=== PATIENT | male | born 1970 | race Caucasian/White ===

== ENCOUNTER 2020-01-26 09:31 | Outpatient (REF) | payer MEDICAID, SELFPAY | END 2020-01-26 09:32 | disposition home or self-care (01) | LOC: HO.LAB 09:31 | PROVIDERS: Visit Provider Internal Medicine | DX: Z20.828 Contact with and (suspected) exposure to other viral communicable diseases (principal) | CPT/HCPCS: 87635 ==

== ENCOUNTER → 2020-02-09 15:26 | Outpatient (BNVA) | payer MEDICAID, SELFPAY | PROVIDERS: Visit Provider Physician Assistant | DX: Z01.818 Encounter for other preprocedural examination (principal) | CPT/HCPCS: 99212 ==

== ENCOUNTER 2020-02-15 14:43 | Outpatient (REF) | payer MEDICAID, SELFPAY | END 2020-02-15 14:44 | disposition home or self-care (01) | LOC: HO.LAB 14:43 | PROVIDERS: Visit Provider Internal Medicine | DX: Z20.828 Contact with and (suspected) exposure to other viral communicable diseases (principal) | CPT/HCPCS: 87635 ==

== ENCOUNTER 2020-02-28 17:39 | Outpatient (REF) | payer MEDICAID, SELFPAY | END 2020-02-28 17:40 | disposition home or self-care (01) | LOC: HO.LAB 17:39 | PROVIDERS: Visit Provider Internal Medicine | DX: Z20.828 Contact with and (suspected) exposure to other viral communicable diseases (principal) | CPT/HCPCS: C9803; U0003 ==

== ENCOUNTER 2020-03-09 17:48 | Emergency (ER) | payer MEDICAID, SELFPAY ==
[2020-03-09 18:39] VITALS: BP 136/87; PULSE 106; RESP 20; TEMP 36.1; O2SAT 99; BMI 60.5
--- NOTE | 2020-03-09 19:42 | ED.GENADULT ---
HPI - General Adult General Chief complaint: General Medical Stated complaint: HI BLOOD SUGAR Time Seen by Provider: 03/09/20 19:41 Source: patient Mode of arrival: ambulatory Limitations: no limitations History of Present Illness HPI narrative: This is a 49-year-old male otherwise healthy, no known history of diabetes presented today with few days of polyuria, polydipsia, and blurry vision, his with diabetic checked his blood sugar found it high, in the ED also found his blood sugar is above 400. Patient otherwise has no other symptoms. Related Data Previous Rx's Medication Instructions Recorded miralax See Rx Instructions PO 02/09/20 USEASDIRECTD #238 g bisacodyl 5 mg tablet,delayed 10 mg PO ONCE 1 Days #2 tab 03/03/20 release polyethylene glycol 3350 17 238 g PO .COMPLEX 1 Days #238 g 03/03/20 gram/dose oral powder metformin 500 mg PO BID #60 tab 03/09/20 Allergies Allergy/AdvReac Type Severity Reaction Status Date / Time No Known Allergies Allergy Unverified 01/06/20 16:59 Review of Systems Review of Systems: All other systems are reviewed and are negative Constitutional: Reports as per HPI and Reports no additional constitutional complaints Eyes: Reports as per HPI and Reports no additional eye complaints Reports system reviewed and no additional complaints, except as documented Cardiovascular: Reports as per HPI and Reports no additional cardiovascular complaints Respiratory: Reports as per HPI and Reports no additional respiratory complaints Gastrointestinal: Reports as per HPI and Reports no additional gastrointestinal complaints Genitourinary: Reports no additional female genitourinary complaints Musculoskeletal: Reports no additional musculoskeletal complaints Skin/Breast: Reports system reviewed and no additional complaints, except as docu Psychiatric: Reports no additional psychiatric complaints Endocrine: Reports no additional endocrine complaints Hematologic/Lymphatic: Reports no additional hematologic/lymphatic complaints Allergic/Immunologic: Reports no additional allergic/immunologic complaints Reports system reviewed and no additional complaints, except as documented and Reports Abnormal speech present [facility] Past Medical History Medical History Asthma Family History Family History Father No problems noted. Social History Social History Alcohol intake: current Smoking Status: Former smoker Advance Directives: No Physical Exam Vital Signs: Vital Signs: Last Vital Signs Temp 98.9 F 03/09/20 20:51 Pulse 92 03/09/20 20:51 Resp 16 03/09/20 20:51 BP 141/98 H 03/09/20 20:51 Pulse Ox 100 03/09/20 20:51 Body Mass Index 60.5 Vital signs have been reviewed as normal and appeared to be correct. Blood pressure in the high range. Heart rate in the high range. Respiration rate normal. Temperature normal. Oxygen saturation normal. Appearance: Alert. Oriented X3. No acute distress. Head: Normal external exam. Normocephalic. Atraumatic. No James signs noted. No raccoon eyes noted Eyes: PERRLA. EOMI. Conjunctiva and sclera normal. Eyelids normal. ENT: EAC normal. TM's Normal. Pharynx normal. Uvula midline. Moist mucous membranes. No trismus noted. No drooling noted. No muffled voice noted. Neck: Normal inspection. Neck supple. FROM. No adenopathy. Thyroid Normal. No meningeal signs. No neck mass noted. CVS: Normal heart rate and rhythm. Heart sound normal. No murmurs noted. Pulses normal throughout. Respiratory: No respiratory distress. Painless inspiration. Breath sounds normal. No wheezes/rales/rhonchi noted. Chest nontender. No accessory muscle usage noted or decreased air movement noted. Abdomen: Soft and nontender. Bowel sounds normal in all 4 quadrants. No distention noted. No organomegaly noted. No visible injury noted. Back: No CVA tenderness. Full range of motion noted. Skin: Skin warm and dry. Normal skin color. Normal skin turgor. No rashes/lesions/lacerations noted. Extremities: No lower extremity edema. Extremities exhibit normal range of motion. Extremities nontender. Neuro: Oriented X 3. No motor deficit. No sensory deficit. Reflexes normal. Medical Decision Making MDM Narrative Medical decision making narrative: Assessment and plan. 49-year-old male who is otherwise healthy presented with new onset diabetes symptoms, will discharge the patient on metformin prescription, drink plenty of fluids, follow-up with PCP to continue managing his diabetes. Lab Data Lab results reviewed: Yes I reviewed the patient's lab results. Result diagrams: 03/09/20 21:00 03/09/20 21:00 Labs: Lab Results 03/09/20 03/09/20 03/09/20 Range/Units 21:00 21:00 21:13 WBC 7.4 (4.8-10.8) X10*3/uL RBC 5.16 (4.60-5.80) X10*6/uL Hgb 15.7 (14.0-18.0) g/dl Hct 43.9 (42-52) % MCV 85.1 (80-98) fL MCH 30.4 (27.0-33.0) pg MCHC 35.8 (31.0-36.0) g/dl RDW 12.2 (11.0-16.0) % Plt Count 176 (160-400) X10*3/uL MPV 10.8 (9.4-12.4) fL Immature Gran % (Auto) 0.4 (0.0-0.4) % Neut % (Auto) 69.3 (45-73) % Lymph % (Auto) 21.4 (20-40) % [place] % (Auto) 7.0 (2-11) % Eos % (Auto) 1.8 (0-4) % Baso % (Auto) 0.1 (0-2) % Lymph # (Auto) 1.6 (1.2-4.9) X10*3/uL [place] # (Auto) 0.5 (0.1-1.2) X10*3/uL Eos # (Auto) 0.1 (0.0-0.4) X10*3/uL Baso # (Auto) 0.0 (0.0-0.2) X10*3/uL Abs Immat Gran (auto) 0.03 (0.00-0.03) X10*3/uL Absolute Neuts (auto) 5.1 (2.0-8.3) X10*3/uL Absolute Nucleated RBC 0.000 (0.0-0.012) X10*3/uL Nucleated RBC % (auto) 0.0 (0.0-0.2) /100WBC Sodium 135 (135-145) mmol/L Potassium 4.6 (3.3-5.1) mmol/l Chloride 99 (96-108) mmol/L Carbon Dioxide 26 (22-29) mmol/L Anion Gap 15 (12-20) BUN 12 (9-16) mg/dL Creatinine 1.29 (0.5-1.4) mg/dL Estim Creat Clear Calc 105.2 Estimated GFR 59 Random Glucose 497 H* (60-115) mg/dL Calcium 9.0 (8.4-10.2) mg/dL Total Bilirubin 1.2 H (0.0-1.0) mg/dL Direct Bilirubin 0.3 (0.0-0.5) mg/dL AST 20 (5-37) U/L ALT 43 H (0-40) U/L Alkaline Phosphatase 90 (39-117) U/L Total Protein 7.3 (6.5-8.0) g/dL Albumin 4.8 (3.5-5.0) g/dL Lipase 27 (8-78) U/L Urine Color YELLOW Urine Appearance CLEAR Urine pH 6.5 (5.0-8.0) Ur Specific [place] 1.010 (1.005-1.025) Urine Protein NEG (NEG-TRACE) MG/DL Urine Glucose (UA) >=1000 H (NEG) MG/DL Urine Ketones NEG (NEG) MG/DL Urine Blood NEG (NEG) Urine Nitrite NEG (NEG) Ur Leukocyte Esterase NEG (NEG) Urine RBC 0 (0) /HPF Urine WBC 0 (0-4) /HPF Ur Squamous Epith Cells NONE /LPF Urine Bacteria TRACE /LPF Discharge Plan Discharge Clinical Impression: Diabetes mellitus, new onset Patient Disposition: Home, Self-Care Instructions: Type 2 Diabetes in Adults: New Diagnosis (ED) Prescriptions: New metformin 500 mg tablet 500 mg PO BID Qty: 60 RF: 0 No Action polyethylene glycol 3350 [Miralax] 17 gram/dose powder 238 g PO .COMPLEX 1 Days Qty: 238 RF: 0 bisacodyl [Dulcolax (bisacodyl)] 5 mg tablet,delayed release (DR/EC) 10 mg PO ONCE 1 Days Qty: 2 RF: 0 miralax See Rx Instructions PO USEASDIRECTD Qty: 238 RF: 0 Referrals: Physician,Unknown [Primary Care Provider] - 2 days
[2020-03-09 20:51] VITALS: BP 141/98; PULSE 92; RESP 16; TEMP 37.2; O2SAT 100
[2020-03-09 21:07] LABS: MANUAL DIFF FLAG NO
[2020-03-09 21:08] LABS: Basophils Percent Auto 0.1 % (0-2); Eosinophils Absolute Auto 0.1 X10*3/uL (0.0-0.4); Eosinophils Percent Auto 1.8 % (0-4); Hematocrit 43.9 % (42-52); Hemoglobin 15.7 g/dl (14.0-18.0); Imm Gran Abs Auto 0.03 X10*3/uL (0.00-0.03); Imm Gran Pct Auto 0.4 % (0.0-0.4); Lymphocytes Absolute Auto 1.6 X10*3/uL (1.2-4.9); Lymphocytes Percent Auto 21.4 % (20-40); Mean Corpuscular HGB Conc 35.8 g/dl (31.0-36.0); Mean Corpuscular Hemoglobin 30.4 pg (27.0-33.0); Mean Corpuscular Volume 85.1 fL (80-98); Mean Platelet Volume 10.8 fL (9.4-12.4); Monocytes Absolute Auto 0.5 X10*3/uL (0.1-1.2); Neutrophils Absolute Auto 5.1 X10*3/uL (2.0-8.3); Neutrophils Percent Auto 69.3 % (45-73); Platelet Count 176 X10*3/uL (160-400); Red Blood Count 5.16 X10*6/uL (4.60-5.80); Red Cell Distribution Width 12.2 % (11.0-16.0); White Blood Count 7.4 X10*3/uL (4.8-10.8)
[2020-03-09] MEDS: metFORMIN HCl 1,000 MG TABLET 1000 MG PO (21:08)
[2020-03-09] MEDS: 0.9 % Sodium Chloride 500 ML 1000 ML IV (21:10)
[2020-03-09 21:21] LABS: Glucose Urine UA >=1000 MG/DL (NEG); Leukocyte Esterase Urine NEG (NEG); Nitrite Urine NEG (NEG); PH 6.5 (5.0-8.0); Urine Blood NEG (NEG); Urine Ketones NEG (NEG); Urine Protein NEG (NEG-TRACE)
[2020-03-09 21:22] LABS: Appearance Urine CLEAR; Color Urine YELLOW
[2020-03-09 21:28] LABS: Bacteria Urine TRACE /LPF; RBC Urine 0 /HPF (0); WBC Urine 0 /HPF (0-4)
[2020-03-09 21:43] LABS: Alanine Aminotransferase 43 U/L (0-40); Albumin Level 4.8 g/dL (3.5-5.0); Alkaline Phosphatase 90 U/L (39-117); Anion Gap 15 (12-20); Aspartate Amino Transferase 20 U/L (5-37); Bilirubin Direct 0.3 mg/dL (0.0-0.5); Bilirubin Total 1.2 mg/dL (0.0-1.0); Blood Urea Nitrogen 12 mg/dL (9-16); Carbon Dioxide 26 mmol/L (22-29); Chloride 99 mmol/L (96-108); Creatinine Clr Calc Pharmacy 105.2; Estimated Glomerular Filt Rate 59; Glucose Random 497 mg/dL (60-115); Lipase 27 U/L (8-78); Potassium 4.6 mmol/l (3.3-5.1); Sodium 135 mmol/L (135-145); Total Protein 7.3 g/dL (6.5-8.0)
[2020-03-10 00:14] VITALS: BP 132/89; PULSE 81; RESP 16; TEMP 37.1; O2SAT 100
[2020-03-10 00:54] LABS: Glucose, Whole Blood 283 mg/dL (60-115)
[2020-03-10 02:52] LABS: Estimated Average Glucose 235 mg/dL; Hemoglobin A1c % 9.8 %
[2020-03-10 07:29] LABS: Glucose, Whole Blood 498 mg/dL (60-115)
== END 2020-03-10 00:30 | disposition home or self-care (01) ==
PROVIDERS: Emergency Provider Emergency Medicine
DX: E11.9 Type 2 diabetes mellitus without complications (principal); R35.8 Other polyuria; Z79.899 Other long term (current) drug therapy
CPT/HCPCS: 36415; 80048; 80076; 81001; 82947; 83036; 83690; 85025; 99284

== ENCOUNTER 2020-03-15 09:57 | Outpatient (REF) | payer MEDICAID, SELFPAY | END 2020-03-15 09:58 | disposition home or self-care (01) | LOC: HO.LAB 09:57 | PROVIDERS: Visit Provider Internal Medicine | DX: Z20.828 Contact with and (suspected) exposure to other viral communicable diseases (principal) | CPT/HCPCS: C9803; U0003 ==

== ENCOUNTER 2020-05-25 13:23 | Outpatient (REF) | payer MEDICAID, SELFPAY | END 2020-05-25 13:24 | disposition home or self-care (01) | LOC: HO.LAB 13:23 | PROVIDERS: Visit Provider Internal Medicine | DX: Z20.822 Contact with and (suspected) exposure to COVID-19 (principal) | CPT/HCPCS: 36415; C9803; U0003; U0005 ==

== ENCOUNTER 2020-06-13 10:18 | Outpatient (REF) | payer MEDICAID, SELFPAY | END 2020-06-13 10:19 | disposition home or self-care (01) | LOC: HO.LAB 10:18 | PROVIDERS: PCP Internal Medicine; Visit Provider Internal Medicine | DX: Z20.822 Contact with and (suspected) exposure to COVID-19 (principal) | CPT/HCPCS: 36415; C9803; U0003; U0005 ==

== ENCOUNTER 2020-06-21 18:03 | Emergency (ER) | payer MEDICAID, SELFPAY ==
--- NOTE | ~2020-06-21 | XR_ITS ---
EXAMINATION: XR CHEST CLINICAL INFORMATION: Left-sided chest pain COMPARISON: 04/06/2019 TECHNIQUE: Frontal view of the chest was obtained. FINDINGS: No acute finding. Exams comparable to previous. No obvious failure or infiltrate. There is no effusion. Low lung volumes. XR/XR chest 1V IMPRESSION: No acute process.
[2020-06-21 19:06] VITALS: BP 142/92; PULSE 100; RESP 16; TEMP 37.1; O2SAT 98; BMI 25.8
--- NOTE | 2020-06-21 19:09 | ECG_ITS ---
Test Reason : CHEST PAIN Blood Pressure : / mmHG Vent. Rate : 104 BPM Atrial Rate : 104 BPM P-R Int : 146 ms QRS Dur : 086 ms QT Int : 338 ms P-R-T Axes : 041 030 061 degrees QTc Int : 444 ms Sinus tachycardia Cannot exclude old inferior infarct but could be normal variant Abnormal ECG When compared with ECG of 21-APR-2014 18:53, No significant change was found Referred By: Generic ED Physician Electronically Signed By:YVONNE FAUSTIN
[2020-06-21 19:23] LABS: MANUAL DIFF FLAG NO
[2020-06-21 19:27] LABS: Basophils Percent Auto 0.2 % (0-2); Eosinophils Absolute Auto 0.1 X10*3/uL (0.0-0.4); Eosinophils Percent Auto 1.2 % (0-4); Hemoglobin 16.8 g/dl (14.0-18.0); Imm Gran Abs Auto 0.03 X10*3/uL (0.00-0.03); Imm Gran Pct Auto 0.4 % (0.0-0.4); Lymphocytes Absolute Auto 1.9 X10*3/uL (1.2-4.9); Lymphocytes Percent Auto 22.8 % (20-40); Mean Corpuscular Hemoglobin 30.2 pg (27.0-33.0); Mean Corpuscular Volume 86.2 fL (80-98); Mean Platelet Volume 9.9 fL (9.4-12.4); Monocytes Absolute Auto 0.6 X10*3/uL (0.1-1.2); Monocytes Percent Auto 6.9 % (2-11); Neutrophils Absolute Auto 5.7 X10*3/uL (2.0-8.3); Neutrophils Percent Auto 68.5 % (45-73); Platelet Count 231 X10*3/uL (160-400); Red Blood Count 5.57 X10*6/uL (4.60-5.80); Red Cell Distribution Width 12.3 % (11.0-16.0); White Blood Count 8.3 X10*3/uL (4.8-10.8)
[2020-06-21 19:55] LABS: Anion Gap 14 (12-20); Blood Urea Nitrogen 13 mg/dL (9-16); Calcium 9.8 mg/dL (8.4-10.2); Carbon Dioxide 27 mmol/L (22-29); Chloride 103 mmol/L (96-108); Creatinine Clr Calc Pharmacy 79.1; Estimated Glomerular Filt Rate > 60; Glucose Random 115 mg/dL (60-115); Sodium 140 mmol/L (135-145)
[2020-06-21 19:59] LABS: Troponin-I High Sensitivity < 3.5 ng/L (<3.5-35.0)
[2020-06-21 23:21] VITALS: BP 120/83; PULSE 97; RESP 18; TEMP 36.7; O2SAT 99
--- NOTE | 2020-06-22 00:24 | PC.NURSE ---
field service poultry technician at bedside to obtain Covid swab.
--- NOTE | 2020-06-22 00:31 | PC.NURSE ---
TIME MOTION ANALYST at bedside for primary eval.
[2020-06-22 00:45] LABS: COVID-19 Test Negative (Negative)
[2020-06-22] MEDS: Ibuprofen 600 MG TABLET PO (00:47)
--- NOTE | 2020-06-22 00:48 | PC.NURSE ---
Medicated with Motrin per JUN.
--- NOTE | 2020-06-22 01:23 | ED.CHESTPAIN ---
HPI - Chest Pain General Chief Complaint: Chest Pain Stated Complaint: CHEST PRESSURE Time Seen by Provider: 06/22/20 00:00 Source: patient Mode of arrival: ambulatory Limitations: no limitations History of Present Illness HPI narrative: 49-year-old male with past medical history of asthma and diabetes presents with intermittent left-sided chest pain that woke him up this morning. This chest pain is reproducible, states that he has not any medications to help this pain. Denies fevers, chills, palpitations, shortness of breath, shortness breath on exertion, edema, abdominal pain, abdominal distention, dysuria, hematuria, or any other concerning symptoms. Does not report any traumatic injury, repetitive motions, or sick contacts MD complaint: chest pain Onset (ago): day(s) (1) Timing of current episode: episodic Prior episodes: No Onset: during rest Pain location: left chest Pain radiation: none Severity: moderate Quality: aching and shooting Relieving factors: nothing Exacerbating factors: palpation and movement Treatment prior to arrival: none Risk Factors Coronary artery disease risk factors: none Thoracic aortic dissection risk factors: none Related Data Previous Rx's Medication Instructions Recorded metformin 500 mg PO BID #60 tab 03/09/20 bisacodyl 5 mg tablet,delayed 10 mg PO ONCE 1 Days #2 tab 05/02/20 release polyethylene glycol 3350 17 238 g PO ONCE 1 Days #238 g 05/02/20 gram/dose oral powder ibuprofen 600 mg PO TID PRN #30 tab 06/22/20 Allergies Allergy/AdvReac Type Severity Reaction Status Date / Time No Known Allergies Allergy Unverified 06/21/20 19:12 Review of Systems Review of Systems: Constitutional: No Weight loss, No Fever, No Chills, No Night Sweats, No Fatigue, No Malaise ENT/Mouth: No Hearing loss, No Ear Pain, No Nasal Congestion, No Sinus Pain, No Hoarseness, No sore throat, No Rhinorrhea, No Swallowing Difficulty Eyes: No Eye Pain, No Swelling, No Redness, No Foreign Body, No Discharge, No Vision Changes Cardiovascular: Positive left-sided intermittent sharp Chest Pain, no SOB, no Dyspnea on Exertion, No Orthopnea, No Edema, No Palpitations Respiratory: No Cough, No Sputum, No Wheezing, No Smoke Exposure, No Dyspnea Gastrointestinal: No Nausea, No Vomiting, No Diarrhea, No abdominal Pain, No Hematochezia, No Melena Genitourinary: No irregular bleeding, No Dysuria, No Urinary Frequency, No Hematuria, No Urinary Incontinence, No Urgency, No Flank Pain, No Urinary Flow Changes, No Hesitancy Musculoskeletal: No joint pain, No Myalgias, No Joint Swelling Skin: No Skin Lesions, No rash Neuro: No Weakness, No Numbness, No Paresthesias, No Loss of Consciousness, No Dizziness, No Headache Psych: No Anxiety/Panic, No Depression, No SI/HI/AH/VH Heme/Lymph: No Bruising, No Bleeding,No Lymphadenopathy Endocrine: No Polyuria, No Polydipsia, No Temperature Intolerance Yes all other systems are reviewed and are negative [facility] Past Medical History Attestation statement: The following information was validated with the patient. Source: old records reviewed Medical History (Updated 06/22/20 @ 01:26 by Stephanie Rodriguez NP) Asthma Diabetes mellitus Family History Family History Father No problems noted. Social History Social History Alcohol intake: current Smoking Status: Former smoker Advance Directives: No Advance Directives Information Provided: Yes Physical Exam Vital Signs: Vital Signs: Last Vital Signs Temp 98.1 F 06/21/20 23:21 Pulse 78 06/22/20 01:32 Resp 16 06/22/20 01:32 BP 126/86 06/22/20 01:32 Pulse Ox 97 06/22/20 01:32 Body Mass Index 25.8 Appearance: Alert. Oriented X3. No acute distress. Eyes: Pupils equal, round and reactive to light. EOMI, sclera nonicteric ENT: Pharynx normal. Moist mucous membranes Neck: Normal inspection. Neck supple. CVS: Normal heart rate and rhythm. Pulses normal. Respiratory: No respiratory distress. Lung sounds clear to auscultation all lobes. Chest pain reproducible to palpation to the left side Abdomen: Soft and nontender. Skin: Skin warm and dry. Normal skin color. Normal skin turgor. Extremities: No lower extremity edema. Neuro: No motor deficit. No sensory deficit. Course Course Course Narrative: 49-year-old male with past medical history of diabetes and asthma presents with 1 day of intermittent left-sided reproducible chest pain. Did not take any medications for this pain. Labs are unremarkable, EKG is normal sinus rhythm, troponins are negative. Will order a COVID swab. COVID swab is negative. This is most likely muscular skeletal problems. Chest x-rays negative for acute findings. Plan of care is to discharge home with prescription for Motrin. Patient verbalized understanding of and agrees plan of care. MDM - Chest Pain Differential Diagnosis Differential diagnosis: Likely fracture of rib, pneumothorax, stable angina, atypical chest pain, st elevation myocardial infarction, costochondritis and chest pain Medical Records Data Attestation: I reviewed the patient's medical records. Lab Data Attestation: I reviewed the patient's lab results. Result diagrams: 06/21/20 19:11 06/21/20 19:11 Labs: Lab Results 06/21/20 06/21/20 06/21/20 Range/Units 19:11 19:11 19:11 WBC 8.3 (4.8-10.8) X10*3/uL RBC 5.57 (4.60-5.80) X10*6/uL Hgb 16.8 (14.0-18.0) g/dl Hct 48.0 (42-52) % MCV 86.2 (80-98) fL MCH 30.2 (27.0-33.0) pg MCHC 35.0 (31.0-36.0) g/dl RDW 12.3 (11.0-16.0) % Plt Count 231 D (160-400) X10*3/uL MPV 9.9 (9.4-12.4) fL Immature Gran % (Auto) 0.4 (0.0-0.4) % Neut % (Auto) 68.5 (45-73) % Lymph % (Auto) 22.8 (20-40) % [place] % (Auto) 6.9 (2-11) % Eos % (Auto) 1.2 (0-4) % Baso % (Auto) 0.2 (0-2) % Lymph # (Auto) 1.9 (1.2-4.9) X10*3/uL [place] # (Auto) 0.6 (0.1-1.2) X10*3/uL Eos # (Auto) 0.1 (0.0-0.4) X10*3/uL Baso # (Auto) 0.0 (0.0-0.2) X10*3/uL Abs Immat Gran (auto) 0.03 (0.00-0.03) X10*3/uL Absolute Neuts (auto) 5.7 (2.0-8.3) X10*3/uL Absolute Nucleated RBC 0.000 (0.0-0.012) X10*3/uL Nucleated RBC % (auto) 0.0 (0.0-0.2) /100WBC Hold Blue Top SEE NOTE Sodium 140 (135-145) mmol/L Potassium 4.0 (3.3-5.1) mmol/L Chloride 103 (96-108) mmol/L Carbon Dioxide 27 (22-29) mmol/L Anion Gap 14 (12-20) BUN 13 (9-16) mg/dL Creatinine 1.03 (0.5-1.4) mg/dL Estim Creat Clear Calc 79.1 Estimated GFR > 60 Random Glucose 115 D (60-115) mg/dL Calcium 9.8 D (8.4-10.2) mg/dL Troponin I High Sens (<3.5-35.0) ng/L COVID-19 (DEV) (Negative) COVID-19 Clin Com 06/21/20 06/22/20 Range/Units 19:11 00:25 WBC (4.8-10.8) X10*3/uL RBC (4.60-5.80) X10*6/uL Hgb (14.0-18.0) g/dl Hct (42-52) % MCV (80-98) fL MCH (27.0-33.0) pg MCHC (31.0-36.0) g/dl RDW (11.0-16.0) % Plt Count (160-400) X10*3/uL MPV (9.4-12.4) fL Immature Gran % (Auto) (0.0-0.4) % Neut % (Auto) (45-73) % Lymph % (Auto) (20-40) % [place] % (Auto) (2-11) % Eos % (Auto) (0-4) % Baso % (Auto) (0-2) % Lymph # (Auto) (1.2-4.9) X10*3/uL [place] # (Auto) (0.1-1.2) X10*3/uL Eos # (Auto) (0.0-0.4) X10*3/uL Baso # (Auto) (0.0-0.2) X10*3/uL Abs Immat Gran (auto) (0.00-0.03) X10*3/uL Absolute Neuts (auto) (2.0-8.3) X10*3/uL Absolute Nucleated RBC (0.0-0.012) X10*3/uL Nucleated RBC % (auto) (0.0-0.2) /100WBC Hold Blue Top Sodium (135-145) mmol/L Potassium (3.3-5.1) mmol/L Chloride (96-108) mmol/L Carbon Dioxide (22-29) mmol/L Anion Gap (12-20) BUN (9-16) mg/dL Creatinine (0.5-1.4) mg/dL Estim Creat Clear Calc Estimated GFR Random Glucose (60-115) mg/dL Calcium (8.4-10.2) mg/dL Troponin I High Sens < 3.5 (<3.5-35.0) ng/L COVID-19 (DEV) Negative (Negative) COVID-19 Clin Com See Note Imaging Data Chest x-ray: Attestation: I personally reviewed and interpreted this imaging study as follows: Radiologist's impression: EXAMINATION: XR CHEST CLINICAL INFORMATION: Left-sided chest pain COMPARISON: 04/06/2019 TECHNIQUE: Frontal view of the chest was obtained. FINDINGS: No acute finding. Exams comparable to previous. No obvious failure or infiltrate. There is no effusion. Low lung volumes. XR/XR chest 1V IMPRESSION: No acute process. Scores Heart Score History: -1- moderately suspicious ECG: -0- normal Age: -1- >45 - <65 Risk factory: -1- 1 or 2 risk factors Troponin: -0- < or = normal limit Score: 3 Risk: 1.7% Discharge Plan Discharge Clinical Impression: Atypical chest pain, Costalchondritis Patient Disposition: Home, Self-Care Instructions: Noncardiac Chest Pain (ED) Additional Instructions: Te evaluaron por dolor en el pecho. Tu electrocardiograma es el ritmo sinusal normal, peguero troponina es 0. La prueba de COVID es negativa, la radiograf?a de t?rax es negativa para los hallazgos agudos que requieren chance intervenci?n emergente. [place] podr?a ser chance costocondritis o un dolor esquel?jacklyn muscular. Por favor, fani a Motrin leopoldo se indica. Seguimiento con el m?dico de atenci?n primaria para un mayor seguimiento. Homa por elegir brent departamento de emergencias para peguero evaluaci?n. Por favor, edin un seguimiento con el m?dico de atenci?n primaria seg?n sea necesario. Regrese al servicio de emergencias para cualquier s?ntoma nuevo, preocupante o que empeore. You were evaluated for chest pain. Your EKG is normal sinus rhythm, her troponin is 0. Your COVID test is negative, your chest x-ray is negative for acute findings requiring emergent intervention. This could possibly be a costochondritis or a muscular skeletal pain. Please take Motrin as directed. Follow-up with primary care physician for further follow-up. Thank you for choosing this emergency department for evaluation. Please follow-up with primary care physician as needed. Return to the emergency department for any new, concerning, or worsening symptoms. Prescriptions: New ibuprofen 600 mg tablet 600 mg PO TID PRN (Reason: pain) Qty: 30 RF: 0 No Action polyethylene glycol 3350 [Miralax] 17 gram/dose powder 238 g PO ONCE 1 Days Qty: 238 RF: 0 bisacodyl [Dulcolax (bisacodyl)] 5 mg tablet,delayed release (DR/EC) 10 mg PO ONCE 1 Days Qty: 2 RF: 0 metformin 500 mg tablet 500 mg PO BID Qty: 60 RF: 0 Interventions: ED Discharge Assessment Last Done: 06/22/20 01:39 Discharge Date/Time: 06/22/20 01:41
[2020-06-22 01:32] VITALS: BP 126/86; PULSE 78; RESP 16; O2SAT 97
--- NOTE | 2020-06-22 01:34 | PC.NURSE ---
Pt reports some relief of chest discomfort after Motrin. VSS, awaiting DC paperwork.
== END 2020-06-22 01:41 | disposition home or self-care (01) ==
PROVIDERS: Nurse Practitioner Family; Emergency Provider Emergency Medicine
DX: R07.89 Other chest pain (principal); M94.0 Chondrocostal junction syndrome [Tietze]; Z20.822 Contact with and (suspected) exposure to COVID-19; Z79.899 Other long term (current) drug therapy
CPT/HCPCS: 36415; 71045; 80048; 84484; 85025; 87635; 93005; 99284

== ENCOUNTER 2020-06-28 10:45 | Outpatient (REF) | payer MEDICAID, SELFPAY | END 2020-06-28 10:46 | disposition home or self-care (01) | LOC: HO.LAB 10:45 | PROVIDERS: Visit Provider Internal Medicine | DX: Z20.822 Contact with and (suspected) exposure to COVID-19 (principal) | CPT/HCPCS: 36415; C9803; U0003; U0005 ==

== ENCOUNTER 2020-11-12 18:52 | Emergency (ER) | payer MEDICAID, SELFPAY ==
--- NOTE | ~2020-11-12 | XR_ITS ---
EXAMINATION: XR LUMBOSACRAL SPINE CLINICAL INFORMATION: Lower back pain COMPARISON: 09/21/2018 TECHNIQUE: Three views of the lumbosacral spine. FINDINGS: Some minimal spondylitic changes are present with some endplate osteophytes most marked at the superior endplates of L3 and L4. Disc spaces well preserved. Disc heights are maintained. Some mild arthritic changes are present at the L5-S1 facet joints. Compared to the prior study, there's been no interval change XR/XR lumbar spine 2-3V IMPRESSION: Some minimal spondylitic changes as described above. No acute finding.
[2020-11-12 19:02] VITALS: BP 119/66; PULSE 88; RESP 18; TEMP 36.9; O2SAT 98; BMI 26.6
[2020-11-12 20:56] VITALS: BP 135/86; PULSE 78; RESP 17; TEMP 36.7; O2SAT 100
--- NOTE | 2020-11-12 21:07 | ED.BACK ---
HPI - Back Pain/Injury General Chief Complaint: Back Pain/Injury Stated Complaint: Back pain Source: patient Mode of arrival: ambulatory Limitations: no limitations History of Present Illness HPI Narrative: 49-year-old male with past medical history of asthma presents with lower back pain for 2 days. He does not report any injury, repetitive motion, or trauma. He states to have some sciatica going down bilateral lower extremities, but denies symptoms indicating cauda equina, bowel and bladder incontinence, fevers, chills, chest pain or pressure, palpitations, shortness of breath, abdominal pain, abdominal distention, dysuria, hematuria, nausea, vomiting, diarrhea, constipation, or any other concerning symptoms. MD elicited complaint: back pain Pertinent past history: prior back pain Onset (ago): day(s) (2) Timing: constant Severity: moderate Pain scale (0-10): 5 Similar Symptoms Previously: Yes Quality: aching, tingling and throbbing Location: lumbar spine Radiation: left upper leg and right upper leg Exacerbating factors: movement Relieving factors: none Context: unknown Associated symptoms: difficulty walking Treatments prior to arrival: NSAIDS Work related injury: No Related Data Home Medications Medication Instructions Recorded Confirmed albuterol sulfate 1 vial INHALATION Q4H PRN 06/28/20 06/28/20 albuterol sulfate [ProAir HFA] 2 puff PO Q4H PRN 06/28/20 06/28/20 ascorbic acid (vitamin C) [Vitamin 2 tab PO DAILY 06/28/20 06/28/20 C] fluticasone propionate 2 spray INTRANASAL DAILY 06/28/20 06/28/20 loratadine-pseudoephedrine 1 tab PO BEDTIME 06/28/20 06/28/20 [Allergy Relief D-24hr] Previous Rx's Medication Instructions Recorded metformin 500 mg PO BID #60 tab 03/09/20 bisacodyl 5 mg tablet,delayed 10 mg PO ONCE 1 Days #2 tab 05/02/20 release polyethylene glycol 3350 17 238 g PO ONCE 1 Days #238 g 05/02/20 gram/dose oral powder ibuprofen 600 mg PO TID PRN #30 tab 06/22/20 cyclobenzaprine 10 mg PO TID PRN #20 tab 11/12/20 Allergies Allergy/AdvReac Type Severity Reaction Status Date / Time No Known Allergies Allergy Unverified 09/06/20 15:41 Review of Systems Review of Systems: Constitutional: No Fever, No Chills ENT/Mouth: No Ear Pain, No Hoarseness, No sore throat Eyes: No Eye Pain, No Swelling, No Redness, No Foreign Body Cardiovascular: No Chest Pain, No SOB Respiratory: No Cough, No Dyspnea Gastrointestinal: No Nausea, No Vomiting, No Diarrhea, No abdominal Pain Genitourinary: No Dysuria, No Hematuria Musculoskeletal: positive lower back pain, No Myalgias, No Joint Swelling Skin: No Skin lacerations, No rash Neuro: No Weakness, No Numbness, No Paresthesias, No Loss of Consciousness, No Dizziness, No Headache Psych: No Anxiety/Panic, No Depression Heme/Lymph: no easy bruising, no Lymphadenopathy Endocrine: No Polyuria, No Polydipsia Yes all other systems are reviewed and are negative [facility] Past Medical History Attestation statement: The following information was validated with the patient. Source: old records reviewed Medical History Asthma Diabetes mellitus Family History Family History Father No problems noted. Social History Social History Alcohol intake: current Advance Directives: No Advance Directives Information Provided: Yes Physical Exam Vital Signs: Vital Signs: Last Vital Signs Temp 98.0 F 11/12/20 22:31 Pulse 73 11/12/20 22:31 Resp 16 11/12/20 22:31 BP 123/86 11/12/20 22:31 Pulse Ox 99 11/12/20 22:31 Body Mass Index 26.6 Appearance: Alert. Oriented X3. No acute distress. Eyes: Pupils equal, round and reactive to light. ENT: Pharynx normal. Neck: Normal inspection. Neck supple. No vertebral step-offs or vertebral tenderness. CVS: Normal heart rate and rhythm. Pulses normal. Respiratory: No respiratory distress. Breath sounds normal. Abdomen: Soft and nontender. Skin: Skin warm and dry. Normal skin color. Normal skin turgor. Extremities: No lower extremity edema. Moves all extremities against resistance, get well balanced well coordinated. Brisk capillary refill in equal pedal pulses. Neuro: No motor deficit. No sensory deficit. Cranial nerves 2-12 intact. No focal neural deficits. Course Course Course Narrative: 49-year-old male presents with lower back pain. Has had a history of lower back pain and denies any trauma, repetitive motions, lifting, for indication of cauda equina. Will order x-rays. X-rays indicate degenerative disc disease, will refer to Pain Management, and/or cyclobenzaprine. Patient verbalizes understanding of and agrees to plan of care discharge home. MDM - Back Pain/Injury Differential Diagnosis Differential diagnosis: Likely lumbar radiculopathy, sciatica, strain of lumbar region and discitis Medical Records Attestation: I reviewed the patient's medical records. Imaging Data Lumbar spine x-ray: Attestation: I personally reviewed and interpreted this imaging study as follows: Radiologist's impression: EXAMINATION: XR LUMBOSACRAL SPINE CLINICAL INFORMATION: Lower back pain COMPARISON: 09/21/2018 TECHNIQUE: Three views of the lumbosacral spine. FINDINGS: Some minimal spondylitic changes are present with some endplate osteophytes most marked at the superior endplates of L3 and L4. Disc spaces well preserved. Disc heights are maintained. Some mild arthritic changes are present at the L5-S1 facet joints. Compared to the prior study, there's been no interval change XR/XR lumbar spine 2-3V IMPRESSION: Some minimal spondylitic changes as described above. No acute finding. Discharge Plan Discharge Clinical Impression: Sciatica, Degenerative disc disease Patient Disposition: Home, Self-Care Instructions: Sciatica (ED), Degenerative Disc Disease (ED) Additional Instructions: You were evaluated for lower back pain. X-rays indicate degenerative disc disease. Please follow-up with Dr. Grant for pain management. I prescribed cyclobenzaprine which is a muscle relaxer. Please do not drive or operate machinery while taking this medication. This medication may delay reaction time, increased risk for falls, and cause drowsiness. Thank you for choosing this emergency department for evaluation. Please follow-up with primary care physician as needed. Return to the emergency department for any new, concerning, or worsening symptoms. Prescriptions: New cyclobenzaprine 10 mg tablet 10 mg PO TID PRN (Reason: muscle spasm) Qty: 20 RF: 0 No Action polyethylene glycol 3350 [Miralax] 17 gram/dose powder 238 g PO ONCE 1 Days Qty: 238 RF: 0 bisacodyl [Dulcolax (bisacodyl)] 5 mg tablet,delayed release (DR/EC) 10 mg PO ONCE 1 Days Qty: 2 RF: 0 albuterol sulfate 2.5 mg /3 mL (0.083 %) solution for nebulization 1 vial inhalation Q4H PRN (Reason: Wheezing) RF: 0 loratadine-pseudoephedrine [Allergy Relief D-24hr] 10-240 mg tablet extended release 24 hr 1 tab PO BEDTIME RF: 0 ascorbic acid (vitamin C) [Vitamin C] 500 mg tablet 2 tab PO DAILY RF: 0 albuterol sulfate [ProAir HFA] 90 mcg/actuation HFA aerosol inhaler 2 puff PO Q4H PRN (Reason: Wheezing) RF: 0 fluticasone propionate 50 mcg/actuation spray,suspension 2 spray intranasal DAILY RF: 0 metformin 500 mg tablet 500 mg PO BID Qty: 60 RF: 0 ibuprofen 600 mg tablet 600 mg PO TID PRN (Reason: pain) Qty: 30 RF: 0 Referrals: Dave Grant MD [Physician] - 2 days (Degenerative disc disease) Interventions: ED Discharge Assessment Last Done: 11/12/20 23:02 Discharge Date/Time: 11/12/20 23:04
[2020-11-12] MEDS: Ketorolac Tromethamine 60 MG/2 ML VIAL IM (21:32)
[2020-11-12] MEDS: Lidocaine 4 % Patch ADH..PATCH 2 PATCH TRANSDERMA (21:32)
--- NOTE | 2020-11-12 21:37 | PC.NURSE ---
Pt medicated per JUN. Awaiting XRay.
[2020-11-12 22:31] VITALS: BP 123/86; PULSE 73; RESP 16; TEMP 36.7; O2SAT 99
== END 2020-11-12 23:04 | disposition home or self-care (01) ==
PROVIDERS: Emergency Provider Emergency Medicine; PCP Internal Medicine
DX: M54.42 Lumbago with sciatica, left side (principal); M54.41 Lumbago with sciatica, right side; M51.36 Other intervertebral disc degeneration, lumbar region; E11.9 Type 2 diabetes mellitus without complications
CPT/HCPCS: 72100; 96372; 99284; J1885

== ENCOUNTER 2021-03-13 14:39 | Emergency (ER) | payer MEDICAID, SELFPAY ==
[2021-03-13 16:17] VITALS: BP 139/85; PULSE 85; RESP 18; TEMP 36.8; O2SAT 100; BMI 29.0
--- NOTE | 2021-03-13 16:20 | ED_ITS ---
HPI - Abdominal Pain General Chief Complaint: Abdominal Pain Stated Complaint: abd pain Time Seen by Provider: 03/13/21 16:20 Source: patient Mode of arrival: ambulatory Limitations: no limitations History of Present Illness MD elicited complaint: abdominal pain Pertinent past history: none Onset (ago): day(s) (1) Pain Consistency: constant Location: RLQ Severity: moderate Quality: aching Radiation: none Migration to: no migration Exacerbating factors: movement Relieving factors: nothing Associated symptoms: denies other symptoms Related Data Home Medications Medication Instructions Recorded Confirmed albuterol sulfate 1 vial INHALATION Q4H PRN 06/28/20 06/28/20 albuterol sulfate 90 mcg/actuation 2 puff PO Q4H PRN 06/28/20 06/28/20 aerosol inhaler (ProAir HFA) ascorbic acid (vitamin C) 500 mg 2 tab PO DAILY 06/28/20 06/28/20 tablet (Vitamin C) fluticasone propionate 50 2 spray INTRANASAL DAILY 06/28/20 06/28/20 mcg/actuation nasal spray,suspension loratadine-pseudoephedrine ER 10 1 tab PO BEDTIME 06/28/20 06/28/20 mg-240 mg tablet,extended [id number] (Allergy Relief D-24hr) Previous Rx's Medication Instructions Recorded metformin 500 mg tablet 500 mg PO BID #60 tab 03/09/20 bisacodyl 5 mg tablet,delayed 10 mg PO ONCE 1 Days #2 tab 05/02/20 release (Dulcolax (bisacodyl)) polyethylene glycol 3350 17 238 g PO ONCE 1 Days #238 g 05/02/20 gram/dose oral powder (Miralax) ibuprofen 600 mg tablet 600 mg PO TID PRN #30 tab 06/22/20 cyclobenzaprine 10 mg tablet 10 mg PO TID PRN #20 tab 11/12/20 Allergies Allergy/AdvReac Type Severity Reaction Status Date / Time No Known Allergies Allergy Verified 03/13/21 16:17 Review of Systems Review of Systems Constitutional : No Weight loss, No Fever, No Chills ENT/Mouth : No sore throat, No Rhinorrhea Eyes: No Swelling, No Redness Cardiovascular : No Chest Pain, No SOB, NoEdema Respiratory : No Cough, No Sputum, No Wheezing Gastrointestinal : no Nausea, no Vomiting,no Diarrhea, positive abdominal Pain, No Hematochezia, No Melena Genitourinary : No Dysuria, No Urinary Frequency, No Hematuria, No Urgency Musculoskeletal : No joint pain, No Myalgias, No Joint Swelling Skin : No Skin Lesions, No rash Neuro : No Weakness, No Numbness, No Dizziness, No Headache Psych : No Anxiety/Panic, No Depression Heme/Lymph: No Bruising, No Lymphadenopathy Endocrine : No Polyuria, No Polydipsia All other systems reviewed and are negative. Physical Exam Vital Signs: Vital Signs: Last Vital Signs Temp 98.2 F 03/13/21 16:17 Pulse 85 03/13/21 16:17 Resp 18 03/13/21 16:17 BP 139/85 03/13/21 16:17 Pulse Ox 100 03/13/21 16:17 Body Mass Index 29.0 Appearance: Alert. Oriented X3. No acute distress. Eyes: Pupils equal, round and reactive to light. ENT: Pharynx normal. Neck: Normal inspection. Neck supple. CVS: Normal heart rate and rhythm. Pulses normal. Respiratory: No respiratory distress. Breath sounds normal. Abdomen: Soft and moderate RLQ ttp no rebound Skin: Skin warm and dry. Normal skin color. Normal skin turgor. Extremities: No lower extremity edema. No calf ttp Neuro: Oriented X 3. No motor deficit. No sensory deficit. Course Course Course Narrative: THIS IS A RAPID MEDICAL EXAM DEFERRED ADDITIONAL HPI, ROS, PE TO PRIMARY PROVIDER 50 yo male with DM here with c/o RLQ pain but no associated symptoms no rebound or guarding - at this time labs ordered. When he comes back from waiting room would order CT scan with IV contrast for appendicitis MDM - Abdominal Pain Differential Diagnosis Differential diagnosis: Likely abdominal pain, acute appendicitis, calculus of kidney, constipation and diverticulitis; Unlikely endometriosis Lab Data Result diagrams: 03/13/21 18:53 03/13/21 18:53 Labs: Lab Results 03/13/21 03/13/21 03/13/21 Range/Units 18:52 18:53 18:53 WBC 7.8 (4.8-10.8) X10*3/uL RBC 5.19 (4.60-5.80) X10*6/uL Hgb 15.8 (14.0-18.0) g/dl Hct 44.8 (42.0-52.0) % MCV 86.3 (80.0-98.0) fL MCH 30.4 (27.0-33.0) pg MCHC 35.3 (31.0-36.0) g/dl RDW 12.4 (11.0-16.0) % Plt Count 220 (160-400) X10*3/uL MPV 9.9 (9.4-12.4) fL Immature Gran % (Auto) 0.3 (0.0-0.4) % Neut % (Auto) 67.2 (45-73) % Lymph % (Auto) 24.6 (20-40) % Chaves % (Auto) 6.2 (2-11) % Eos % (Auto) 1.4 (0-4) % Baso % (Auto) 0.3 (0-2) % Lymph # (Auto) 1.9 (1.2-4.9) X10*3/uL Chaves # (Auto) 0.5 (0.1-1.2) X10*3/uL Eos # (Auto) 0.1 (0.0-0.4) X10*3/uL Baso # (Auto) 0.0 (0.0-0.2) X10*3/uL Abs Immat Gran (auto) 0.02 (0.00-0.03) X10*3/uL Absolute Neuts (auto) 5.2 (2.0-8.3) x10*3/uL Absolute Nucleated RBC 0.000 (0.0-0.012) X10*3/uL Nucleated RBC % (auto) 0.0 (0.0-0.2) /100WBC Sodium 142 (135-145) mmol/L Potassium 4.0 (3.3-5.1) mmol/L Chloride 106 (96-108) mmol/L Carbon Dioxide 29 (22-29) mmol/L Anion Gap 11 L (12-20) BUN 7 L (9-16) mg/dL Creatinine 0.90 (0.5-1.4) mg/dL Estim Creat Clear Calc 99.6 Estimated GFR > 60 Random Glucose 109 (60-115) mg/dL Calcium 9.8 (8.4-10.2) mg/dL Magnesium 2.3 (1.6-2.6) mg/dL Total Bilirubin 1.3 H (0.0-1.0) mg/dL Direct Bilirubin 0.4 (0.0-0.5) mg/dL AST 19 (5-37) U/L ALT 26 (0-40) U/L Alkaline Phosphatase 66 D (39-117) U/L Total Protein 7.4 (6.5-8.0) g/dL Albumin 4.8 (3.5-5.0) g/dL Lipase 15 (8-78) U/L Urine Color STRAW Urine Appearance CLEAR Urine pH 7.5 (5.0-8.0) Ur Specific [place] 1.010 (1.005-1.025) Urine Protein NEG (NEG-TRACE) MG/DL Urine Glucose (UA) NEG (NEG) MG/DL Urine Ketones NEG (NEG) MG/DL Urine Blood NEG (NEG) Urine Nitrite NEG (NEG) Ur Leukocyte Esterase NEG (NEG) Discharge Plan Discharge Clinical Impression: Abdominal pain Qualifiers: Abdominal location: right lower quadrant Qualified Code(s): R10.31 - Right lower quadrant pain Prescriptions: No Action polyethylene glycol 3350 [Miralax] 17 gram/dose powder 238 g PO ONCE 1 Days Qty: 238 RF: 0 bisacodyl [Dulcolax (bisacodyl)] 5 mg tablet,delayed release (DR/EC) 10 mg PO ONCE 1 Days Qty: 2 RF: 0 albuterol sulfate 2.5 mg /3 mL (0.083 %) solution for nebulization 1 vial inhalation Q4H PRN (Reason: Wheezing) RF: 0 loratadine-pseudoephedrine [Allergy Relief D-24hr] 10-240 mg tablet extended release 24 hr 1 tab PO BEDTIME RF: 0 ascorbic acid (vitamin C) [Vitamin C] 500 mg tablet 2 tab PO DAILY RF: 0 albuterol sulfate [ProAir HFA] 90 mcg/actuation HFA aerosol inhaler 2 puff PO Q4H PRN (Reason: Wheezing) RF: 0 fluticasone propionate 50 mcg/actuation spray,suspension 2 spray intranasal DAILY RF: 0 metformin 500 mg tablet 500 mg PO BID Qty: 60 RF: 0 ibuprofen 600 mg tablet 600 mg PO TID PRN (Reason: pain) Qty: 30 RF: 0 cyclobenzaprine 10 mg tablet 10 mg PO TID PRN (Reason: muscle spasm) Qty: 20 RF: 0 PMFSH Past Medical History Attestation statement: The following information was validated with the patient. Medical History Asthma Diabetes mellitus Family History Family History Father No problems noted. Social History Social History (Updated 03/13/21 @ 16:22 by Sultana Sun DO) Alcohol intake: current Patient Tobacco Use Status: Current everyday Tobacco user Advance Directives: No Advance Directives Information Provided: Yes
[2021-03-13 18:57] LABS: Basophils Percent Auto 0.3 % (0-2); Eosinophils Absolute Auto 0.1 X10*3/uL (0.0-0.4); Eosinophils Percent Auto 1.4 % (0-4); Hematocrit 44.8 % (42.0-52.0); Hemoglobin 15.8 g/dl (14.0-18.0); Imm Gran Abs Auto 0.02 X10*3/uL (0.00-0.03); Imm Gran Pct Auto 0.3 % (0.0-0.4); Lymphocytes Absolute Auto 1.9 X10*3/uL (1.2-4.9); Lymphocytes Percent Auto 24.6 % (20-40); MANUAL DIFF FLAG NO; Mean Corpuscular HGB Conc 35.3 g/dl (31.0-36.0); Mean Corpuscular Hemoglobin 30.4 pg (27.0-33.0); Mean Corpuscular Volume 86.3 fL (80.0-98.0); Mean Platelet Volume 9.9 fL (9.4-12.4); Monocytes Absolute Auto 0.5 X10*3/uL (0.1-1.2); Monocytes Percent Auto 6.2 % (2-11); Neutrophils Absolute Auto 5.2 x10*3/uL (2.0-8.3); Neutrophils Percent Auto 67.2 % (45-73); Platelet Count 220 X10*3/uL (160-400); Red Blood Count 5.19 X10*6/uL (4.60-5.80); Red Cell Distribution Width 12.4 % (11.0-16.0); White Blood Count 7.8 X10*3/uL (4.8-10.8)
[2021-03-13 18:59] LABS: Appearance Urine CLEAR; Color Urine STRAW; Glucose Urine UA NEG (NEG); Leukocyte Esterase Urine NEG (NEG); Nitrite Urine NEG (NEG); PH 7.5 (5.0-8.0); Urine Blood NEG (NEG); Urine Ketones NEG (NEG); Urine Protein NEG (NEG-TRACE)
[2021-03-13 19:13] LABS: Alanine Aminotransferase 26 U/L (0-40); Albumin Level 4.8 g/dL (3.5-5.0); Alkaline Phosphatase 66 U/L (39-117); Anion Gap 11 (12-20); Aspartate Amino Transferase 19 U/L (5-37); Bilirubin Direct 0.4 mg/dL (0.0-0.5); Bilirubin Total 1.3 mg/dL (0.0-1.0); Blood Urea Nitrogen 7 mg/dL (9-16); Calcium 9.8 mg/dL (8.4-10.2); Carbon Dioxide 29 mmol/L (22-29); Chloride 106 mmol/L (96-108); Creatinine Clr Calc Pharmacy 99.6; Estimated Glomerular Filt Rate > 60; Glucose Random 109 mg/dL (60-115); Lipase 15 U/L (8-78); Magnesium 2.3 mg/dL (1.6-2.6); Sodium 142 mmol/L (135-145); Total Protein 7.4 g/dL (6.5-8.0)
== END 2021-03-13 23:51 | disposition left against medical advice (07) ==
PROVIDERS: Emergency Medicine; Emergency Provider Emergency Medicine; PCP Internal Medicine
DX: R10.31 Right lower quadrant pain (principal); Z79.899 Other long term (current) drug therapy
CPT/HCPCS: 36415; 80048; 80076; 81003; 83690; 83735; 85025; 99282; 99283

== ENCOUNTER 2021-03-14 10:11 | Emergency (ER) | payer MEDICAID, SELFPAY ==
[2021-03-14 10:32] VITALS: BP 149/87; PULSE 99; RESP 18; TEMP 37; O2SAT 99; BMI 25.0
--- NOTE | 2021-03-14 10:49 | ED.ABDPAIN ---
HPI - Abdominal Pain General Chief Complaint: Abdominal Pain Stated Complaint: pelvic pain Time Seen by Provider: 03/14/21 10:29 Source: patient Mode of arrival: ambulatory Limitations: no limitations History of Present Illness HPI narrative: patient was here yesterday for pelvic pain, had blood and urine done but was not seen. Blood and urine from yesterday was normal. Pain worse with lifting MD elicited complaint: abdominal pain Pertinent past history: none Onset (ago): day(s) Pain Consistency: intermittent Location: pelvis (right) Severity: mild Related Data Home Medications Medication Instructions Recorded Confirmed albuterol sulfate 1 vial INHALATION Q4H PRN 06/28/20 06/28/20 albuterol sulfate 90 mcg/actuation 2 puff PO Q4H PRN 06/28/20 06/28/20 aerosol inhaler (ProAir HFA) ascorbic acid (vitamin C) 500 mg 2 tab PO DAILY 06/28/20 06/28/20 tablet (Vitamin C) fluticasone propionate 50 2 spray INTRANASAL DAILY 06/28/20 06/28/20 mcg/actuation nasal spray,suspension loratadine-pseudoephedrine ER 10 1 tab PO BEDTIME 06/28/20 06/28/20 mg-240 mg tablet,extended [id number] (Allergy Relief D-24hr) Previous Rx's Medication Instructions Recorded metformin 500 mg tablet 500 mg PO BID #60 tab 03/09/20 bisacodyl 5 mg tablet,delayed 10 mg PO ONCE 1 Days #2 tab 05/02/20 release (Dulcolax (bisacodyl)) polyethylene glycol 3350 17 238 g PO ONCE 1 Days #238 g 05/02/20 gram/dose oral powder (Miralax) ibuprofen 600 mg tablet 600 mg PO TID PRN #30 tab 06/22/20 cyclobenzaprine 10 mg tablet 10 mg PO TID PRN #20 tab 11/12/20 Allergies Allergy/AdvReac Type Severity Reaction Status Date / Time No Known Allergies Allergy Verified 03/13/21 16:17 Review of Systems Constitutional: Reports no additional constitutional complaints Eyes: Reports no additional eye complaints Denies dizziness Cardiovascular: Reports no additional cardiovascular complaints Respiratory: Reports as per HPI Gastrointestinal: Reports no additional gastrointestinal complaints Musculoskeletal: Reports no additional musculoskeletal complaints Skin/Breast: Denies rash Reports system reviewed and no additional complaints, except as documented, Denies dizziness and Denies Sensory deficit (Neuro) Psychiatric: Denies anxiety Physical Exam Vital Signs: Vital Signs: Last Vital Signs Temp 98.6 F 03/14/21 10:32 Pulse 99 03/14/21 10:32 Resp 18 03/14/21 10:32 BP 149/87 H 03/14/21 10:32 Pulse Ox 99 03/14/21 10:32 Body Mass Index 25.0 Const: General: healthy appearing Nutritional Appearance: average body habitus Orientation/consciousness: oriented to person and patient oriented x3 Limitations: no limitations HENMT: Head: Yes normal to inspection Ears: external ears normal General nose exam: Normal external nose present Mouth: Normal oral and palatal mucosa present and oropharynx normal Throat: Yes posterior oropharynx normal Eyes: General: appearance normal, both eyes and all related structures Neck: Other: supple Neck: Yes normal visual inspection Chest: Chest palpation & inspection: normal inspection of the chest Resp: Auscultation: clear to auscultation bilaterally Cardio: Jugular venous distension: no JVD Rate: regular rate Rhythm: regular rhythm Heart sounds: S1 normal heart sound present and S2 normal heart sound present GI: Other: right inguinal area with slight tenderness and bulging with coughing, no hernia palpated through his testicle Inspection: Yes normal to inspection Auscultation: normal bowel sounds : General: Yes no CVA tenderness Back/Spine/Pelvis: Back: no CVA tenderness Skin: General skin exam: no rashes or lesions noted Neuro: General: oriented to person and patient oriented x3 Cranial nerves: Yes CN's II-XII intact bilaterally Motor exam (neuro): 5/5 motor strength present throughout Sensory Exam: No Sensory deficit (Neuro) Extrem: General: Yes normal to inspection Psych: Appearance: grossly normal Course Reevaluation(s) Reevaluation #1: patient with right inguinal hernia, not incarcerated will refer to Dr. Cordero Time: 11:04 Discharge Plan Discharge Clinical Impression: Inguinal hernia Qualifiers: Obstruction and gangrene presence: without obstruction or gangrene Laterality: unilateral Recurrence: non-recurrent Qualified Code(s): K40.90 - Unilateral inguinal hernia, without obstruction or gangrene, not specified as recurrent Patient Disposition: Home, Self-Care Instructions: Inguinal Hernia (ED) Additional Instructions: may take tylenol or motrin for pain Prescriptions: No Action polyethylene glycol 3350 [Miralax] 17 gram/dose powder 238 g PO ONCE 1 Days Qty: 238 RF: 0 bisacodyl [Dulcolax (bisacodyl)] 5 mg tablet,delayed release (DR/EC) 10 mg PO ONCE 1 Days Qty: 2 RF: 0 albuterol sulfate 2.5 mg /3 mL (0.083 %) solution for nebulization 1 vial inhalation Q4H PRN (Reason: Wheezing) RF: 0 loratadine-pseudoephedrine [Allergy Relief D-24hr] 10-240 mg tablet extended release 24 hr 1 tab PO BEDTIME RF: 0 ascorbic acid (vitamin C) [Vitamin C] 500 mg tablet 2 tab PO DAILY RF: 0 albuterol sulfate [ProAir HFA] 90 mcg/actuation HFA aerosol inhaler 2 puff PO Q4H PRN (Reason: Wheezing) RF: 0 fluticasone propionate 50 mcg/actuation spray,suspension 2 spray intranasal DAILY RF: 0 metformin 500 mg tablet 500 mg PO BID Qty: 60 RF: 0 ibuprofen 600 mg tablet 600 mg PO TID PRN (Reason: pain) Qty: 30 RF: 0 cyclobenzaprine 10 mg tablet 10 mg PO TID PRN (Reason: muscle spasm) Qty: 20 RF: 0 PMFSH Past Medical History Medical History Asthma Diabetes mellitus Family History Family History Father No problems noted. Social History Social History Alcohol intake: current Patient Tobacco Use Status: Current everyday Tobacco user Advance Directives: No
== END 2021-03-14 11:20 | disposition home or self-care (01) ==
PROVIDERS: Emergency Provider Emergency Medicine; PCP Internal Medicine
DX: K40.90 Unilateral inguinal hernia, without obstruction or gangrene, not specified as recurrent (principal); R10.9 Unspecified abdominal pain; Z79.899 Other long term (current) drug therapy
CPT/HCPCS: 99283

== ENCOUNTER → 2021-04-09 14:29 | Outpatient (BNVA) | payer MEDICAID, SELFPAY | PROVIDERS: PCP Internal Medicine; Referring Provider Internal Medicine; Visit Provider Surgery | DX: K40.90 Unilateral inguinal hernia, without obstruction or gangrene, not specified as recurrent (principal) | CPT/HCPCS: 99202 ==

== ENCOUNTER 2021-07-31 06:44 | Day surgery (SDC) | payer MEDICAID, SELFPAY ==
--- NOTE | 2021-06-07 09:50 | HO.ANESPROP2 ---
HPI - Anesthesia Eval Consult details Narrative: 50yo M for Right Hernia Repair Inguinal with Mesh PMFSH Active Problems Active Problems: All Active Problems (Updated 04/09/21 @ 15:21 by Kaveh Cordero MD) Right inguinal hernia (Acute) Encounter for screening colonoscopy (Acute) Asthma (Acute) Past Medical History Medical History (Updated 04/09/21 @ 15:21 by Kaveh Cordero MD) Asthma Diabetes mellitus Right inguinal hernia Family History Family History Father No problems noted. Surgical History Surgical History History of knee surgery History of shoulder surgery Social History Social History Alcohol intake: never Patient Tobacco Use Status: Current everyday Tobacco user Meds Allergies Allergy/AdvReac Type Severity Reaction Status Date / Time No Known Allergies Allergy Verified 04/09/21 14:58 Home Medications Medication Instructions Recorded Confirmed Last Taken Type albuterol sulfate 1 vial INHALATION Q4H PRN 06/28/20 04/09/21 Unknown History albuterol sulfate 90 mcg/actuation 2 puff PO Q4H PRN 06/28/20 04/09/21 Unknown History aerosol inhaler (ProAir HFA) ascorbic acid (vitamin C) 500 mg 2 tab PO DAILY 06/28/20 04/09/21 Unknown History tablet (Vitamin C) fluticasone propionate 50 2 spray INTRANASAL DAILY 06/28/20 04/09/21 Unknown History mcg/actuation nasal spray,suspension loratadine-pseudoephedrine ER 10 1 tab PO BEDTIME 06/28/20 04/09/21 Unknown History mg-240 mg tablet,extended [id number] (Allergy Relief D-24hr) Exam Exam Date and Time: June 07, 2021 0950 Pertinent Lab Results Pertinent Lab Results: Laboratory Tests 03/13/21 03/13/21 18:53 18:53 WBC 7.8 Hgb 15.8 Hct 44.8 Plt Count 220 Sodium 142 Potassium 4.0 Chloride 106 Carbon Dioxide 29 BUN 7 L Creatinine 0.90 Narrative Narrative: EKG 06/2020 Vent. Rate : 104 BPM ? ? Atrial Rate : 104 BPM ?? P-R Int : 146 ms? QRS Dur : 086 ms ? ? QT Int : 338 ms ? ? ? P-R-T Axes : 041 030 061 degrees ?? QTc Int : 444 ms ? Sinus tachycardia Cannot exclude old inferior infarct but could be normal variant Abnormal ECG When compared with ECG of 21-APR-2014 18:53, No significant change was found Assessment and Plan Assessment Anesthesia Assessment: Chart Reviewed
[2021-07-25 10:01] VITALS: BMI 30.1
--- NOTE | 2021-07-30 08:54 | HO.ANESPROP2 ---
Documented by User: Kiki Goodrich NP 07/30/21 08:56 HPI - Anesthesia Eval Consult details Narrative: 50yo M for Right Hernia Repair Inguinal with Mesh PMFSH Active Problems Active Problems: All Active Problems (Updated 04/09/21 @ 15:21 by Kaveh Cordero MD) Right inguinal hernia (Acute) Encounter for screening colonoscopy (Acute) Asthma (Acute) Past Medical History Medical History Asthma Diabetes mellitus Right inguinal hernia Family History Family History Father No problems noted. Surgical History Surgical History History of knee surgery History of shoulder surgery Social History Social History Alcohol intake: never Patient Tobacco Use Status: Former Tobacco user Quit Date: 22 yr ago Use of substances other than those prescribed or required for medical reasons: No Are you DNR?: No Advance Directives: No Advance Directives Information Provided: Yes Meds Allergies Allergy/AdvReac Type Severity Reaction Status Date / Time No Known Allergies Allergy Verified 04/09/21 14:58 Home Medications Medication Instructions Recorded Confirmed Last Taken Type albuterol sulfate 1 vial INHALATION Q4H PRN 06/28/20 04/09/21 Unknown History albuterol sulfate 90 mcg/actuation 2 puff PO Q4H PRN 06/28/20 04/09/21 Unknown History aerosol inhaler (ProAir HFA) ascorbic acid (vitamin C) 500 mg 2 tab PO DAILY 06/28/20 04/09/21 Unknown History tablet (Vitamin C) fluticasone propionate 50 2 spray INTRANASAL DAILY 06/28/20 04/09/21 Unknown History mcg/actuation nasal spray,suspension loratadine-pseudoephedrine ER 10 1 tab PO BEDTIME 06/28/20 04/09/21 Unknown History mg-240 mg tablet,extended [id number] (Allergy Relief D-24hr) Exam Exam Date and Time: July 30, 2021 0854 Height,Weight and Vital Signs: Height 5 ft 6 in Weight 84.595 kg Narrative Narrative: EKG 06/2020 Vent. Rate : 104 BPM ? ? Atrial Rate : 104 BPM ?? P-R Int : 146 ms? QRS Dur : 086 ms ? ? QT Int : 338 ms ? ? ? P-R-T Axes : 041 030 061 degrees ?? QTc Int : 444 ms ? Sinus tachycardia Cannot exclude old inferior infarct but could be normal variant Abnormal ECG When compared with ECG of 21-APR-2014 18:53, No significant change was found Assessment and Plan Assessment Anesthesia Assessment: Chart Reviewed Documented by User: Ted Lowery MD 07/31/21 07:13 [facility] [place] Past Medical History Medical History Asthma Diabetes mellitus Right inguinal hernia Family History Family History Father No problems noted. Family history of problems with anesthesia: No Surgical History Surgical History History of knee surgery History of shoulder surgery History of Problems with Anesthesia: No Social History Social History Alcohol intake: never Patient Tobacco Use Status: Former Tobacco user Quit Date: 22 yr ago Use of substances other than those prescribed or required for medical reasons: No Are you DNR?: No Advance Directives: No Advance Directives Information Provided: Yes Meds Allergies Allergy/AdvReac Type Severity Reaction Status Date / Time No Known Allergies Allergy Verified 04/09/21 14:58 Home Medications Medication Instructions Recorded Confirmed Last Taken Type albuterol sulfate 1 vial INHALATION Q4H PRN 06/28/20 04/09/21 Unknown History albuterol sulfate 90 mcg/actuation 2 puff PO Q4H PRN 06/28/20 04/09/21 Unknown History aerosol inhaler (ProAir HFA) ascorbic acid (vitamin C) 500 mg 2 tab PO DAILY 06/28/20 04/09/21 Unknown History tablet (Vitamin C) fluticasone propionate 50 2 spray INTRANASAL DAILY 06/28/20 04/09/21 Unknown History mcg/actuation nasal spray,suspension loratadine-pseudoephedrine ER 10 1 tab PO BEDTIME 06/28/20 04/09/21 Unknown History mg-240 mg tablet,extended [id number] (Allergy Relief D-24hr) Exam Airway Mallampati Class: II TM Dist: >3cm Neck ROM: Full Loose/Missing/Broken Teeth: Yes (missing 2 upper front teeth, multiple upper back teeth, poor dentition) Heart: [id number] Lungs: cta b/l Assessment and Plan Assessment Anesthesia Assessment: Anesthesia Plan Discussed Final Anesthetic Review Family History of Problems with Anesthesia: No History of Problems with Anesthesia: No NPO: Yes ASA Class: II Final Preanesthetic Review: No Changes in Pt Med Stat, Meds/Allgs Chart Reviewed, Consent Obtained/Reviewed and Anes Risks/Benef Reviewed Patient Risk: Intermediate Procedure Risk: Low Assessment/Block/Sedation in SS: Assess/Block/Sedation-SS Anesthetic Plan Anesthetic Plan: GA and Agree w/ Assess. and Plan Disposition: Standard PACU
[2021-07-31] VITALS (8 sets, daily range): BP systolic 112–140; BP diastolic 72–93; PULSE 75–97; RESP 11–16; TEMP 36.6–37.1; O2SAT 96–99
[2021-07-31] MEDS: Lactated Ringers 1,000 ML 100 ML IVCONT (07:25)
--- NOTE | 2021-07-31 07:27 | MHC.SHP ---
Pre-Procedural Eval Section A Date of Service: 07/31/21 Section B Chief Complaint: unilateral inguinal hernia Details of Present Illness: has had reducible mass on right groin c/w hernia. with discomfort Relevant Family History (Specify if Yes): No Relevant Social History: None Present Medications: see Short Stay Collaborative assessment Medical History: No relevant PMH History of Previous Operations: No relevant previous surgery Allergies: Allergies Allergy/AdvReac Type Severity Reaction Status Date / Time No Known Allergies Allergy Verified 04/09/21 14:58 Review of Systems Sugical H&P ROS: Negative: Constitution, Cardiovascular, Respiratory, Neurological, Psychiatric, Hem-Onc, Allergic/Immunologic, Gastrointestinal, Genitourinary, Musculoskeletal, Integumentary, Endocrine and Eyes/Ears/Nose/Throat Exam Surgical H&P Exam: Normal: HEENT, Normal: Heart, Normal: Lungs, Normal: Extremities, Normal: Skin and Normal: Neurological and Significant Findings: Abdomen (reducible right inguinal hernia) Plan Diagnosis/Plan: Unchanged I have reviewed the history and physical and performed a pertinent physical examination on my patient. No changes have occurred unless specified.
[2021-07-31 07:38] LABS: Glucose, Whole Blood 129 mg/dL (60-115)
--- NOTE | 2021-07-31 09:23 | P.OP_ITS ---
Operative Note Operative Note Date of Service: 07/31/21 Narrative: Preop diagnosis: Right inguinal hernia Postop diagnosis: Inguinal hernia, indirect Procedure: Repair of right inguinal hernia with mesh Surgeon: Kaveh Cordero MD certified surgical assistant: REA Ramos The patient is a 50-year-old male with a reducible mass on the right groin more obvious with Valsalva maneuvers. Exam was consistent with a right inguinal hernia. In view of pain, he wanted to proceed with repair. He understood the technique of repair with mesh. He was aware of the risks, benefits, and alternatives . He was brought to the operating room and placed supine under general anesthesia via laryngeal mask airway. The right groin was prepped and draped in the usual sterile fashion. A surgical time-out was done. The patient received cefazolin 2 g IV preoperatively In inflated the planned line of incision with lidocaine 1%. I made a short incision on the skin along an imaginary line from the anterior superior iliac spine to the pubic ramus using blade 15. And this was carried down through the full-thickness of the skin subcutaneous fat down to the external oblique aponeurosis. I bluntly dissected the cirrhosis to define the external ring. I made an incision on the aponeurosis using blade 15. And extended this inferomedially to connect with the external ring. The inguinal canal was therefore entered. I applied hemostats on the edges of the divided aponeurosis. I bluntly dissected the underside of the aponeurosis to create a pocket for the mesh. I bluntly dissected the spermatic cord and its contents using my index finger until was able to pass a Dragoon drain around this. This Dragoon drain was used for traction. I identified the vas deferens and its accompanying vessels. This were protected during the rest of the dissection. I identified the small sac coming through the internal ring. This was from the rest of the cord contents. This was therefore consistent with an indirect hernia. The sac was reduced to the internal ring completely. I reinforced the internal ring with a small-sized Prolene plug. The plug was secured with Prolene 2 sutures to the shelving edge of the inguinal and laterally, and the internal oblique superiorly and medially using the inner leaves of the plug I then reinforced the floor of the canal with a keyhole mesh. The tails of the mesh were passed around the cord at the level of the internal ring and were secured together with Prolene 2 sutures. I then secured the mesh with Prolene 2 sutures to shelving edge of the inguinal and laterally, internal oblique superiorly medially and the pubic ramus inferomedially. I observed for hemostasis. Hemostasis was ensured, I irrigated. I reapposed the external oblique aponeurosis were running Dexon 2-0 stitch to re-create the external ring. Subcutaneous layer was reapposed with Dexon 3-0 interrupted sutures. Skin closure was achieved with Dexon 4-0 subcuticular running stitch. Steri-Strips and dressings were applied. The incision was infiltrated with Marcaine 0.5% for postop analgesia. The procedure was then completed. The patient tolerated procedure well. There were no complications noted. Initial and final counts of sponges and instruments were correct. Estimated blood loss was about 20 cc. The patient was extubated without difficulty and transferred to the recovery room with stable vital signs.
[2021-07-31] MEDS: oxyCODONE HCl Immed Release 5 MG TABLET 10 MG PO (10:07)
== END 2021-07-31 11:14 | disposition home or self-care (01) ==
PROVIDERS: PCP Internal Medicine; Visit Provider Surgery
PROC: (CPT 49505; principal; 2021-07-31 08:30)
DX: K40.90 Unilateral inguinal hernia, without obstruction or gangrene, not specified as recurrent (principal); J45.909 Unspecified asthma, uncomplicated; E11.9 Type 2 diabetes mellitus without complications; Z79.84 Long term (current) use of oral hypoglycemic drugs; Z79.51 Long term (current) use of inhaled steroids; Z87.891 Personal history of nicotine dependence
CPT/HCPCS: 49505; 82947; C1781; J0690; J1170; J1885; J2250; J2405; J3010

== ENCOUNTER → 2021-08-13 09:39 | Outpatient (BNVA) | payer MEDICAID, SELFPAY | PROVIDERS: PCP Internal Medicine; Referring Provider Internal Medicine; Visit Provider Surgery | DX: Z09 Encounter for follow-up examination after completed treatment for conditions other than malignant neoplasm (principal); Z87.19 Personal history of other diseases of the digestive system | CPT/HCPCS: 99212 ==

== ENCOUNTER 2021-12-17 14:33 | Emergency (ER) | payer MEDICAID, SELFPAY ==
[2021-12-17 14:55] VITALS: BP 128/84; PULSE 88; RESP 18; TEMP 36.4; O2SAT 99; BMI 27.4
--- NOTE | 2021-12-17 16:31 | ED.BACK ---
HPI - Back Pain/Injury General Chief Complaint: Back Pain/Injury Stated Complaint: Lower back pain Time Seen by Provider: 12/17/21 16:09 History of Present Illness HPI Narrative: Patient complains of right-sided low back pain radiating to the back of the right thigh, this happened after playing a baseball game or he twisted and felt pain, which is now worse with movement, and comfortable at rest There is no weakness no numbness no tingling no changes to bowel or bladder no incontinence no dysuria Related Data Home Medications Medication Instructions Recorded Confirmed albuterol sulfate 2.5 mg/3 mL 1 vial inhalation Q4H PRN Wheezing 06/28/20 04/09/21 (0.083 %) solution for nebulization albuterol sulfate 90 mcg/actuation 2 puff PO Q4H PRN Wheezing 06/28/20 04/09/21 aerosol inhaler (ProAir HFA) ascorbic acid (vitamin C) 500 mg 2 tab PO DAILY 06/28/20 04/09/21 tablet (Vitamin C) fluticasone propionate 50 2 spray intranasal DAILY 06/28/20 04/09/21 mcg/actuation nasal spray,suspension loratadine-pseudoephedrine ER 10 1 tab PO BEDTIME 06/28/20 04/09/21 mg-240 mg tablet,extended [id number] (Allergy Relief D-24hr) Previous Rx's Medication Instructions Recorded metformin 500 mg tablet 500 mg PO BID #60 tabs 03/09/20 bisacodyl 5 mg tablet,delayed 10 mg PO ONCE Bowel Preparation 1 05/02/20 release (Dulcolax (bisacodyl)) day #2 tabs polyethylene glycol 3350 17 238 g PO ONCE 1 day #238 grams 05/02/20 gram/dose oral powder (Miralax) ibuprofen 600 mg tablet 600 mg PO TID PRN pain #30 tabs 06/22/20 cyclobenzaprine 10 mg tablet 10 mg PO TID PRN muscle spasm #20 11/12/20 tabs ibuprofen 600 mg tablet 600 mg PO Q6H PRN pain #30 tabs 07/31/21 oxycodone-acetaminophen 5 mg-325 1 tab PO Q4-6H PRN pain, severe 07/31/21 mg tablet (Percocet) #30 tabs acetaminophen 500 mg tablet 1,000 mg PO QID PRN pain #30 tabs 12/17/21 cyclobenzaprine 5 mg tablet 5 mg PO TID PRN muscle spasm #14 12/17/21 tabs ibuprofen 600 mg tablet 600 mg PO Q6H PRN pain #20 tabs 12/17/21 Allergies Allergy/AdvReac Type Severity Reaction Status Date / Time No Known Allergies Allergy Verified 08/13/21 10:02 Review of Systems Review of Systems: Positive for back pain Negatives are no fever no chills no dizziness or weakness no fainting no feeling faint no headache no neck pain no chest pain or shortness of breath no abdominal pain no nausea vomiting or diarrhea no changes to bowel or bladder no dysuria no frequency no incontinence no muscle weakness no loss of sensation Yes all other systems are reviewed and are negative [facility] Past Medical History Source: nursing notes reviewed Medical History Asthma Diabetes mellitus Right inguinal hernia Surgical History History of knee surgery History of right inguinal hernia repair History of shoulder surgery Family History Family History Father No problems noted. Social History Social History Alcohol intake: never Patient Tobacco Use Status: Former Tobacco user Quit Date: 22 yr ago Advance Directives: No Advance Directives Information Provided: No Physical Exam Vital Signs: Vital Signs: Last Vital Signs Temp 97.6 F 12/17/21 14:55 Pulse 88 12/17/21 14:55 Resp 18 12/17/21 14:55 BP 128/84 12/17/21 14:55 Pulse Ox 99 12/17/21 14:55 O2 Del Method 12/17/21 14:55 BMI result Body Mass Index 27.4 General appearance is no acute distress Head is normocephalic atraumatic Neck is supple nontender Respiratory no distress Abdomen soft nontender The back had right lower lumbar tenderness, skin is normal in appearance there is no CVA tenderness no focal bony tenderness, pain is easily reproduced with movement Rectal exam is deferred Extremities full range of motion x4 Neuro motor is 5/5 x4 sensation is intact and symmetrical gait and balance are normal, patient walk on toes and can walk on his heels Course Course Course Narrative: Patient without neurologic deficit with reproducible musculoskeletal back pain is discharged Discharge Plan Discharge Clinical Impression: Back strain Patient Disposition: Home, Self-Care Additional Instructions: You likely strained muscles in her back, and you may have something pressing on a nerve This usually will resolve on its own, if not follow with primary doctor Return any time any worse condition or any concerns Prescriptions: New acetaminophen 500 mg tablet 1,000 mg PO QID PRN (Reason: pain) Qty: 30 0RF cyclobenzaprine 5 mg tablet 5 mg PO TID PRN (Reason: muscle spasm) Qty: 14 0RF Rx Instructions: This medication may cause drowsiness so no driving for 8 hours after taking ibuprofen 600 mg tablet 600 mg PO Q6H PRN (Reason: pain) Qty: 20 0RF No Action polyethylene glycol 3350 [Miralax] 17 gram/dose powder 238 g PO ONCE 1 Days Qty: 238 0RF Rx Instructions: Take as directed by mouth, bowel prep bisacodyl [Dulcolax (bisacodyl)] 5 mg tablet,delayed release (DR/EC) 10 mg PO ONCE 1 Days Qty: 2 0RF Rx Instructions: Take 2 tablets at 12:00pm the day before your procedure, bowel prep albuterol sulfate 2.5 mg /3 mL (0.083 %) solution for nebulization 1 vial inhalation Q4H PRN (Reason: Wheezing) loratadine-pseudoephedrine [Allergy Relief D-24hr] 10-240 mg tablet extended release 24 hr 1 tab PO BEDTIME ascorbic acid (vitamin C) [Vitamin C] 500 mg tablet 2 tab PO DAILY albuterol sulfate [ProAir HFA] 90 mcg/actuation HFA aerosol inhaler 2 puff PO Q4H PRN (Reason: Wheezing) fluticasone propionate 50 mcg/actuation spray,suspension 2 spray intranasal DAILY metformin 500 mg tablet 500 mg PO BID Qty: 60 0RF ibuprofen 600 mg tablet 600 mg PO TID PRN (Reason: pain) Qty: 30 0RF cyclobenzaprine 10 mg tablet 10 mg PO TID PRN (Reason: muscle spasm) Qty: 20 0RF oxycodone-acetaminophen [Percocet] 5-325 mg tablet 1 tab PO Q4-6H PRN (Reason: pain, severe) Qty: 30 0RF ibuprofen 600 mg tablet 600 mg PO Q6H PRN (Reason: pain) Qty: 30 0RF Stand Alone Forms: Work/School Release Interventions: ED Discharge Assessment Last Done: 12/17/21 17:39 Discharge Date/Time: 12/17/21 17:40
== END 2021-12-17 17:40 | disposition home or self-care (01) ==
PROVIDERS: Emergency Provider Emergency Medicine; PCP Internal Medicine
DX: S39.012A Strain of muscle, fascia and tendon of lower back, initial encounter (principal); X50.1XXA Overexertion from prolonged static or awkward postures, initial encounter; E11.9 Type 2 diabetes mellitus without complications; Y93.64 Activity, baseball; Y92.320 Baseball field as the place of occurrence of the external cause; Y99.9 Unspecified external cause status
CPT/HCPCS: 99282; 99283

== ENCOUNTER 2022-11-13 17:37 | Emergency (ER) | payer OTHER, MEDICAID, SELFPAY ==
--- NOTE | 2022-11-13 17:52 | ED.BACK ---
HPI - Back Pain/Injury General Chief Complaint: Back Pain/Injury Stated Complaint: Back pain/work injury Time Seen by Provider: 11/13/22 17:54 Source: patient Mode of arrival: ambulatory Limitations: no limitations History of Present Illness HPI Narrative: 51 yo male presents to the ER for evaluation of lower back pain that started today after lifting a heavy couch and chairs at work. He states he has had pain across his entire lower back since. It is worse with movement and does not radiate. No urinary symptoms. No weakness, numbness or tingling in the legs. He is able to walk but slower than usual. MD elicited complaint: back injury Onset (ago): hour(s) Timing: constant Severity: moderate Similar Symptoms Previously: No Quality: aching and spasming Location: right lower back and left lower back Radiation: none Exacerbating factors: movement Relieving factors: immobilization Context: while lifting and turning/twisting Associated symptoms: denies other symptoms Work related injury: Yes Related Data Home Medications Medication Instructions Recorded Confirmed albuterol sulfate 2.5 mg/3 mL 1 vial inhalation Q4H PRN Wheezing 06/28/20 04/09/21 (0.083 %) solution for nebulization albuterol sulfate 90 mcg/actuation 2 puff PO Q4H PRN Wheezing 06/28/20 04/09/21 aerosol inhaler (ProAir HFA) ascorbic acid (vitamin C) 500 mg 2 tab PO DAILY 06/28/20 04/09/21 tablet (Vitamin C) fluticasone propionate 50 2 spray intranasal DAILY 06/28/20 04/09/21 mcg/actuation nasal spray,suspension loratadine-pseudoephedrine ER 10 1 tab PO BEDTIME 06/28/20 04/09/21 mg-240 mg tablet,extended [id number] (Allergy Relief D-24hr) Previous Rx's Medication Instructions Recorded metformin 500 mg tablet 500 mg PO BID #60 tabs 03/09/20 bisacodyl 5 mg tablet,delayed 10 mg PO ONCE Bowel Preparation 1 05/02/20 release (Dulcolax (bisacodyl)) day #2 tabs polyethylene glycol 3350 17 238 g PO ONCE 1 day #238 grams 05/02/20 gram/dose oral powder (Miralax) ibuprofen 600 mg tablet 600 mg PO TID PRN pain #30 tabs 06/22/20 cyclobenzaprine 10 mg tablet 10 mg PO TID PRN muscle spasm #20 11/12/20 tabs ibuprofen 600 mg tablet 600 mg PO Q6H PRN pain #30 tabs 07/31/21 oxycodone-acetaminophen 5 mg-325 1 tab PO Q4-6H PRN pain, severe 07/31/21 mg tablet (Percocet) #30 tabs acetaminophen 500 mg tablet 1,000 mg PO QID PRN pain #30 tabs 12/17/21 cyclobenzaprine 5 mg tablet 5 mg PO TID PRN muscle spasm #14 12/17/21 tabs ibuprofen 600 mg tablet 600 mg PO Q6H PRN pain #20 tabs 12/17/21 cyclobenzaprine 10 mg tablet 10 mg PO TID PRN muscle spasm #14 11/13/22 tabs ibuprofen 600 mg tablet 600 mg PO Q8H PRN pain #14 tabs 11/13/22 lidocaine 5 % topical patch 1 patch topical DAILY #15 ea 11/13/22 Allergies Allergy/AdvReac Type Severity Reaction Status Date / Time No Known Allergies Allergy Verified 11/13/22 17:55 Review of Systems Review of Systems: Yes all other systems are reviewed and are negative [facility] Past Medical History Medical History Asthma Diabetes mellitus Right inguinal hernia Surgical History History of knee surgery History of right inguinal hernia repair History of shoulder surgery Family History Family History Father No problems noted. Social History Social History Alcohol intake: never Patient Tobacco Use Status: Former Tobacco user Quit Date: 22 yr ago Advance Directives: No Advance Directives Information Provided: No Physical Exam Vital Signs: Vital Signs: Last Vital Signs Temp 97.5 F 11/13/22 17:53 Pulse 84 11/13/22 17:53 Resp 16 11/13/22 17:53 BP 146/110 H 11/13/22 17:53 Pulse Ox 99 11/13/22 17:53 O2 Del Method Room Air 11/13/22 17:53 BMI result Body Mass Index 28.7 Appearance: Alert. Oriented X3. No acute distress. HEENT: normal inspection Neck: Normal inspection CVS: Normal heart rate and rhythm. Pulses normal. Respiratory: No respiratory distress. Breath sounds normal. Abdomen: Soft and nontender. +BS x4 Back: normal inspection, no midline tenderness. limited ROM of the spine due to pain. soft tissue tenderness and palpable spasm of the upper lumbar area bilaterally. Skin: Skin warm and dry. Normal skin color. Normal skin turgor. No rashes. Extremities: No lower extremity edema. No joint swelling. Neuro/psych: Oriented X 3. steady gait Medical Decision Making Medical Decision Making MDM Narrative: 51 yo male presenting with bilateral low back pain after heavy lifting at work today. No red flag symptoms of LBP. No midline tenderness and no trauma. He has soft tissue tenderness and spasm on exam. Will treat with muscle relaxer, nsaid and lidoderm patches. we discussed importance of outpatient follow up with PCP. stable for d/c, return precautions reviewed. Differential Diagnosis Differential Diagnoses: The differential diagnosis associated with the presentation includes Inflammatory disorders, malignancy, trauma, osteoporosis, nerve root compression, radiculopathy, plexopathy, degenerative disc disease, disc herniation, spinal stenosis, sacroiliac joint dysfunction, facet joint injury, and less likely infection?like abscess or diskitis External Record Review External record reviewed: Prior outpatient labs and Prior outpatient radiology Tests considered The following testing was considered but not selected: xr spince considered - no trauma and no midline tenderness Prescription Management I considered prescription management with: Pain Medication Critical Care Time Critical Care Time Critical Care Time: No Discharge Plan Discharge Clinical Impression: Lumbar strain Patient Disposition: Home, Self-Care Instructions: Low Back Strain (ED), Lower Back Exercises (ED) Additional Instructions: Your pain is most likely due to muscle strain and spasm. No bending, lifting or twisting. Use ice several times per day for 20 minutes at a time for the next 48 hours and then change to heat. Take medications as prescribed to help with pain and discomfort. Follow up with your Primary Care Doctor this week. If your pain worsens, if you develop new numbness, tingling, weakness, loss of function or incontinence call 911 or come back to the ER right away for evaluation. Lo m?s probable es que peguero dolor se deba a tensi?n y espasmos musculares. Sin doblar, levantar o torcer. Use hielo varias veces al d?a cherise 20 minutos a la vez cherise las pr?ximas 48 horas y luego cambie a calor. [place] los medicamentos seg?n lo prescrito para ayudar con el dolor y la incomodidad. Raghu un seguimiento con peguero m?dico de atenci?n primaria esta semana. Si peguero dolor empeora, si desarrolla entumecimiento, hormigueo, debilidad, p?rdida de funci?n o incontinencia, llame al 911 o regrese a la marco de emergencias de inmediato para chance evaluaci?n. Prescriptions: New cyclobenzaprine 10 mg tablet 10 mg PO TID PRN (Reason: muscle spasm) Qty: 14 0RF lidocaine 5 % adhesive patch,medicated 1 patch topical DAILY Qty: 15 0RF Rx Instructions: leave on most painful area for up to 12 hrs ibuprofen 600 mg tablet 600 mg PO Q8H PRN (Reason: pain) Qty: 14 0RF No Action polyethylene glycol 3350 [Miralax] 17 gram/dose powder 238 g PO ONCE 1 Days Qty: 238 0RF Rx Instructions: Take as directed by mouth, bowel prep bisacodyl [Dulcolax (bisacodyl)] 5 mg tablet,delayed release (DR/EC) 10 mg PO ONCE 1 Days Qty: 2 0RF Rx Instructions: Take 2 tablets at 12:00pm the day before your procedure, bowel prep albuterol sulfate 2.5 mg /3 mL (0.083 %) solution for nebulization 1 vial inhalation Q4H PRN (Reason: Wheezing) loratadine-pseudoephedrine [Allergy Relief D-24hr] 10-240 mg tablet extended release 24 hr 1 tab PO BEDTIME ascorbic acid (vitamin C) [Vitamin C] 500 mg tablet 2 tab PO DAILY albuterol sulfate [ProAir HFA] 90 mcg/actuation HFA aerosol inhaler 2 puff PO Q4H PRN (Reason: Wheezing) fluticasone propionate 50 mcg/actuation spray,suspension 2 spray intranasal DAILY metformin 500 mg tablet 500 mg PO BID Qty: 60 0RF ibuprofen 600 mg tablet 600 mg PO TID PRN (Reason: pain) Qty: 30 0RF cyclobenzaprine 10 mg tablet 10 mg PO TID PRN (Reason: muscle spasm) Qty: 20 0RF acetaminophen 500 mg tablet 1,000 mg PO QID PRN (Reason: pain) Qty: 30 0RF cyclobenzaprine 5 mg tablet 5 mg PO TID PRN (Reason: muscle spasm) Qty: 14 0RF Rx Instructions: This medication may cause drowsiness so no driving for 8 hours after taking ibuprofen 600 mg tablet 600 mg PO Q6H PRN (Reason: pain) Qty: 20 0RF oxycodone-acetaminophen [Percocet] 5-325 mg tablet 1 tab PO Q4-6H PRN (Reason: pain, severe) Qty: 30 0RF ibuprofen 600 mg tablet 600 mg PO Q6H PRN (Reason: pain) Qty: 30 0RF Stand Alone Forms: Work/School Release
[2022-11-13 17:53] VITALS: BP 146/110; PULSE 84; RESP 16; TEMP 36.4; O2SAT 99; BMI 28.7
== END 2022-11-13 18:11 | disposition home or self-care (01) ==
PROVIDERS: Emergency Provider Internal Medicine; PCP Internal Medicine
DX: S39.012A Strain of muscle, fascia and tendon of lower back, initial encounter (principal); X50.0XXA Overexertion from strenuous movement or load, initial encounter; Y93.E9 Activity, other interior property and clothing maintenance; Y92.9 Unspecified place or not applicable; Y99.9 Unspecified external cause status
CPT/HCPCS: 99282; 99283

== ENCOUNTER 2023-05-27 11:29 | Emergency (ER) | payer MEDICAID, SELFPAY ==
[2023-05-27 11:53] VITALS: BP 153/76; PULSE 83; RESP 20; TEMP 37; O2SAT 99; BMI 29.8
--- NOTE | 2023-05-27 11:55 | ED.GENADULT ---
HPI - General Adult General Chief complaint: Abdominal Pain Stated complaint: Pain Back of Head R Hip Pain Time Seen by Provider: 05/27/23 20:58 History of Present Illness HPI narrative: Patient is a 52-year-old male who comes to the emergency room for evaluation of a headache that started this morning at around 07:30 when he was at work. Additionally the patient has had pain in his right groin for about 3 or 4 days. This is the site where he had hernia surgery a couple of years ago. He has had no difficulty eating. No nausea or vomiting. No injury. His chief complaint is headache. Related Data Home Medications Medication Instructions Recorded Confirmed albuterol sulfate 2.5 mg/3 mL 1 vial inhalation Q4H PRN Wheezing 06/28/20 05/28/23 (0.083 %) solution for nebulization albuterol sulfate 90 mcg/actuation 2 puff PO Q4H PRN Wheezing 06/28/20 05/28/23 aerosol inhaler (ProAir HFA) ascorbic acid (vitamin C) 500 mg 2 tab PO DAILY 06/28/20 05/28/23 tablet (Vitamin C) fluticasone propionate 50 2 spray intranasal DAILY 06/28/20 05/28/23 mcg/actuation nasal spray,suspension loratadine-pseudoephedrine ER 10 1 tab PO BEDTIME 06/28/20 05/28/23 mg-240 mg tablet,extended [id number] (Allergy Relief D-24hr) Previous Rx's Medication Instructions Recorded metformin 500 mg tablet 500 mg PO BID #60 tabs 03/09/20 bisacodyl 5 mg tablet,delayed 10 mg (2 x 5 mg) PO ONCE Bowel 05/02/20 release (Dulcolax (bisacodyl)) Preparation 1 day #2 tabs polyethylene glycol 3350 17 238 g PO ONCE 1 day #238 grams 05/02/20 gram/dose oral powder (Miralax) ibuprofen 600 mg tablet 600 mg PO TID PRN pain #30 tabs 06/22/20 cyclobenzaprine 10 mg tablet 10 mg PO TID PRN muscle spasm #20 11/12/20 tabs ibuprofen 600 mg tablet 600 mg PO Q6H PRN pain #30 tabs 07/31/21 oxycodone-acetaminophen 5 mg-325 1 tab PO Q4-6H PRN pain, severe 07/31/21 mg tablet (Percocet) #30 tabs acetaminophen 500 mg tablet 1,000 mg (2 x 500 mg) PO QID PRN 12/17/21 pain #30 tabs cyclobenzaprine 5 mg tablet 5 mg PO TID PRN muscle spasm #14 12/17/21 tabs ibuprofen 600 mg tablet 600 mg PO Q6H PRN pain #20 tabs 12/17/21 cyclobenzaprine 10 mg tablet 10 mg PO TID PRN muscle spasm #14 11/13/22 tabs ibuprofen 600 mg tablet 600 mg PO Q8H PRN pain #14 tabs 11/13/22 lidocaine 5 % topical patch 1 patch topical DAILY #15 ea 11/13/22 Allergies Allergy/AdvReac Type Severity Reaction Status Date / Time No Known Allergies Allergy Verified 05/28/23 15:38 Review of Systems Review of Systems: Yes all other systems are reviewed and are negative [facility] Past Medical History Medical History Right inguinal hernia Diabetes mellitus Asthma Surgical History History of right inguinal hernia repair History of knee surgery History of shoulder surgery Family History Family History Father No problems noted. Social History Social History Alcohol intake: never Patient Tobacco Use Status: Former Tobacco user Quit Date: 22 yr ago Physical Exam ED Vital Signs: Vital Signs - 24 hr 05/27/23 21:28 Pulse Rate 80 Blood Pressure 138/85 Pulse Oximetry 98 Oxygen Delivery Method Room Air BMI result Body Mass Index 29.8 HENDE Other: Face is symmetrical. Oropharynx is normal. No abnormalities to the scalp. Eyes Other: Pupils are round equal and reactive to light, extraocular movements intact, conjunctivae clear. Neck Other: The neck is entirely supple. No adenopathy. Resp Effort & Inspection: normal respiratory effort Auscultation: clear to auscultation bilaterally Cardio Rate: regular rate Rhythm: regular rhythm Heart sounds: S1 normal heart sound present and S2 normal heart sound present GI Other: The patient has some tenderness in the right inguinal region. I do not appreciate any actual hernia although there is some palpable tissue mass that is mildly tender and which I suspect is related to his previous surgery. Skin Other: The skin is dry and unremarkable. Neuro Other: The patient is awake, alert, pleasant, cooperative. Mental status is normal. His demeanor is entirely nontoxic. He is cheerful and smiling. Cranial nerves 2-12 are intact. He moves all 4 extremities normally with normal strength and coordination. He seems entirely neurologically intact. Extrem Other: Extremities are unremarkable. No peripheral edema. Course Course Course Narrative: This is a rapid medical exam. Deferred additional HPI, ROS, PE to primary provider. 52 yo male here with right groin pain x 1 week, headache x 1 day. Will obtain labs, UA VSS Medical Decision Making Medical Decision Making MDM Narrative: The patient is a 52-year-old who was ordinarily in good health. He presents for evaluation of a headache that has been bothering him for the last couple of days. The headache is intermittent. He does not have a headache currently. His neck is entirely supple. He looks entirely well. He is neurologically intact. I do not have a suspicion for an acutely dangerous headache syndrome. He also has some pain in his right groin where he had a hernia repair about a year ago. He has some mild tenderness in the region of the previous surgery but no definite hernia or other obvious acute complication. The patient's overall appearance and demeanor is entirely benign. Basic labs have been done that are unremarkable. I think it may be discharged to follow up with his regular doctor with regard to his headache and with his surgeon with regard to his groin pain. Lab Data 05/27/23 12:39 05/27/23 12:39 Labs: Lab Results 05/27/23 Range/Units 12:39 WBC 6.9 (4.8-10.8) X10*3/uL RBC 5.08 (4.60-5.80) X10*6/uL Hgb 15.3 (14.0-18.0) g/dl Hct 43.0 (42.0-52.0) % MCV 84.6 (80.0-98.0) fL MCH 30.1 (27.0-33.0) pg MCHC 35.6 (31.0-36.0) g/dl RDW 12.0 (11.0-16.0) % Plt Count 203 (160-400) X10*3/uL MPV 9.9 (9.4-12.4) fL Immature Gran % (Auto) 0.3 (0.0-0.4) % Neut % (Auto) 73.2 H (45-73) % Lymph % (Auto) 19.7 L (20-40) % Kenton % (Auto) 5.5 (2-11) % Eos % (Auto) 1.0 (0-4) % Baso % (Auto) 0.3 (0-2) % Lymph # (Auto) 1.4 (1.2-4.9) X10*3/uL Kenton # (Auto) 0.4 (0.1-1.2) X10*3/uL Eos # (Auto) 0.1 (0.0-0.4) X10*3/uL Baso # (Auto) 0.0 (0.0-0.2) X10*3/uL Abs Immat Gran (auto) 0.02 (0.00-0.03) X10*3/uL Absolute Neuts (auto) 5.1 (2.0-8.3) x10*3/uL Absolute Nucleated RBC 0.000 (0.0-0.012) X10*3/uL Nucleated RBC % (auto) 0.0 (0.0-0.2) /100WBC Sodium 140 (135-145) mmol/L Potassium 4.1 (3.3-5.1) mmol/L Chloride 106 (96-108) mmol/L Carbon Dioxide 25 (22-29) mmol/L Anion Gap 13 (12-20) BUN 9 (9-16) mg/dL Creatinine 1.04 (0.5-1.4) mg/dL Estim Creat Clear Calc 85.3 Estimated GFR > 60 Random Glucose 178 H (60-115) mg/dL Calcium 9.3 (8.4-10.2) mg/dL Total Bilirubin 1.2 H (0.0-1.0) mg/dL Direct Bilirubin 0.4 (0.0-0.5) mg/dL AST 19 (5-37) U/L ALT 31 (0-40) U/L Alkaline Phosphatase 63 (39-117) U/L Total Protein 7.1 (6.5-8.0) g/dL Albumin 4.5 (3.5-5.0) g/dL Discharge Plan Discharge Clinical Impression: Headache, Right inguinal pain Patient Disposition: Home, Self-Care Additional Instructions: I think it is unlikely that your headache today represents an acutely dangerous process. You may use acetaminophen as needed for headaches. Please contact your regular doctor to discuss your headache further. Make an appointment soon. Also please contact Dr. Cordero, the surgeon who operated on your right groin hernia. Please contact his office tomorrow and explained you are having pain at the site of the surgery. Please make an appointment to be seen at the office and discuss this pain further. If at any point your symptoms are significantly worse please return to the emergency department. Prescriptions: No Action polyethylene glycol 3350 [Miralax] 17 gram/dose powder 238 g PO ONCE 1 Days Qty: 238 0RF Rx Instructions: Take as directed by mouth, bowel prep bisacodyl [Dulcolax (bisacodyl)] 5 mg tablet,delayed release (DR/EC) 10 mg PO ONCE 1 Days Qty: 2 0RF Rx Instructions: Take 2 tablets at 12:00pm the day before your procedure, bowel prep albuterol sulfate 2.5 mg /3 mL (0.083 %) solution for nebulization 1 vial inhalation Q4H PRN (Reason: Wheezing) loratadine-pseudoephedrine [Allergy Relief D-24hr] 10-240 mg tablet extended release 24 hr 1 tab PO BEDTIME ascorbic acid (vitamin C) [Vitamin C] 500 mg tablet 2 tab PO DAILY albuterol sulfate [ProAir HFA] 90 mcg/actuation HFA aerosol inhaler 2 puff PO Q4H PRN (Reason: Wheezing) fluticasone propionate 50 mcg/actuation spray,suspension 2 spray intranasal DAILY metformin 500 mg tablet 500 mg PO BID Qty: 60 0RF ibuprofen 600 mg tablet 600 mg PO TID PRN (Reason: pain) Qty: 30 0RF cyclobenzaprine 10 mg tablet 10 mg PO TID PRN (Reason: muscle spasm) Qty: 20 0RF acetaminophen 500 mg tablet 1,000 mg PO QID PRN (Reason: pain) Qty: 30 0RF cyclobenzaprine 5 mg tablet 5 mg PO TID PRN (Reason: muscle spasm) Qty: 14 0RF Rx Instructions: This medication may cause drowsiness so no driving for 8 hours after taking ibuprofen 600 mg tablet 600 mg PO Q6H PRN (Reason: pain) Qty: 20 0RF oxycodone-acetaminophen [Percocet] 5-325 mg tablet 1 tab PO Q4-6H PRN (Reason: pain, severe) Qty: 30 0RF ibuprofen 600 mg tablet 600 mg PO Q6H PRN (Reason: pain) Qty: 30 0RF cyclobenzaprine 10 mg tablet 10 mg PO TID PRN (Reason: muscle spasm) Qty: 14 0RF lidocaine 5 % adhesive patch,medicated 1 patch topical DAILY Qty: 15 0RF Rx Instructions: leave on most painful area for up to 12 hrs ibuprofen 600 mg tablet 600 mg PO Q8H PRN (Reason: pain) Qty: 14 0RF Referrals: Beau Leger MD [Primary Care Provider] - (Headache) Kaveh Cordero MD [Physician] - (Right groin pain at site of previous hernia surgery) Stand Alone Forms: Work/School Release Interventions: ED Discharge Assessment Last Done: 05/27/23 21:29 Discharge Date/Time: 05/27/23 21:30
[2023-05-27 12:00] VITALS: BP 138/85; PULSE 80; O2SAT 98
[2023-05-27 12:43] LABS: MANUAL DIFF FLAG NO
[2023-05-27 12:48] LABS: Basophils Percent Auto 0.3 % (0-2); Eosinophils Absolute Auto 0.1 X10*3/uL (0.0-0.4); Hemoglobin 15.3 g/dl (14.0-18.0); Imm Gran Abs Auto 0.02 X10*3/uL (0.00-0.03); Imm Gran Pct Auto 0.3 % (0.0-0.4); Lymphocytes Absolute Auto 1.4 X10*3/uL (1.2-4.9); Lymphocytes Percent Auto 19.7 % (20-40); Mean Corpuscular HGB Conc 35.6 g/dl (31.0-36.0); Mean Corpuscular Hemoglobin 30.1 pg (27.0-33.0); Mean Corpuscular Volume 84.6 fL (80.0-98.0); Mean Platelet Volume 9.9 fL (9.4-12.4); Monocytes Absolute Auto 0.4 X10*3/uL (0.1-1.2); Monocytes Percent Auto 5.5 % (2-11); Neutrophils Absolute Auto 5.1 x10*3/uL (2.0-8.3); Neutrophils Percent Auto 73.2 % (45-73); Platelet Count 203 X10*3/uL (160-400); Red Blood Count 5.08 X10*6/uL (4.60-5.80); White Blood Count 6.9 X10*3/uL (4.8-10.8)
[2023-05-27 13:03] LABS: Alanine Aminotransferase 31 U/L (0-40); Albumin Level 4.5 g/dL (3.5-5.0); Alkaline Phosphatase 63 U/L (39-117); Anion Gap 13 (12-20); Aspartate Amino Transferase 19 U/L (5-37); Bilirubin Direct 0.4 mg/dL (0.0-0.5); Bilirubin Total 1.2 mg/dL (0.0-1.0); Blood Urea Nitrogen 9 mg/dL (9-16); Calcium 9.3 mg/dL (8.4-10.2); Carbon Dioxide 25 mmol/L (22-29); Chloride 106 mmol/L (96-108); Creatinine Clr Calc Pharmacy 85.3; Estimated Glomerular Filt Rate > 60; Glucose Random 178 mg/dL (60-115); Potassium 4.1 mmol/L (3.3-5.1); Sodium 140 mmol/L (135-145); Total Protein 7.1 g/dL (6.5-8.0)
[2023-05-27 21:28] VITALS: BP 138/85; PULSE 80; O2SAT 98
== END 2023-05-27 21:30 | disposition home or self-care (01) ==
PROVIDERS: Nurse Practitioner Family; Emergency Provider Emergency Medicine; PCP Internal Medicine
DX: R51.9 Headache, unspecified (principal); R10.30 Lower abdominal pain, unspecified; E11.9 Type 2 diabetes mellitus without complications
CPT/HCPCS: 36415; 80048; 80076; 85025; 99283; 99284

== ENCOUNTER 2023-05-28 15:18 | Outpatient (AMB) | payer MEDICAID, SELFPAY ==
[2023-05-28 15:20] VITALS: BP 127/77; PULSE 86; BMI 29.4
--- NOTE | 2023-05-28 15:20 | MHC.OFFVIS ---
Intake Vital Signs 05/28/23 15:20 Height 5 ft 6 in Weight 182 lb BMI 29.4 BP 127/77 Blood Pressure Location Lt brachial Position Sitting Pulse 86 Intake Visit Reasons: Right groin pain at previous hernia surgery site Intake Note: Pt c/o; pain, reports burning sensation, report abdominal pain when straining with bowel movements, reports mass. Pile Driving Technician Required: Yes Pile Driving Technician Language: Consumer Experience Consultant Name: Torito Information Interpreted: non-clinical & clinical Accompanied by: Spouse Allergies No Known Allergies Allergy (Verified 05/28/23 15:38) Medication List - Last Reconciled 05/28/23 by Kaveh Cordero MD acetaminophen 1,000 mg (2 x 500 mg) PO QID PRN albuterol sulfate 1 vial inhalation Q4H PRN albuterol sulfate 90 mcg/actuation (ProAir HFA) 2 puffs PO Q4H PRN ascorbic acid (vitamin C) (Vitamin C) 2 tabs PO DAILY bisacodyl (Dulcolax (bisacodyl)) 10 mg (2 x 5 mg) PO ONCE 1 day cyclobenzaprine 10 mg PO TID PRN cyclobenzaprine 5 mg PO TID PRN cyclobenzaprine 10 mg PO TID PRN fluticasone propionate 50 mcg/actuation 2 sprays intranasal DAILY ibuprofen 600 mg PO TID PRN ibuprofen 600 mg PO Q6H PRN ibuprofen 600 mg PO Q6H PRN ibuprofen 600 mg PO Q8H PRN lidocaine 5% 1 patch topical DAILY loratadine-pseudoephedrine 10-240 mg ER (Allergy Relief D-24hr) 1 tab PO BEDTIME metformin 500 mg PO BID oxycodone-acetaminophen 5-325 mg (Percocet) 1 tab PO Q4-6H PRN polyethylene glycol 3350 (Miralax) 238 grams PO ONCE 1 day HPI Right groin pain at previous hernia surgery site HPI Details He had undergone repair of a right inguinal hernia with mesh last July,. He had been doing well but for the past 3 weeks, he says that he had been noticing some sharp pains on the area. 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 He denies GI complaints. [facility] Medical History Right inguinal hernia Diabetes mellitus Asthma Surgical History History of right inguinal hernia repair History of knee surgery History of shoulder surgery Family History Father No problems noted. Social History Alcohol intake: never Patient Tobacco Use Status: Former Tobacco user Quit Date: 22 yr ago Review of Systems Const Denies chills and Denies fever(s) Card Denies chest pain, Denies dyspnea and Denies dyspnea on exertion Resp Denies cough, Denies dyspnea and Denies dyspnea on exertion GI Denies hematochezia and Denies change in bowel habits Denies hematuria and Denies difficulty urinating Musc Denies back pain and Denies limited range of motion Neuro Denies focal weakness and Denies convulsions Psych Denies depression and Denies mood swings Physical Exam Const General: comfortable and no acute distress Orientation/consciousness: patient oriented x3 Neck Neck: Yes no lymphadenopathy Resp Auscultation: clear to auscultation bilaterally Cardio Rhythm: regular rhythm GI Other: Right inguinal hernia repair site appears intact, no obvious recurrent hernia, no masses, no significant tenderness, no skin changes Palpation (GI): Soft to palpation, nontender and no guarding Neuro General: patient oriented x3 Assessment & Plan Assessment & Plan (1) Right inguinal pain: Code(s): R10.31 - Right lower quadrant pain Plan: He has sharp pains on the area of the inguinal hernia repair from 2021. I do not feel any obvious recurrent hernia at this time. I will order for a CAT scan to rule out a recurrence. I will see him in the office to discuss the findings. He understands the plan and is comfortable with this. Orders: Orders CT abdomen pelvis wo IV con Today R10.31 - Right lower quadrant pain Coding Level of Care Code Est Pt Level 3 (61778) Diagnoses Right inguinal pain R10.31
== END 2023-05-28 16:03 | disposition home or self-care (01) ==
PROVIDERS: PCP Internal Medicine; Visit Provider Surgery
DX: R10.31 Right lower quadrant pain (principal)
CPT/HCPCS: 99213

== ENCOUNTER → 2023-05-28 15:18 | Outpatient (BNVA) | payer MEDICAID, SELFPAY | PROVIDERS: PCP Internal Medicine; Visit Provider Surgery | DX: R10.31 Right lower quadrant pain (principal) | CPT/HCPCS: 99212 ==

== ENCOUNTER 2023-08-15 08:20 | Outpatient (REF) | payer OTHER, SELFPAY ==
[2023-08-15 12:06] LABS: Alanine Aminotransferase 29 U/L (0-40); Albumin Level 4.7 g/dL (3.5-5.0); Alkaline Phosphatase 64 U/L (39-117); Anion Gap 15 (12-20); Aspartate Amino Transferase 14 U/L (5-37); Bilirubin Total 0.7 mg/dL (0.0-1.0); Blood Urea Nitrogen 9 mg/dL (9-16); Calcium 9.6 mg/dL (8.4-10.2); Carbon Dioxide 26 mmol/L (22-29); Chloride 107 mmol/L (96-108); Cholesterol 182 mg/dL (<200); Estimated Glomerular Filt Rate > 60; Glucose Random 122 mg/dL (60-115); HDL Cholesterol 29 mg/dL (>40); LDL Cholesterol Calculated 85 mg/dL (<100); Potassium 4.5 mmol/L (3.3-5.1); Sodium 143 mmol/L (135-145); Total Protein 7.5 g/dL (6.5-8.0); Triglycerides 341 mg/dL (<150)
[2023-08-15 12:07] LABS: Estimated Average Glucose 137 mg/dL; Hemoglobin A1c % 6.4 % (<6.0)
== END 2023-08-15 08:21 | disposition home or self-care (01) ==
LOC: HO.HHCL 08:20
PROVIDERS: Visit Provider Internal Medicine
DX: E11.9 Type 2 diabetes mellitus without complications (principal)
CPT/HCPCS: 36415; 80053; 80061; 83036

== ENCOUNTER 2023-09-22 11:25 | Outpatient (REF) | payer OTHER, SELFPAY ==
[2023-09-22 15:22] LABS: Creatinine Urine 98.08 mg/dL; Microalbum/Creatinine Ratio Ur 7.1 ug/mg cr (<30)
== END 2023-09-22 11:26 | disposition home or self-care (01) ==
LOC: HO.CHCLDS 11:25
PROVIDERS: Visit Provider Internal Medicine
DX: E11.9 Type 2 diabetes mellitus without complications (principal)
CPT/HCPCS: 82043; 82570

== ENCOUNTER 2024-01-28 16:04 | Outpatient (REF) | payer OTHER, SELFPAY ==
--- NOTE | ~2024-01-28 | XR_ITS ---
EXAMINATION: XR LEFT FOOT 3 VIEWS CLINICAL INFORMATION: 53 yo M with left heel pain c/w plantar fasciitis send to [facility] [place]. COMPARISON: None available. TECHNIQUE: AP, lateral, and oblique views of the left foot. FINDINGS: Both lumens are well aligned. No tarsal, metatarsal or phalangeal fracture. Small posterior calcaneal enthesophyte. No localized soft tissue swelling. No radiopaque foreign body. XR/XR foot LT min 3V IMPRESSION: Mild degenerative changes of the left foot. Electronically signed by: Peewee Wood MD 04/06/2024 11:32 AM LAUR[facility]
== END 2024-01-28 16:05 | disposition home or self-care (01) ==
LOC: HO.XRAY 16:04
PROVIDERS: PCP Internal Medicine; Visit Provider Family Medicine
DX: M79.672 Pain in left foot (principal); G89.29 Other chronic pain
CPT/HCPCS: 73630

== ENCOUNTER 2024-04-19 20:02 | Emergency (ER) | payer OTHER, SELFPAY ==
--- NOTE | ~2024-04-19 | XR_ITS ---
CLINICAL HISTORY: pain 4 view left shoulder Comparison: None Findings: No fractures or dislocations. No significant loss of joint space or osteophytes. No erosions. No radiopaque foreign body. IMPRESSION: 1. No acute findings This document has been electronically signed by: Jose Cruz Mcdonald MD on 04/19/2024 21:22:09
[2024-04-19 20:38] VITALS: BP 144/85; PULSE 95; RESP 18; TEMP 36.7; O2SAT 99; BMI 27.9
--- NOTE | 2024-04-19 20:39 | ED_ITS ---
HPI - General Adult General Chief complaint: Chest Pain Stated complaint: neck and left arm pain/ high bp Time Seen by Provider: 04/20/24 00:56 History of Present Illness ED Provider: Jess ALBERTO narrative: The patient is a 53-year-old male who says that yesterday at around 17:00 developed pain in the region of his left shoulder and chest. The pain has persisted and he ultimately came to the emergency room today. He has had the pain all day long today as well as yesterday evening. No fever, sweats, chills. No cough or sputum. No injury. He does not think that he did any lifting or straining. No shortness of breath. Related Data Home Medications ?Medication ?Instructions ?Recorded ?Confirmed albuterol sulfate 2.5 mg/3 mL 1 vial inhalation Q4H PRN Wheezing 06/28/20 05/28/23 (0.083 %) solution for nebulization albuterol sulfate 90 mcg/actuation 2 puff PO Q4H PRN Wheezing 06/28/20 05/28/23 aerosol inhaler (ProAir HFA) ascorbic acid (vitamin C) 500 mg 2 tab PO DAILY 06/28/20 05/28/23 tablet (Vitamin C) fluticasone propionate 50 2 spray intranasal DAILY 06/28/20 05/28/23 mcg/actuation nasal spray,suspension loratadine-pseudoephedrine ER 10 1 tab PO BEDTIME 06/28/20 05/28/23 mg-240 mg tablet,extended [id number] (Allergy Relief D-24hr) Previous Rx's ?Medication ?Instructions ?Recorded metformin 500 mg tablet 500 mg PO BID #60 tabs 03/09/20 bisacodyl 5 mg tablet,delayed 10 mg (2 x 5 mg) PO ONCE Bowel 05/02/20 release (Dulcolax (bisacodyl)) Preparation 1 day #2 tabs polyethylene glycol 3350 17 238 g PO ONCE 1 day #238 grams 05/02/20 gram/dose oral powder (Miralax) ibuprofen 600 mg tablet 600 mg PO TID PRN pain #30 tabs 06/22/20 cyclobenzaprine 10 mg tablet 10 mg PO TID PRN muscle spasm #20 11/12/20 tabs ibuprofen 600 mg tablet 600 mg PO Q6H PRN pain #30 tabs 07/31/21 oxycodone-acetaminophen 5 mg-325 1 tab PO Q4-6H PRN pain, severe 07/31/21 mg tablet (Percocet) #30 tabs acetaminophen 500 mg tablet 1,000 mg (2 x 500 mg) PO QID PRN 12/17/21 pain #30 tabs cyclobenzaprine 5 mg tablet 5 mg PO TID PRN muscle spasm #14 12/17/21 tabs ibuprofen 600 mg tablet 600 mg PO Q6H PRN pain #20 tabs 12/17/21 cyclobenzaprine 10 mg tablet 10 mg PO TID PRN muscle spasm #14 11/13/22 tabs ibuprofen 600 mg tablet 600 mg PO Q8H PRN pain #14 tabs 11/13/22 lidocaine 5 % topical patch 1 patch topical DAILY #15 ea 11/13/22 cyclobenzaprine 10 mg tablet 10 mg PO TID PRN muscle spasm #14 04/20/24 tabs ibuprofen 400 mg tablet 400 mg PO Q6H PRN pain #14 tabs 04/20/24 Allergies Allergy/AdvReac Type Severity Reaction Status Date / Time No Known Allergies Allergy Verified 04/19/24 20:38 Review of Systems 2 Review of Systems: Yes all other systems are reviewed and are negative PMFSH Past Medical History Medical History Right inguinal hernia Diabetes mellitus Asthma Surgical History History of right inguinal hernia repair History of knee surgery History of shoulder surgery Family History Family History Father No problems noted. Social History Social History Alcohol intake: never Patient Tobacco Use Status: Former Tobacco user Advance Directives: No Advance Directives Information Provided: No Do you have a plan to hurt others: No Plan Physical Exam ED Vital Signs: Vital Signs - 24 hr 04/19/24 20:38 04/20/24 00:38 Temperature 98.1 F 98.1 F Pulse Rate 95 84 Respiratory Rate 18 18 Blood Pressure 144/85 H 138/88 Pulse Oximetry 99 99 Oxygen Delivery Method Room Air Room Air BMI result Body Mass Index 27.9 Const Other: The patient is a 53-year-old male who looks as though he is generally quite physically fit. He does not appear in any distress. [facility] Head: Yes normal to inspection Face and sinus: Yes normal facial exam Mouth: Normal oral and palatal mucosa present and moist mucous membranes Eyes General: appearance normal, both eyes and all related structures Neck Neck: Yes full ROM Resp Effort & Inspection: normal respiratory effort Auscultation: clear to auscultation bilaterally Cardio Rate: regular rate Rhythm: regular rhythm Heart sounds: S1 normal heart sound present and S2 normal heart sound present GI Other: Abdomen is soft and nontender Skin Other: Skin is dry and unremarkable Neuro Other: The patient is awake and alert with a normal mental status. Cranial nerves are intact. He has normal strength and sensation in all of his extremities. Extrem Other: The patient has tenderness in the musculature around the left shoulder particularly posteriorly. No deformity. Good range of motion of the left glenohumeral joint. Course Course Course Narrative: RME, this is a rapid medical exam performed by Adam Garcia please refer to primary provider for complete H&P- 53-year-old male presents for evaluation of left-sided chest pain, shoulder pain. Pain radiates into his neck back. Plan for cardiac workup Medical Decision Making Medical Decision Making MDM Narrative: The patient is a 53-year-old male. He is a nonsmoker. He says that yesterday at around 17:00 he developed pain around his left shoulder that worried him and he finally came to the emergency room today. The pain has been fairly continuous since then. He denies any strain or injury that might have triggered the pain. He has had no shortness of breath. No cough or sputum. He has a nonischemic EKG. He has an undetectable troponin after more than 24 hours of discomfort. He seems to have muscular tenderness on exam. I believe the patient's pain is likely muscular. I do not think he is having an acute coronary syndrome. He will be prescribed ibuprofen and cyclobenzaprine. He should follow up with his PCP. Lab Data 04/19/24 21:12 04/19/24 21:12 Labs: Lab Results 04/19/24 Range/Units 21:12 WBC 7.7 (4.8-10.8) X10*3/uL RBC 5.12 (4.60-5.80) X10*6/uL Hgb 15.6 (14.0-18.0) g/dl Hct 42.7 (42.0-52.0) % MCV 83.4 (80.0-98.0) fL MCH 30.5 (27.0-33.0) pg MCHC 36.5 H (31.0-36.0) g/dl RDW 12.3 (11.0-16.0) % Plt Count 207 (160-400) X10*3/uL MPV 10.1 (9.4-12.4) fL Immature Gran % (Auto) 0.4 (0.0-0.4) % Neut % (Auto) 64.4 (45-73) % Lymph % (Auto) 25.1 (20-40) % Garza % (Auto) 7.6 (2-11) % Eos % (Auto) 2.0 (0-4) % Baso % (Auto) 0.5 (0-2) % Lymph # (Auto) 1.9 (1.2-4.9) X10*3/uL Garza # (Auto) 0.6 (0.1-1.2) X10*3/uL Eos # (Auto) 0.2 (0.0-0.4) X10*3/uL Baso # (Auto) 0.0 (0.0-0.2) X10*3/uL Abs Immat Gran (auto) 0.03 (0.00-0.03) X10*3/uL Absolute Neuts (auto) 5.0 (2.0-8.3) x10*3/uL Absolute Nucleated RBC 0.000 (0.0-0.012) X10*3/uL Nucleated RBC % (auto) 0.0 (0.0-0.2) /100WBC PT 11.1 (10.9-12.4) SEC INR 1.0 (0.9-1.1) Sodium 142 (135-145) mmol/L Potassium 3.8 (3.3-5.1) mmol/L Chloride 109 H (96-108) mmol/L Carbon Dioxide 22 (22-29) mmol/L Anion Gap 15 (12-20) BUN 12 (9-16) mg/dL Creatinine 0.86 (0.5-1.4) mg/dL Estim Creat Clear Calc 102.2 Estimated GFR > 60 Random Glucose 153 H (60-115) mg/dL Calcium 9.6 (8.4-10.2) mg/dL Total Bilirubin 0.7 (0.0-1.0) mg/dL AST 16 (5-37) U/L ALT 22 (0-40) U/L Alkaline Phosphatase 66 (39-117) U/L Troponin I High Sens < 2.7 (<3.5-35.0) ng/L Total Protein 7.3 (6.5-8.0) g/dL Albumin 4.6 (3.5-5.0) g/dL Lipase 21 (8-78) U/L Independent Interpretation I performed an independent interpretation of an: EKG Interpretation: EKG at 20:47 shows normal sinus rhythm at 92 beats per minute. No definite acute ischemic changes. I am not able to view any old EKGs for comparison. Discharge Plan Discharge Clinical Impression: Acute pain of left shoulder Patient Disposition: Home, Self-Care Additional Instructions: Your testing in the emergency room today is very reassuring. I believe that your pain is a muscular pain in the muscles around your left shoulder. You may use acetaminophen (Tylenol) as needed for pain. You may take 2 extra- strength acetaminophen up to 3 times a day. I have also sent a prescription for ibuprofen that you may use every 6 hours. In addition I have sent a prescription for a muscle relaxant medication, cyclobenzaprine, that you may use up to 3 times per day. No driving on the cyclobenzaprine. Please follow up with your regular doctor to discuss this pain further. Return to the emergency room if feel significantly worse. Prescriptions: New cyclobenzaprine 10 mg tablet 10 mg PO TID PRN (Reason: muscle spasm) Qty: 14 0RF ibuprofen 400 mg tablet 400 mg PO Q6H PRN (Reason: pain) Qty: 14 0RF No Action polyethylene glycol 3350 [Miralax] 17 gram/dose powder 238 g PO ONCE 1 Days Qty: 238 0RF Rx Instructions: Take as directed by mouth, bowel prep bisacodyl [Dulcolax (bisacodyl)] 5 mg tablet,delayed release (DR/EC) 10 mg PO ONCE 1 Days Qty: 2 0RF Rx Instructions: Take 2 tablets at 12:00pm the day before your procedure, bowel prep albuterol sulfate 2.5 mg /3 mL (0.083 %) solution for nebulization 1 vial inhalation Q4H PRN (Reason: Wheezing) loratadine-pseudoephedrine [Allergy Relief D-24hr] 10-240 mg tablet extended release 24 hr 1 tab PO BEDTIME ascorbic acid (vitamin C) [Vitamin C] 500 mg tablet 2 tab PO DAILY albuterol sulfate [ProAir HFA] 90 mcg/actuation HFA aerosol inhaler 2 puff PO Q4H PRN (Reason: Wheezing) fluticasone propionate 50 mcg/actuation spray,suspension 2 spray intranasal DAILY metformin 500 mg tablet 500 mg PO BID Qty: 60 0RF ibuprofen 600 mg tablet 600 mg PO TID PRN (Reason: pain) Qty: 30 0RF cyclobenzaprine 10 mg tablet 10 mg PO TID PRN (Reason: muscle spasm) Qty: 20 0RF acetaminophen 500 mg tablet 1,000 mg PO QID PRN (Reason: pain) Qty: 30 0RF cyclobenzaprine 5 mg tablet 5 mg PO TID PRN (Reason: muscle spasm) Qty: 14 0RF Rx Instructions: This medication may cause drowsiness so no driving for 8 hours after taking ibuprofen 600 mg tablet 600 mg PO Q6H PRN (Reason: pain) Qty: 20 0RF oxycodone-acetaminophen [Percocet] 5-325 mg tablet 1 tab PO Q4-6H PRN (Reason: pain, severe) Qty: 30 0RF ibuprofen 600 mg tablet 600 mg PO Q6H PRN (Reason: pain) Qty: 30 0RF cyclobenzaprine 10 mg tablet 10 mg PO TID PRN (Reason: muscle spasm) Qty: 14 0RF lidocaine 5 % adhesive patch,medicated 1 patch topical DAILY Qty: 15 0RF Rx Instructions: leave on most painful area for up to 12 hrs ibuprofen 600 mg tablet 600 mg PO Q8H PRN (Reason: pain) Qty: 14 0RF Print Language: Belizean
--- NOTE | 2024-04-19 20:39 | ECG_ITS ---
Test Reason : PAIN Blood Pressure : / mmHG Vent. Rate : 092 BPM Atrial Rate : 092 BPM P-R Int : 112 ms QRS Dur : 088 ms QT Int : 346 ms P-R-T Axes : 030 044 054 degrees QTc Int : 427 ms Normal sinus rhythm Normal ECG When compared to the previous EKG of No significant changes seen Referred By: Kian Garcia Electronically Signed By:ALEJANDRA VALENZUELA MD
[2024-04-19 21:16] LABS: MANUAL DIFF FLAG NO
[2024-04-19 21:21] LABS: Basophils Percent Auto 0.5 % (0-2); Eosinophils Absolute Auto 0.2 X10*3/uL (0.0-0.4); Hematocrit 42.7 % (42.0-52.0); Hemoglobin 15.6 g/dl (14.0-18.0); Imm Gran Abs Auto 0.03 X10*3/uL (0.00-0.03); Imm Gran Pct Auto 0.4 % (0.0-0.4); Lymphocytes Absolute Auto 1.9 X10*3/uL (1.2-4.9); Lymphocytes Percent Auto 25.1 % (20-40); Mean Corpuscular HGB Conc 36.5 g/dl (31.0-36.0); Mean Corpuscular Hemoglobin 30.5 pg (27.0-33.0); Mean Corpuscular Volume 83.4 fL (80.0-98.0); Mean Platelet Volume 10.1 fL (9.4-12.4); Monocytes Absolute Auto 0.6 X10*3/uL (0.1-1.2); Monocytes Percent Auto 7.6 % (2-11); Neutrophils Percent Auto 64.4 % (45-73); Platelet Count 207 X10*3/uL (160-400); Red Blood Count 5.12 X10*6/uL (4.60-5.80); Red Cell Distribution Width 12.3 % (11.0-16.0); White Blood Count 7.7 X10*3/uL (4.8-10.8)
[2024-04-19 21:31] LABS: Prothrombin Time 11.1 SEC (10.9-12.4)
[2024-04-19 21:34] LABS: Alanine Aminotransferase 22 U/L (0-40); Albumin Level 4.6 g/dL (3.5-5.0); Alkaline Phosphatase 66 U/L (39-117); Anion Gap 15 (12-20); Aspartate Amino Transferase 16 U/L (5-37); Bilirubin Total 0.7 mg/dL (0.0-1.0); Blood Urea Nitrogen 12 mg/dL (9-16); Calcium 9.6 mg/dL (8.4-10.2); Carbon Dioxide 22 mmol/L (22-29); Chloride 109 mmol/L (96-108); Creatinine Clr Calc Pharmacy 102.2; Estimated Glomerular Filt Rate > 60; Glucose Random 153 mg/dL (60-115); Lipase 21 U/L (8-78); Potassium 3.8 mmol/L (3.3-5.1); Sodium 142 mmol/L (135-145); Total Protein 7.3 g/dL (6.5-8.0)
[2024-04-19 21:42] LABS: Troponin-I High Sensitivity < 2.7 ng/L (<3.5-35.0)
[2024-04-20 00:38] VITALS: BP 138/88; PULSE 84; RESP 18; TEMP 36.7; O2SAT 99
[2024-04-20 01:56] VITALS: BP 126/83; PULSE 77; RESP 16; TEMP 36.6; O2SAT 99
[2024-04-20] MEDS: Ketorolac Tromethamine 30 MG/ML VIAL IM (02:25)
[2024-04-20 02:43] VITALS: BP 126/83; PULSE 77; RESP 16; TEMP 36.6; O2SAT 99
== END 2024-04-20 02:43 | disposition home or self-care (01) ==
PROVIDERS: Physician Assistant; Emergency Provider Emergency Medicine; PCP Internal Medicine
DX: M25.512 Pain in left shoulder (principal); R07.9 Chest pain, unspecified; E11.8 Type 2 diabetes mellitus with unspecified complications; J45.909 Unspecified asthma, uncomplicated; Z79.84 Long term (current) use of oral hypoglycemic drugs; Z79.899 Other long term (current) drug therapy
CPT/HCPCS: 36415; 73030; 80053; 83690; 84484; 85025; 85610; 93005; 96372; 99284; J1885

== ENCOUNTER → 2024-04-19 20:39 | Outpatient (BNV) | payer OTHER, SELFPAY | PROVIDERS: PCP Internal Medicine; Visit Provider Specialist | DX: M25.512 Pain in left shoulder (principal) | CPT/HCPCS: 73030 ==

== ENCOUNTER → 2024-04-19 20:39 | Outpatient (BNV) | payer OTHER, SELFPAY | PROVIDERS: Emergency Provider Emergency Medicine; PCP Internal Medicine; Visit Provider Internal Medicine Cardiovascular Disease | DX: R07.9 Chest pain, unspecified (principal) | CPT/HCPCS: 93010 ==

== ENCOUNTER 2024-05-11 09:17 | Emergency (ER) | payer OTHER, SELFPAY ==
--- NOTE | ~2024-05-11 | XR_ITS ---
EXAMINATION: XR PELVIS CLINICAL INFORMATION: fall/pain COMPARISON: None available. TECHNIQUE: AP view of the pelvis. FINDINGS: No definite acute fracture, dislocation, or suspicious focal bone lesion. Normal bone mineralization. Probable old fractures of the pubic rami on the right. There are mild degenerative changes in both hip joints with superolateral spurring of the acetabula. There is heterotopic bone formation posterolateral to the femoral head and superior acetabulum, which appears to extend into the medial soft tissues of the right leg. Arthritic changes of the SI joints noted. Soft tissues otherwise appear normal. XR/XR pelvis 1-2V IMPRESSION: 1. No acute fracture or suspicious bone lesion. 2. 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 3. 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 Electronically signed by: Tc Smallwood MD 05/11/2024 11:09 AM [facility]
--- NOTE | ~2024-05-11 | XR_ITS ---
EXAMINATION: XR FEMUR, RIGHT CLINICAL INFORMATION: fall/pain COMPARISON: None available. TECHNIQUE: AP and lateral views of the right femur were obtained. FINDINGS: Normal bone mineralization. No fracture, dislocation, or suspicious bone lesion. Normal alignment. Mild degenerative changes in the right hip joint and in the imaged knee joint. No knee joint effusion. Probable old fractures of the right pubic rami. Mild heterotopic ossification/myositis ossificans superolateral to the right femoral head/superior acetabulum and within the medial soft tissues of the thigh. No discrete additional soft tissue abnormalities. XR/XR femur RT 2V IMPRESSION: 1. No acute findings right femur. Ancillary findings as discussed. Electronically signed by: Tc Smallwood MD 05/11/2024 11:13 AM [facility]
--- NOTE | ~2024-05-11 | XR_ITS ---
EXAMINATION: XR HAND/WRIST, RIGHT CLINICAL INFORMATION: fall/pain COMPARISON: None available. TECHNIQUE: PA, lateral, and oblique views of the right hand and wrist. FINDINGS: There is a tiny bony fragment abutting the ulnar styloid, likely reflecting a tiny avulsion fracture, age indeterminate. This may be chronic. Correlate with point tenderness. Otherwise, no fracture, dislocation, or suspicious bone lesion. Carpal bones intact and normally aligned. Mild arthritic changes at the STT joints. No soft tissue abnormalities. XR/XR hand wrist RT IMPRESSION: 1. Tiny ulnar styloid avulsion, most likely chronic although correlation with point tenderness recommended. 2. Mild arthritis at the STT joints. 3. Otherwise normal right wrist and hand. Electronically signed by: cT Smallwood MD 05/11/2024 11:04 AM [facility]
[2024-05-11 09:41] VITALS: BP 146/79; PULSE 94; RESP 20; TEMP 37.2; O2SAT 100; BMI 28.6
--- OUTSIDE RECORDS SUMMARY | 2024-05-11 10:54 | XMS_ITS | Encounter Summary ---
Author Organization [employer] Address [address] [facility] [address] [place] [address] Care Team Providers Care Lactation Specialist Name Role Phone Beau Leger MD Primary Care Prov ider Encounter Details Date Type Department Care Team (Late st Contact Info) Description 03/15/2024 Orders Only [facility] [address] [place] [address] ProviderRebeca MD Social History Tobacco Use Types Packs/Day Years Used Date Smoking Tobacco: Former Cigarettes 1 15 1 986 - 1999 Smokeless Tobacco: Never Alcohol Use Standard Drinks/Week Comments Never 0 (1 standard drink = 0.6 oz pur e alcohol) Depression Answer Date Recorded Patient Health Questionnaire-9 Score 0 12/25/2022 Housing Stability Answer Date Recorded What is your housing situation today? I have finn yin 02/24/[address] you li ve. Do you have problems with any of the following? None of the above 02/24/2023 Food Insecurity Answer Date Recorded Within the past 12 months, y ou worried that your food would run out before you got money to buy more: Never True 02/24/2023 Within the past 12 months,th e food you bought just didn't last and you didn't have enough money to get more: Never True 09/2022 Transportation Answer Date Recorded In the past 12 months, has l ack of transportation kept you from medical appts, meetings, work or from getting things needed for daily living? No 02/24/2023 Utilities Answer Date Recorded In the past 12 months, has t he electric, gas, oil or water company threatened to shut off services in your home? No 02/24/2023 Depression Answer Date Recorded Patient Health Questionnaire-2 Score 0 12/25/2022 Sex and Gender Information Value Date Recorded Sex Assigned at Male 02/18/2022 10:19 AM EDT Legal Sex Male 10:19 AM EDT Gender Identity Male 02/18/2022 10:19 AM EDT Sexual Orientation Choose not to disclose 2021 10:19 AM EDT documented as of this encounter Plan of Treatment Not on file documented as of this encounter Procedures Procedure Name Priority Date/Time Associated Diagnosis Comments HM DIABETES: URINE PROTEIN SCREENING Routine 03/11/2024 2:11 PM EST documented in this encounter Results * HM Diabetes: Urine Protein Screening (03/11/2024 2:11 PM EST) Urine us Historical Provider HEALTH MAINTENANCE Final Result documented in this encounter Visit Diagnoses Not on filedocumented in this encounter Additional Health Concerns Assessment Noted Time PHQ-9 Depression Total Score: 0 12/26/19 23 2:13 PM EDT documented as of this encounter Care Teams Lactation Specialist Relationship Specialty Start Date End Date Beau Leger MD [address] [place] [id number] PCP - General Internal Medicine 05/16/20 documented as of this encounter
--- OUTSIDE RECORDS SUMMARY | 2024-05-11 10:54 | XMS_ITS | Encounter Summary ---
Author Organization [employer] Address [address] [facility] [address] [place] [address] Care Team Providers Care Daytime Babysitter Name Role Phone Beau Leger MD Primary Care Prov ider Reason for Visit * Reason Onset Date Comments Nurse Triage 07/16/2023 Encounter Details Date Type Department Care Team ([facility] st Contact Info) Description 07/16/2023 Telephone [facility] MEDICINE [address] [place] [address] Beau Leger MD [address] [place] [id number] Nurse Triage Social History Tobacco Use Types Packs/Day Years Used Date Smoking Tobacco: Former Cigarettes 1 15 1 986 - 2000 Smokeless Tobacco: Never Alcohol Use Standard Drinks/Week [...] AM EDT documented as of this encounter Miscellaneous Notes * Telephone Encounter - Reva Chandra RN - 07/16/2023 11:24 AM EDT Triage call with [employer] [place] [id number] , Mauro Pt reports low back pain. Pt has diagnosis of chronic low back pain. Pt walked in to [facility] today and was given apt for 200pm this afternoon. Pt is informed of this apt . Pt requests to have office apt due to pain increased. Pt is advised no apts available in office today. Pt is reminded of scheduled apt this afternoon at [facility] 200pm with provider. Pt reports , thank you . Protocol Used: Information Only Call - No Triage (Adult) Protocol-Based Disposition: Home Care Positive Triage Question: * General information question, no triage required and triager able to answer question * All higher-acuity triage questions were negative Care Advice Discussed: * Reasons To Call Back - New symptoms develop - You have more questions - You become worse * Telephone Encounter - Juancho Moser - 07/16/2023 10:42 AM EDT Symptom: Back Pain - Not From Injury Outcome: Schedule an appointment to be seen within 3 days Reason: Caller denied all higher acuity questions The caller accepted this outcome documented in this encounter Plan of Treatment Not on file documented as of this encounter Visit Diagnoses Not on filedocumented in this encounter Additional Health Concerns Assessment Noted Time PHQ-9 Depression Total Score: 0 12/26/19 23 2:13 PM EDT documented as of this encounter Care Teams Daytime Babysitter Relationship Specialty Start Date End Date Beau Leger MD [address] [place] [id number] PCP - General Internal Medicine 05/16/20 documented as of this encounter
--- OUTSIDE RECORDS SUMMARY | 2024-05-11 10:54 | XMS_ITS | Encounter Summary ---
Author Organization [employer] Address [address] [facility] [address]t [place] [address] Care Team Providers Care Hotel Maintenance Engineer Name Role Phone Beau Leger MD Primary Care Prov ider Encounter Details Date Type Department Care Team ([facility] st Contact Info) Description 01/17/2023 Abstract [facility] [address] [place], [place] [phone] Beau Leger MD [address] [place], [place] [phone] Social History Tobacco Use Types Packs/Day Years Used Date Smoking Tobacco: Former Cigarettes Smokeless Tobacco: Never Depression Answer Date Recorded Patient Health Questionnaire-9 Score 0 12/25/2022 Depression Answer Date Recorded Patient Health Questionnaire-2 [...] documented as of this encounter Care Teams Hotel Maintenance Engineer Relationship Specialty Start Date End Date Beau Leger MD [address] [place], [place] [phone] PCP - General Internal Medicine 05/16/20 documented as of this encounter
--- OUTSIDE RECORDS SUMMARY | 2024-05-11 10:54 | XMS_ITS | Encounter Summary ---
Author Organization [employer] Address [address] [facility] [address] [place] [address] Care Team Providers Care Physiotherapy Assistant Name Role Phone Beau Leger MD Primary Care Prov ider Reason for Visit * Reason Comments Med Refill Encounter Details Date Type Department Care Team (Late st Contact Info) Description 07/31/2023 Refill [facility] [address] [place] [address] Sowmya Agosto MD [address] [place] [address] Social History Tobacco Use Types Packs/Day Years [...] documented as of this encounter Care Teams Physiotherapy Assistant Relationship Specialty Start Date End Date Beau Leger MD [address] [place] [address] PCP - General Internal Medicine 05/16/20 documented as of this encounter
--- OUTSIDE RECORDS SUMMARY | 2024-05-11 10:54 | XMS_ITS | Clinical Summary ---
Author Organization [address] [facility] Address [address] [place] [address] Phone Care Team Providers Care Railroad Emergency Services Manager Name Role Phone Beau Leger Primary Care Provide r Social History Tobacco Use Types Packs/Day Years Used Date Smoking Tobacco: Never Assessed Sex and Gender Information Value Date Recorded Sex Assigned at Not on file Gender Identity Not on file Sexual Orientation Not on file Plan of Treatment Upcoming Encounters Date Type Department Care Team ([facility] Contact Info) Description 05/11/2024 2:45 PM EST Office Visit Orthopedic Surgery - [place] [phone] [phone] Blaise Sidhu DPM [address] [phone] Health Maintenance Due Date Last Done Comments DTaP,Tdap,and Td Vaccines (1 - Tdap) 12/04/1990 Hepatitis B Vaccines (1 of 3 - 19+ 3-dose series) 12/04/1990 Zoster Vaccines (1 of 2) 12/04/2021 COVID-19 Vaccine ( - 2023-2 5 season) 2023 Influenza Vaccine (#1) 2023 Cholesterol Screening (Lipid Panel) 02/15/2024 Colorectal Cancer Screening: Colonoscopy 02/15/2024 Depression Screening 02/15/2024 HIV Screening 02/15/2024 Hepatitis C Screening 02/15/2024 Social Influencers of Health Screening 02/15/2024 HIB Vaccines Aged Out No longer eligi ble based on patient's age to complete this topic HPV Vaccines Aged Out No longer eligi ble based on patient's age to complete this topic Hepatitis A Vaccines Aged Out No long er eligible based on patient's age to complete this topic IPV Vaccines Aged Out No longer eligi ble based on patient's age to complete this topic MMR Vaccines Aged Out No longer eligi ble based on patient's age to complete this topic Meningococcal ACWY Vaccine Aged Out N o longer eligible based on patient's age to complete this topic Pneumococcal Vaccine: Pediat rics (0 to 5 Years) and At-Risk Patients (6 to 64 Years) Aged Out No longer eligible b ased on patient's age to complete this topic RSV Immunization Patients Un pawan 20 months Aged Out No longer eligible b ased on patient's age to complete this topic Varicella Vaccines Aged Out No longer eligible based on patient's age to complete this topic Care Teams Railroad Emergency Services Manager Relationship Specialty Start Date End Date Beau Leger [address] [place], [place] PCP - General 02/02/24
--- OUTSIDE RECORDS SUMMARY | 2024-05-11 10:54 | XMS_ITS | Encounter Summary ---
Author Organization [employer] Address [address] [facility] 7t [place] [address] Care Team Providers Care Asphalt Still Operator Name Role Phone Beau Leger MD Primary Care Prov ider Encounter Details Date Type Department Care Team (Late st Contact Info) Description 05/16/2022 Orders Only [facility] MEDICINE [address] [place], [place] [phone] Beau Leger MD [address] [place], [place] [phone] Mild intermittent asthma without complication (Primary Dx) Social History Tobacco Use Types Packs/Day Years [...] documented as of this encounter Visit Diagnoses Diagnosis Mild intermittent asthma without complication- Primary documented in this encounter Care Teams Asphalt Still Operator Relationship Specialty Start Date End Date Beau Leger MD [address] [place] [address] PCP - General Internal Medicine 05/16/20 documented as of this encounter
--- OUTSIDE RECORDS SUMMARY | 2024-05-11 10:54 | XMS_ITS | Encounter Summary ---
Author Organization [employer] Address [address] [facility] 7[address] [place] [address] Care Team Providers Care Damage Inside Adjuster Name Role Phone Beau Leger MD Primary Care Prov ider Encounter Details Date Type Department Care Team ([facility] st Contact Info) Description 05/14/2022 Telephone [facility] [address] [place], [place] [phone] Beau Leger MD [address] [place], [place] [phone] Social History Tobacco Use Types Packs/Day Years [...] Diagnoses Not on filedocumented in this encounter Care Teams Damage Inside Adjuster Relationship Specialty Start Date End Date Beau Leger MD [address] [place] [address] PCP - General Internal Medicine 05/16/20 documented as of this encounter
--- OUTSIDE RECORDS SUMMARY | 2024-05-11 10:54 | XMS_ITS | Clinical Summary ---
Author Organization [employer] Address [address] [facility] [facility] [address] [place] [address] Care Team Providers Care Analytics Manager Name Role Phone Beau Leger MD Primary Care Prov ider Allergies No known active allergies Medications Blood Pressure Monitor kit 1 kit 2 times daily. 1 kit 4 06/04/19 25 Active FREESTYLE LITE test stripIndications: Type 2 diabetes mellitus without complication, without long-term current use of insulin ([facility]) Use to test blood sugar 3 times daily 100 each 4 07/23/19 25 Active Lancets miscIndications:T ype 2 diabetes mellitus without complication, without long-term current use of insulin ([facility]) Use to test blood sugar 3 times daily 100 each 4 Active Alcohol Swabs 70 % padsIndications:T ype 2 diabetes mellitus without complication, without long-term current use of insulin ([facility]) Use to test blood sugar 3 times daily 100 each 4 Active albuterol (Ventolin HFA) 108 (90 Base) MCG/ACT inhalerIndication s:Mild intermittent asthma without complication INHALE 2 PUFFS EVERY 6 HOURS IF NEEDED FOR WHEEZING. 18 g 3 4 Active lisinopril 5 MG tabletIndications :Blood pressure elevated without history of HTN TAKE 1 TABLET BY MOUTH EVERY DAY IN THE MORNING 90 tablet 1 4 Active metFORMIN (Glucophage) 1000 MG tablet Take 1 tablet (1,000 mg) by mouth with breakfast and with evening meal. TAKE 1 TABLET BY MOUTH WITH BREAKFAST AND EVENING MEALS 180 tablet 3 4 03/10/20 25 Active diclofenac (Cataflam) 50 MG tablet Take 1 tablet (50 mg) by mouth 3 times daily. 90 tablet 4 Active Blood Glucose Monitoring Suppl (rateGeniusStAskBot Askov Lite) w/Device kitIndications:Ty pe 2 diabetes mellitus without complication, without long-term current use of insulin ([facility]) TEST BLOOD SUGAR THREE TIMES DAILY 1 kit 4 Active Diclofenac Sodium (Voltaren) 1 % gel Apply 1 g topically 2 times daily. 300 g 1 4 Active Active Problems Problem Noted Date Diagnosed Date Heel pain, chronic, left 01/28/2024 Assessment & Plan (04/09/2024 1:52 PM EST): Discussed imaging findings, recommended appropriate shoe wearing, insert, will provide voltaren gel, follow up with podiatry Assessment & Plan (01/28/2024 3:43 PM EDT): Ddx plantar fasciitis vs calcaneal stress fracture - will send x ray - will send anti-inflammatory and to PT - referral to podiatry - discussed w/ pt to call his insurance and assess if there is another location that takes his insurance seeing patient soon. -f/up with PCP Future Appointments Date Time Provider Department Center 03/02/2024 8:45 AM Beau Juarez MD [facility] Patient also brought up left anterior thigh pain/ chronic, will address with PCP RTC if no improvement Screening for colon cancer 12/25/2022 Assessment & Plan (03/11/2024 7:32 AM EST): Will refer to gi for screening colon cancer Assessment & Plan (12/25/2022 3:04 PM EDT): Will refer patient for screening colonoscopy Neuropathy 10/04/2022 Assessment & Plan (10/04/2022 4:00 PM EDT): Right foot tinling, pins and needles feeling, finding consistent with neuropathy, oriented of importance of tight glucose control, avoid tight shoes, check foot daily, will hold medication for now Primary hypertension 09/18/2022 Assessment & Plan (09/22/2023 7:41 PM EDT): Controlled, continue low sodium diet and exercise as tolerated, labs reviewed Assessment & Plan (06/23/2023 2:07 PM EST): Patient not monitoring his blood pressure at home, he does refers take lisinopril every day, reiewed importance of medication adherance, will follow up in 4 months Assessment & Plan (04/08/2023 2:45 PM EST): Controlled, refers maintains below 130/80, he is on a low dose of SANA, no changes will be made, new labs will be ordered for guidance Assessment & Plan (12/25/2022 3:02 PM EDT): Patient on lisinopril 5mg, refers not monitoring his bp, discussed importance of keeping a bp log, target should be less than 130/80. Assessment & Plan (09/18/2022 3:08 PM EDT): Patient on lisinopril 5mg, refers not monitoring his bp, reinforced low sodium diet and exercise as tolerated, will order new labs, told to keep bp log. Diabetes mellitus, type 2 07/08/2022 Assessment & Plan (03/11/2024 7:31 AM EST): Refers has been having scores over 200, reinforced importance of diet, keep low carb/no sugar diet, will increase metoformin to 1g bid, although another agent might be needed, new labs will be ordered Assessment & Plan (09/22/2023 7:42 PM EDT): Controlled, A1c <7.0%, no changes will be made, Foot exam unremarkable Pending eye exam, patient will schedule follow up Assessment & Plan (06/23/2023 2:08 PM EST): Patient not monitoring his glucose, reviewed importance of monitoring, he is on metformin, will order new labs for guidance of therapy Assessment & Plan (04/08/2023 2:46 PM EST): On metformin 500mg bid, will order new A1c if stable will discuss with patient if he can stop metformin Eye exam done this year as per patient everything was normal Assessment & Plan (12/25/2022 3:04 PM EDT): Patient taking metformin, he refers being compliant with treatment and diet, but not monitoring his BG, reinforced importance of keeping a BG log, will follow up in 3 months, last a1c from 09/2022 <7.0% Assessment & Plan (09/18/2022 3:10 PM EDT): On metformin, not monitoring his BG, told to keep bg log, reinforced low carb/no sugar diet, will order new labs Eye exam done Acute low back pain 12/10/2017 Neck pain 12/10/2017 Encounters Date Type Department Care Team Description 04/19/2024 Orders Only GENERIC EXTERNAL DATA DEPARTMENT Provider, Generic External Data 04/08/2024 3:15 PM EST Telemedicine [facility] [address] [place] [address] Beau Leger MD Heel pain, chronic, left (Primary Dx); Type 2 diabetes mellitus without complication, without long-term current use of insulin ([facility]) 04/08/2024 Travel 04/07/2024 Telephone [facility] [address] [place] [address] Jennifer Núñez MD 03/15/2024 Orders Only [facility] [address] [place] [address] Rebeca Moreno MD 03/11/2024 Telephone [place] [facility] [address] [place] [address] Beau Leger MD 03/10/2024 2:45 PM EST Telemedicine [facility] [address] [place] [address] Baeu Leger MD Type 2 diabetes mellitus without complication, without long-term current use of insulin ([facility]/HCC) (Primary Dx); Screening for colon cancer 03/10/2024 Travel 03/08/2024 Telephone [facility] [address] [place] [address] Beau Leger MD No Show 03/08/2024 Telephone [facility] [address] [place] [address] Beau Leger MD 03/08/2024 Travel 02/23/2024 Patient Outreach [facility] [address] [place] [address] Beau Leger MD Pre-visit Planning ([facility] screening completed on 06/05/2023./) from Last 3 Months Immunizations Name Administration Dates Next Due Hep B, adult 01/10/2022,10/18/2021,09/20/2021 Influenza injectable quadriv alent IIV4 with preservative 04/29/2019,01/07/2018,03/18/2016 Influenza injectable quadriv alent preservative free 01/29/2023,01/10/2022,01/08/2021,2019 Influenza, IIV3, injectable 04/26/2014 Influenza, Split (incl. dimitri fied surface antigen) 01/21/2013 Influenza, seasonal, injecta ble, preservative free 01/28/2024 Pneumococcal Conjugate PCV 20 03/22/2022 Tdap 01/05/2020 Zoster, Recombinant 05/24/2022,03/22/2022 Social History Tobacco Use Types Packs/Day Years Used Date Smoking Tobacco: Former Cigarettes 1 15 1 986 - 2000 Smokeless Tobacco: Never Tobacco Cessation:Counseling Given: Not Answered Alcohol Use Standard Drinks/Week Comments Never 0 [...] not to disclose 2021 10:19 AM EDT Last Filed Vital Signs Vital Sign Reading Time Taken Comments Blood Pressure 128/82 01/28/2024 3:08 PM EDT Pulse 78 01/28/2024 3:08 PM EDT Temperature 36.8 ??C (98.2 ??F) 01/28/2024 3:08 PM ED T Respiratory Rate 20 01/28/2024 3:08 PM EDT Oxygen Saturation 98% 01/28/2024 3:08 PM EDT Inhaled Oxygen Concentration - - Weight 81.5 kg (179 lb 9.6 oz) 01/28/2024 3:08 P M EDT Height 174 cm (5' 8.5 ) 01/28/2024 3:08 PM EDT Body Mass Index 26.91 01/28/2024 3:08 PM EDT Plan of Treatment Health Maintenance Due Date Last Done Comments CT Colonography 1971 Colonoscopy 1971 Colorectal Cancer Screening 1971 FIT DNA/Cologuard 1971 FIT 1971 FOBT 1971 Sigmoidoscopy 1971 Eye Exam 12/04/1981 Alcohol/Substance Use Screening 1983 COVID-19 Vaccine ( season) 2023 01/25/2022, 03/14/2021, 07/26/2020, Additional history exists Depression Screening 12/26/2023 12/25/2022, 12/26/19 23 Diabetes: Hemoglobin A1C 02/14/2024 024, 09/19/2022, 07/30/2021 SDOH Screening 06/05/2024 06/05/2023 Lipid Panel 08/14/2024 08/15/2023, 06/0 04/2022, 07/30/2021, Additional history exists Diabetes: Foot Exam 09/21/2024 09/22/2023, 09/22/2023, 09/22/2023, Additional history exists Tobacco Screening 09/21/2024 09/22/2023 Diabetes: Urine Protein Screening 03/11/2025 03/11/2024, 09/22/2023, 09/19/2022, Additional history exists DTaP/Tdap/Td Vaccines (2 - Td or Tdap) 01/04/2030 01/05/2020 RSV Patients and Patients Aged 60 years or older (1 - 1-dose 75+ series) 12/04/2046 HIV Screening Completed 07/30/2021 Hepatitis B Vaccines Completed 01/10/2022, 10/18/2021, 09/20/2021 Pneumococcal Vaccine: Pediatrics (0 to 5 Years) and At-Risk Patients (6 to 64 Years) Completed 03/22/2022 Zoster Vaccines Completed 05/24/2022, 03/22/2022 Hepatitis C Screening Completed 09/19/2022, 022 Influenza Vaccine Completed 01/28/2024, , 01/10/2022, Additional history exists HIB Vaccines Aged Out No longer eligi [...] patient's age to complete this topic Meningococcal Vaccine Aged Out No gabi severiano eligible based on patient's age to complete this topic RSV under 20 months Aged Out No longe r eligible based on patient's age to complete this topic Rotavirus Vaccines Aged Out No longer eligible based on patient's age to complete this topic Procedures Procedure Name Priority Date/Time Associated Diagnosis Comments XR SHOULDER 2+ VIEWS LEFT Routine 04/19/2024 9:22 PM EST HIGH SENSITIVITY TROPONIN I Routine 04/19/2024 9:12 PM EST LIPASE Routine 04/19/2024 9:12 PM EST COMPREHENSIVE METABOLIC PANEL Routine 04/19/2024 9:12 PM EST PROTHROMBIN TIME-INR Routine 04/19/2024 9:12 PM EST CBC WITH AUTO DIFFERENTIAL Routine 04/19/2024 9:12 PM EST HM DIABETES: URINE PROTEIN SCREENING Routine 03/11/2024 2:11 PM EST HEMOGLOBIN A1C Routine 08/15/2023 8:21 AM EDT Type 2 diabetes mellitus without complication, without long-term current use of insulin (CMS/HCC) LIPID PANEL, STANDARD Routine 08/15/2023 8:21 AM EDT Type 2 diabetes mellitus without complication, without long-term current use of insulin (CMS/HCC) HEPATITIS C AB W/REFL TO HCV RNA, QN, PCR Routine 09/19/2022 8:09 AM EDT Type 2 diabetes mellitus without complication, without long-term current use of insulin (CMS/HCC) Primary hypertension HIV 1/2 ANTIGEN/ANTIBODY, FOURTH GENERATION W/RFL Routine 07/30/2021 8:43 AM EDT from Last 3 Months or Most Recently Relevant to Health Maintenance Results * XR Shoulder 2+ Views Left (04/19/2024 9:22 PM EST) Anatomical Region Laterality Modality Upper Extremities, Shoulder Left Radi ographic Imaging 04/19/2024 9:22 PM EST Narrative 04/19/2024 9:24 PM EST ? [facility] ?[address] ?[place] [address] ?XRay Report ? Signed ? Patient: Dickson Cabrera,Shilo A ?MR# ?? : [id number] ? : 1970 ?Acct:[id number] ? Age/Sex: 53 / M ?ADM Date: 04/19/24 ? Loc: HO.ED ? Attending Dr: ? Ordering Physician: Kian Garcia ?? Date of Service: 04/19/24 ?? Procedure(s): XR shoulder LT min 2V ?? Accession Number(s): [id number] ? cc: Beau Leger MD; Kian Garcia ? CLINICAL HISTORY: pain ? 4 view left shoulder ? Comparison: None ? Findings: ?? No fractures or dislocations. ?? No significant loss of joint space or osteophytes. ?? No erosions. No radiopaque foreign body. ? IMPRESSION: ?? 1. No acute findings ? This document has been electronically signed by: Jose Cruz Mcdonald MD on ?? 04/19/2024 21:22:09 ? Dictated By: ?Jose Cruz Mcdonald MD ? Signed By: ?<Electronically signed by Jose Cruz Mcdonald MD in OV> ?04/19/24 2123 ? DD/ 21 ? TD/TT: 04/19/242121 ? Java Web Application Developer: ? Procedure Note Donyamilkater, Image - 04/19/[address] [address] XRay Report Signed Patient: Shilo Gregory AMR# : [id number] : 1970Acct:[id number] Age/Sex: 53 / MADM Date: 04/19/24 Loc: HO.ED Attending Dr: Ordering Physician: Kian Garcia Date of Service: 04/19/24 Procedure(s): XR shoulder LT min 2V Accession Number(s): [id number] cc: Beau Leger MD; Kian Garcia CLINICAL HISTORY: pain 4 view left shoulder Comparison: None Findings: No fractures or dislocations. No significant loss of joint space or osteophytes. No erosions. No radiopaque foreign body. IMPRESSION: 1. No acute findings This document has been electronically signed by: Jose Cruz Mcdonald MD on 04/19/2024 21:22:09 Dictated By: Jose Cruz Mcdonald MD Signed By: <Electronically signed by Jose Cruz Mcdonald MD in OV> 04/19/242122 DD/ 21 TD/TT: 04/19/242121 Java Web Application Developer: [facility] External Provider IMG XR PROCEDURES Final Result * High Sensitivity Troponin I (04/19/2024 9:12 PM EST) [facility] TROPONIN I HIGH SENSITIVITY <2.7 <3.5 - 35.0 ng/L [facility] Comment:The Guzman high sens itivity Troponin-I results should beused in conjunction with other diagnostic information suchas ECG, clinical observations and information, and patientsymptoms to aid in the diagnosis of [place]. 04/19/2024 9:12 PM EST 04/19/2024 9:15 PM EST Generic External Data Provider LAB BLOOD ORDERAB LES Final Result Performing Organization Address City/State/[facility] Co de Phone Number [facility] [address] [place] [phone] * (ABNORMAL) CBC auto differential (04/19/2024 9:12 PM EST) [facility] White Blood Count 7.7 4.8 - 10.8 X10*3/uL [facility] Red Blood Count 5.12 4.60 - 5.80 X10*6/uL [facility] Hemoglobin 15.6 14.0 - 18.0 g/dl [facility] Hematocrit 42.7 42.0 - 52.0 % [facility] Mean Corpuscular Volume 83.4 80.0 - 98.0 fL [facility] Mean Corpuscular Hemoglobin 30.5 27.0 - 33.0 pg [facility] Mean Corpuscular HGB Conc 36.5(H) 31.0 - 36.0 g/dl [facility] Red Cell Distribution Width 12.3 11.0 - 16.0 % [facility] Platelet Count 207 160 - 400 X10*3/uL [facility] Mean Platelet Volume 10.1 9.4 - 12.4 fL [facility] Neutrophils Percent Auto 64.4 45 - 73 % [facility] Imm Gran Pct Auto 0.4 0.0 - 0.4 % [facility] Lymphocytes Percent Auto 25.1 20 - 40 % [facility] Monocytes Percent Auto 7.6 2 - 11 % [facility] Eosinophils Percent Auto 2.0 0 - 4 % [facility] Basophils Percent Auto 0.5 0 - 2 % [facility] NRBC Pct Auto 0.0 0.0 - 0.2 /100WBC [facility] Neutrophils Absolute Auto 5.0 2.0 - 8.3 x10*3/uL [facility] Imm Gran Abs Auto 0.03 0.00 - 0.03 X10*3/uL [facility] Lymphocytes Absolute Auto 1.9 1.2 - 4.9 X10*3/uL [facility] Monocytes Absolute Auto 0.6 0.1 - 1.2 X10*3/uL [facility] Eosinophils Absolute Auto 0.2 0.0 - 0.4 X10*3/uL [facility] Basophils Absolute Auto 0.0 0.0 - 0.2 X10*3/uL [facility] NRBC Abs Auto 0.000 0.0 - 0.012 X10*3/uL [facility] 04/19/2024 9:12 PM EST 04/19/2024 9:15 PM EST us Generic External Data Provider LAB BLOOD ORDERAB LES Final Result [facility] [address] [place] [address] [phone] * Prothrombin Time-INR (04/19/2024 9:12 PM EST) Prothrombin Time 11.1 10.9 - 12.4 SEC [facility] INTERNATIONAL NORM RATIO 1.0 0.9 - 1.1 [facility] Comment:INTERNATIONAL NORMAL IZED RATIO (INR) REFERENCE RANGES Reference RangeFor patients not on anticoagulant therapy: 0.9 - 1.1INR ranges for oral anticoagulanttherapy:For prevention and treatment of venous thrombosis and pulmonary embolism: 2.0 - 3.0For acute myocardial infarction with aspirin therapy: 2.0 - 3.0For acute myocardial infarction without aspirin therapy: 3.0 - 4.0For patients with mechanical prosthetic heart valves: 2.5 - 3.5 04/19/2024 9:12 PM EST 04/19/2024 9:22 PM EST Generic External Data Provider LAB BLOOD ORDERAB LES Final Result Performing Organization Address [facility]/ZIP Co de Phone Number [facility] [address] [place] [phone] * Lipase (04/19/2024 9:12 PM EST) Pathologist [facility] Lipase 21 8 - 78 U/L [facility] 04/19/2024 9:12 PM EST 04/19/2024 9:15 PM EST [employer] External Data Provider LAB BLOOD ORDERAB LES Final Result Performing Organization Address [facility] de Phone Number [facility] [address] [place] [phone] * (ABNORMAL) Comprehensive Metabolic Panel (04/19/2024 9:12 PM EST) Sodium 142 135 - 145 mmol/L [facility] Potassium 3.8 3.3 - 5.1 mmol/L [facility] Chloride 109(H) 96 - 108 mmol/L [facility] Carbon Dioxide 22 22 - 29 mmol/L [facility] Anion Gap 15 12 - 20 [facility] Urea Nitrogen (BUN) 12 9 - 16 mg/dL [facility] Creatinine, Serum 0.86 0.5 - 1.4 mg/dL [facility] Creatinine Clr Calc Pharmacy 102.2 [facility] Comment:eGFR (calculated fro m the MDRD study equation) and eCrCl(calculated from the Cockcroft-Gault equation) are based ondifferent parameters and may not yield comparable results.If eCrCl result is absurd, please check patient'sheight/weight. Estimated Glomerular Filt Rate >60 [facility] Comment:Chronic Kidney Disea se: Estimated GFR < 60 mL/min/1.53w3Blcrex Kidney Disease: Estimated GFR < 15 mL/min/1.73m2 Glucose 153(H) 60 - 115 mg/dL [facility] Calcium 9.6 8.4 - 10.2 mg/dL [facility] Bilirubin, Total 0.7 0.0 - 1.0 mg/dL [facility] Aspartate Amino Transferase 16 5 - 37 U/L [facility] Alanine Aminotransferase 22 0 - 40 U/L [facility] Total Protein 7.3 6.5 - 8.0 g/dL [facility] Albumin Level 4.6 3.5 - 5.0 g/dL [facility] Alkaline Phosphatase 66 39 - 117 U/L [facility] 04/19/2024 9:12 PM EST 04/19/2024 9:15 PM EST Generic External Data Provider LAB BLOOD ORDERAB LES Final Result Performing Organization Address City/State/[facility] Co de Phone Number [facility] [address] [place] [phone] * HM Diabetes: Urine Protein Screening (03/11/2024 2:11 PM EST) Urine Historical Provider HEALTH MAINTENANCE Final Result * (ABNORMAL) Hemoglobin A1c (08/15/2023 8:21 AM EDT) Hemoglobin A1c 6.4(H) <6.0 % [facility] Comment:Hemoglobin A1C Refer ence Range Adults: 4.8 - 6.0 % Non diabetic: < 6.0 % Goal: < 7.0 %Additional Action Suggested: > 8.0 %Note: Hemoglobin A1c results are invalid for patients with abnormal amounts of HbF. Blood transfusions may impact the HbA1c concentration in the patient sample. Estimated Average Glucose 137 mg/dL [facility] Comment:eAG = Estimated ave rage glucose which is %A1C expressed asaverage glucose, using the formula of the R4J-ObwywmwFhgmumj Glucose study (ADAG), Diabetes Care, Vol.31,#8,Nov. 2007 Blood Venous blood specimen / Unknown 08/15/2023 8:21 AM EDT 08/15/2023 11:31 AM EDT us Beau Juarez MD LAB BLOOD ORDERABL ES Final Result [facility] [address] [place] [phone] * (ABNORMAL) Lipid Panel, Standard (08/15/2023 8:21 AM EDT) Triglycerides 341(H) <150 mg/dL [facility] Comment:Desirable Triglyceri de: less than 150 mg/dLBorderline High Triglyceride 150-199 mg/dLHigh Triglyceride: 200-499 mg/dLVery High Triglyceride: greater than or equal to 5OO mg/dL Cholesterol 182 <200 mg/dL [facility] Comment:Desirable Cholestero l: less than 200 mg/dLBorderline High Cholesterol: 200-239 mg/dLHigh Cholesterol: greater than 239 mg/dL LDL Cholesterol Calculated 85 <100 mg/dL [facility] Comment:Desirable LDL: less than 100 mg/dLNear Optimal/Above Optimal LDL: 110- 129 mg/dLBorderline High LDL: 130-159 mg/dLHigh LDL: 160-189 mg/dLVery High LDL: greater than or equal to 190 mg/dL HDL Cholesterol 29(L) >40 mg/dL [facility] Comment:Desirable HDL: great er than 40 mg/dL Note: This HDL assay may give artificially low results in patients with liver disease. Blood Venous blood specimen / Unknown 08/15/2023 8:21 AM EDT 08/15/2023 11:31 AM EDT Beau Juarez MD LAB BLOOD ORDERABL ES Final Result [facility] [address] [place] [address] [phone] * Hepatitis C Antibody with Reflex to HCV, RNA, Quantitative, Real-Time PCR (09/19/2022 8:09 AM EDT) Hepatitis C Antibody NON-REACT YECENIA NON-REACT YECENIA [place] [facility] Index 0.08 <1.00 [place] [facility] Comment: HCV antibody was non-reactive. There is no laboratory evidence of HCV infection. In most cases, no further action is required. However, if recent HCV exposure is suspected, a test for HCV RNA (test code 27612) is suggested. For additional information please refer to http://education.[employer]/faq/STH40u5 (This link is being provided for informational/ educational purposes only.) Blood Venous blood specimen / Unknown 09/19/2022 8:09 AM EDT 09/19/2022 8:10 AM EDT Narrative [facility] - 09/19/2022 10:53 PM EDT FASTING:YES FASTING: YES Beau Juarez MD LAB BLOOD ORDERABL ES Final Result Performing Organization Address City/[facility]/ZIP Co de Phone Number [facility] [address], [place] [phone] [place] [facility] [address] [place] [phone] * HIV 1/2 ANTIGEN/ANTIBODY,FOURTH GENERATION W/RFL (07/30/2021 8:43 AM EDT) HIV-1/2 ANTIGEN AND ANTIBODIES, 4TH GENERATION W/ REFLEX NON-REACT YECENIA NON-REACT YECENIA [facility] Comment: HIV-1 antigen and HIV-1/HIV-2 antibodies were not detected. There is no laboratory evidence of HIV infection. ?? PLEASE NOTE: This information has been disclosed to you from records whose confidentiality may be protected by state law. ??If your state requires such protection, then the state law prohibits you from making any further disclosure of the information without the specific written consent of the person to whom it pertains, or as otherwise permitted by law. A general authorization for the release of medical or other information is NOT sufficient for this purpose. ? For additional information please refer to http://[employer]/faq/JJN168 (This link is being provided for informational/ educational purposes only.) ? The performance of this assay has not been clinically validated in patients less than 2 years old. ?? 07/30/2021 8:43 AM EDT Beau Juarez MD LAB BLOOD ORDERABL ES Final Result Performing Organization Address City/State/ZIP Co nv Phone Number [facility] [address] from Last 3 Months or Most Recently Relevant to Health Maintenance Insurance [facility] Care Teams Analytics Manager Relationship Specialty Start Date End Date Beau Leger MD [address] [place] [address] [place] [address] PCP - General Internal Medicine 05/16/20
--- OUTSIDE RECORDS SUMMARY | 2024-05-11 10:54 | XMS_ITS | Encounter Summary ---
Demographics Address [address] [place] [address] Mobile Phone Work Phone Home Phone Preferred Language es Marital Status Unknown Baptism Affiliation Unknown Race Other Race Ethnic Group Unknown Author Organization [employer] Address [address] [place] [address] Care Team Providers Care Supervisor Sunglasses Name Role Phone Beau Leger MD Primary Care Prov ider Encounter Details Date Type Department Care Team ([facility] st Contact Info) Description 04/19/2024 Orders Only GENERIC EXTERNAL DATA DEPARTMENT Provider, Generic External Data Social History Tobacco Use Types Packs/Day Years [...] TROPONIN I Routine 04/19/2024 9:12 PM EST CBC WITH AUTO DIFFERENTIAL Routine 04/19/2024 9:12 PM EST PROTHROMBIN TIME-INR Routine 04/19/2024 9:12 PM EST LIPASE Routine 04/19/2024 9:12 PM EST COMPREHENSIVE METABOLIC PANEL Routine 04/19/2024 9:12 PM EST documented in this encounter Results * XR Shoulder 2+ Views Left (04/19/2024 9:22 PM EST) Anatomical Region Laterality Modality Upper Extremities, Shoulder Left Radi ographic Imaging 04/19/2024 9:22 PM EST Narrative 04/19/2024 9:24 PM EST ? [facility] ?[address] ?[place] [address] ?XRay Report ? Signed ? Patient: Dickson Cabrera,Shilo A ?MR# ?? : [id number] ? : 1970 ?Acct:[id number] ? Age/Sex: 53 / M ?ADM Date: 12/30/24 ? Loc: HO.ED ? Attending Dr: ? Ordering Physician: O'Phillips,Kian ?? Date of Service: 04/19/24 ?? Procedure(s): XR shoulder LT min 2V ?? Accession Number(s): [id number] ? cc: Beau Leger MD; Kian Garcia [...] by Jose Cruz Mcdonald MD in OV> ?04/19/3 ? DD/ 21 ? TD/TT: 04/19/242121 ? Cpa Tax: ? Procedure Note Donotlulyinterpreter, Image - 04/19/[address] [address] XRay Report Signed Patient: Shilo Gregory AMR# : [id number] : 1970Acct:[id number] Age/Sex: 53 / MADM Date: 04/19/24 Loc: HO.ED Attending Dr: Ordering Physician: Kian Garcia Date of Service: 04/19/24 Procedure(s): XR shoulder LT min 2V Accession Number(s): [id number] cc: Beau Leger MD; Kian Garcia CLINICAL [...] in OV> 04/19/242122 DD/ 21 TD/TT: 04/19/242121 Cpa Tax: [facility] External Provider IMG XR PROCEDURES Final Result * High Sensitivity Troponin I (04/19/2024 9:12 PM EST) TROPONIN I HIGH SENSITIVITY <2.7 <3.5 - 35.0 ng/L LABS Comment:The Guzman high sens itivity Troponin-I results should beused in conjunction with other diagnostic information suchas ECG, clinical observations and information, and patientsymptoms to aid in the diagnosis of [facility]. 04/19/2024 9:12 PM EST 04/19/2024 9:15 PM EST us Generic External Data Provider LAB BLOOD ORDERAB LES Final Result Performing Organization Address City/[facility]/ZIP Co de Phone Number LABS [address] [place] [phone] * Lipase (04/19/2024 9:12 PM EST) Pathologist [facility] Lipase 21 8 - 78 U/L [facility] LABS 04/19/2024 9:12 PM EST 04/19/2024 9:15 PM EST Generic External Data Provider LAB BLOOD ORDERAB LES Final Result Performing Organization Address [facility] Co de Phone Number LABS [address] [place] [phone] * (ABNORMAL) Comprehensive Metabolic Panel (04/19/2024 9:12 PM EST) Pathologist [facility] Sodium 142 135 - 145 mmol/L LABS Potassium 3.8 3.3 - 5.1 mmol/L LABS Chloride 109(H) 96 - 108 mmol/L LABS Carbon Dioxide 22 22 - 29 mmol/L LABS Anion Gap 15 12 - 20 LABS Urea Nitrogen (BUN) 12 9 - 16 mg/dL LABS Creatinine, Serum 0.86 0.5 - 1.4 mg/dL LABS Creatinine Clr Calc Pharmacy 102.2 LABS Comment:eGFR (calculated fro m the MDRD study equation) and eCrCl(calculated from the Cockcroft-Gault equation) are based ondifferent parameters and may not yield comparable results.If eCrCl result is absurd, please check patient'sheight/weight. Estimated Glomerular Filt Rate >60 LABS Comment:Chronic Kidney Disea se: Estimated GFR < 60 mL/min/1.38h4Vqmpdb Kidney Disease: Estimated GFR < 15 mL/min/1.73m2 Glucose 153(H) 60 - 115 mg/dL LABS Calcium 9.6 8.4 - 10.2 mg/dL LABS Bilirubin, Total 0.7 0.0 - 1.0 mg/dL LABS Aspartate Amino Transferase 16 5 - 37 U/L LABS Alanine Aminotransferase 22 0 - 40 U/L LABS Total Protein 7.3 6.5 - 8.0 g/dL LABS Albumin Level 4.6 3.5 - 5.0 g/dL LABS Alkaline Phosphatase 66 39 - 117 U/L LABS 04/19/2024 9:12 PM EST 04/19/2024 9:15 PM EST Generic External Data Provider LAB BLOOD ORDERAB LES Final Result LABS [address] [place] [phone] * Prothrombin Time-INR (04/19/2024 9:12 PM EST) Prothrombin Time 11.1 10.9 - 12.4 SEC LABS INTERNATIONAL NORM RATIO 1.0 0.9 - 1.1 LABS Comment:INTERNATIONAL NORMAL IZED RATIO (INR) REFERENCE [...] 9:12 PM EST 04/19/2024 9:22 PM EST us Generic External Data Provider LAB BLOOD ORDERAB LES Final Result LABS [address], [place] [phone] * (ABNORMAL) CBC auto differential (04/19/2024 9:12 PM EST) White Blood Count 7.7 4.8 - 10.8 X10*3/uL LABS Red Blood Count 5.12 4.60 - 5.80 X10*6/uL LABS Hemoglobin 15.6 14.0 - 18.0 g/dl LABS Hematocrit 42.7 42.0 - 52.0 % LABS Mean Corpuscular Volume 83.4 80.0 - 98.0 fL LABS Mean Corpuscular Hemoglobin 30.5 27.0 - 33.0 pg LABS Mean Corpuscular HGB Conc 36.5(H) 31.0 - 36.0 g/dl LABS Red Cell Distribution Width 12.3 11.0 - 16.0 % LABS Platelet Count 207 160 - 400 X10*3/uL LABS Mean Platelet Volume 10.1 9.4 - 12.4 fL LABS Neutrophils Percent Auto 64.4 45 - 73 % LABS Imm Gran Pct Auto 0.4 0.0 - 0.4 % LABS Lymphocytes Percent Auto 25.1 20 - 40 % LABS Monocytes Percent Auto 7.6 2 - 11 % LABS Eosinophils Percent Auto 2.0 0 - 4 % LABS Basophils Percent Auto 0.5 0 - 2 % LABS NRBC Pct Auto 0.0 0.0 - 0.2 /100WBC LABS Neutrophils Absolute Auto 5.0 2.0 - 8.3 x10*3/uL LABS Imm Gran Abs Auto 0.03 0.00 - 0.03 X10*3/uL LABS Lymphocytes Absolute Auto 1.9 1.2 - 4.9 X10*3/uL LABS Monocytes Absolute Auto 0.6 0.1 - 1.2 X10*3/uL LABS Eosinophils Absolute Auto 0.2 0.0 - 0.4 X10*3/uL LABS Basophils Absolute Auto 0.0 0.0 - 0.2 X10*3/uL LABS NRBC Abs Auto 0.000 0.0 - 0.012 X10*3/uL LABS 04/19/2024 9:12 PM EST 04/19/2024 9:15 PM EST us Generic External Data Provider LAB BLOOD ORDERAB LES Final Result Performing Organization Address City/State/[facility] Co de Phone Number LABS [address] [place] [phone] documented in this encounter Visit Diagnoses Not on filedocumented in this encounter Additional Health Concerns Assessment Noted Time PHQ-9 Depression Total Score: 0 12/26/19 23 2:13 PM EDT documented as of this encounter Care Teams Supervisor Sunglasses Relationship Specialty Start Date End Date Beau Leger MD [address] [place] [phone] PCP - General Internal Medicine 05/16/20 documented as of this encounter
--- OUTSIDE RECORDS SUMMARY | 2024-05-11 10:55 | XMS_ITS | Encounter Summary ---
Author Organization [employer] Address [address] [facility] [address] [place] [address] Care Team Providers Care Store Sales Leader Name Role Phone Beau Leger MD Primary Care Prov ider Encounter Details Date Type Department Care Team (Late st Contact Info) Description 04/30/2022 Orders Only [facility] MEDICINE [address] [place] [address] Beau Leger MD [address] [place], [place] [phone] Tinea pedis of both feet (Primary Dx) Social History Tobacco Use Types [...] as of this encounter Visit Diagnoses Diagnosis Tinea pedis of both feet- Primary documented in this encounter Care Teams Store Sales Leader Relationship Specialty Start Date End Date Beau Leger MD [address] [place], [place] [phone] PCP - General Internal Medicine 05/16/20 documented as of this encounter
--- NOTE | 2024-05-11 16:31 | ED_ITS ---
HPI - General Adult General Chief complaint: Fall Stated complaint: Fall this morning - hand & leg pain Time Seen by Provider: 05/11/24 16:30 Source: patient, RN notes reviewed, old records reviewed and conference interpreter Mode of arrival: ambulatory Limitations: language barrier History of Present Illness ED Provider: Saad HPI narrative: Patient is a 53-year-old Burundian-speaking male with history of asthma presenting to the emergency department with complaint of lower back pain and right wrist numbness after a slip and fall on ice. He denies any pain to his right wrist or hand and states that initially after the fall it was numb which has since resolved after arriving to the emergency department. Also reports left thigh pain initially which has also since resolved in the waiting room. States his lower back pain is ongoing. Denies radiation of pain to lower extremities. Denies any saddle anesthesia or bowel or bladder incontinence. Denies head strike or loss of consciousness. He is not anticoagulated. MD complaint: back pain Onset (ago): hour(s) Radiation: non-radiation Severity: moderate Quality: aching Pain Consistency: constant Relieving factors: rest Exacerbating factors: movement Treatments prior to arrival: none Related Data Home Medications ?Medication ?Instructions ?Recorded ?Confirmed albuterol sulfate 2.5 mg/3 mL 1 vial inhalation Q4H PRN Wheezing 06/28/20 05/28/23 (0.083 %) solution for nebulization albuterol sulfate 90 mcg/actuation 2 puff PO Q4H PRN Wheezing 06/28/20 05/28/23 aerosol inhaler (ProAir HFA) ascorbic acid (vitamin C) 500 mg 2 tab PO DAILY 06/28/20 05/28/23 tablet (Vitamin C) fluticasone propionate 50 2 spray intranasal DAILY 06/28/20 05/28/23 mcg/actuation nasal spray,suspension loratadine-pseudoephedrine ER 10 1 tab PO BEDTIME 06/28/20 05/28/23 mg-240 mg tablet,extended [id number] (Allergy Relief D-24hr) Previous Rx's ?Medication ?Instructions ?Recorded metformin 500 mg tablet 500 mg PO BID #60 tabs 03/09/20 bisacodyl 5 mg tablet,delayed 10 mg (2 x 5 mg) PO ONCE Bowel 05/02/20 release (Dulcolax (bisacodyl)) Preparation 1 day #2 tabs polyethylene glycol 3350 17 238 g PO ONCE 1 day #238 grams 05/02/20 gram/dose oral powder (Miralax) ibuprofen 600 mg tablet 600 mg PO TID PRN pain #30 tabs 06/22/20 cyclobenzaprine 10 mg tablet 10 mg PO TID PRN muscle spasm #20 11/12/20 tabs ibuprofen 600 mg tablet 600 mg PO Q6H PRN pain #30 tabs 07/31/21 oxycodone-acetaminophen 5 mg-325 1 tab PO Q4-6H PRN pain, severe 07/31/21 mg tablet (Percocet) #30 tabs acetaminophen 500 mg tablet 1,000 mg (2 x 500 mg) PO QID PRN 12/17/21 pain #30 tabs cyclobenzaprine 5 mg tablet 5 mg PO TID PRN muscle spasm #14 12/17/21 tabs ibuprofen 600 mg tablet 600 mg PO Q6H PRN pain #20 tabs 12/17/21 cyclobenzaprine 10 mg tablet 10 mg PO TID PRN muscle spasm #14 11/13/22 tabs ibuprofen 600 mg tablet 600 mg PO Q8H PRN pain #14 tabs 11/13/22 lidocaine 5 % topical patch 1 patch topical DAILY #15 ea 11/13/22 cyclobenzaprine 10 mg tablet 10 mg PO TID PRN muscle spasm #14 04/20/24 tabs ibuprofen 400 mg tablet 400 mg PO Q6H PRN pain #14 tabs 04/20/24 cyclobenzaprine 10 mg tablet 10 mg PO TID PRN muscle spasm #10 05/11/24 tabs lidocaine 5 % topical patch 1 patch topical DAILY #15 ea 05/11/24 Allergies Allergy/AdvReac Type Severity Reaction Status Date / Time No Known Allergies Allergy Verified 05/11/24 09:44 Review of Systems Review of Systems: As per HPI Yes all other systems are reviewed and are negative Constitutional: Constitutional: Reports as per HPI PMFSH Past Medical History Medical History Right inguinal hernia Diabetes mellitus Asthma Surgical History History of right inguinal hernia repair History of knee surgery History of shoulder surgery Family History Family History Father No problems noted. Social History Social History Alcohol intake: never Patient Tobacco Use Status: Former Tobacco user Advance Directives: No Advance Directives Information Provided: Yes Do you have a plan to hurt others: No Plan Physical Exam ED Vital Signs: Vital Signs - 24 hr 05/11/24 09:41 Temperature 98.9 F Pulse Rate 94 Respiratory Rate 20 Blood Pressure 146/79 H Pulse Oximetry 100 Oxygen Delivery Method Room Air BMI result Body Mass Index 28.6 Vital signs have been reviewed and appear to be correct. Blood pressure normal. Heart rate normal. Respiratory rate normal. Temperature normal. Oxygen saturation normal. Const General: cooperative, healthy appearing and no acute distress Orientation/consciousness: oriented to person, oriented to place, oriented to time and patient oriented x3 Limitations: no limitations HENMT Head: Yes normocephalic and Yes atraumatic Ears: external ears normal General nose exam: Normal external nose present Face and sinus: Yes face symmetric Mouth: oropharynx normal and moist mucous membranes Throat: Yes uvula midline Eyes Pupils: Equal, round and reactive pupils present Neck Neck: Yes normal visual inspection and Yes supple Resp Effort & Inspection: normal respiratory effort and able to speak in complete sentences Auscultation: clear to auscultation bilaterally Cardio Rate: regular rate Rhythm: regular rhythm Heart sounds: S1 normal heart sound present and S2 normal heart sound present GI Palpation (GI): Soft to palpation and nontender Auscultation: normoactive bowel sounds General: Yes no CVA tenderness Back/Spine/Pelvis Back: no CVA tenderness Cervical Spine: normal cervical lordosis, cervical ROM normal, No cervical muscular tenderness, No pain with cervical ROM, No Cervical spine tenderness and No step off deformity Thoracic/Lumbar Spine: thoracic and lumbar spine normal to inspection, thoraco- lumbar ROM normal, straight leg raise negative bilaterally, pain with thoraco- lumbar ROM, paraspinal muscle tenderness on the right in the lower thoracic and in the upper lumbar, No thoracic spinal tenderness and No lumbar spinal tenderness Pelvis: no pain with anterior-posterior compression and no pain with lateral compression Skin General skin exam: elasticity normal and turgor normal Neuro General: oriented to person, oriented to place, oriented to time, patient oriented x3, moves all extremities, no focal motor deficits and CN's II-XI intac t bilaterally Cranial nerves: Yes Equal, round and reactive pupils present Cognition (Neuro): normal cognition Extrem General: Yes full ROM, Yes no pedal edema and Yes no calf tenderness Right upper extremity: wrist Details: normal to inspection, normal ROM, normal vascular exam and radial pulse present; no tenderness, no ecchymosis and no deformity and Extremity exam: right hand Details: normal to inspection, normal capillary refill, neuromotor exam normal, neurosensory exam normal and normal ROM of fingers Psych Mental Status: mental status grossly normal Affect: normal affect Thought process: Normal thought process present Medical Decision Making Medical Decision Making [facility] Narrative: Patient is a 53-year-old Bur[place]ian-speaking male with history of asthma presenting to the emergency department with complaint of lower back pain and right wrist numbness after a slip and fall on ice. On exam patient is awake, A+Ox3, VS WNL, afebrile, normal neurological exam without focal deficits, physical exam findings as above. Given reported symptoms and physical exam findings, initial differential includes but is not limited to lumbar strain, lumbar fracture, pelvic fracture, right wrist fracture. X-rays notable for tiny ulnar styloid avulsion which appears chronic, no acute pelvic or femur fractures. No tenderness to palpation of distal ulna/ulnar styloid. My interpretation is in agreement with the radiologist's interpretation. Will provide patient with brace for right wrist, advised to follow up with ortho if pain returns. Will send prescriptions for flexeril and lidocaine patches. Follow up with PCP as needed. Return precautions discussed. Patient verbalized understanding of and agreement with plan. Differential Diagnosis Differential Diagnoses: The differential diagnosis associated with the presentation includes as per [facility] Independent Interpretation I performed an independent interpretation of an: Plain X-Ray Interpretation: X-rays notable for tiny ulnar styloid avulsion which appears chronic, no acute pelvic or femur fractures. Radiology Impression Discussion of test interpretation with radiology: I have reviewed the radiologist's reading. Radiologist Impression: XR/XR hand wrist RT IMPRESSION: 1. Tiny ulnar styloid avulsion, most likely chronic although correlation with point tenderness recommended. 2. Mild arthritis at the STT joints. 3. Otherwise normal right wrist and hand. XR/XR pelvis 1-2V IMPRESSION: 1. No acute fracture or suspicious bone lesion. 2. 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 3. 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 XR/XR femur RT 2V IMPRESSION: 1. No acute findings right femur. Ancillary findings as discussed. External Record Review External record reviewed: Inpatient record, Office record and Outpatient record Prescription Management I considered prescription management with: Pain Medication and Other Discharge Plan Discharge Clinical Impression: Lumbar strain, Fall, Muscle strain of right wrist Patient Disposition: Home, Self-Care Instructions: Low Back Strain (ED), Fall Prevention (ED) Additional Instructions: You were evaluated in the emergency department today for injuries related to a fall. Your evaluation did not show signs of medical conditions requiring emergent intervention at this time. The x-ray of your right wrist showed a small fracture which is likely from a prior injury as you do not have any tenderness to this area at this time. You are being provided with a wrist brace if the pain should return. If your right wrist pain returns and does not resolve over the next 1-2 weeks, follow-up with orthopedics. We recommended that you use ibuprofen or Tylenol per package directions every 6 hours as needed for pain. If necessary, you can alternate these medications so that you take one medication every 3 hours. For instance, at noon take ibuprofen, then at 3:00 p.m. take Tylenol, then at 6:00 p.m. take ibuprofen. You have been prescribed a muscle relaxer which you may take every 8 hours as needed for spasms. You have been prescribed 5% topical lidocaine patches which you can wear for up to 12 hours in a 24 hour period. Do not apply heat directly over the patches. Please schedule an appointment for follow-up with your primary care physician this week for further evaluation of your symptoms. Return to the emergency department if you experience worsening back pain, difficulty walking, fevers, numbness, tingling, incontinence, groin numbness or tingling, or any other concerning symptoms. Prescriptions: New cyclobenzaprine 10 mg tablet 10 mg PO TID PRN (Reason: muscle spasm) Qty: 10 0RF lidocaine 5 % adhesive patch,medicated 1 patch topical DAILY Qty: 15 0RF Rx Instructions: leave on most painful area for up to 12 hrs No Action polyethylene glycol 3350 [Miralax] 17 gram/dose powder 238 g PO ONCE 1 Days Qty: 238 0RF Rx Instructions: Take as directed by mouth, bowel prep bisacodyl [Dulcolax (bisacodyl)] 5 mg tablet,delayed release (DR/EC) 10 mg PO ONCE 1 Days Qty: 2 0RF Rx Instructions: Take 2 tablets at 12:00pm the day before your procedure, bowel prep albuterol sulfate 2.5 mg /3 mL (0.083 %) solution for nebulization 1 vial inhalation Q4H PRN (Reason: Wheezing) loratadine-pseudoephedrine [Allergy Relief D-24hr] 10-240 mg tablet extended release 24 hr 1 tab PO BEDTIME ascorbic acid (vitamin C) [Vitamin C] 500 mg tablet 2 tab PO DAILY albuterol sulfate [ProAir HFA] 90 mcg/actuation HFA aerosol inhaler 2 puff PO Q4H PRN (Reason: Wheezing) fluticasone propionate 50 mcg/actuation spray,suspension 2 spray intranasal DAILY metformin 500 mg tablet 500 mg PO BID Qty: 60 0RF ibuprofen 600 mg tablet 600 mg PO TID PRN (Reason: pain) Qty: 30 0RF cyclobenzaprine 10 mg tablet 10 mg PO TID PRN (Reason: muscle spasm) Qty: 20 0RF acetaminophen 500 mg tablet 1,000 mg PO QID PRN (Reason: pain) Qty: 30 0RF cyclobenzaprine 5 mg tablet 5 mg PO TID PRN (Reason: muscle spasm) Qty: 14 0RF Rx Instructions: This medication may cause drowsiness so no driving for 8 hours after taking ibuprofen 600 mg tablet 600 mg PO Q6H PRN (Reason: pain) Qty: 20 0RF oxycodone-acetaminophen [Percocet] 5-325 mg tablet 1 tab PO Q4-6H PRN (Reason: pain, severe) Qty: 30 0RF ibuprofen 600 mg tablet 600 mg PO Q6H PRN (Reason: pain) Qty: 30 0RF cyclobenzaprine 10 mg tablet 10 mg PO TID PRN (Reason: muscle spasm) Qty: 14 0RF lidocaine 5 % adhesive patch,medicated 1 patch topical DAILY Qty: 15 0RF Rx Instructions: leave on most painful area for up to 12 hrs ibuprofen 600 mg tablet 600 mg PO Q8H PRN (Reason: pain) Qty: 14 0RF cyclobenzaprine 10 mg tablet 10 mg PO TID PRN (Reason: muscle spasm) Qty: 14 0RF ibuprofen 400 mg tablet 400 mg PO Q6H PRN (Reason: pain) Qty: 14 0RF Referrals: [facility] [Provider Group] Stand Alone Forms: Work/School Release Print Language: Burundian
[2024-05-11 18:56] VITALS: BP 146/79; PULSE 94; RESP 20; TEMP 37.2; O2SAT 100
== END 2024-05-11 18:57 | disposition home or self-care (01) ==
PROVIDERS: Emergency Provider Internal Medicine; PCP Internal Medicine
DX: S39.012A Strain of muscle, fascia and tendon of lower back, initial encounter (principal); S66.911A Strain of unspecified muscle, fascia and tendon at wrist and hand level, right hand, initial encounter; R10.2 Pelvic and perineal pain; M79.641 Pain in right hand; M79.604 Pain in right leg; W00.0XXA Fall on same level due to ice and snow, initial encounter; Y93.89 Activity, other specified; Y99.8 Other external cause status; Y92.89 Other specified places as the place of occurrence of the external cause; Z79.899 Other long term (current) drug therapy; Z87.891 Personal history of nicotine dependence
CPT/HCPCS: 72170; 73110; 73130; 73552; 99282; 99283

== ENCOUNTER → 2024-05-11 09:46 | Outpatient (BNV) | payer OTHER, SELFPAY | PROVIDERS: PCP Internal Medicine; Visit Provider Radiology Diagnostic Radiology | DX: M61.051 Myositis ossificans traumatica, right thigh (principal); S52.611A Displaced fracture of right ulna styloid process, initial encounter for closed fracture; M16.0 Bilateral primary osteoarthritis of hip; M46.1 Sacroiliitis, not elsewhere classified | CPT/HCPCS: 72170; 73110; 73130; 73552 ==

== ENCOUNTER 2024-05-19 15:11 | Outpatient (AMB) | payer OTHER, SELFPAY ==
--- NOTE | 2024-05-19 15:17 | A.OFFVIS_ITS ---
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 Patient reports he slipped and fell on ice which lead him injure his lower back and right wrist. Patient reports his pain is a 5-6 out of 10 on the pain scale. He mentions that his pain is on the lateral aspect of the wrist. Patient reports he tried taking Tylenol 500mg with relief. Denies numbness and tingling. 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 Patient reports he slipped and fell on ice which lead him injure his lower back and right wrist. Patient reports his pain is a 5-6 out of 10 on the pain scale. He mentions that his pain is on the lateral aspect of the wrist. Patient reports he tried taking Tylenol 500mg with relief. Denies numbness and tingling. [facility] Medical History Right inguinal hernia Diabetes mellitus Asthma Surgical History History of right inguinal hernia repair History of knee surgery History of shoulder surgery Family History Father No problems noted. 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 Neuro: Normal sensation of the tips of all digits of the right hand at this time Vascular: Cap refill brisk Pain: Patient reports tenderness to palpation of the ulnar styloid of the right wrist Tenderness to palpation of the anatomical snuffbox and scaphoid tubercle of the right wrist No tenderness to palpation of the radial styloid, DRUJ, or elsewhere in the right hand or wrist ROM: Patient is able to make a closed fist and extend all digits of the right hand fully at this time Skin: No lacerations or abrasions. General: No ecchymosis, erythema, or evidence of infection. Psych: Appears grossly normal Affect normal Attitude cooperative Results Reviewed Results Reviewed: X-rays taken in the emergency department and independently reviewed by me demonstrate small avulsion fracture of the right ulnar styloid of unknown age. No radio evident scaphoid fracture. No other acute bony abnormalities or fractures noted. Assessment & Plan Assessment & Plan (1) Fracture of right ulnar styloid: Code(s): S52.611A - Displaced fracture of right ulna styloid process, initial encounter for closed fracture Category: Medical (2) Tenderness of anatomical snuffbox: Code(s): M79.643 - Pain in unspecified hand Category: Medical Plan 1. Ulnar styloid avulsion fracture 2. Anatomical snuffbox tenderness of right wrist At this time, patient is educated about this physical exam finding and the things that it could mean Patient was provided with a Velcro thumb spica splint to be worn like a cast at all times except for bathing Patient is educated that he should follow-up with our office in 2 weeks for reassessment, and if he is still experiencing anatomical snuffbox tenderness at that time I will be ordering a CT scan of his right wrist to rule out occult scaphoid fracture Patient was also advised he should not lift anything heavier than a cell phone in the right hand until follow-up Patient was amenable to this plan Patient will follow-up in 2 weeks with repeat x-rays, sooner with any acute concerns Coding Level of Care Code New Pt Level 3 (06991) Diagnoses Fracture of right ulnar styloid S52.611A Tenderness of anatomical snuffbox M79.643
[2024-05-19 15:23] VITALS: BMI 28.6
--- OUTSIDE RECORDS SUMMARY | 2024-05-19 17:12 | XMS_ITS | Encounter Summary ---
Author Organization [employer] Address [address] [facility] [address] [place] [address] Care Team Providers Care Stock Receiver Name Role Phone Beau Leger MD Primary Care Prov ider Encounter Details Date Type Department Care Team (Late st Contact Info) Description 05/16/2022 Orders Only [facility] MEDICINE [address] [place], [place] [phone] Beau Leger MD [address] [place], [place] [phone] Mild intermittent asthma without complication (Primary Dx) [...] Primary documented in this encounter Care Teams Stock Receiver Relationship Specialty Start Date End Date Beau Leger MD [address] [place] [address] PCP - General Internal Medicine 05/16/20 documented as of this encounter
--- OUTSIDE RECORDS SUMMARY | 2024-05-19 17:12 | XMS_ITS | Clinical Summary ---
Author Organization [address] [facility] Address [address] [place] [address] Phone Care Team Providers Care Sfdc Architect Name Role Phone Beau Leger Primary Care Provide r Social History Tobacco Use Types Packs/Day Years Used Date Smoking Tobacco: Never Assessed Sex and Gender Information Value Date Recorded Sex Assigned at Not on file Gender Identity Not on file Sexual Orientation Not on file Plan of Treatment Upcoming Encounters Date Type Department Care Team ([facility] Contact Info) Description 07/06/2024 3:00 PM EDT Consult Orthopedic Surgery - [place] [id number] [phone] Blaise Sidhu DPM [address] [id number] Health Maintenance Due Date Last Done Comments [...] age to complete this topic Care Teams Sfdc Architect Relationship Specialty Start Date End Date Beau Leger [address] [place], [place] PCP - General 02/02/24
--- OUTSIDE RECORDS SUMMARY | 2024-05-19 17:12 | XMS_ITS | Encounter Summary ---
Author Organization [employer] Address [address] [facility] [address] [place] [address] Care Team Providers Care Team Assembler Name Role Phone Beau Leger MD Primary Care Prov ider Encounter Details Date Type Department Care Team ([facility] st Contact Info) Description 01/17/2023 Abstract [place] [facility] [address] [place], [place] [phone] Beau Leger MD [address] [place], [place] [phone] Social History Tobacco Use Types Packs/Day Years [...] documented as of this encounter Care Teams Team Assembler Relationship Specialty Start Date End Date Beau Leger MD [address] [place], [place] [phone] PCP - General Internal Medicine 05/16/20 documented as of this encounter
--- OUTSIDE RECORDS SUMMARY | 2024-05-19 17:12 | XMS_ITS | Encounter Summary ---
Author Organization [employer] Address [address] [facility] [address] [place] [address] Care Team Providers Care Yarn Wrapper Name Role Phone Beau Leger MD Primary Care Prov ider Encounter Details Date Type Department Care Team ([facility] st Contact Info) Description 05/14/2022 Telephone [facility]S [address] [place], [place] [phone] Beau Leger MD [address] [place], [place] [phone] Social History Tobacco Use Types Packs/Day Years [...] on filedocumented in this encounter Care Teams Yarn Wrapper Relationship Specialty Start Date End Date Beau Leger MD [address] [place] [address] PCP - General Internal Medicine 05/16/20 documented as of this encounter
--- OUTSIDE RECORDS SUMMARY | 2024-05-19 17:12 | XMS_ITS | Encounter Summary ---
Demographics Address [address] [place] [address] Mobile Phone Work Phone Home Phone Preferred Language es Marital Status Unknown Scientologist Affiliation Unknown Race Other Race Ethnic Group Unknown Author Organization [employer] Address [address] [place] [address] Care Team Providers Care Scientific Process Operator Name Role Phone Beau Leger MD Primary Care Prov ider Encounter Details Date Type Department Care Team ([facility] Contact Info) Description 04/19/2024 Orders Only [...] Name Priority Date/Time Associated Diagnosis Comments XR FEMUR 2+ VIEWS RIGHT Routine 05/11/2024 9:49 AM EST XR PELVIS 1-2 VIEWS Routine 05/11/2024 9 :48 AM EST XR HAND WRIST RT Routine 05/11/2024 9:46 AM EST XR SHOULDER 2+ VIEWS LEFT Routine 04/19/2024 9:22 PM EST HIGH SENSITIVITY TROPONIN I Routine 04/19/2024 9:12 PM EST CBC WITH AUTO DIFFERENTIAL Routine 04/19/2024 9:12 PM EST PROTHROMBIN TIME-INR Routine 04/19/2024 9:12 PM EST LIPASE Routine 04/19/2024 9:12 PM EST COMPREHENSIVE METABOLIC PANEL Routine 04/19/2024 9:12 PM EST documented in this encounter Results * XR Femur 2+ Views Right (05/11/2024 9:49 AM EST) Anatomical Region Laterality Modality Lower Extremities, Femur Right Radiogr aphic Imaging 05/11/2024 9:49 AM EST Narrative 05/11/2024 11:15 AM EST ? [facility] ?[address] ?[place] [address] ?XRay Report ? Signed ? Patient: Dickson Cabrera,Shilo A ?MR# ?? : [id number] ? : 1970 ?Acct:[id number] ? Age/Sex: 53 / M ?ADM Date: /21/25 ? Loc: HO.ED ? Attending Dr: ? Ordering Physician: Generic ED Physician ?? Date of Service: 05/11/24 ?? Procedure(s): XR femur RT 2V ?? Accession Number(s): [id number] ? cc: Beau Leger MD; Generic ED Physician ? EXAMINATION: ?? XR FEMUR, RIGHT ? CLINICAL INFORMATION: ?? fall/pain ? COMPARISON: ?? None available. ? TECHNIQUE: ?? AP and lateral views of the right femur were obtained. ? FINDINGS: ?? Normal bone mineralization. No fracture, dislocation, or suspicious ?? bone lesion. Normal alignment. ?? Mild degenerative changes in the right hip joint and in the imaged knee ?? joint. No knee joint effusion. ?? Probable old fractures of the right pubic rami. ?? Mild heterotopic ossification/myositis ossificans superolateral to the ?? right femoral head/superior acetabulum and within the medial soft ?? tissues of the thigh. ? No discrete additional soft tissue abnormalities. ? XR/XR femur RT 2V ?? IMPRESSION: ?? 1. No acute findings right femur. Ancillary findings as discussed. ? Electronically signed by: ??Tc Smallwood MD ??05/11/2024 11:13 AM EST RP ? Dictated By: ?Tc Smallwood MD ? Signed By: ?<Electronically signed by Tc Smallwood MD in OV> ?05/11/24 1113 ? DD/ 0949 ? TD/TT: 05/11/24 1043 ? Strategic Accounts Manager: ? Procedure Note Kennedy Calvo - 05/11/[address] [address] XRay Report Signed Patient: Shilo Gregory [facility]# : [id number] : 1970Acct:[id number] Age/Sex: 53 / MADM Date: 05/11/24 Loc: HO.ED Attending Dr: Ordering Physician: Generic ED Physician Date of Service: 05/11/24 Procedure(s): XR femur RT 2V Accession Number(s): [id number] cc: Beau Leger MD; Generic ED Physician EXAMINATION: XR FEMUR, RIGHT CLINICAL INFORMATION: fall/pain COMPARISON: None available. TECHNIQUE: AP and lateral views of the right femur were obtained. FINDINGS: Normal bone mineralization. No fracture, dislocation, or suspicious bone lesion. Normal alignment. Mild degenerative changes in the right hip joint and in the imaged knee joint. No knee joint effusion. Probable old fractures of the right pubic rami. Mild heterotopic ossification/myositis ossificans superolateral to the right femoral head/superior acetabulum and within the medial soft tissues of the thigh. No discrete additional soft tissue abnormalities. XR/XR femur RT 2V IMPRESSION: 1. No acute findings right femur. Ancillary findings as discussed. Electronically signed by: Tc Smallwood MD 05/11/2024 11:13 AM EST RP Dictated By: Tc Smallwood MD Signed By: <Electronically signed by Tc Smallwood MD in OV> 05/11/24 1113 DD/ 0949 TD/TT: 05/11/24 1043 Strategic Accounts Manager: [facility] External Provider IMG XR PROCEDURES Edited Result - Final * XR Pelvis 1-2 Views (05/11/2024 9:48 AM EST) Anatomical Region Laterality Modality Body, Pelvis Radiographic Shirley ging 05/11/2024 9:48 AM EST Narrative 05/11/2024 11:12 AM EST ? [facility] ?[address] ?[place] [address] ?XRay Report ? Signed ? Patient: Dickson Cabrera,Shilo A ?MR# ?? : [id number] ? : 1970 ?Acct:[id number] ? Age/Sex: 53 / M ?ADM Date: 01/21/25 ? Loc: HO.ED ? Attending Dr: ? Ordering Physician: Generic ED Physician ?? Date of Service: 05/11/24 ?? Procedure(s): XR pelvis 1-2V ?? Accession Number(s): [id number] ? cc: Beau Leger MD; Generic ED Physician ? EXAMINATION: ?? XR PELVIS ? CLINICAL INFORMATION: ?? fall/pain ? COMPARISON: ?? None available. ? TECHNIQUE: ?? AP view of the pelvis. ? FINDINGS: ?? No definite acute fracture, dislocation, or suspicious focal bone ?? lesion. Normal bone mineralization. ?? Probable old fractures of the pubic rami on the right. There are mild ?? degenerative changes in both hip joints with superolateral spurring of ?? the acetabula. ?? There is heterotopic bone formation posterolateral to the femoral head ?? and superior acetabulum, which appears to extend into the medial soft ?? tissues of the right leg. ? Arthritic changes of the SI joints noted. ? Soft tissues otherwise appear normal. ? XR/XR pelvis 1-2V ?? IMPRESSION: ?? 1. No acute fracture or suspicious bone lesion. ?? 2. Benign heterotopic ossification superolateral to the right femoral ?? head/acetabulum. ?? 3. 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 arthritis in the SI joints. ? Electronically signed by: ??Tc Smallwood MD ??05/11/2024 11:09 AM EST RP ? Dictated By: ?Tc Smallwood MD ? Signed By: ?<Electronically signed by Tc Smallwood MD in OV> ?05/11/24 1109 ? DD/ 0948 ? TD/TT: 05/11/24 1043 ? Strategic Accounts Manager: ? Procedure Note [place], Image - 05/11/2024 [place] [address] XRay Report Signed Patient: Shilo Gregory [facility]# : [id number] : 1970Acct:[id number] Age/Sex: 53 / MADM Date: 05/11/24 Loc: HO.ED Attending Dr: Ordering Physician: Generic ED Physician Date of Service: 05/11/24 Procedure(s): XR pelvis 1-2V Accession Number(s): [id number] cc: Beau Leger MD; Generic ED Physician EXAMINATION: XR PELVIS CLINICAL INFORMATION: fall/pain COMPARISON: None available. TECHNIQUE: AP view of the pelvis. FINDINGS: No definite acute fracture, dislocation, or suspicious focal bone lesion. Normal bone mineralization. Probable old fractures of the pubic rami on the right. There are mild degenerative changes in both hip joints with superolateral spurring of the acetabula. There is heterotopic bone formation posterolateral to the femoral head and superior acetabulum, which appears to extend into the medial soft tissues of the right leg. Arthritic changes of the SI joints noted. Soft tissues otherwise appear normal. XR/XR pelvis 1-2V IMPRESSION: 1. No acute fracture or suspicious bone lesion. 2. 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 3. 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 Electronically signed by: Tc Smallwood MD 05/11/2024 11:09 AM EST Dictated By: Tc Smallwood MD Signed By: <Electronically signed by Tc Smallwood MD in OV> 05/11/24 1109 DD/ 0948 TD/TT: 05/11/24 1043 Strategic Accounts Manager: [facility] External Provider IMG XR PROCEDURES Edited Result - Final * XR HAND WRIST RT (05/11/2024 9:46 AM EST) Anatomical Region Laterality Modality Abdomen Radiographic Shirley ging 05/11/2024 9:46 AM EST Narrative 05/11/2024 11:07 AM EST ? [facility] ?[address] ?[place] [address] ?XRay Report ? Signed ? Patient: Dickson Cabrera,Shilo A ?MR# ?? : [id number] ? : 1970 ?Acct:[id number] ? Age/Sex: 53 / M ?ADM Date: 01/21/25 ? Loc: HO.ED ? Attending Dr: ? Ordering Physician: Generic ED Physician ?? Date of Service: 01/21/25 ?? Procedure(s): XR hand wrist RT ?? Accession Number(s): [id number] ? cc: Beau Leger MD; Generic ED Physician ? EXAMINATION: ?? XR HAND/WRIST, RIGHT ? CLINICAL INFORMATION: ?? fall/pain ? COMPARISON: ?? None available. ? TECHNIQUE: ?? PA, lateral, and oblique views of the right hand and wrist. ? FINDINGS: ?? There is a tiny bony fragment abutting the ulnar styloid, likely ?? reflecting a tiny avulsion fracture, age indeterminate. This may be ?? chronic. Correlate with point tenderness. ? Otherwise, no fracture, dislocation, or suspicious bone lesion. Carpal ?? bones intact and normally aligned. Mild arthritic changes at the STT ?? joints. ? No soft tissue abnormalities. ? XR/XR hand wrist RT ?? IMPRESSION: ?? 1. Tiny ulnar styloid avulsion, most likely chronic although ?? correlation with point tenderness recommended. ?? 2. Mild arthritis at the STT joints. ?? 3. Otherwise normal right wrist and hand. ? Electronically signed by: ??Tc Smallwood MD ??05/11/2024 11:04 AM EST RP ? Dictated By: ?Tc Smallwood MD ? Signed By: ?<Electronically signed by Tc Smallwood MD in OV> ?05/11/24 1104 ? DD/ 0946 ? TD/TT: 05/11/24 1043 ? Strategic Accounts Manager: ? Procedure Note [place], Image - 05/11/2024 [place] [address] XRay Report Signed Patient: Shilo Gregory [facility]# : [id number] : 1970Acct:[id number] Age/Sex: 53 / MADM Date: 05/11/24 Loc: HO.ED Attending Dr: Ordering Physician: Generic ED Physician Date of Service: 05/11/24 Procedure(s): XR hand wrist RT Accession Number(s): [id number] cc: Beau Leger MD; Generic ED Physician EXAMINATION: XR HAND/WRIST, RIGHT CLINICAL INFORMATION: fall/pain COMPARISON: None available. TECHNIQUE: PA, lateral, and oblique views of the right hand and wrist. FINDINGS: There is a tiny bony fragment abutting the ulnar styloid, likely reflecting a tiny avulsion fracture, age indeterminate. This may be chronic. Correlate with point tenderness. Otherwise, no fracture, dislocation, or suspicious bone lesion. Carpal bones intact and normally aligned. Mild arthritic changes at the STT joints. No soft tissue abnormalities. XR/XR hand wrist RT IMPRESSION: 1. Tiny ulnar styloid avulsion, most likely chronic although correlation with point tenderness recommended. 2. Mild arthritis at the STT joints. 3. Otherwise normal right wrist and hand. Electronically signed by: Tc Smallwood MD 05/11/2024 11:04 AM EST RP Dictated By: Tc Smallwood MD Signed By: <Electronically signed by Tc Smallwood MD in OV> 05/11/24 1104 DD/ 0946 TD/TT: 05/11/24 1043 Strategic Accounts Manager: [facility] External Provider IMG XR PROCEDURES Edited Result - Final * XR Shoulder 2+ Views Left (04/19/2024 9:22 PM EST) Anatomical Region Laterality Modality Upper Extremities, Shoulder Left Radi ographic Imaging 04/19/2024 9:22 PM EST Narrative 04/19/2024 9:24 PM EST ? [facility] ?[address] ?[place] [address] ?XRay Report ? Signed ? Patient: Dickson ReesShilo A ?MR# ?? : [id number] ? : 1970 ?Acct:[id number] ? Age/Sex: 53 / M ?ADM Date: 04/19/24 ? Loc: HO.ED ? Attending Dr: ? Ordering Physician: Kian Garcia ?? Date of Service: 04/19/24 ?? Procedure(s): XR shoulder LT min 2V ?? Accession Number(s): [id number] ? cc: Beau Leger MD; Kian Garcia [...] by Jose Cruz Mcdonald MD in OV> ?04/19/243 ? DD/ 21 ? TD/TT: 04/19/242121 ? Strategic Accounts Manager: ? Procedure Note Donotlulyinterpreter, Image - 04/19/[address] [address] XRay Report Signed Patient: Shilo Gregory [facility]# : [id number] : 1970Acct:[id number] Age/Sex: 53 / MADM Date: 04/19/24 Loc: HO.ED Attending Dr: Ordering Physician: Kian Garcia Date of Service: 04/19/24 Procedure(s): XR shoulder LT min 2V Accession Number(s): [id number] cc: Beau Leger MD; Kian Garcia CLINICAL [...] in OV> 04/19/242122 DD/ 21 TD/TT: 04/19/242121 Strategic Accounts Manager: [facility] External Provider IMG XR PROCEDURES Final Result * High Sensitivity Troponin I (04/19/2024 9:12 PM EST) TROPONIN I HIGH SENSITIVITY <2.7 <3.5 - 35.0 ng/L [facility] Comment:The Guzman high sens itivity Troponin-I results should beused in conjunction with other diagnostic information suchas ECG, clinical observations and information, and patientsymptoms to aid in the diagnosis of NE. 04/19/2024 9:12 PM EST 04/19/2024 9:15 PM EST us Generic External Data Provider LAB BLOOD ORDERAB LES Final Result Performing Organization Address [facility]/ZIP Co de Phone Number [facility] [address] [place] [address] [phone] * Lipase (04/19/2024 9:12 PM EST) Lipase 21 8 - 78 U/L [facility] 04/19/2024 9:12 PM EST 04/19/2024 9:15 PM EST Generic External Data Provider LAB BLOOD ORDERAB LES Final Result Performing Organization Address [facility] Co de Phone Number [facility] [address] [place] [address] [phone] * (ABNORMAL) Comprehensive Metabolic Panel (04/19/2024 9:12 PM EST) Pathologist [facility] Sodium 142 135 - 145 mmol/L [facility] Potassium 3.8 3.3 - 5.1 mmol/L [facility] Chloride 109(H) 96 - 108 mmol/L [facility] Carbon Dioxide 22 22 - 29 mmol/L [facility] Anion Gap 15 12 - 20 [facility] Urea Nitrogen (BUN) 12 9 - 16 mg/dL [facility] Creatinine, Serum 0.86 0.5 - 1.4 mg/dL [facility] Creatinine Clr Calc Pharmacy 102.2 [facility] Comment:eGFR (calculated fro m the MDRD study equation) and eCrCl(calculated from the Cockcroft-Gault equation) are based ondifferent parameters and may not yield comparable results.If eCrCl result is absurd, please check patient'sheight/weight. Estimated Glomerular Filt Rate >60 [facility] Comment:Chronic Kidney Disea se: Estimated GFR < 60 mL/min/[id number] Kidney Disease: Estimated GFR < 15 mL/min/1.73m2 Glucose 153(H) 60 - 115 mg/dL [facility] Calcium 9.6 8.4 - 10.2 mg/dL [facility] Bilirubin, Total 0.7 0.0 - 1.0 mg/dL [facility] Aspartate Amino Transferase 16 5 - 37 U/L [facility] Alanine Aminotransferase 22 0 - 40 U/L [facility] Total Protein 7.3 6.5 - 8.0 g/dL [facility] Albumin Level 4.6 3.5 - 5.0 g/dL [facility] Alkaline Phosphatase 66 39 - 117 U/L [facility] 04/19/2024 9:12 PM EST 04/19/2024 9:15 PM EST Generic External Data Provider LAB BLOOD ORDERAB LES Final Result Performing Organization Address [facility] de Phone Number [facility] [address] [place] [phone] * Prothrombin Time-INR (04/19/2024 9:12 PM EST) Prothrombin Time 11.1 10.9 - 12.4 SEC [facility] INTERNATIONAL NORM RATIO 1.0 0.9 - 1.1 [facility] Comment:INTERNATIONAL NORMAL IZED RATIO (INR) [...] ORDERAB LES Final Result Performing Organization Address [facility] de Phone Number [facility] [address] [place] [phone] * (ABNORMAL) CBC auto differential (04/19/2024 9:12 PM EST) White Blood Count 7.7 4.8 - 10.8 X10*3/uL [facility] Red Blood Count 5.12 4.60 - 5.80 X10*6/uL [facility] Hemoglobin 15.6 14.0 - 18.0 g/dl [facility] Hematocrit 42.7 42.0 - 52.0 % [facility] Mean Corpuscular Volume 83.4 80.0 - 98.0 fL [facility] Mean Corpuscular Hemoglobin 30.5 27.0 - 33.0 pg [facility] Mean Corpuscular HGB Conc 36.5(H) 31.0 - 36.0 g/dl [facility] Red Cell Distribution Width 12.3 11.0 - 16.0 % [facility] Platelet Count 207 160 - 400 X10*3/uL [facility] Mean Platelet Volume 10.1 9.4 - 12.4 fL [facility] Neutrophils Percent Auto 64.4 45 - 73 % [facility] Imm Gran Pct Auto 0.4 0.0 - 0.4 % [facility] Lymphocytes Percent Auto 25.1 20 - 40 % [facility] Monocytes Percent Auto 7.6 2 - 11 % [facility] Eosinophils Percent Auto 2.0 0 - 4 % [facility] Basophils Percent Auto 0.5 0 - 2 % [facility] NRBC Pct Auto 0.0 0.0 - 0.2 /100WBC [facility] Neutrophils Absolute Auto 5.0 2.0 - 8.3 x10*3/uL [facility] Imm Gran Abs Auto 0.03 0.00 - 0.03 X10*3/uL [facility] Lymphocytes Absolute Auto 1.9 1.2 - 4.9 X10*3/uL [facility] Monocytes Absolute Auto 0.6 0.1 - 1.2 X10*3/uL [facility] Eosinophils Absolute Auto 0.2 0.0 - 0.4 X10*3/uL [facility] Basophils Absolute Auto 0.0 0.0 - 0.2 X10*3/uL [facility] NRBC Abs Auto 0.000 0.0 - 0.012 X10*3/uL [facility] 04/19/2024 9:12 PM EST 04/19/2024 9:15 PM EST us Generic External Data Provider LAB BLOOD ORDERAB LES Final Result [facility] [address] [place] [phone] documented in this encounter Visit Diagnoses Not on filedocumented in this encounter Additional Health Concerns Assessment Noted Time PHQ-9 Depression Total Score: 0 12/26/19 23 2:13 PM EDT documented as of this encounter Care Teams Scientific Process Operator Relationship Specialty Start Date End Date Beau Leger MD [address] [place] [phone] PCP - General Internal Medicine 05/16/20 documented as of this encounter
--- OUTSIDE RECORDS SUMMARY | 2024-05-19 17:12 | XMS_ITS | Clinical Summary ---
Author Organization [employer] Address [address] [facility] [address] [place] [address] Care Team Providers Care Tetryl Nitrator Operator Name Role Phone Beau Leger MD Primary Care Prov ider Allergies No known active allergies Medications Blood Pressure Monitor kit 1 kit 2 times daily. 1 kit 4 06/04/19 25 Active FREESTYLE LITE test stripIndications: Type 2 diabetes mellitus without complication, without long-term current use of insulin ([facility]) Use to test blood sugar 3 times daily 100 each 4 07/23/19 25 Active Lancets miscIndications:T ype 2 diabetes mellitus without complication, without long-term current use of insulin ([facility]) Use to test blood sugar 3 times daily 100 each 4 Active Alcohol Swabs 70 % padsIndications:T ype 2 diabetes mellitus without complication, without long-term current use of insulin ([facility]) Use to test blood sugar 3 times [...] tablet 4 Active Blood Glucose Monitoring Suppl (M/A-COMStFreeAgent Dodge Lite) w/Device kitIndications:Ty pe 2 diabetes mellitus without complication, without long-term current use of insulin ([facility]) TEST BLOOD SUGAR THREE TIMES DAILY 1 [...] Center 03/02/2024 8:45 AM Beau Juarez MD [facility] Patient also brought up left anterior [...] External Data 04/08/2024 3:15 PM EST Telemedicine [facility] [email or web address] [facility] [address] [place] [address] Beau Leger MD Heel pain, chronic, left (Primary Dx); Type 2 diabetes mellitus without complication, without long-term current use of insulin ([facility]) 04/08/2024 Travel 04/07/2024 Telephone [facility] [email or web address] [address] [place] [address] Jennifer Núñez MD 03/15/2024 Orders Only [facility] [address] [place] [address] Rebeca Moreno MD 03/11/2024 Telephone [place] [facility] [employer] [facility] [address] [place] [address] Beau Leger MD 03/10/2024 2:45 PM EST Telemedicine [facility] [email or web address] [address] [place] [address] Beau Leger MD Type 2 diabetes mellitus without complication, without long-term current use of insulin ([facility]) (Primary Dx); Screening for colon cancer 03/10/2024 Travel 03/08/2024 Telephone [facility] [address] [place] [address] eBau Leger MD No Show 03/08/2024 Telephone [facility] [address] [facility] [place] [address] Beau Leger MD 03/08/2024 Travel 02/23/2024 Patient Outreach [facility] [address] [place] [address] Beau Leger MD Pre-visit Planning ([facility] screening completed on 06/05/2023./) from Last 3 [...] Eye Exam 12/04/1981 Alcohol/Substance Use Screening 1983 Family Planning (PISQ) 12/04/1986 COVID-19 Vaccine ( season) 2023 01/25/2022, 03/14/2021, [...] Vaccines Completed 01/10/2022, 10/18/2021, 09/20/2021 Pneumococcal Vaccine: 50+ Years Completed 03/22/2022 Zoster Vaccines Completed 05/24/2022, 03/22/2022 [...] Relevant to Health Maintenance Results * XR Femur 2+ Views Right (05/11/2024 9:49 AM EST) Anatomical Region Laterality Modality Lower Extremities, Femur Right Radiogr aphic Imaging 05/11/2024 9:49 AM EST Narrative 05/11/2024 11:15 AM EST ? [facility] ?[address] ?[place] [address] ?XRay Report ? Signed ? Patient: Dickson Cabrera,Shilo A ?MR# ?? : [id number] ? : 1970 ?Acct:[id number] ? Age/Sex: 53 / M ?ADM Date: 05/11/24 ? Loc: HO.ED ? Attending Dr: ? Ordering Physician: Generic ED Physician ?? Date of Service: 05/11/24 ?? Procedure(s): XR femur RT 2V ?? Accession Number(s): [id number] ? cc: Beau Leger MD; Generic ED [...] DD/ 0949 ? TD/TT: 05/11/24 1043 ? Last Greaser: ? Procedure Note Kennedy Calvo - 05/11/[address] [place] [address] XRay Report Signed Patient: Shilo Gregory AMR# : [id number] : 1970Acct:[id number] Age/Sex: 53 / MADM Date: 05/11/24 Loc: HO.ED Attending Dr: Ordering Physician: Generic ED Physician Date of Service: 05/11/24 Procedure(s): XR femur RT 2V Accession Number(s): [id number] cc: Beau Leger MD; Generic ED Physician [...] Ancillary findings as discussed. Electronically signed by: cT Smallwood MD 05/11/2024 11:13 AM EST Dictated By: Tc Smallwood MD Signed By: <Electronically signed by Tc Smallwood MD in OV> 05/11/24 1113 DD/ 0949 TD/TT: 05/11/24 1043 Last Greaser: [facility] External Provider IMG XR PROCEDURES Edited Result - Final * XR Pelvis 1-2 Views (05/11/2024 9:48 AM EST) Anatomical Region Laterality Modality Body, Pelvis Radiographic Sihrley ging 05/11/2024 9:48 AM EST Narrative 05/11/2024 11:12 AM EST ? [facility] [facility] ?[address] ?[place] [address] ?XRay Report ? Signed ? Patient: Dickson Cabrera,Shilo A ?MR# ?? : [id number] ? : 1970 ?Acct:[id number] ? Age/Sex: 53 / M ?ADM Date: 05/11/24 ? Loc: HO.ED ? Attending Dr: ? Ordering Physician: Generic ED Physician ?? Date of Service: 05/11/24 ?? Procedure(s): XR pelvis 1-2V ?? Accession Number(s): [id number] ? cc: Beau Leger MD; Generic ED [...] Smallwood MD ??05/11/2024 11:09 AM EST RP ?? Workstation: [facility] [id number] ? Dictated By: ?Tc Smallwood MD ? Signed By: ?<Electronically signed by Tc Smallwood MD in OV> ?05/11/24 1109 ? DD/ 0948 ? TD/TT: 05/11/24 1043 ? Last Greaser: ? Procedure Note Kennedy Calvo - 05/11/[address] [address] XRay Report Signed Patient: Shilo Gregory AMR# : [id number] : 1970Acct:[id number] Age/Sex: 53 / MADM Date: 05/11/24 Loc: HO.ED Attending Dr: Ordering Physician: Generic ED Physician Date of Service: 05/11/24 Procedure(s): XR pelvis 1-2V Accession Number(s): [id number] cc: Beau Leger MD; Generic ED Physician [...] 05/11/24 1109 DD/ 0948 TD/TT: 05/11/24 1043 Last Greaser: [facility] External Provider IMG XR PROCEDURES Edited Result - Final * XR HAND WRIST RT (05/11/2024 9:46 AM EST) Anatomical Region Laterality Modality Abdomen Radiographic Shirley ging 05/11/2024 9:46 AM EST Narrative 05/11/2024 11:07 AM EST ? [facility] ?[address] ?[place] [address] ?XRay Report ? Signed ? Patient: Dickson Cabrera,Shilo A ?MR# ?? : [id number] ? : 1970 ?Acct:[id number] ? Age/Sex: 53 / M ?ADM Date: 01/21/25 ? Loc: HO.ED ? Attending Dr: ? Ordering Physician: Generic ED Physician ?? Date of Service: 05/11/24 ?? Procedure(s): XR hand wrist RT ?? Accession Number(s): [id number] ? cc: Beau Leger MD; Generic ED [...] DD/ 0946 ? TD/TT: 05/11/24 1043 ? Last Greaser: ? Procedure Note [place], Image - 05/11/[address] [address] XRay Report Signed Patient: Shilo Gregory AMR# : [id number] : 1970Acct:[id number] Age/Sex: 53 / MADM Date: 05/11/24 Loc: HO.ED Attending Dr: Ordering Physician: Manuel ED Physician Date of Service: 05/11/24 Procedure(s): XR hand wrist RT Accession Number(s): [id number] cc: Beau Leger MD; [facility] ED Physician EXAMINATION: XR HAND/WRIST, RIGHT CLINICAL [...] Tc Smallwood MD 05/11/2024 11:04 AM EST Dictated By: Tc Smallwood MD Signed By: <Electronically signed by Tc Smallwood MD in OV> 05/11/24 1104 DD/ 0946 TD/TT: 05/11/24 1043 Last Greaser: [facility] External Provider IMG XR PROCEDURES Edited Result - Final * XR Shoulder 2+ Views Left (04/19/2024 9:22 PM EST) Anatomical Region Laterality Modality Upper Extremities, Shoulder Left Radi ographic Imaging 04/19/2024 9:22 PM EST Narrative 04/19/2024 9:24 PM EST ? [facility] ?[address] ?[place] [address] ?XRay Report ? Signed ? Patient: Dickson Cabrera,Shilo A ?MR# ?? : [id number] ? : 1970 ?Acct:[id number] ? Age/Sex: 53 / M ?ADM Date: 12/30/24 ? Loc: HO.ED ? Attending Dr: ? Ordering Physician: iKan Garcia ?? Date of Service: 04/19/24 ?? Procedure(s): XR shoulder LT min 2V ?? Accession Number(s): [id number] ? cc: Beau Leger MD; Kian Garcia [...] by Jose Cruz Mcdonald MD in OV> ?04/19/ 2123 ? DD/ 21 ? TD/TT: 04/19/242121 ? Last Greaser: ? Procedure Note [place], Image - 04/19/2024 [place] [address] XRay Report Signed Patient: Shilo Gregory AMR# : [id number] : 1970Acct:[id number] Age/Sex: 53 / MADM Date: 04/19/24 Loc: HO.ED Attending Dr: Ordering Physician: Kian Garcia Date of Service: 04/19/24 Procedure(s): XR shoulder LT min 2V Accession Number(s): [id number] cc: Beau Leger MD; Kian Garcia CLINICAL [...] in OV> 04/19/242122 DD/ 21 TD/TT: 04/19/242121 Last Greaser: [facility] External Provider IMG XR PROCEDURES Final Result * High Sensitivity Troponin I (04/19/2024 9:12 PM EST) Pathologist [facility] TROPONIN I HIGH SENSITIVITY <2.7 <3.5 - 35.0 ng/L [facility] Comment:The Guzman high sens itivity Troponin-I results should beused in conjunction with other diagnostic information suchas ECG, clinical observations and information, and patientsymptoms to aid in the diagnosis of [place]. 04/19/2024 9:12 PM EST 04/19/2024 9:15 PM EST us Generic External Data Provider LAB BLOOD ORDERAB LES Final Result [facility] [address] [place] [phone] * (ABNORMAL) CBC auto differential (04/19/2024 9:12 PM EST) [facility] White Blood Count 7.7 4.8 - 10.8 X10*3/uL [facility] Red Blood Count 5.12 4.60 - 5.80 X10*6/uL [facility] Hemoglobin 15.6 14.0 - 18.0 g/dl [facility] Hematocrit 42.7 42.0 - 52.0 % [facility] Mean Corpuscular Volume 83.4 80.0 - 98.0 fL [facility] Mean Corpuscular Hemoglobin 30.5 27.0 - 33.0 pg [facility] Mean Corpuscular HGB Conc 36.5(H) 31.0 - 36.0 g/dl [facility] Red Cell Distribution Width 12.3 11.0 - 16.0 % [facility] Platelet Count 207 160 - 400 X10*3/uL [facility] Mean Platelet Volume 10.1 9.4 - 12.4 fL [facility] Neutrophils Percent Auto 64.4 45 - 73 % [facility] Imm Gran Pct Auto 0.4 0.0 - 0.4 % [facility] Lymphocytes Percent Auto 25.1 20 - 40 % [facility] Monocytes Percent Auto 7.6 2 - 11 % [facility] Eosinophils Percent Auto 2.0 0 - 4 % [facility] Basophils Percent Auto 0.5 0 - 2 % [facility] NRBC Pct Auto 0.0 0.0 - 0.2 /100WBC [facility] Neutrophils Absolute Auto 5.0 2.0 - 8.3 x10*3/uL [facility] Imm Gran Abs Auto 0.03 0.00 - 0.03 X10*3/uL [facility] Lymphocytes Absolute Auto 1.9 1.2 - 4.9 X10*3/uL [facility] Monocytes Absolute Auto 0.6 0.1 - 1.2 X10*3/uL [facility] Eosinophils Absolute Auto 0.2 0.0 - 0.4 X10*3/uL [facility] Basophils Absolute Auto 0.0 0.0 - 0.2 X10*3/uL [facility] NRBC Abs Auto 0.000 0.0 - 0.012 X10*3/uL [facility] 04/19/2024 9:12 PM EST 04/19/2024 9:15 PM EST us Generic External Data Provider LAB BLOOD ORDERAB LES Final Result [facility] [address] [place] [address] [phone] * Prothrombin Time-INR (04/19/2024 9:12 PM EST) Prothrombin Time 11.1 10.9 - 12.4 SEC [facility] INTERNATIONAL NORM RATIO 1.0 0.9 - 1.1 [facility] Comment:INTERNATIONAL NORMAL IZED RATIO (INR) [...] ORDERAB LES Final Result Performing Organization Address City/[facility]/ZIP Co de Phone Number [facility] [address] [place] [phone] * Lipase (04/19/2024 9:12 PM EST) Lipase 21 8 - 78 U/L [facility] 04/19/2024 9:12 PM EST 04/19/2024 9:15 PM EST Generic External Data Provider LAB BLOOD ORDERAB LES Final Result Performing Organization Address [facility] Co de Phone Number [facility] [address] [place] [address] [phone] * (ABNORMAL) Comprehensive Metabolic Panel (04/19/2024 9:12 PM EST) Sodium 142 135 - 145 mmol/L [facility] Potassium 3.8 3.3 - 5.1 mmol/L [facility] Chloride 109(H) 96 - 108 mmol/L [facility] Carbon Dioxide 22 22 - 29 mmol/L [facility] Anion Gap 15 12 - 20 [facility] Urea Nitrogen (BUN) 12 9 - 16 mg/dL [facility] Creatinine, Serum 0.86 0.5 - 1.4 mg/dL [facility] Creatinine Clr Calc Pharmacy 102.2 [facility] Comment:eGFR (calculated fro m the MDRD study equation) and eCrCl(calculated from the Cockcroft-Gault equation) are based ondifferent parameters and may not yield comparable results.If eCrCl result is absurd, please check patient'sheight/weight. Estimated Glomerular Filt Rate >60 [facility] Comment:Chronic Kidney Disea se: Estimated GFR < 60 mL/min/1.18o8Eqltkj Kidney Disease: Estimated GFR < 15 mL/min/1.73m2 Glucose 153(H) 60 - 115 mg/dL [facility] Calcium 9.6 8.4 - 10.2 mg/dL [facility] Bilirubin, Total 0.7 0.0 - 1.0 mg/dL [facility] Aspartate Amino Transferase 16 5 - 37 U/L [facility] Alanine Aminotransferase 22 0 - 40 U/L [facility] Total Protein 7.3 6.5 - 8.0 g/dL [facility] Albumin Level 4.6 3.5 - 5.0 g/dL [facility] Alkaline Phosphatase 66 39 - 117 U/L [facility] 04/19/2024 9:12 PM EST 04/19/2024 9:15 PM EST Generic External Data Provider LAB BLOOD ORDERAB LES Final Result [facility] [address] [place] [phone] * HM Diabetes: Urine Protein Screening (03/11/2024 2:11 PM EST) Urine Historical Provider HEALTH MAINTENANCE Final Result * (ABNORMAL) Hemoglobin A1c (08/15/2023 8:21 AM EDT) Hemoglobin A1c 6.4(H) <6.0 % [facility] Comment:Hemoglobin A1C Refer ence Range Adults: 4.8 - 6.0 % Non diabetic: < 6.0 % Goal: < 7.0 %Additional Action Suggested: > 8.0 %Note: Hemoglobin A1c results are invalid for patients with abnormal amounts of HbF. Blood transfusions may impact the HbA1c concentration in the patient sample. Estimated Average Glucose 137 mg/dL [facility] Comment:eAG = Estimated ave rage glucose which is %A1C expressed asaverage glucose, using the formula of the I8G-AvhkadsWbhrbqs Glucose study (ADAG), Diabetes Care, Vol.31,#8,Nov. 2007 Blood Venous blood specimen / Unknown 08/15/2023 8:21 AM EDT 08/15/2023 11:31 AM EDT Beau Juarez MD LAB BLOOD ORDERABL ES Final Result Performing Organization Address [facility]/ZIP Co de Phone Number [facility] [address] [place] [phone] * (ABNORMAL) Lipid Panel, Standard (08/15/2023 8:21 AM EDT) Triglycerides 341(H) <150 mg/dL [facility] Comment:Desirable Triglyceri de: less than 150 mg/dLBorderline High Triglyceride 150-199 mg/dLHigh Triglyceride: 200-499 mg/dLVery High Triglyceride: greater than or equal to 5OO mg/dL Cholesterol 182 <200 mg/dL [facility] Comment:Desirable Cholestero l: less than 200 mg/dLBorderline High Cholesterol: 200-239 mg/dLHigh Cholesterol: greater than 239 mg/dL LDL Cholesterol Calculated 85 <100 mg/dL [facility] Comment:Desirable LDL: less than 100 mg/dLNear Optimal/Above Optimal LDL: 110- 129 mg/dLBorderline High LDL: 130-159 mg/dLHigh LDL: 160-189 mg/dLVery High LDL: greater than or equal to 190 mg/dL HDL Cholesterol 29(L) >40 mg/dL [facility] Comment:Desirable HDL: great er than 40 mg/dL Note: This HDL assay may give artificially low results in patients with liver disease. Blood Venous blood specimen / Unknown 08/15/2023 8:21 AM EDT 08/15/2023 11:31 AM EDT Beau Juarez MD LAB BLOOD ORDERABL ES Final Result Performing Organization Address [facility]/ZIP Co de Phone Number [facility] [address] [place] [phone] * Hepatitis C Antibody with Reflex to HCV, RNA, Quantitative, Real-Time PCR (09/19/2022 8:09 AM EDT) Hepatitis C Antibody NON-REACT YECENIA NON-REACT YECENIA [facility] Index 0.08 <1.00 [facility] Comment: HCV antibody was non-reactive. There is no laboratory evidence of HCV infection. In most cases, no further action is required. However, if recent HCV exposure is suspected, a test for HCV RNA (test code 55851) is suggested. For additional information please refer to http://education.[employer]/faq/ECC82t0 (This link is being provided for informational/ educational purposes only.) Blood Venous blood specimen / Unknown 09/19/2022 8:09 AM EDT 09/19/2022 8:10 AM EDT Narrative [facility] - 09/19/2022 10:53 PM EDT FASTING:YES FASTING: YES Beau Juarez MD LAB BLOOD ORDERABL ES Final Result [facility] [address], [place] [phone] [facility] [address] [place] [phone] * HIV 1/2 ANTIGEN/ANTIBODY,FOURTH GENERATION W/RFL (07/30/2021 8:43 AM EDT) HIV-1/2 ANTIGEN AND ANTIBODIES, 4TH GENERATION W/ REFLEX NON-REACT [facility] NON-REACT [facility] Comment: HIV-1 antigen and HIV-1/HIV-2 [...] ? For additional information please refer to http://education.[employer]/faq/BDW725 (This link is being provided for informational/ educational purposes only.) ? The performance of this assay has not been clinically validated in patients less than 2 years old. ?? 07/30/2021 8:43 AM EDT Beau Juarez MD LAB BLOOD ORDERABL ES Final Result [facility] [address] from Last 3 Months or Most Recently Relevant to Health Maintenance Insurance [facility] Care Teams Tetryl Nitrator Operator Relationship Specialty Start Date End Date Beau Leger MD [address] [place] [phone] PCP - General Internal Medicine 05/16/20
--- OUTSIDE RECORDS SUMMARY | 2024-05-19 17:12 | XMS_ITS | Encounter Summary ---
Author Organization [employer] Address [address] [place] [address] Care Team Providers Care Pre K Special Education Teacher Name Role Phone Beau Leger MD Primary Care Prov ider Reason for Visit * Reason Onset Date Comments Nurse Triage 07/16/2023 Encounter Details Date Type Department Care Team ([facility] st Contact Info) Description 07/16/2023 Telephone [facility] [address] [place] [address] Beau Leger MD [address] [place] [phone] Nurse Triage Social History Tobacco Use Types [...] 07/16/2023 11:24 AM EDT Triage call with [employer] [place] [id number] , Maruo Pt reports low back pain. Pt has diagnosis of chronic low back pain. Pt walked in to [facility] today and was given apt for 200pm this afternoon. Pt is informed of this apt . Pt requests to have office apt due to pain increased. Pt is advised no apts available in office today. Pt is reminded of scheduled apt this afternoon at [facility] 200pm with provider. Pt reports , [...] documented as of this encounter Care Teams Pre K Special Education Teacher Relationship Specialty Start Date End Date Beau Leger MD [address] [place] [phone] PCP - General Internal Medicine 05/16/20 documented as of this encounter
--- OUTSIDE RECORDS SUMMARY | 2024-05-19 17:12 | XMS_ITS | Encounter Summary ---
Author Organization [employer] Address [address] [place] [address] Care Team Providers Care Chute Man Name Role Phone Beau Leger MD Primary Care Prov ider Reason for Visit * Reason Comments Med Refill Encounter Details Date Type Department Care Team (Late st Contact Info) Description 07/31/2023 Refill [facility] [address] [place] [address] Sowmya Agosto MD [address] [place] [address] Social History Tobacco Use Types Packs/Day Years [...] documented as of this encounter Care Teams Chute Man Relationship Specialty Start Date End Date Beau Leger MD [address] [place] [address] PCP - General Internal Medicine 05/16/20 documented as of this encounter
--- OUTSIDE RECORDS SUMMARY | 2024-05-19 17:12 | XMS_ITS | Encounter Summary ---
Author Organization [employer] Address [address]t [place] [address] Care Team Providers Care Lump Roller Name Role Phone Beau Leger MD Primary Care Prov ider Encounter Details Date Type Department Care Team (Late st Contact Info) Description 04/30/2022 Orders Only [facility] [address] [place] [address] Beau Leger MD [address] [place], [place] [phone] Tinea pedis of both feet (Primary Dx) [...] Primary documented in this encounter Care Teams Lump Roller Relationship Specialty Start Date End Date Beau Leger MD [address] [place], [place] [phone] PCP - General Internal Medicine 05/16/20 documented as of this encounter
--- OUTSIDE RECORDS SUMMARY | 2024-05-19 17:12 | XMS_ITS | Encounter Summary ---
Author Organization [employer] Address [address] [facility] 7t [place] [address] Care Team Providers Care Coremaker Bench Name Role Phone Beau Leger MD Primary Care Prov ider Encounter Details Date Type Department Care Team (Late st Contact Info) Description 03/15/2024 Orders Only [facility] [address] [place] [address] ProviderRebeca MD Social History Tobacco Use Types [...] documented as of this encounter Care Teams Coremaker Bench Relationship Specialty Start Date End Date Beau Leger MD [address] [place] [phone] PCP - General Internal Medicine 05/16/20 documented as of this encounter
== END 2024-05-19 16:20 | disposition home or self-care (01) ==
PROVIDERS: PCP Internal Medicine
DX: S52.611A Displaced fracture of right ulna styloid process, initial encounter for closed fracture (principal); M79.643 Pain in unspecified hand
CPT/HCPCS: 99203

== ENCOUNTER → 2024-05-19 15:11 | Outpatient (BNVA) | payer OTHER, SELFPAY | PROVIDERS: PCP Internal Medicine | DX: S52.611A Displaced fracture of right ulna styloid process, initial encounter for closed fracture (principal); M79.641 Pain in right hand | CPT/HCPCS: 99202 ==

== ENCOUNTER 2024-06-02 08:29 | Outpatient (REF) | payer OTHER, SELFPAY ==
--- OUTSIDE RECORDS SUMMARY | 2024-06-02 09:09 | XMS_ITS | Encounter Summary ---
Author Organization [employer] Address [address] [facility] 7[address] [place] [address] Care Team Providers Care Bisque Brusher Name Role Phone Beau Leger MD Primary Care Prov ider Encounter Details Date Type Department Care Team (Late st Contact Info) Description 05/16/2022 Orders Only [facility] [address] [place], [place] [phone] Beau Leger MD [address] [place], [place] [phone] Mild intermittent asthma without complication (Primary Dx) [...] Primary documented in this encounter Care Teams Bisque Brusher Relationship Specialty Start Date End Date Beau Leger MD [address] [place] [address] PCP - General Internal Medicine 05/16/20 documented as of this encounter
--- OUTSIDE RECORDS SUMMARY | 2024-06-02 09:09 | XMS_ITS | Encounter Summary ---
Author Organization [employer] Address [address] [place] [address] Care Team Providers Care Tile Applicator Name Role Phone Beau Leger MD Primary Care Prov ider Reason for Visit * Reason Comments Med Refill Encounter Details Date Type Department Care Team (Late st Contact Info) Description 07/31/2023 Refill [facility] [address] [place] [address] Sowmya Agosto MD [address] [place] [address] Social History Tobacco Use Types Packs/Day Years [...] documented as of this encounter Care Teams Tile Applicator Relationship Specialty Start Date End Date Beau Leger MD [address] [place] [address] PCP - General Internal Medicine 05/16/20 documented as of this encounter
--- OUTSIDE RECORDS SUMMARY | 2024-06-02 09:09 | XMS_ITS | Encounter Summary ---
Author Organization [employer] Address [address] [facility] 7t [place] [address] Care Team Providers Care Health Physics Technician Name Role Phone Beau Leger MD Primary Care Prov ider Encounter Details Date Type Department Care Team (Late st Contact Info) Description 03/15/2024 Orders Only [facility] [address] [place] [address] ProviderRebeca MD Social History Tobacco Use Types [...] documented as of this encounter Care Teams Health Physics Technician Relationship Specialty Start Date End Date Beau Leger MD [address] [place] [id number] PCP - General Internal Medicine 05/16/20 documented as of this encounter
--- OUTSIDE RECORDS SUMMARY | 2024-06-02 09:09 | XMS_ITS | Encounter Summary ---
Author Organization [employer] Address [address] [facility] 7t [place] [address] Care Team Providers Care Bag Inspector Name Role Phone Beau Leger MD Primary Care Prov ider Encounter Details Date Type Department Care Team ([facility] st Contact Info) Description 05/14/2022 Telephone [facility] [address] [place], [place] [phone] Beau Leger MD [address] [place], [place] [phone] Social History Tobacco Use Types Packs/Day Years [...] on filedocumented in this encounter Care Teams Bag Inspector Relationship Specialty Start Date End Date Beau Leger MD [address] [place] [address] PCP - General Internal Medicine 05/16/20 documented as of this encounter
--- OUTSIDE RECORDS SUMMARY | 2024-06-02 09:09 | XMS_ITS | Encounter Summary ---
Author Organization [employer] Address [address] [facility] 7t [place] [address] Care Team Providers Care Rehab Services Aide Name Role Phone Beau Leger MD Primary Care Prov ider Encounter Details Date Type Department Care Team (Late st Contact Info) Description 04/30/2022 Orders Only [facility] [address] [place] [address] Beau Leger MD [address] [place], [place] [phone] Tinea pedis of both feet (Primary Dx) [...] Primary documented in this encounter Care Teams Rehab Services Aide Relationship Specialty Start Date End Date Beau Leger MD [address] [place], [place] [phone] PCP - General Internal Medicine 05/16/20 documented as of this encounter
--- OUTSIDE RECORDS SUMMARY | 2024-06-02 09:09 | XMS_ITS | Clinical Summary ---
Author Organization [address] [facility] Address [address] [place] [address] Phone Care Team Providers Care Condominium Property Manager Name Role Phone Beau Leger Primary Care Provide r Social History Tobacco Use Types Packs/Day Years Used Date Smoking Tobacco: Never Assessed Sex and Gender Information Value Date Recorded Sex Assigned at Not on file Legal Sex Male 4:38 PM EDT Gender Identity Not on file Sexual Orientation Not on file Plan of Treatment Upcoming Encounters Date Type Department Care Team ([facility] Contact Info) Description 07/06/2024 3:00 PM EDT Consult Orthopedic Surgery - [place] [id number] [phone] Blaise Sidhu DPM [address] [address] Health Maintenance Due Date Last Done Comments DTaP,Tdap,and Td Vaccines (1 - Tdap) 12/04/1990 Hepatitis B Vaccines (1 of 3 - 19+ 3-dose series) 12/04/1990 Pneumococcal Vaccine: 50+ Ye ars (1 of 1 - PCV) 12/04/2021 Zoster Vaccines (1 of 2) 12/04/2021 COVID-19 [...] patient's age to complete this topic Meningococcal B Vacine Aged Out No lo nger eligible based on patient's age to complete [...] on patient's age to complete this topic Insurance PLAN Care Teams Condominium Property Manager Relationship Specialty Start Date End Date Beau Leger [address] [place] [address] PCP - General 02/02/24
--- OUTSIDE RECORDS SUMMARY | 2024-06-02 09:10 | XMS_ITS | Encounter Summary ---
Author Organization [employer] Address [address] [facility] [address] [place] [address] Care Team Providers Care Auto Parts Handler Name Role Phone Beau Leger MD Primary Care Prov ider Reason for Visit * Reason Onset Date Comments Nurse Triage 07/16/2023 Encounter Details Date Type Department Care Team ([facility] st Contact Info) Description 07/16/2023 Telephone [facility] [address] [place] [address] Beau Leger MD [address] [place] [phone] Nurse Triage Social History Tobacco Use Types [...] 07/16/2023 11:24 AM EDT Triage call with [id number] [place] [id number] , Mauro Pt reports low back pain. Pt has diagnosis of chronic low back pain. Pt walked in to [facility] today and was given apt for 200pm this afternoon. Pt is informed of this apt . Pt requests to have office apt due to pain increased. Pt is advised no apts available in office today. Pt is reminded of scheduled apt this afternoon at [facility] 200pm with provider. Pt reports , thank [...] documented as of this encounter Care Teams Auto Parts Handler Relationship Specialty Start Date End Date Beau Leger MD [address] [place] [id number] PCP - General Internal Medicine 05/16/20 documented as of this encounter
--- OUTSIDE RECORDS SUMMARY | 2024-06-02 09:10 | XMS_ITS | Encounter Summary ---
Author Organization [employer] Address [address] [facility] 7t [place] [address] Care Team Providers Care Skidder Loader Name Role Phone Beau Leger MD Primary Care Prov ider Encounter Details Date Type Department Care Team ([facility] st Contact Info) Description 01/17/2023 [facility] [address] [place], [place] [phone] Beau Leger MD [address] [place], [place] [phone] Social History Tobacco Use Types Packs/Day Years [...] documented as of this encounter Care Teams Skidder Loader Relationship Specialty Start Date End Date Beau Leger MD [address] [place], [place] [phone] PCP - General Internal Medicine 05/16/20 documented as of this encounter
--- OUTSIDE RECORDS SUMMARY | 2024-06-02 09:10 | XMS_ITS | Clinical Summary ---
Author Organization [employer] Address [address] [facility] [address] [place] [address] Care Team Providers Care Envelope Folder Name Role Phone Beau Leger MD Primary Care Prov ider Allergies No known active allergies Medications Blood Pressure Monitor kit 1 kit 2 times daily. 1 kit 4 06/04/19 25 Active FREESTYLE LITE test stripIndications: Type 2 diabetes mellitus without complication, without long-term current use of insulin ([facility]) Use to test blood sugar 3 times daily 100 each 4 07/23/19 25 Active Lancets miscIndications:T ype 2 diabetes mellitus without complication, without long-term current use of insulin ([facility]) Use to test blood sugar 3 times daily 100 each 4 Active Alcohol Swabs 70 % padsIndications:T ype 2 diabetes mellitus without complication, without long-term current use of insulin ([facility]) Use to test blood sugar 3 [...] tablet 4 Active Blood Glucose Monitoring Suppl (ResilincStPixelapse Warwick Lite) w/Device kitIndications:Ty pe 2 diabetes mellitus without complication, without long-term current use of insulin ([facility]) TEST BLOOD SUGAR THREE TIMES DAILY [...] Center 03/02/2024 8:[address] [facility] Patient also brought up left anterior thigh [...] External Data 04/08/2024 3:15 PM EST Telemedicine [facility] [address] [place] [address] Beau Leger MD Heel pain, chronic, left (Primary Dx); Type 2 diabetes mellitus without complication, without long-term current use of insulin ([facility]) 04/08/2024 Travel 04/07/2024 Telephone [facility] [address] [place] [address] Jennifer Núñez MD 03/15/2024 Orders Only [employer] [facility] Information Management [address] [place] [address] Rebeca Moreno MD 03/11/2024 Telephone [place] [facility] Information Management [address] [place] [address] Beau Leger MD 03/10/2024 2:45 PM EST Telemedicine [facility] [address] [place] [address] Beau Leger MD Type 2 diabetes mellitus without complication, without long-term current use of insulin ([facility]) (Primary Dx); Screening for colon cancer 03/10/2024 Travel 03/08/2024 Telephone [facility] [address] [place] [address] Beau Leger MD No Show 03/08/2024 Telephone [facility] [address] [place] [address] Beau Leger MD 03/08/2024 Travel from Last 3 Months Immunizations Name Administration [...] 1 986 - 1999 Smokeless Tobacco: Never Tobacco Cessation:Counseling Given: Not [...] Use Screening 1983 Family Planning (PISQ) 12/04/1986 Diabetes: Hemoglobin A1C 11/14/2023 024, 09/19/2022, 07/30/2021 COVID-19 Vaccine ( season) 2023 01/25/2022, 03/14/2021, 07/26/2020, Additional history exists Depression Screening 12/26/2023 12/25/2022, 09/06/20 23 SDOH Screening 06/05/2024 06/05/2023 Lipid Panel 08/14/2024 [...] EST Narrative 05/11/2024 11:15 AM EST ? [place] [facility] ?[address] ?[place] [address] ?XRay Report ? Signed ? Patient: Dickson Cabrera,Shilo A ?MR# ?? : [id number] ? : 1970 ?Acct:[id number] ? Age/Sex: 53 / M ?ADM Date: 05/11/24 ? Loc: HO.ED ? Attending Dr: ? Ordering Physician: Generic ED Physician ?? Date of Service: 05/11/24 ?? Procedure(s): XR femur RT 2V ?? Accession Number(s): [id number] ? cc: Beau Leger MD; Generic ED [...] Smallwood MD ??05/11/2024 11:13 AM EST RP ?? Workstation: [id number] ? Dictated By: ?Tc Smallwood MD ? Signed By: ?<Electronically signed by Tc Smallwood MD in OV> ?05/11/24 1113 ? DD/ 0949 ? TD/TT: 05/11/24 1043 ? Tomb Maker Helper: ? Procedure Note Kennedy Calvo - 05/11/[address] [address] XRay Report Signed Patient: Shilo Gregory AMR# : [id number] : 1970Acct:[id number] Age/Sex: 53 / MADM Date: 05/11/24 Loc: HO.ED Attending Dr: Ordering Physician: Generic ED Physician Date of Service: 05/11/24 Procedure(s): XR femur RT 2V Accession Number(s): [id number] cc: Beau Leger MD; Generic ED Physician [...] Tc Smallwood MD 05/11/2024 11:13 AM EST Dictated By: Tc Smallwood MD Signed By: <Electronically signed by Tc Smallwood MD in OV> 05/11/24 1113 DD/ 0949 TD/TT: 05/11/24 1043 Tomb Maker Helper: [facility] External Provider IMG XR PROCEDURES Edited Result - Final * XR Pelvis 1-2 Views (05/11/2024 9:48 AM EST) Anatomical Region Laterality Modality Body, Pelvis Radiographic Shirley ging 05/11/2024 9:48 AM EST Narrative 05/11/2024 11:12 AM EST ? [facility] ?[address] ?[place] [address] ?XRay Report ? Signed ? Patient: Dickson Acbrera,Shilo A ?MR# ?? : [id number] ? : 1970 ?Acct:[id number] ? Age/Sex: 53 / M ?ADM Date: 01/21/25 ? Loc: HO.ED ? Attending Dr: ? Ordering Physician: Generic ED Physician ?? Date of Service: 05/11/24 ?? Procedure(s): XR pelvis 1-2V ?? Accession Number(s): [id number] ? cc: Beau Leger MD; Generic ED [...] DD/ 0948 ? TD/TT: 05/11/24 1043 ? Tomb Maker Helper: ? Procedure Note Lub[place], Image - 05/11/[address] [address] XRay Report Signed Patient: Shilo Gregory AMR# : [id number] : 1970Acct:[id number] Age/Sex: 53 / MADM Date: 05/11/24 Loc: HO.ED Attending Dr: Ordering Physician: Manuel ED Physician Date of Service: 05/11/24 Procedure(s): XR pelvis 1-2V Accession Number(s): [id number] cc: Beau Leger MD; Generic ED Physician [...] 05/11/24 1109 DD/ 0948 TD/TT: 05/11/24 1043 Tomb Maker Helper: [facility] External Provider IMG XR PROCEDURES Edited Result - Final * XR HAND WRIST RT (05/11/2024 9:46 AM EST) Anatomical Region Laterality Modality Abdomen Radiographic Shirley ging 05/11/2024 9:46 AM EST Narrative 05/11/2024 11:07 AM EST ? [facility] ?[address] ?[place] [address] ?XRay Report ? Signed ? Patient: Dickson Cabrera,Shilo A ?MR# ?? : [id number] ? : 1970 ?Acct:[id number] ? Age/Sex: 53 / M ?ADM Date: 01/21/25 ? Loc: HO.ED ? Attending Dr: ? Ordering Physician: Generic ED Physician ?? Date of Service: 05/11/24 ?? Procedure(s): XR hand wrist RT ?? Accession Number(s): [id number] ? cc: Beau Leger MD; Generic ED [...] DD/ 0946 ? TD/TT: 05/11/24 1043 ? Tomb Maker Helper: ? Procedure Note [place], Image - 05/11/[address] [address] XRay Report Signed Patient: Shilo Gregory AMR# : [id number] : 1970Acct:[id number] Age/Sex: 53 / MADM Date: 05/11/24 Loc: HO.ED Attending Dr: Ordering Physician: Generic ED Physician Date of Service: 05/11/24 Procedure(s): XR hand wrist RT Accession Number(s): [id number] cc: Beau Leger MD; Generic ED Physician [...] 05/11/24 1104 DD/ 0946 TD/TT: 05/11/24 1043 Tomb Maker Helper: [facility] External Provider IMG XR PROCEDURES Edited Result - Final * XR Shoulder 2+ Views Left (04/19/2024 9:22 PM EST) Anatomical Region Laterality Modality Upper Extremities, Shoulder Left Radi ographic Imaging 04/19/2024 9:22 PM EST Narrative 04/19/2024 9:24 PM EST ? [facility] ?[address] ?[place] [address] ?XRay Report ? Signed ? Patient: Dickson Cabrera,Shilo A ?MR# ?? : [id number] ? : 1970 ?Acct:[id number] ? Age/Sex: 53 / M ?ADM Date: 12/30/24 ? Loc: HO.ED ? Attending Dr: ? Ordering Physician: Kian Garcia ?? Date of Service: 04/19/24 ?? Procedure(s): XR shoulder LT min 2V ?? Accession Number(s): [id number] ? cc: Beau Leger MD; Kian Garcia [...] ? DD/ 21 ? TD/TT: 04/19/242121 ? Tomb Maker Helper: ? Procedure Note Donyamilkater, Image - 04/19/[address] [address] XRay Report Signed Patient: Shilo Gregory AMR# : [id number] : 1970Acct:[id number] Age/Sex: 53 / MADM Date: 04/19/24 Loc: HO.ED Attending Dr: Ordering Physician: Kian Garcia Date of Service: 04/19/24 Procedure(s): XR shoulder LT min 2V Accession Number(s): [id number] cc: Beau Leger MD; Kian Garcia CLINICAL [...] in OV> 04/19/242122 DD/ 21 TD/TT: 04/19/242121 Tomb Maker Helper: [facility] External Provider IMG XR PROCEDURES Final Result * High Sensitivity Troponin I (04/19/2024 9:12 PM EST) TROPONIN I HIGH SENSITIVITY <2.7 <3.5 - 35.0 ng/L [facility] Comment:The Guzman high sens itivity Troponin-I results should beused in conjunction with other diagnostic information suchas ECG, clinical observations and information, and patientsymptoms to aid in the diagnosis of IL. 04/19/2024 9:12 PM EST 04/19/2024 9:15 PM EST us Generic External Data Provider LAB BLOOD ORDERAB LES Final Result [facility] [address] [place] [phone] * (ABNORMAL) CBC auto differential (04/19/2024 9:12 PM EST) White Blood Count 7.7 4.8 - 10.8 X10*3/uL [facility] Red Blood Count 5.12 4.60 - 5.80 X10*6/uL [facility] Hemoglobin 15.6 14.0 - 18.0 g/dl [facility] Hematocrit 42.7 42.0 - 52.0 % [facility] Mean Corpuscular Volume 83.4 80.0 - 98.0 fL [facility] Mean Corpuscular Hemoglobin 30.5 27.0 - 33.0 pg [facility] Mean Corpuscular HGB Conc 36.5(H) 31.0 - 36.0 g/dl [facility] Red Cell Distribution Width 12.3 11.0 - 16.0 % [facility] Platelet Count 207 160 - 400 X10*3/uL [facility] Mean Platelet Volume 10.1 9.4 - 12.4 fL [facility] Neutrophils Percent Auto 64.4 45 - 73 % [facility] Imm Gran Pct Auto 0.4 0.0 - 0.4 % [facility] Lymphocytes Percent Auto 25.1 20 - 40 % [facility] Monocytes Percent Auto 7.6 2 - 11 % [facility] Eosinophils Percent Auto 2.0 0 - 4 % [facility] Basophils Percent Auto 0.5 0 - 2 % [facility] NRBC Pct Auto 0.0 0.0 - 0.2 /100WBC [facility] Neutrophils Absolute Auto 5.0 2.0 - 8.3 x10*3/uL [facility] Imm Gran Abs Auto 0.03 0.00 - 0.03 X10*3/uL [facility] Lymphocytes Absolute Auto 1.9 1.2 - 4.9 X10*3/uL [facility] Monocytes Absolute Auto 0.6 0.1 - 1.2 X10*3/uL [facility] Eosinophils Absolute Auto 0.2 0.0 - 0.4 X10*3/uL [facility] Basophils Absolute Auto 0.0 0.0 - 0.2 X10*3/uL [facility] NRBC Abs Auto 0.000 0.0 - 0.012 X10*3/uL [facility] 04/19/2024 9:12 PM EST 04/19/2024 9:15 PM EST us Generic External Data Provider LAB BLOOD ORDERAB LES Final Result [facility] [address] [place] [address] [phone] * Prothrombin Time-INR (04/19/2024 9:12 PM EST) Prothrombin Time 11.1 10.9 - 12.4 SEC [facility] INTERNATIONAL NORM RATIO 1.0 0.9 - 1.1 [facility] Comment:INTERNATIONAL NORMAL IZED RATIO (INR) [...] ORDERAB LES Final Result Performing Organization Address City/[facility]/ZIP Co de Phone Number [facility] [address] [place] [address] [phone] * Lipase (04/19/2024 9:12 PM EST) Lipase 21 8 - 78 U/L [facility] 04/19/2024 9:12 PM EST 04/19/2024 9:15 PM EST Generic External Data Provider LAB BLOOD ORDERAB LES Final Result Performing Organization Address [facility] Co de Phone Number [facility] [address] [place] [address] [phone] * (ABNORMAL) Comprehensive Metabolic Panel (04/19/2024 9:12 PM EST) Sodium 142 135 - 145 mmol/L [facility] Potassium 3.8 3.3 - 5.1 mmol/L [facility] Chloride 109(H) 96 - 108 mmol/L [facility] Carbon Dioxide 22 22 - 29 mmol/L [facility] Anion Gap 15 12 - 20 [facility] Urea Nitrogen (BUN) 12 9 - 16 mg/dL [facility] Creatinine, Serum 0.86 0.5 - 1.4 mg/dL [facility] Creatinine Clr Calc Pharmacy 102.2 [facility] Comment:eGFR (calculated fro m the MDRD study equation) and eCrCl(calculated from the Cockcroft-Gault equation) are based ondifferent parameters and may not yield comparable results.If eCrCl result is absurd, please check patient'sheight/weight. Estimated Glomerular Filt Rate >60 [facility] Comment:Chronic Kidney Disea se: Estimated GFR < 60 mL/min/1.35s7Wfehtt Kidney Disease: Estimated GFR < 15 mL/min/1.73m2 Glucose 153(H) 60 - 115 mg/dL [facility] Calcium 9.6 8.4 - 10.2 mg/dL [facility] Bilirubin, Total 0.7 0.0 - 1.0 mg/dL [facility] Aspartate Amino Transferase 16 5 - 37 U/L [facility] Alanine Aminotransferase 22 0 - 40 U/L [facility] Total Protein 7.3 6.5 - 8.0 g/dL [facility] Albumin Level 4.6 3.5 - 5.0 g/dL [facility] Alkaline Phosphatase 66 39 - 117 U/L [facility] 04/19/2024 9:12 PM EST 04/19/2024 9:15 PM EST us Generic External Data Provider LAB BLOOD ORDERAB LES Final Result [facility] [address] [place] [address] [phone] * HM Diabetes: Urine Protein Screening (03/11/2024 2:11 PM EST) Urine Historical Provider HEALTH MAINTENANCE Final Result * (ABNORMAL) Hemoglobin A1c (08/15/2023 8:21 AM EDT) Hemoglobin A1c 6.4(H) <6.0 % [facility] Comment:Hemoglobin A1C Refer ence Range Adults: 4.8 - 6.0 % Non diabetic: < 6.0 % Goal: < 7.0 %Additional Action Suggested: > 8.0 %Note: Hemoglobin A1c results are invalid for patients with abnormal amounts of HbF. Blood transfusions may impact the HbA1c concentration in the patient sample. Estimated Average Glucose 137 mg/dL [facility] Comment:eAG = Estimated ave rage glucose which is %A1C expressed asaverage glucose, using the formula of the F8M-AdklrspVrxhnla Glucose study (ADAG), Diabetes Care, Vol.31,#8,Nov. 2007 Blood Venous blood specimen / Unknown 08/15/2023 8:21 AM EDT 08/15/2023 11:31 AM EDT Beau Juarez MD LAB BLOOD ORDERABL ES Final Result [facility] [address] [place] [address] [phone] * (ABNORMAL) Lipid Panel, Standard (08/15/2023 8:21 AM EDT) Triglycerides 341(H) <150 mg/dL [facility] Comment:Desirable Triglyceri de: less than 150 mg/dLBorderline High Triglyceride 150-199 mg/dLHigh Triglyceride: 200-499 mg/dLVery High Triglyceride: greater than or equal to 5OO mg/dL Cholesterol 182 <200 mg/dL [facility] Comment:Desirable Cholestero l: less than 200 mg/dLBorderline High Cholesterol: 200-239 mg/dLHigh Cholesterol: greater than 239 mg/dL LDL Cholesterol Calculated 85 <100 mg/dL [facility] Comment:Desirable LDL: less than 100 mg/dLNear Optimal/Above Optimal LDL: 110- 129 mg/dLBorderline High LDL: 130-159 mg/dLHigh LDL: 160-189 mg/dLVery High LDL: greater than or equal to 190 mg/dL HDL Cholesterol 29(L) >40 mg/dL [facility] Comment:Desirable HDL: great er than 40 mg/dL Note: This HDL assay may give artificially low results in patients with liver disease. Blood Venous blood specimen / Unknown 08/15/2023 8:21 AM EDT 08/15/2023 11:31 AM EDT us Beau Juarez MD LAB BLOOD ORDERABL ES Final Result [facility] [address] [place] [address] [phone] * Hepatitis C Antibody with Reflex to HCV, RNA, Quantitative, Real-Time PCR (09/19/2022 8:09 AM EDT) Hepatitis C Antibody NON-REACT YECENIA NON-REACT YECENIA [facility] Index 0.08 <1.00 [facility] [place] [facility] Comment: HCV antibody was non-reactive. There is no laboratory evidence of HCV infection. In most cases, no further action is required. However, if recent HCV exposure is suspected, a test for HCV RNA (test code 61239) is suggested. For additional information please refer to http://EPS.Neoprospecta/faq/AJV03m5 (This link is being provided for informational/ educational purposes only.) Blood Venous blood specimen / Unknown 09/19/2022 8:09 AM EDT 09/19/2022 8:10 AM EDT Narrative [facility] - 09/19/2022 10:53 PM EDT FASTING:YES FASTING: YES Beau Juarez MD LAB BLOOD ORDERABL ES Final Result [facility] [address], [place] [address] [facility] [place] [facility] [address] [place] [address] * HIV 1/2 ANTIGEN/ANTIBODY,FOURTH GENERATION W/RFL (07/30/2021 8:43 AM EDT) Pathologist [facility] HIV-1/2 ANTIGEN AND ANTIBODIES, 4TH GENERATION W/ REFLEX NON-REACT YECENIA NON-REACT [facility] Comment: HIV-1 antigen and HIV-1/HIV-2 [...] ? For additional information please refer to http://EPS.Neoprospecta/faq/HOV942 (This link is being provided for informational/ educational purposes only.) ? The performance of this assay has not been clinically validated in patients less than 2 years old. ?? 07/30/2021 8:43 AM EDT Beau Juarez MD LAB BLOOD ORDERABL ES Final Result [facility] [address] [place] [address], from Last 3 Months or Most Recently Relevant to Health Maintenance Insurance [employer] [facility] [address] [place] [id number] [place] [phone] Care Teams Envelope Folder Relationship Specialty Start Date End Date Beau Leger MD [address] [place] [phone] PCP - General Internal Medicine 05/16/20
[2024-06-02 11:19] LABS: MANUAL DIFF FLAG NO
[2024-06-02 11:33] LABS: Basophils Percent Auto 0.3 % (0-2); Eosinophils Absolute Auto 0.1 X10*3/uL (0.0-0.4); Eosinophils Percent Auto 2.2 % (0-4); Hematocrit 45.5 % (42.0-52.0); Imm Gran Abs Auto 0.03 X10*3/uL (0.00-0.03); Imm Gran Pct Auto 0.5 % (0.0-0.4); Lymphocytes Absolute Auto 1.5 X10*3/uL (1.2-4.9); Lymphocytes Percent Auto 22.7 % (20-40); Mean Corpuscular HGB Conc 35.2 g/dl (31.0-36.0); Mean Corpuscular Hemoglobin 29.6 pg (27.0-33.0); Mean Corpuscular Volume 84.3 fL (80.0-98.0); Mean Platelet Volume 10.7 fL (9.4-12.4); Monocytes Absolute Auto 0.5 X10*3/uL (0.1-1.2); Neutrophils Absolute Auto 4.3 x10*3/uL (2.0-8.3); Neutrophils Percent Auto 67.3 % (45-73); Platelet Count 192 X10*3/uL (160-400); Red Cell Distribution Width 12.2 % (11.0-16.0); White Blood Count 6.4 X10*3/uL (4.8-10.8)
[2024-06-02 12:00] LABS: Estimated Average Glucose 137 mg/dL; Hemoglobin A1C 188.4901 umol/L; Hemoglobin A1c % 6.4 % (<6.0); Total Hemoglobin (HGBA1C) 4102.8892 umol/L
[2024-06-02 12:29] LABS: Alanine Aminotransferase 32 U/L (0-40); Albumin Level 4.6 g/dL (3.5-5.0); Alkaline Phosphatase 61 U/L (39-117); Anion Gap 10 (12-20); Aspartate Amino Transferase 19 U/L (5-37); Bilirubin Total 0.9 mg/dL (0.0-1.0); Blood Urea Nitrogen 12 mg/dL (9-16); Calcium 9.2 mg/dL (8.4-10.2); Carbon Dioxide 26 mmol/L (22-29); Chloride 109 mmol/L (96-108); Cholesterol 162 mg/dL (<200); Estimated Glomerular Filt Rate > 60; Glucose Random 147 mg/dL (60-115); HDL Cholesterol 34 mg/dL (>40); LDL Cholesterol Calculated 71 mg/dL (<100); Potassium 4.4 mmol/L (3.3-5.1); Sodium 141 mmol/L (135-145); Total Protein 7.5 g/dL (6.5-8.0); Triglycerides 289 mg/dL (<150)
== END 2024-06-02 08:30 | disposition home or self-care (01) ==
LOC: HO.HHCL 08:29
PROVIDERS: Visit Provider Internal Medicine
DX: E11.9 Type 2 diabetes mellitus without complications (principal); S52.611A Displaced fracture of right ulna styloid process, initial encounter for closed fracture; S62.001A Unspecified fracture of navicular [scaphoid] bone of right wrist, initial encounter for closed fracture
CPT/HCPCS: 29085; 36415; 80053; 80061; 83036; 85025; 99212

== ENCOUNTER 2024-06-02 10:44 | Outpatient (AMB) | payer OTHER, SELFPAY ==
--- NOTE | 2024-06-02 10:45 | MHC.OFFVIS ---
Vital Signs 06/02/24 10:50 Height 5 ft 6 in Weight 177 lb BMI 28.6 Handedness Right Intake Visit Reasons: OV-Muscle strain RT wrist-DOI 05/11/24-w/xray Intake Note: Shilo is a 53 year old right hand dominant male who presents today for follow up, s/p right ulnar styloid fracture, DOI 05/11/24. At last visit, patient was provided with a velcro thumb spica splint to be worn like a cast at all times except for bathing. Patient was also advised he should not lift anything heavier than a cell phone in the right hand until follow-up. Today patient reports he is having pain for a dorsal aspect of the wrist. He was informed that he has a old fracture that showed up on his x rays but he doesn't remember having an injury or hitting his hand. Field Support Representative Services: Field Support Representative Present (Shauna ([id number])) Allergies No Known Allergies Allergy (Verified 06/02/24 10:49) HPI HPI OV-Muscle strain RT wrist-DOI 05/11/24-w/xray: Details: Shilo is a 53 year old right hand dominant male who presents today for follow up, s/p right ulnar styloid fracture, DOI 05/11/24. At last visit, patient was provided with a velcro thumb spica splint to be worn like a cast at all times except for bathing. Patient was also advised he should not lift anything heavier than a cell phone in the right hand until follow-up. Today patient reports he is having pain for a dorsal aspect of the wrist. He was informed that he has a old fracture that showed up on his x rays but he doesn't remember having an injury or hitting his hand. [facility] Medical History Right inguinal hernia Diabetes mellitus Asthma Surgical History History of right inguinal hernia repair History of knee surgery History of shoulder surgery Family History Father No problems noted. 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 Neuro: Normal sensation of the tips of all digits of the right hand at this time Vascular: Cap refill brisk Pain: Patient reports tenderness to palpation of the ulnar styloid of the right wrist Tenderness to palpation of the anatomical snuffbox and scaphoid tubercle of the right wrist No tenderness to palpation of the radial styloid, DRUJ, or elsewhere in the right hand or wrist ROM: Patient is able to make a closed fist and extend all digits of the right hand fully at this time Skin: No lacerations or abrasions. General: No ecchymosis, erythema, or evidence of infection. Psych: Appears grossly normal Affect normal Attitude cooperative Office Procedures AMB Fracture Care Fracture Billing Code: Fracture Billing Code Results Reviewed Results Reviewed: X-rays taken in the emergency department and independently reviewed by me demonstrate small avulsion fracture of the right ulnar styloid of unknown age. There is also evidence of a distal scaphoid fracture. No other acute bony abnormalities or fractures noted. Assessment & Plan Assessment & Plan (1) Fracture of right ulnar styloid: Code(s): S52.611A - Displaced fracture of right ulna styloid process, initial encounter for closed fracture Category: Medical (2) Nondisplaced fracture of right scaphoid bone: Code(s): S62.001A - Unspecified fracture of navicular [scaphoid] bone of right wrist, initial encounter for closed fracture Category: Medical Plan 1. Distal scaphoid fracture 2. Small ulnar styloid avulsion fracture, of unknown age Patient is educated about these injuries Patient is educated about the typical recovery course At this time, patient was placed into a short-arm thumb spica cast for immobilization of the fractures Patient was informed that surgery is likely not necessary in his fracture, as the distal scaphoid has reliable blood supply and he is not a cigarette smoker Patient was amenable to this plan Patient is educated on proper cast care and precautions Patient will follow-up in 3 weeks with repeat x-rays for reassessment, sooner with any acute concerns Orders: Orders XR wrist RT w scaphoid Today M79.641 - Pain in right hand Coding Level of Care Code Est Pt Level 3 (57051) Diagnoses Fracture of right ulnar styloid S52.611A Nondisplaced fracture of right scaphoid bone S62.001A CPT Codes Fracture Care - Fracture Billing Code: Fracture Billing Code ([id number])
[2024-06-02 10:50] VITALS: BMI 28.6
--- OUTSIDE RECORDS SUMMARY | 2024-06-02 12:33 | XMS_ITS | Clinical Summary ---
Author Organization [employer] Address [address] [facility] 7[address] [place] [address] Care Team Providers Care Poiser Balance Name Role Phone Beau Leger MD Primary Care Prov ider Allergies No known active allergies Medications Blood Pressure Monitor kit 1 kit 2 times daily. 1 kit 4 06/04/19 25 Active FREESTYLE LITE test stripIndications: Type 2 diabetes mellitus without complication, without long-term current use of insulin ([facility]) Use to test blood sugar 3 times daily 100 each 4 07/23/19 25 Active Lancets miscIndications:T ype 2 diabetes mellitus without complication, without long-term current use of insulin ([facility]) Use to test blood sugar 3 times daily 100 each 4 Active Alcohol Swabs 70 % padsIndications:T ype 2 diabetes mellitus without complication, without long-term current use of insulin ([facility]) Use to test blood sugar [...] tablet 4 Active Blood Glucose Monitoring Suppl ([employer] [place]) w/Device kitIndications:Ty pe 2 diabetes mellitus without complication, without long-term current use of insulin ([facility]) TEST BLOOD SUGAR THREE TIMES [...] Center 03/02/2024 8:45 AM Beau Juarez MD [facility] Patient also brought up left [...] External Data 04/08/2024 3:15 PM EST Telemedicine [facility] [address] [place] [address] Beau Leger MD Heel pain, chronic, left (Primary Dx); Type 2 diabetes mellitus without complication, without long-term current use of insulin ([facility]/HCC) 04/08/2024 Travel 04/07/2024 Telephone [facility] [address] [place] [address] Jennifer Núñez MD 03/15/2024 Orders Only [facility] [address] [place] [address] Rebeca Moreno MD 03/11/2024 Telephone [employer] [facility] [address] [place] [address] Beau Leger MD 03/10/2024 2:45 PM EST Telemedicine [facility] [address] [place] [address] Beau Leger MD Type 2 diabetes mellitus without complication, without long-term current use of insulin ([facility]/HCC) (Primary Dx); Screening for colon cancer 03/10/2024 Travel 03/08/2024 Telephone [facility] [address] [place] [address] Beau Leger MD No Show 03/08/2024 Telephone [facility] [address] [place] [address] Beau Leger MD 03/08/2024 Travel from Last [...] exists Depression Screening 12/26/2023 12/25/2022, 12/26/19 23 SDOH Screening 06/05/2024 06/05/2023 Lipid Panel 08/14/2024 06/02/2024, 07/21, 09/19/2022, Additional history exists Diabetes: Foot Exam 09/21/2024 09/22/2023, 09/22/2023, 09/22/2023, Additional history exists Tobacco Screening 09/21/2024 09/22/2023 Diabetes: Hemoglobin A1C 11/30/2024 025, 08/15/2023, 09/19/2022, Additional history exists Diabetes: Urine Protein Screening 03/11/2025 03/11/2024, 09/22/2023, [...] Procedure Name Priority Date/Time Associated Diagnosis Comments LIPID PANEL, STANDARD Routine 06/02/2024 8:31 AM EST Type 2 diabetes mellitus without complication, without long-term current use of insulin ([facility]) COMPREHENSIVE METABOLIC PANEL Routine 06/02/2024 8:31 AM EST Type 2 diabetes mellitus without complication, without long-term current use of insulin (CMS/HCC) HEMOGLOBIN A1C Routine 06/02/2024 8:31 AM EST Type 2 diabetes mellitus without complication, without long-term current use of insulin (CMS/HCC) CBC WITH AUTO DIFFERENTIAL Routine 06/02/2024 8:31 AM EST Type 2 diabetes mellitus without complication, without long-term current use of insulin (CMS/HCC) XR FEMUR 2+ VIEWS RIGHT Routine 05/11/2024 [...] PROTEIN SCREENING Routine 03/11/2024 2:11 PM EST HEPATITIS C AB W/REFL TO HCV RNA, QN, PCR Routine 09/19/2022 8:09 AM EDT Type 2 diabetes mellitus without complication, without long-term current use of insulin (CMS/HCC) Primary hypertension HIV 1/2 ANTIGEN/ANTIBODY, FOURTH GENERATION W/RFL Routine 07/30/2021 8:43 AM EDT from Last 3 Months or Most Recently Relevant to Health Maintenance Results * (ABNORMAL) CBC auto differential (06/02/2024 8:31 AM EST) Only the most recent of2 resultswithin the time period is included. White Blood Count 6.4 4.8 - 10.8 X10*3/uL [facility] Red Blood Count 5.40 4.60 - 5.80 X10*6/uL [facility] Hemoglobin 16.0 14.0 - 18.0 g/dl [facility] Hematocrit 45.5 42.0 - 52.0 % [facility] Mean Corpuscular Volume 84.3 80.0 - 98.0 fL [facility] Mean Corpuscular Hemoglobin 29.6 27.0 - 33.0 pg [facility] Mean Corpuscular HGB Conc 35.2 31.0 - 36.0 g/dl [facility] Red Cell Distribution Width 12.2 11.0 - 16.0 % [facility] Platelet Count 192 160 - 400 X10*3/uL [facility] Mean Platelet Volume 10.7 9.4 - 12.4 fL [facility] Neutrophils Percent Auto 67.3 45 - 73 % [facility] Imm Gran Pct Auto 0.5(H) 0.0 - 0.4 % [facility] Lymphocytes Percent Auto 22.7 20 - 40 % [facility] Monocytes Percent Auto 7.0 2 - 11 % [facility] Eosinophils Percent Auto 2.2 0 - 4 % [facility] Basophils Percent Auto 0.3 0 - 2 % [facility] NRBC Pct Auto 0.0 0.0 - 0.2 /100WBC [facility] Neutrophils Absolute Auto 4.3 2.0 - 8.3 x10*3/uL [facility] Imm Gran Abs Auto 0.03 0.00 - 0.03 X10*3/uL [facility] Lymphocytes Absolute Auto 1.5 1.2 - 4.9 X10*3/uL [facility] Monocytes Absolute Auto 0.5 0.1 - 1.2 X10*3/uL [facility] Eosinophils Absolute Auto 0.1 0.0 - 0.4 X10*3/uL [facility] Basophils Absolute Auto 0.0 0.0 - 0.2 X10*3/uL [facility] NRBC Abs Auto 0.000 0.0 - 0.012 X10*3/uL [facility] Blood Venous blood specimen / Unknown 06/02/2024 8:31 AM EST 06/02/2024 11:13 AM EST Beau Juarez MD LAB BLOOD ORDERABL ES Final Result Performing Organization Address [facility]/ZIP Co de Phone Number [facility] [address] [place] [phone] * (ABNORMAL) Hemoglobin A1c (06/02/2024 8:31 AM EST) Hemoglobin A1c 6.4(H) <6.0 % [facility] Comment:Hemoglobin A1C Refer ence Range Adults: 4.8 - 6.0 % Non diabetic: < 6.0 % Goal: < 7.0 %Additional Action Suggested: > 8.0 %Note: Hemoglobin A1c results are invalid for patients with abnormal amounts of HbF. Blood transfusions may impact the HbA1c concentration in the patient sample. Estimated Average Glucose 137 mg/dL [facility] Comment:eAG = Estimated ave rage glucose which is %A1C expressed asaverage glucose, using the formula of the M2L-QcfadvsQrqdcod Glucose study (ADAG), Diabetes Care, Vol.31,#8,Nov. 2007 Blood Venous blood specimen / Unknown 06/02/2024 8:31 AM EST 06/02/2024 11:13 AM EST Beau Juarez MD LAB BLOOD ORDERABL ES Final Result Performing Organization Address [facility]/ZIP Co de Phone Number [facility] [address] [place] [phone] * (ABNORMAL) Lipid Panel, Standard (06/02/2024 8:31 AM EST) Triglycerides 289(H) <150 mg/dL [facility] Comment:Desirable Triglyceri de: less than 150 mg/dLBorderline High Triglyceride 150-199 mg/dLHigh Triglyceride: 200-499 mg/dLVery High Triglyceride: greater than or equal to 5OO mg/dL Cholesterol 162 <200 mg/dL [facility] Comment:Desirable Cholestero l: less than 200 mg/dLBorderline High Cholesterol: 200-239 mg/dLHigh Cholesterol: greater than 239 mg/dL LDL Cholesterol Calculated 71 <100 mg/dL [facility] Comment:Desirable LDL: less than 100 mg/dLNear Optimal/Above Optimal LDL: 110- 129 mg/dLBorderline High LDL: 130-159 mg/dLHigh LDL: 160-189 mg/dLVery High LDL: greater than or equal to 190 mg/dL HDL Cholesterol 34(L) >40 mg/dL [facility] Comment:Desirable HDL: great er than 40 mg/dL Note: This HDL assay may give artificially low results in patients with liver disease. Blood Venous blood specimen / Unknown 06/02/2024 8:31 AM EST 06/02/2024 11:13 AM EST Beau Juarez MD LAB BLOOD ORDERABL ES Final Result [facility] [address] [place] [phone] * (ABNORMAL) Comprehensive Metabolic Panel (06/02/2024 8:31 AM EST) Only the most recent of2 resultswithin the time period is included. Sodium 141 135 - 145 mmol/L [facility] Potassium 4.4 3.3 - 5.1 mmol/L [facility] Chloride 109(H) 96 - 108 mmol/L [facility] Carbon Dioxide 26 22 - 29 mmol/L [facility] Anion Gap 10(L) 12 - 20 [facility] Urea Nitrogen (BUN) 12 9 - 16 mg/dL [facility] Creatinine, Serum 0.87 0.5 - 1.4 mg/dL [facility] Estimated Glomerular Filt Rate >60 [facility] Comment:Chronic Kidney Disea se: Estimated GFR < 60 mL/min/1.62j8Njwluf Kidney Disease: Estimated GFR < 15 mL/min/1.73m2 Glucose 147(H) 60 - 115 mg/dL [facility] Calcium 9.2 8.4 - 10.2 mg/dL [facility] Bilirubin, Total 0.9 0.0 - 1.0 mg/dL [facility] Aspartate Amino Transferase 19 5 - 37 U/L [facility] Alanine Aminotransferase 32 0 - 40 U/L [facility] Total Protein 7.5 6.5 - 8.0 g/dL [facility] Albumin Level 4.6 3.5 - 5.0 g/dL [facility] Alkaline Phosphatase 61 39 - 117 U/L [facility] Blood Venous blood specimen / Unknown 06/02/2024 8:31 AM EST 06/02/2024 11:13 AM EST us Beau Juarez MD LAB BLOOD ORDERABL ES Final Result [facility] [address] [place] [phone] * XR Femur 2+ Views Right (05/11/2024 9:49 AM EST) Anatomical Region Laterality Modality Lower Extremities, Femur Right Radiogr aphic Imaging 05/11/2024 9:49 AM EST Narrative 05/11/2024 11:15 AM EST ? [facility] ?[address] ?[place] [address] ?XRay Report ? Signed ? Patient: Dickson Cabrera,Shilo A ?MR# ?? : [id number] ? : 1970 ?Acct:[id number] ? Age/Sex: 53 / M ?ADM Date: 01/21/25 ? Loc: HO.ED ? Attending Dr: ? Ordering Physician: Generic ED Physician ?? Date of Service: 05/11/24 ?? Procedure(s): XR femur RT 2V ?? Accession Number(s): [id number] ? cc: Beau Leger MD; Generic ED [...] DD/ 0949 ? TD/TT: 05/11/24 1043 ? As400 Programmer Analyst: ? Procedure Note [place], Image - 05/11/2024 [place] [address] XRay Report Signed Patient: Shilo Gregory AMR# : [id number] : 1970Acct:[id number] Age/Sex: 53 / MADM Date: 05/11/24 Loc: HO.ED Attending Dr: Ordering Physician: Generic ED Physician Date of Service: 05/11/24 Procedure(s): XR femur RT 2V Accession Number(s): [id number] cc: Beau Leger MD; Generic ED Physician [...] 05/11/24 1113 DD/ 0949 TD/TT: 05/11/24 1043 As400 Programmer Analyst: [facility] External Provider IMG XR PROCEDURES Edited Result - Final * XR Pelvis 1-2 Views (05/11/2024 9:48 AM EST) Anatomical Region Laterality Modality Body, Pelvis Radiographic Shirley ging 05/11/2024 9:48 AM EST Narrative 05/11/2024 11:12 AM EST ? [facility] ?[address] ?[place] [address] ?XRay Report ? Signed ? Patient: Dickson Rees,Shilo A ?MR# ?? : [id number] ? : 1970 ?Acct:[id number] ? Age/Sex: 53 / M ?ADM Date: 05/11/24 ? Loc: HO.ED ? Attending Dr: ? Ordering Physician: Generic ED Physician ?? Date of Service: 05/11/24 ?? Procedure(s): XR pelvis 1-2V ?? Accession Number(s): [id number] ? cc: Beau Leger MD; Generic ED [...] DD/ 0948 ? TD/TT: 05/11/24 1043 ? As400 Programmer Analyst: ? Procedure Note Kennedy Calvo - 05/11/2024 [place] [address] XRay Report Signed Patient: Shilo Gregory AMR# : [id number] : 1970Acct:[id number] Age/Sex: 53 / MADM Date: 05/11/24 Loc: HO.ED Attending Dr: Ordering Physician: Generic ED Physician Date of Service: 05/11/24 Procedure(s): XR pelvis 1-2V Accession Number(s): [id number] cc: Beau Leger MD; Generic ED Physician [...] Tc Smallwood MD 05/11/2024 11:09 AM EST RP Dictated By: Tc Smallwood MD Signed By: <Electronically signed by Tc Smallwood MD in OV> 05/11/24 1109 DD/ 0948 TD/TT: 05/11/24 1043 As400 Programmer Analyst: [facility] External Provider IMG XR PROCEDURES Edited Result - Final * XR HAND WRIST RT (05/11/2024 9:46 AM EST) Anatomical Region Laterality Modality Abdomen Radiographic Shirley ging 05/11/2024 9:46 AM EST Narrative 05/11/2024 11:07 AM EST ? [facility] ?[address] ?[place] [address] ?XRay Report ? Signed ? Patient: Dickson Cabrera,Shilo A ?MR# ?? : [id number] ? : 1970 ?Acct:[id number] ? Age/Sex: 53 / M ?ADM Date: 05/11/24 ? Loc: HO.ED ? Attending Dr: ? Ordering Physician: Generic ED Physician ?? Date of Service: 05/11/24 ?? Procedure(s): XR hand wrist RT ?? Accession Number(s): [id number] ? cc: Beau Leger MD; Generic ED [...] DD/ 0946 ? TD/TT: 05/11/24 1043 ? As400 Programmer Analyst: ? Procedure Note Kennedy Calvo - 05/11/2024 [place] [address] XRay Report Signed Patient: Shilo Gregory AMR# : [id number] : 1970Acct:[id number] Age/Sex: 53 / MADM Date: 05/11/24 Loc: HO.ED Attending Dr: Ordering Physician: Generic ED Physician Date of Service: 05/11/24 Procedure(s): XR hand wrist RT Accession Number(s): [id number] cc: Beau Leger MD; Generic ED Physician [...] 05/11/24 1104 DD/ 0946 TD/TT: 05/11/24 1043 As400 Programmer Analyst: us [facility] External Provider IMG XR PROCEDURES Edited Result - Final * XR Shoulder 2+ Views Left (04/19/2024 9:22 PM EST) Anatomical Region Laterality Modality Upper Extremities, Shoulder Left Radi ographic Imaging 04/19/2024 9:22 PM EST Narrative 04/19/2024 9:24 PM EST ? [facility] ?[address] ?[place] [address] ?XRay Report ? Signed ? Patient: Shilo Gregory ?MR# ?? : [id number] ? : 1970 ?Acct:[id number] ? Age/Sex: 53 / M ?ADM Date: 04/19/24 ? Loc: HO.ED ? Attending Dr: ? Ordering Physician: Kian Garcia ?? Date of Service: 04/19/24 ?? Procedure(s): XR shoulder LT min 2V ?? Accession Number(s): [id number] ? cc: Beau Leger MD; Kian Garcia [...] by Jose Cruz Mcdonald MD in OV> ?04/19/242122 ? DD/ 21 ? TD/TT: 04/19/242121 ? As400 Programmer Analyst: ? Procedure Note Donotuseinterpreter, Image - 04/19/[address] [address] XRay Report Signed Patient: Shilo Gregory AMR# : [id number] : 1970Acct:[id number] Age/Sex: 53 / MADM Date: 04/19/24 Loc: HO.ED Attending Dr: Ordering Physician: Kian Garcia Date of Service: 04/19/24 Procedure(s): XR shoulder LT min 2V Accession Number(s): [id number] cc: Beau Leger MD; Kian Garcia CLINICAL [...] in OV> 04/19/242122 DD/ 21 TD/TT: 04/19/242121 As400 Programmer Analyst: [facility] External Provider IMG XR PROCEDURES Final Result * High Sensitivity Troponin I (04/19/2024 9:12 PM EST) TROPONIN I HIGH SENSITIVITY <2.7 <3.5 - 35.0 ng/L [facility] Comment:The Guzman high sens itivity Troponin-I results should beused in conjunction with other diagnostic information suchas ECG, clinical observations and information, and patientsymptoms to aid in the diagnosis of [place]. 04/19/2024 9:12 PM EST 04/19/2024 9:15 PM EST Generic External Data Provider LAB BLOOD ORDERAB LES Final Result Performing Organization Address City/State/[facility] Co de Phone Number [facility] [address] [place] [phone] * Prothrombin Time-INR (04/19/2024 9:12 PM EST) Prothrombin Time 11.1 10.9 - 12.4 SEC [facility] INTERNATIONAL NORM RATIO 1.0 0.9 - 1.1 [facility] Comment:INTERNATIONAL NORMAL IZED RATIO (INR) REFERENCE [...] ORDERAB LES Final Result Performing Organization Address [facility] Co de Phone Number [facility] [address] [place] [phone] * Lipase (04/19/2024 9:12 PM EST) Lipase 21 8 - 78 U/L [facility] 04/19/2024 9:12 PM EST 04/19/2024 9:15 PM EST Generic External Data Provider LAB BLOOD ORDERAB LES Final Result Performing Organization Address [facility] Co de Phone Number [facility] [address] [place] [phone] * HM Diabetes: Urine Protein Screening (03/11/2024 2:11 PM EST) Urine Historical Provider HEALTH MAINTENANCE Final Result * Hepatitis C Antibody with Reflex to HCV, RNA, Quantitative, Real-Time PCR (09/19/2022 8:09 AM EDT) Hepatitis C Antibody NON-REACT YECENIA NON-REACT YECENIA [employer] [place] [facility] Index 0.08 <1.00 [employer] [place] [facility] Comment: HCV antibody was non-reactive. There is no laboratory evidence of HCV infection. In most cases, no further action is required. However, if recent HCV exposure is suspected, a test for HCV RNA (test code 89226) is suggested. For additional information please refer to http://education.[employer]/faq/EWW02p5 (This link is being provided for informational/ educational purposes only.) Blood Venous blood specimen / Unknown 09/19/2022 8:09 AM EDT 09/19/2022 8:10 AM EDT Narrative [facility] - 09/19/2022 10:53 PM EDT FASTING:YES FASTING: YES Beau Juarez MD LAB BLOOD ORDERABL ES Final Result [facility] [address], [place] [address] [employer] [place] [facility] [address] [place] [phone] * HIV 1/2 ANTIGEN/ANTIBODY,FOURTH GENERATION W/RFL (07/30/2021 8:43 AM EDT) Pathologist [facility] HIV-1/2 ANTIGEN AND ANTIBODIES, 4TH GENERATION W/ [...] ? For additional information please refer to http://education.[employer].RIGID/faq/QYH889 (This link is being provided for informational/ educational purposes only.) ? The performance of this assay has not been clinically validated in patients less than 2 years old. ?? 07/30/2021 8:43 AM EDT Beau Juarez MD LAB BLOOD ORDERABL ES Final Result [facility] [address] from Last 3 Months or Most Recently Relevant to Health Maintenance Insurance [facility] [address] [id number] Care Teams Poiser Balance Relationship Specialty Start Date End Date Beau Leger MD NPI: [id number] [place] [id number] PCP - General Internal Medicine 05/16/20
--- OUTSIDE RECORDS SUMMARY | 2024-06-02 12:33 | XMS_ITS | Encounter Summary ---
Author Organization [employer] Address [address] [place] [address] Care Team Providers Care Fuel Dock Attendant Name Role Phone Beau Leger MD Primary Care Prov ider Reason for Visit * Reason Onset Date Comments Nurse Triage 07/16/2023 Encounter Details Date Type Department Care Team ([facility] st Contact Info) Description 07/16/2023 Telephone [facility] [address] [place] [address] Beau Leger MD [address] [place] [phone] Nurse Triage Social History Tobacco Use Types [...] 07/16/2023 11:24 AM EDT Triage call with [employer] [place] [id number] , Mauro Pt reports low back pain. Pt has diagnosis of chronic low back pain. Pt walked in to [facility] today and was given apt for 200pm this afternoon. Pt is informed of this apt . Pt requests to have office apt due to pain increased. Pt is advised no apts available in office today. Pt is reminded of scheduled apt this afternoon at [facility] 200pm with provider. Pt reports , thank [...] documented as of this encounter Care Teams Fuel Dock Attendant Relationship Specialty Start Date End Date Beau Leger MD [address] [place] [phone] PCP - General Internal Medicine 05/16/20 documented as of this encounter
--- OUTSIDE RECORDS SUMMARY | 2024-06-02 12:33 | XMS_ITS | Clinical Summary ---
Author Organization [facility] Address [address] [place] [phone] Phone Care Team Providers Care Pen Tester Name Role Phone Beau Leger Primary Care Provide r Social History Tobacco Use Types Packs/Day Years Used Date Smoking Tobacco: Never Assessed Sex and Gender Information Value Date Recorded Sex Assigned at Not on file Legal Sex Male 4:38 PM EDT Gender Identity Not on file Sexual Orientation Not on file Plan of Treatment Upcoming Encounters Date Type Department Care Team ([facility] Contact Info) Description 07/06/2024 3:00 PM EDT Consult Orthopedic Surgery - [place] [phone] [phone] Blaise Sidhu DPM [address] [address] Health Maintenance Due Date Last Done Comments [...] complete this topic Insurance PLAN Care Teams Pen Tester Relationship Specialty Start Date End Date Beau Leger [address] [place] [address] PCP - General 02/02/24
--- OUTSIDE RECORDS SUMMARY | 2024-06-02 12:33 | XMS_ITS | Encounter Summary ---
Author Organization [employer] Address [address] [place] [address] Care Team Providers Care Sports Specialist Name Role Phone Beau Leger MD Primary Care Prov ider Reason for Visit * Reason Comments Med Refill Encounter Details Date Type Department Care Team (Late st Contact Info) Description 07/31/2023 Refill [facility] [address] [place] [address] Sowmya Agosto MD [address] [place] [address] Social History Tobacco Use Types Packs/Day Years [...] documented as of this encounter Care Teams Sports Specialist Relationship Specialty Start Date End Date Beau Leger MD [address] [place] [address] PCP - General Internal Medicine 05/16/20 documented as of this encounter
--- OUTSIDE RECORDS SUMMARY | 2024-06-02 12:33 | XMS_ITS | Encounter Summary ---
Author Organization [employer] Address [address] [facility] [facility] [address]t [place] [address] Care Team Providers Care Retail Mortgage Banker Name Role Phone Beau Leger MD Primary Care Prov ider Encounter Details Date Type Department Care Team ([facility] st Contact Info) Description 05/14/2022 Telephone [facility] [address] [place], [place] [phone] Beau Leger MD [address] [place], [place] [phone] Social History Tobacco Use Types Packs/Day Years [...] on filedocumented in this encounter Care Teams Retail Mortgage Banker Relationship Specialty Start Date End Date Beau Leger MD [address] [place] [address] PCP - General Internal Medicine 05/16/20 documented as of this encounter
--- OUTSIDE RECORDS SUMMARY | 2024-06-02 12:33 | XMS_ITS | Encounter Summary ---
Author Organization [employer] Address [address] [facility] 7t [place] [address] Care Team Providers Care Supervisor Volunteer Services Name Role Phone Beau Leger MD Primary Care Prov ider Encounter Details Date Type Department Care Team (Late st Contact Info) Description 04/30/2022 Orders Only [facility] MED[facility]INE [address] [place] [address] Beau Leger MD [address] [place], [place] [phone] Tinea pedis of both feet (Primary Dx) [...] Primary documented in this encounter Care Teams Supervisor Volunteer Services Relationship Specialty Start Date End Date Beau Leger MD [address] [place], [place] [phone] PCP - General Internal Medicine 05/16/20 documented as of this encounter
--- OUTSIDE RECORDS SUMMARY | 2024-06-02 12:33 | XMS_ITS | Encounter Summary ---
Author Organization [employer] Address [address] [facility] 7t [place] [address] Care Team Providers Care Temporary Data Entry Clerk Name Role Phone Beau Leger MD Primary Care Prov ider Encounter Details Date Type Department Care Team (Late st Contact Info) Description 05/16/2022 Orders Only [facility] MEDICINE [address] [place], [place] [phone] Beau Leger MD [address] [place], [place] [phone] Mild intermittent asthma without complication (Primary Dx) [...] Primary documented in this encounter Care Teams Temporary Data Entry Clerk Relationship Specialty Start Date End Date Beau Leger MD [address] [place] [address] PCP - General Internal Medicine 05/16/20 documented as of this encounter
--- OUTSIDE RECORDS SUMMARY | 2024-06-02 12:33 | XMS_ITS | Encounter Summary ---
Author Organization [employer] Address [address] [facility] 7t [place] [address] Care Team Providers Care Proofreader Name Role Phone Baeu Leger MD Primary Care Prov ider Encounter Details Date Type Department Care Team ([facility] st Contact Info) Description 01/17/2023 Abstract [facility] [address] [place], [place] [phone] eBau Leger MD [address] [place], [place] [phone] Social History Tobacco Use Types Packs/Day Years [...] documented as of this encounter Care Teams Proofreader Relationship Specialty Start Date End Date Beau Leger MD [address] [place], [place] [phone] PCP - General Internal Medicine 05/16/20 documented as of this encounter
--- OUTSIDE RECORDS SUMMARY | 2024-06-02 12:33 | XMS_ITS | Encounter Summary ---
Author Organization [employer] Address [address] [facility] 7t [place] [address] Care Team Providers Care Percussion Instrument Tuner Name Role Phone Beau Leger MD Primary Care Prov ider Encounter Details Date Type Department Care Team (Late st Contact Info) Description 03/15/2024 Orders Only [facility] [address] [place] [address] ProviderRebeca MD Social History Tobacco Use Types [...] documented as of this encounter Care Teams Percussion Instrument Tuner Relationship Specialty Start Date End Date Beau Leger MD [address] [place] [id number] PCP - General Internal Medicine 05/16/20 documented as of this encounter
== END 2024-06-02 12:00 | disposition home or self-care (01) ==
PROVIDERS: PCP Internal Medicine
DX: S52.611A Displaced fracture of right ulna styloid process, initial encounter for closed fracture (principal); S62.001A Unspecified fracture of navicular [scaphoid] bone of right wrist, initial encounter for closed fracture
CPT/HCPCS: 29085; 99213

== ENCOUNTER 2024-06-02 10:58 | Outpatient (REF) | payer OTHER, SELFPAY ==
--- NOTE | ~2024-06-02 | XR_ITS ---
CLINICAL HISTORY: M79.641 - Pain in right hand 4 views right wrist Comparison: None Findings: 4 mm well corticated ossific density is positioned between the distal scaphoid and capitate thin-section CT is recommended to assess for possible donor site of a fracture fragment versus ossicle. Radiocarpal joint is intact. Faint calcification ulnar styloid this may be from a small avulsed fracture of the tip of the ulnar styloid or calcifications within the triangular fibrocartilage complex. No bony erosive changes. No malalignment. No radiopaque foreign body. Impression: 1. 4 mm well corticated ossific density positioned between the distal scaphoid and capitate as well as a faint calcification near the distal tip of the ulnar styloid. Thin-section CT is recommended as described. This document has been electronically signed by: Dickson Rushing MD on 06/02/2024 12:48:17
== END 2024-06-02 10:59 | disposition home or self-care (01) ==
LOC: HO.HOSX 10:58
DX: M79.641 Pain in right hand (principal)
CPT/HCPCS: 73110

== ENCOUNTER → 2024-06-02 11:02 | Outpatient (BNV) | payer OTHER, SELFPAY | PROVIDERS: Visit Provider Radiology Diagnostic Radiology | DX: M79.641 Pain in right hand (principal) | CPT/HCPCS: 73110 ==

== ENCOUNTER 2024-06-11 10:30 | Outpatient (AMB) | payer OTHER, SELFPAY ==
--- NOTE | 2024-06-11 10:33 | MHC.OFFVIS ---
Vital Signs 06/11/24 10:53 Height 5 ft 6 in Weight 177 lb BMI 28.6 Intake Visit Reasons: ov - Scaphoid & Distal ulna fracture - Cast Change Intake Note: Shilo is a 53 year old right hand dominant male who presents today for follow up, s/p right ulnar styloid fracture, DOI 05/11/24. Patient reports his cast is breaking and it got a little wet. He also reports pain around the fracture area. Patient would like to discuss work status. [employer] Required: No Allergies No Known Allergies Allergy (Verified 06/11/24 10:58) HPI HPI ov - Scaphoid & Distal ulna fracture - Cast Change: Details: Shilo is a 53 year old right hand dominant male who presents today for follow up, s/p right ulnar styloid fracture, DOI 05/11/24. Patient reports his cast is breaking and it got a little wet. He also reports pain around the fracture area. Patient would like to discuss work status. [employer] [facility] Medical History Right inguinal hernia Diabetes mellitus Asthma Surgical History History of right inguinal hernia repair History of knee surgery History of shoulder surgery Family History Father No problems noted. 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 Neuro: Normal sensation of the tips of all digits of the right hand at this time Vascular: Cap refill brisk Pain: Patient reports tenderness to palpation of the ulnar styloid of the right wrist Tenderness to palpation of the anatomical snuffbox and scaphoid tubercle of the right wrist No tenderness to palpation of the radial styloid, DRUJ, or elsewhere in the right hand or wrist ROM: Patient is able to make a closed fist and extend all digits of the right hand fully at this time Skin: No lacerations or abrasions. General: No ecchymosis, erythema, or evidence of infection. Psych: Appears grossly normal Affect normal Attitude cooperative Office Procedures Casting/Splints Details: Thumb spica cast 98814-Evwq/Wrist Cast Application Procedure code (CPT) selection complete Assessment & Plan Assessment & Plan (1) Fracture of right ulnar styloid: Code(s): S52.611A - Displaced fracture of right ulna styloid process, initial encounter for closed fracture Category: Medical (2) Nondisplaced fracture of right scaphoid bone: Code(s): S62.001A - Unspecified fracture of navicular [scaphoid] bone of right wrist, initial encounter for closed fracture Category: Medical Plan 1. Distal scaphoid fracture 2. Small ulnar styloid avulsion fracture, of unknown age Patient is educated about these injuries Patient is educated about the typical recovery course Thumb spica cast changed Patient is educated on proper cast care and precautions Patient will follow-up in 2 weeks with repeat x-rays for previously scheduled reassessment, sooner with any acute concerns Coding Level of Care Code Global (59740) Diagnoses Fracture of right ulnar styloid S52.611A Nondisplaced fracture of right scaphoid bone S62.001A CPT Codes Casting - CPT: 80996-Enhn/Wrist Cast Application ([id number])
[2024-06-11 10:53] VITALS: BMI 28.6
--- OUTSIDE RECORDS SUMMARY | 2024-06-11 11:25 | XMS_ITS | Encounter Summary ---
Author Organization [employer] Address [address] [facility] [address] 7[address] [place] [address] Care Team Providers Care Hand Counter Name Role Phone Beau Leger MD Primary Care Prov ider Reason for Visit * Reason Comments Med Refill Encounter Details Date Type Department Care Team (Late st Contact Info) Description 07/31/2023 Refill [facility] [address] [place] [address] Sowmya Agosto MD [address] [place] [address] Social History Tobacco Use Types Packs/Day Years [...] documented as of this encounter Care Teams Hand Counter Relationship Specialty Start Date End Date Beau Leger MD [address] [place] [address] PCP - General Internal Medicine 05/16/20 documented as of this encounter
--- OUTSIDE RECORDS SUMMARY | 2024-06-11 11:25 | XMS_ITS | Encounter Summary ---
Author Organization [employer] Address [address] [facility] 7t [place] [address] Care Team Providers Care Carpet Binder Name Role Phone Beau Leger MD Primary Care Prov ider Encounter Details Date Type Department Care Team ([facility] st Contact Info) Description 01/17/2023 Abstract [facility] [address] [place], [place] [phone] Beau Leger MD [address] [place], [place] [phone] Social History Tobacco Use Types Packs/Day Years [...] documented as of this encounter Care Teams Carpet Binder Relationship Specialty Start Date End Date Beau Leger MD [address] [place], [place] [phone] PCP - General Internal Medicine 05/16/20 documented as of this encounter
--- OUTSIDE RECORDS SUMMARY | 2024-06-11 11:25 | XMS_ITS | Encounter Summary ---
Author Organization [employer] Address [address] [facility] 7t [place] [address] Care Team Providers Care Credit Portfolio Manager Name Role Phone Beau Leger MD Primary Care Prov ider Encounter Details Date Type Department Care Team (Late st Contact Info) Description 03/15/2024 Orders Only [facility] [address] [place] [address] ProviderRebeca MD Social History Tobacco Use Types [...] documented as of this encounter Care Teams Credit Portfolio Manager Relationship Specialty Start Date End Date Beau Leger MD [address] [place] [phone] PCP - General Internal Medicine 05/16/20 documented as of this encounter
--- OUTSIDE RECORDS SUMMARY | 2024-06-11 11:25 | XMS_ITS | Encounter Summary ---
Author Organization [employer] Address [address] [facility] 7t [place] [address] Care Team Providers Care Label Drier Name Role Phone Beau Leger MD Primary Care Prov ider Encounter Details Date Type Department Care Team (Late st Contact Info) Description 04/30/2022 Orders Only [facility] MEDICINE [address] [place] [address] Beau Leger MD [address] [place], [place] [phone] Tinea pedis of both feet (Primary Dx) [...] Primary documented in this encounter Care Teams Label Drier Relationship Specialty Start Date End Date Beau Leger MD [address] [place], [place] [phone] PCP - General Internal Medicine 05/16/20 documented as of this encounter
--- OUTSIDE RECORDS SUMMARY | 2024-06-11 11:25 | XMS_ITS | Encounter Summary ---
Author Organization [employer] Address [address] [facility] 7t [place] [address] Care Team Providers Care Project Designer Name Role Phone Beau Leger MD Primary Care Prov ider Encounter Details Date Type Department Care Team (Late st Contact Info) Description 05/16/2022 Orders Only [facility] MEDICINE [address] [place], [place] [phone] Beau Leger MD [address] [place], [place] [phone] Mild intermittent asthma without complication (Primary Dx) [...] Primary documented in this encounter Care Teams Project Designer Relationship Specialty Start Date End Date Beau Leger MD [address] [place] [address] PCP - General Internal Medicine 05/16/20 documented as of this encounter
--- OUTSIDE RECORDS SUMMARY | 2024-06-11 11:25 | XMS_ITS | Encounter Summary ---
Author Organization [employer] Address [address] [facility] 7t [place] [address] Care Team Providers Care Hydro Plant Technician Name Role Phone Beau Leger MD Primary Care Prov ider Encounter Details Date Type Department Care Team ([facility] st Contact Info) Description 05/14/2022 Telephone [facility] [address] [place], [place] [phone] Beau Leger MD [address] [place], [place] [phone] Social History Tobacco Use Types Packs/Day Years [...] on filedocumented in this encounter Care Teams Hydro Plant Technician Relationship Specialty Start Date End Date Beau Leger MD [address] [place] [address] PCP - General Internal Medicine 05/16/20 documented as of this encounter
--- OUTSIDE RECORDS SUMMARY | 2024-06-11 11:25 | XMS_ITS | Clinical Summary ---
Author Organization [facility] Address [address] [place] [address] Phone Care Team Providers Care Music Writer Name Role Phone Beau Leger Primary Care Provide r Social History Tobacco Use Types Packs/Day Years Used Date Smoking Tobacco: Never Assessed Sex and Gender Information Value Date Recorded Sex Assigned at Not on file Legal Sex Male 4:38 PM EDT Gender Identity Not on file Sexual Orientation Not on file Plan of Treatment Upcoming Encounters Date Type Department Care Team ([facility] Contact Info) Description 07/06/2024 3:00 PM EDT Consult Orthopedic Surgery - [place] [phone] [phone] Blaise Sidhu DPM [address] [address] Health Maintenance Due Date Last Done Comments [...] complete this topic Insurance PLAN Care Teams Music Writer Relationship Specialty Start Date End Date Beau Leger [address] [place] [address] PCP - General 02/02/24
--- OUTSIDE RECORDS SUMMARY | 2024-06-11 11:26 | XMS_ITS | Clinical Summary ---
Author Organization [employer] Address [address] [facility] 7t [place] [address] Care Team Providers Care Dye House Vat Worker Name Role Phone Beau Leger MD Primary Care Prov ider Allergies No known active allergies Medications FREESTYLE LITE test stripIndications: Type 2 diabetes mellitus without complication, without long-term current use of insulin ([facility]) Use to test blood sugar 3 times daily 100 each 4 07/23/19 25 Active Lancets miscIndications:T ype 2 diabetes mellitus without complication, without long-term current use of insulin ([facility]) Use to test blood sugar 3 times daily 100 each 4 Active Alcohol Swabs 70 % padsIndications:T ype 2 diabetes mellitus without complication, without long-term current use of insulin ([facility]) Use to test blood sugar 3 times daily 100 each 11 4 Active albuterol (Ventolin HFA) 108 (90 [...] tablet 4 Active Blood Glucose Monitoring Suppl (FreeStyle Kempton Lite) w/Device kitIndications:Ty pe 2 diabetes mellitus without complication, without long-term current use of insulin ([facility]) TEST BLOOD SUGAR THREE TIMES DAILY 1 kit 4 Active Diclofenac Sodium (Voltaren) 1 % gel Apply 1 g topically 2 times daily. 300 g 1 4 Active Blood Pressure Monitor kit 1 kit 2 times daily. 1 kit 4 06/04/19 25 Active Problems Problem Noted Date Diagnosed Date [...] Center 03/02/2024 8:45 AM Beau Juarez MD [facility] Patient also brought up left [...] External Data 04/08/2024 3:15 PM EST Telemedicine [facility] [address] [place] [address] Beau Leger MD Heel pain, chronic, left (Primary Dx); Type 2 diabetes mellitus without complication, without long-term current use of insulin ([facility]) 04/08/2024 Travel 04/07/2024 Telephone [facility] [address] [place] [address] Jennifer Núñez MD 03/15/2024 Orders Only [facility] [address] [place] [address] Rebeca Moreno MD 03/11/2024 Telephone [facility] [address] [place], [place] [phone] Beau Leger MD from Last 3 Months Immunizations Name Administration [...] the past 12 months, has t he [employer] gas, oil or water company threatened to [...] 12/25/2022, 12/26/19 23 SDOH Screening 06/05/2024 06/05/2023 Diabetes: Foot Exam 09/21/2024 09/22/2023, 09/22/2023, 09/22/2023, Additional history exists Tobacco Screening 09/21/2024 09/22/2023 Diabetes: Hemoglobin A1C 11/30/2024 025, 08/15/2023, 09/19/2022, Additional history exists Diabetes: Urine Protein Screening 03/11/2025 03/11/2024, 09/22/2023, 09/19/2022, Additional history exists Lipid Panel 06/02/2025 06/02/2024, 07/21, 09/19/2022, Additional history exists DTaP/Tdap/Td Vaccines (2 [...] complication, without long-term current use of insulin ([facility]) COMPREHENSIVE METABOLIC PANEL Routine 06/02/2024 8:31 AM EST Type 2 diabetes mellitus without complication, without long-term current use of insulin ([facility]) HEMOGLOBIN A1C Routine 06/02/2024 8:31 AM EST [...] complication, without long-term current use of insulin ([facility]) Primary hypertension HIV 1/2 ANTIGEN/ANTIBODY, FOURTH GENERATION W/RFL Routine 07/30/2021 8:43 AM EDT from Last 3 Months or Most Recently Relevant to Health Maintenance Results * (ABNORMAL) CBC auto differential (06/02/2024 8:31 AM EST) Only the most recent of2 resultswithin the time period is included. White Blood Count 6.4 4.8 - 10.8 X10*3/uL [facility] Red Blood Count 5.40 4.60 - 5.80 X10*6/uL [facility] Hemoglobin 16.0 14.0 - 18.0 g/dl [facility] Hematocrit 45.5 42.0 - 52.0 % [facility] Mean Corpuscular Volume 84.3 80.0 - 98.0 fL [facility] Mean Corpuscular Hemoglobin 29.6 27.0 - 33.0 pg [facility] Mean Corpuscular HGB Conc 35.2 31.0 - 36.0 g/dl [facility] Red Cell Distribution Width 12.2 11.0 - 16.0 % [facility] Platelet Count 192 160 - 400 X10*3/uL [facility] Mean Platelet Volume 10.7 9.4 - 12.4 fL [facility] Neutrophils Percent Auto 67.3 45 - 73 % [facility] Imm Gran Pct Auto 0.5(H) 0.0 - 0.4 % [facility] Lymphocytes Percent Auto 22.7 20 - 40 % [facility] Monocytes Percent Auto 7.0 2 - 11 % [facility] Eosinophils Percent Auto 2.2 0 - 4 % [facility] Basophils Percent Auto 0.3 0 - 2 % [facility] NRBC Pct Auto 0.0 0.0 - 0.2 /100WBC [facility] Neutrophils Absolute Auto 4.3 2.0 - 8.3 x10*3/uL [facility] Imm Gran Abs Auto 0.03 0.00 - 0.03 X10*3/uL [facility] Lymphocytes Absolute Auto 1.5 1.2 - 4.9 X10*3/uL [facility] Monocytes Absolute Auto 0.5 0.1 - 1.2 X10*3/uL [facility] Eosinophils Absolute Auto 0.1 0.0 - 0.4 X10*3/uL [facility] Basophils Absolute Auto 0.0 0.0 - 0.2 X10*3/uL [facility] NRBC Abs Auto 0.000 0.0 - 0.012 X10*3/uL [facility] Blood Venous blood specimen / Unknown 06/02/2024 8:31 AM EST 06/02/2024 11:13 AM EST us Beau Juarez MD LAB BLOOD ORDERABL ES Final Result [facility] [address] [place] [phone] * (ABNORMAL) Hemoglobin A1c (06/02/2024 8:31 AM EST) Hemoglobin A1c 6.4(H) <6.0 % [facility] Comment:Hemoglobin A1C Refer ence Range Adults: 4.8 - 6.0 % Non diabetic: < 6.0 % Goal: < 7.0 %Additional Action Suggested: > 8.0 %Note: Hemoglobin A1c results are invalid for patients with abnormal amounts of HbF. Blood transfusions may impact the HbA1c concentration in the patient sample. Estimated Average Glucose 137 mg/dL [facility] Comment:eAG = Estimated ave rage glucose which is %A1C expressed asaverage glucose, using the formula of the I9M-GanvwthDlfdtcn Glucose study (ADAG), Diabetes Care, Vol.31,#8,2007 Blood Venous blood specimen / Unknown 06/02/2024 8:31 AM EST 06/02/2024 11:13 AM EST us Beau Juarez MD LAB BLOOD ORDERABL ES Final Result [facility] [address] [place] [phone] * (ABNORMAL) Lipid Panel, Standard (06/02/2024 8:31 AM EST) Triglycerides 289(H) <150 mg/dL [facility] Comment:Desirable Triglyceri de: less than 150 mg/dLBorderline High Triglyceride 150-199 mg/dLHigh Triglyceride: 200-499 mg/dLVery High Triglyceride: greater than or equal to 5OO mg/dL Cholesterol 162 <200 mg/dL [facility] Comment:Desirable Cholestero l: less than 200 mg/dLBorderline High Cholesterol: 200-239 mg/dLHigh Cholesterol: greater than 239 mg/dL LDL Cholesterol Calculated 71 <100 mg/dL [facility] Comment:Desirable LDL: less than 100 mg/dLNear Optimal/Above Optimal LDL: 110- 129 mg/dLBorderline High LDL: 130-159 mg/dLHigh LDL: 160-189 mg/dLVery High LDL: greater than or equal to 190 mg/dL HDL Cholesterol 34(L) >40 mg/dL [facility] Comment:Desirable HDL: great er than 40 mg/dL Note: This HDL assay may give artificially low results in patients with liver disease. Blood Venous blood specimen / Unknown 06/02/2024 8:31 AM EST 06/02/2024 11:13 AM EST us Beau Juarez MD LAB BLOOD ORDERABL ES Final Result [facility] [address] [place] [address] [phone] * (ABNORMAL) Comprehensive Metabolic Panel (06/02/2024 8:31 AM EST) Only the most recent of2 resultswithin the time period is included. Sodium 141 135 - 145 mmol/L [facility] Potassium 4.4 3.3 - 5.1 mmol/L [facility] Chloride 109(H) 96 - 108 mmol/L [facility] Carbon Dioxide 26 22 - 29 mmol/L [facility] Anion Gap 10(L) 12 - 20 [facility] Urea Nitrogen (BUN) 12 9 - 16 mg/dL [facility] Creatinine, Serum 0.87 0.5 - 1.4 mg/dL [facility] Estimated Glomerular Filt Rate >60 [facility] Comment:Chronic Kidney Disea se: Estimated GFR < 60 mL/min/1.01s1Jmttwq Kidney Disease: Estimated GFR < 15 mL/min/1.73m2 Glucose 147(H) 60 - 115 mg/dL [facility] Calcium 9.2 8.4 - 10.2 mg/dL [facility] Bilirubin, Total 0.9 0.0 - 1.0 mg/dL [facility] Aspartate Amino Transferase 19 5 - 37 U/L [facility] Alanine Aminotransferase 32 0 - 40 U/L [facility] Total Protein 7.5 6.5 - 8.0 g/dL [facility] Albumin Level 4.6 3.5 - 5.0 g/dL [facility] Alkaline Phosphatase 61 39 - 117 U/L [facility] Blood Venous blood specimen / Unknown 06/02/2024 8:31 AM EST 06/02/2024 11:13 AM EST us Beau Juarez MD LAB BLOOD ORDERABL ES Final Result [facility] [address] [place] [phone] * XR Femur 2+ Views Right (05/11/2024 9:49 AM EST) Anatomical Region Laterality Modality Lower Extremities, Femur Right Radiogr aphic Imaging 05/11/2024 9:49 AM EST Narrative 05/11/2024 11:15 AM EST ? [facility] ?[address] ?[place] [id number] ?XRay Report ? Signed ? Patient: Shilo Gregory ?MR# ?? : [id number] ? : 1970 ?Acct:[id number] ? Age/Sex: 53 / M ?ADM Date: 05/11/24 ? Loc: HO.ED ? Attending Dr: ? Ordering Physician: Generic ED Physician ?? Date of Service: 05/11/24 ?? Procedure(s): XR femur RT 2V ?? Accession Number(s): [id number] ? cc: Beau Leger MD; Generic ED [...] ??05/11/2024 11:13 AM EST RP ?? Workstation: [facility]ivityANA[facility] [id number] ? Dictated By: ?Tc Smallwood MD ? Signed By: ?<Electronically signed by Tc Smallwood MD in OV> ?05/11/24 1113 ? DD/ 0949 ? TD/TT: 05/11/24 1043 ? Compensation/Benefits Specialist: ? Procedure Note Donotlulyinterpreter, Image - 05/11/2024 [place] [address] XRay Report Signed Patient: Shilo Gregory AMR# : [id number] : 1970Acct:[id number] Age/Sex: 53 / MADM Date: 05/11/24 Loc: HO.ED Attending Dr: Ordering Physician: Generic ED Physician Date of Service: 05/11/24 Procedure(s): XR femur RT 2V Accession Number(s): [id number] cc: Beau Leger MD; Generic ED Physician [...] 05/11/24 1113 DD/ 0949 TD/TT: 05/11/24 1043 Compensation/Benefits Specialist: [facility] External Provider IMG XR PROCEDURES Edited Result - Final * XR Pelvis 1-2 Views (05/11/2024 9:48 AM EST) Anatomical Region Laterality Modality Body, Pelvis Radiographic Shirley ging 05/11/2024 9:48 AM EST Narrative 05/11/2024 11:12 AM EST ? [facility] ?[address] ?[place] [address] ?XRay Report ? Signed ? Patient: Shilo Gregory ?MR# ?? : [id number] ? : 1970 ?Acct:[id number] ? Age/Sex: 53 / M ?ADM Date: 05/11/24 ? Loc: HO.ED ? Attending Dr: ? Ordering Physician: Generic ED Physician ?? Date of Service: 05/11/24 ?? Procedure(s): XR pelvis 1-2V ?? Accession Number(s): [id number] ? cc: Beau Leger MD; Generic ED [...] DD/ 0948 ? TD/TT: 05/11/24 1043 ? Compensation/Benefits Specialist: ? Procedure Note Donotuseinterpreter, Image - 05/11/[address] [address] XRay Report Signed Patient: Shilo Gregory AMR# : [id number] : 1970Acct:[id number] Age/Sex: 53 / MADM Date: 05/11/24 Loc: HO.ED Attending Dr: Ordering Physician: Generic ED Physician Date of Service: 05/11/24 Procedure(s): XR pelvis 1-2V Accession Number(s): [id number] cc: Beau Leger MD; Generic ED Physician [...] by: Tc Smallwood MD 05/11/2024 11:09 AM [facility] Dictated By: Tc Smallwood MD Signed By: <Electronically signed by Tc Smallwood MD in OV> 05/11/24 1109 DD/ 0948 TD/TT: 05/11/24 1043 Compensation/Benefits Specialist: [facility] External Provider IMG XR PROCEDURES Edited Result - Final * XR HAND WRIST RT (05/11/2024 9:46 AM EST) Anatomical Region Laterality Modality Abdomen Radiographic Shirley ging 05/11/2024 9:46 AM EST Narrative 05/11/2024 11:07 AM EST ? [facility] ?[address] ?[place] [address] ?XRay Report ? Signed ? Patient: Shilo Gregory ?MR# ?? : [id number] ? : 1970 ?Acct:[id number] ? Age/Sex: 53 / M ?ADM Date: 05/11/24 ? Loc: HO.ED ? Attending Dr: ? Ordering Physician: Generic ED Physician ?? Date of Service: 05/11/24 ?? Procedure(s): XR hand wrist RT ?? Accession Number(s): [id number] ? cc: Beau Leger MD; Generic ED [...] DD/ 0946 ? TD/TT: 05/11/24 1043 ? Compensation/Benefits Specialist: ? Procedure Note Donotlulyinterpreter, Image - 05/11/2024 [place] [address] XRay Report Signed Patient: Shilo Gregory AMR# : [id number] : 1970Acct:[id number] Age/Sex: 53 / MADM Date: 05/11/24 Loc: HO.ED Attending Dr: Ordering Physician: Generic ED Physician Date of Service: 05/11/24 Procedure(s): XR hand wrist RT Accession Number(s): [id number] cc: Beau Leger MD; Generic ED Physician [...] 05/11/24 1104 DD/ 0946 TD/TT: 05/11/24 1043 Compensation/Benefits Specialist: [facility] External Provider IMG XR PROCEDURES Edited Result - Final * XR Shoulder 2+ Views Left (04/19/2024 9:22 PM EST) Anatomical Region Laterality Modality Upper Extremities, Shoulder Left Radi ographic Imaging 04/19/2024 9:22 PM EST Narrative 04/19/2024 9:24 PM EST ? [facility] ?[address] ?[place] [id number] ?XRay Report ? Signed ? Patient: Dickson Cabrera,Shilo A ?MR# ?? : [id number] ? : 1970 ?Acct:[id number] ? Age/Sex: 53 / M ?ADM Date: 04/19/24 ? Loc: HO.ED ? Attending Dr: ? Ordering Physician: Kian Garcia ?? Date of Service: 04/19/24 ?? Procedure(s): XR shoulder LT min 2V ?? Accession Number(s): [id number] ? cc: Beau Leger MD; Kian Garcia [...] ? DD/ 21 ? TD/TT: 04/19/242121 ? Compensation/Benefits Specialist: ? Procedure Note Kennedy Calvo - 04/19/[address] [address] XRay Report Signed Patient: Shilo Gregory AMR# : [id number] : 1970Acct:[id number] Age/Sex: 53 / MADM Date: 04/19/24 Loc: HO.ED Attending Dr: Ordering Physician: Kian Garcia Date of Service: 04/19/24 Procedure(s): XR shoulder LT min 2V Accession Number(s): [id number] cc: Beau Leger MD; Kian Garcia CLINICAL [...] in OV> 04/19/242122 DD/ 21 TD/TT: 04/19/242121 Compensation/Benefits Specialist: [facility] External Provider IMG XR PROCEDURES Final Result * High Sensitivity Troponin I (04/19/2024 9:12 PM EST) TROPONIN I HIGH SENSITIVITY <2.7 <3.5 - 35.0 ng/L [facility] Comment:The Guzman high sens itivity Troponin-I results should beused in conjunction with other diagnostic information suchas ECG, clinical observations and information, and patientsymptoms to aid in the diagnosis of CO. 04/19/2024 9:12 PM EST 04/19/2024 9:15 PM EST Generic External Data Provider LAB BLOOD ORDERAB LES Final Result [facility] [address] [place] [phone] * Prothrombin Time-INR (04/19/2024 9:12 PM EST) Prothrombin Time 11.1 10.9 - 12.4 SEC [facility] INTERNATIONAL NORM RATIO 1.0 0.9 - 1.1 [facility] Comment:INTERNATIONAL NORMAL IZED RATIO (INR) [...] ORDERAB LES Final Result Performing Organization Address [facility] Co de Phone Number [facility] [address] [place] [phone] * Lipase (04/19/2024 9:12 PM EST) Lipase 21 8 - 78 U/L [facility] 04/19/2024 9:12 PM EST 04/19/2024 9:15 PM EST Generic External Data Provider LAB BLOOD ORDERAB LES Final Result Performing Organization Address [facility] de Phone Number [facility] [address] [place] [phone] * HM Diabetes: Urine Protein Screening (03/11/2024 2:11 PM EST) Urine Historical Provider HEALTH MAINTENANCE Final Result * Hepatitis C Antibody with Reflex to HCV, RNA, Quantitative, Real-Time PCR (09/19/2022 8:09 AM EDT) Hepatitis C Antibody NON-REACT YECENIA NON-REACT YECENIA [facility] [place] [facility] Index 0.08 <1.00 [employer] Comment: HCV antibody was non-reactive. There is no laboratory evidence of HCV infection. In most cases, no further action is required. However, if recent HCV exposure is suspected, a test for HCV RNA (test code 04828) is suggested. For additional information please refer to http://education.eToro/faq/DKH22z2 (This link is being provided for informational/ educational purposes only.) Blood Venous blood specimen / Unknown 09/19/2022 8:09 AM EDT 09/19/2022 8:10 AM EDT Narrative [facility] - 09/19/2022 10:53 PM EDT FASTING:YES FASTING: YES Beau Juarez MD LAB BLOOD ORDERABL ES Final Result Performing Organization Address City/[facility]/ZIP Co de Phone Number [facility] [address], [place] [address] [facility] [address] [place] [address] * HIV 1/2 ANTIGEN/ANTIBODY,FOURTH GENERATION W/RFL (07/30/2021 8:43 AM EDT) [facility] HIV-1/2 ANTIGEN AND ANTIBODIES, 4TH GENERATION W/ REFLEX NON-REACT YECENIA NON-REACT YECENIA [facility] Comment: HIV-1 antigen and HIV-1/HIV-2 [...] ? For additional information please refer to http://education.FST21.[employer]/faq/HDT345 (This link is being provided for informational/ educational purposes only.) ? The performance of this assay has not been clinically validated in patients less than 2 years old. ?? 07/30/2021 8:43 AM EDT Beau Juarez MD LAB BLOOD ORDERABL ES Final Result [facility] [address] [place] [address], from Last 3 Months or Most Recently Relevant to Health Maintenance Insurance [place] [address] Care Teams Dye House Vat Worker Relationship Specialty Start Date End Date Beau Leger MD [address] [place] [phone] PCP - General Internal Medicine 05/16/20
--- OUTSIDE RECORDS SUMMARY | 2024-06-11 11:26 | XMS_ITS | Encounter Summary ---
Author Organization [employer] Address [address] [facility] 7t [place] [address] Care Team Providers Care Spiral Winder Name Role Phone Beau Leger MD Primary Care Prov ider Reason for Visit * Reason Onset Date Comments Nurse Triage 07/16/2023 Encounter Details Date Type Department Care Team ([facility] st Contact Info) Description 07/16/2023 Telephone [facility] [address] [place] [address] Beau Leger MD [address] [place] [phone] Nurse Triage Social History Tobacco Use Types [...] 07/16/2023 11:24 AM EDT Triage call with [employer] [place] [id number] , Mauro Pt reports low back pain. Pt has diagnosis of chronic low back pain. Pt walked in to [facility] today and was given apt for 200pm this afternoon. Pt is informed of this apt . Pt requests to have office apt due to pain increased. Pt is advised no apts available in office today. Pt is reminded of scheduled apt this afternoon at [facility] 200pm with provider. Pt reports , [...] documented as of this encounter Care Teams Spiral Winder Relationship Specialty Start Date End Date Beau Leger MD [address] [place] [phone] PCP - General Internal Medicine 05/16/20 documented as of this encounter
== END 2024-06-11 11:22 | disposition home or self-care (01) ==
LOC: HO.HOS 10:30
DX: S52.611A Displaced fracture of right ulna styloid process, initial encounter for closed fracture (principal); S62.001A Unspecified fracture of navicular [scaphoid] bone of right wrist, initial encounter for closed fracture
CPT/HCPCS: 29085; 99213

== ENCOUNTER → 2024-06-11 10:30 | Outpatient (BNVA) | payer OTHER, SELFPAY | DX: S52.611D Displaced fracture of right ulna styloid process, subsequent encounter for closed fracture with routine healing (principal); S62.001D Unspecified fracture of navicular [scaphoid] bone of right wrist, subsequent encounter for fracture with routine healing | CPT/HCPCS: 29085; 99212 ==

== ENCOUNTER 2024-06-23 08:26 | Outpatient (REF) | payer OTHER, SELFPAY ==
--- NOTE | ~2024-06-23 | XR_ITS ---
EXAMINATION: XR WRIST NAVICULAR RIGHT HISTORY: M79.641 - Pain in right hand COMPARISON: Comparison is made with the prior examination dated 06/02/2024. FINDINGS: Four views of the right wrist including a scaphoid view are submitted. Osseous mineralization is normal. Again seen is a triangular osseous density between the scaphoid and capitate which may represent a fracture fragment. An additional tiny osseous density is seen adjacent to the ulnar styloid without change. The joint spaces are preserved. The soft tissues are unremarkable. XR/XR wrist RT w scaphoid IMPRESSION: Stable osseous density between the scaphoid and capitate which may represent a fracture fragment. Possible additional avulsion fracture of the distal ulna, also without change. Electronically signed by: Jaren Duran MD 06/28/2024 08:49 AM EDT
--- OUTSIDE RECORDS SUMMARY | 2024-06-23 08:57 | XMS_ITS | Encounter Summary ---
Author Organization [employer] Address [address] [facility] 7t [place] [address] Care Team Providers Care Editor & Co Founder Name Role Phone Beau Leger MD Primary Care Prov ider Encounter Details Date Type Department Care Team (Late st Contact Info) Description 03/15/2024 Orders Only [facility] [address] [place], [place] [phone] ProviderRebeca MD Social History Tobacco Use Types [...] documented as of this encounter Care Teams Editor & Co Founder Relationship Specialty Start Date End Date Beau Leger MD [address] [place] [phone] PCP - General Internal Medicine 05/16/20 documented as of this encounter
--- OUTSIDE RECORDS SUMMARY | 2024-06-23 08:57 | XMS_ITS | Encounter Summary ---
Author Organization [employer] Address [address] [facility] 7t [place] [address] Care Team Providers Care President Ceo & Founder Name Role Phone Beau Leger MD Primary Care Prov ider Encounter Details Date Type Department Care Team ([facility] st Contact Info) Description 05/14/2022 Telephone [facility] [address] [place], [place] [phone] Beau Leger MD [address] [place], [place] [phone] Social History Tobacco Use Types Packs/Day Years [...] on filedocumented in this encounter Care Teams President Ceo & Founder Relationship Specialty Start Date End Date Beau Leger MD [address] [place] [phone] PCP - General Internal Medicine 05/16/20 documented as of this encounter
--- OUTSIDE RECORDS SUMMARY | 2024-06-23 08:57 | XMS_ITS | Encounter Summary ---
Author Organization [employer] Address [address] [facility] 7t [place] [address] Care Team Providers Care Shingle Cutter Name Role Phone Beau Leger MD Primary Care Prov ider Encounter Details Date Type Department Care Team ([facility] st Contact Info) Description 01/17/2023 [facility] [address] [place], [place] [phone] Beau Leger MD [address] [place], [place] [phone] Social History Tobacco Use Types Packs/Day Years [...] documented as of this encounter Care Teams Shingle Cutter Relationship Specialty Start Date End Date Beau Leger MD [address] [place], [place] [phone] PCP - General Internal Medicine 05/16/20 documented as of this encounter
--- OUTSIDE RECORDS SUMMARY | 2024-06-23 08:57 | XMS_ITS | Encounter Summary ---
Author Organization [employer] Address [address] [facility] [address] 7t [place] [address] Care Team Providers Care Preschool Assistant Teacher Name Role Phone Beau Leger MD Primary Care Prov ider Reason for Visit * Reason Onset Date Comments Nurse Triage 07/16/2023 Encounter Details Date Type Department Care Team ([facility] st Contact Info) Description 07/16/2023 Telephone [facility] [address] [place] [address] Beau Leger MD [address] [place] [address] Nurse Triage Social History Tobacco Use Types [...] 07/16/2023 11:24 AM EDT Triage call with [employer] [place] [id number] , Mauro Pt reports low back pain. Pt has diagnosis of chronic low back pain. Pt walked in to [facility] today and was given apt for 200pm this afternoon. Pt is informed of this apt . Pt requests to have office apt due to pain increased. Pt is advised no apts available in office today. Pt is reminded of scheduled apt this afternoon at [facility] 200pm with provider. Pt reports , [...] documented as of this encounter Care Teams Preschool Assistant Teacher Relationship Specialty Start Date End Date Beau Leger MD [address] [place] [phone] PCP - General Internal Medicine 05/16/20 documented as of this encounter
--- OUTSIDE RECORDS SUMMARY | 2024-06-23 08:57 | XMS_ITS | Clinical Summary ---
Author Organization [address] [facility] Address [address] [place] [address] Phone Care Team Providers Care Window Decorator Name Role Phone Beau Leger Primary Care Provide r Social History Tobacco Use Types Packs/Day Years Used Date Smoking Tobacco: Never Assessed Sex and Gender Information Value Date Recorded Sex Assigned at Not on file Legal Sex Male 4:38 PM EDT Gender Identity Not on file Sexual Orientation Not on file Plan of Treatment Upcoming Encounters Date Type Department Care Team ([facility] Contact Info) Description 07/06/2024 3:00 PM EDT Consult Orthopedic Surgery - [place] [phone] [phone] Blaise Sidhu DPM [address] [address] Health Maintenance Due Date Last Done Comments [...] complete this topic Insurance PLAN Care Teams Window Decorator Relationship Specialty Start Date End Date Beau Leger [address] [place] [address] PCP - General 02/02/24
--- OUTSIDE RECORDS SUMMARY | 2024-06-23 08:57 | XMS_ITS | Encounter Summary ---
Author Organization [employer] Address [address] [facility] [address] [place] [address] Care Team Providers Care Employment Security Officer Name Role Phone Beau Leger MD Primary Care Prov ider Encounter Details Date Type Department Care Team (Late st Contact Info) Description 04/30/2022 Orders Only [facility] [address] [place] [address] Beau Leger MD [address] [place], [place] [phone] Tinea pedis of both feet (Primary Dx) [...] Primary documented in this encounter Care Teams Employment Security Officer Relationship Specialty Start Date End Date Beau Leger MD [address] [place], [place] [phone] PCP - General Internal Medicine 05/16/20 documented as of this encounter
--- OUTSIDE RECORDS SUMMARY | 2024-06-23 08:57 | XMS_ITS | Encounter Summary ---
Author Organization [employer] Address [address] [facility] 7t [place] [address] Care Team Providers Care National Expansion Recruiter Name Role Phone Beau Leger MD Primary Care Prov ider Encounter Details Date Type Department Care Team (Late st Contact Info) Description 05/16/2022 Orders Only [facility] [address] [place], [place] [phone] Beau Leger MD [address] [place], [place] [phone] Mild intermittent asthma without complication (Primary Dx) [...] Primary documented in this encounter Care Teams National Expansion Recruiter Relationship Specialty Start Date End Date Beau Leger MD [address] [place] [phone] PCP - General Internal Medicine 05/16/20 documented as of this encounter
--- OUTSIDE RECORDS SUMMARY | 2024-06-23 08:57 | XMS_ITS | Encounter Summary ---
Author Organization [employer] Address [address] [facility] [address] [place] [address] Care Team Providers Care [address] Project Manager Name Role Phone Beau Leger MD Primary Care Prov ider Reason for Visit * Reason Comments Med Refill Encounter Details Date Type Department Care Team (Late st Contact Info) Description 07/31/2023 Refill [facility] [address] [place] [address] Sowmya Agosto MD [address] [place] [address] Social History Tobacco Use Types Packs/Day Years [...] documented as of this encounter Care Teams Rd Project Manager Relationship Specialty Start Date End Date Beau Leger MD [address] [place] [address] PCP - General Internal Medicine 05/16/20 documented as of this encounter
--- OUTSIDE RECORDS SUMMARY | 2024-06-23 08:57 | XMS_ITS | Clinical Summary ---
Author Organization [employer] Address [address] [facility] 7t [place] [address] Care Team Providers Care Knot Bumper Name Role Phone Beau Leger MD Primary Care Prov ider Allergies No known active allergies Medications FREESTYLE LITE test stripIndications: Type 2 diabetes mellitus without complication, without long-term current use of insulin ([facility]) Use to test blood sugar 3 times daily 100 each 4 07/23/19 25 Active Lancets miscIndications:T ype 2 diabetes mellitus without complication, without long-term current use of insulin ([facility]) Use to test blood sugar 3 times daily 100 each 4 Active Alcohol Swabs 70 % padsIndications:T ype 2 diabetes mellitus without complication, without long-term current use of insulin ([facility]) Use to test blood sugar 3 times [...] 4 Active Blood Glucose Monitoring Suppl (FreeStyle [place] Lite) w/Device kitIndications:Ty pe 2 diabetes mellitus without complication, without long-term current use of insulin ([facility]) TEST BLOOD SUGAR THREE TIMES DAILY 1 [...] Center 03/02/2024 8:45 AM Beau Juarez MD [facility] Patient also brought up left anterior [...] External Data 04/08/2024 3:15 PM EST Telemedicine [facility] [address] [place] [address] Beau Leger MD Heel pain, chronic, left (Primary Dx); Type 2 diabetes mellitus without complication, without long-term current use of insulin ([facility]) 04/08/2024 Travel 04/07/2024 Telephone [facility] [address] [place] [address] Jennifer Núñez MD from Last 3 Months Immunizations Name [...] your housing situation today? I have finn humphrey 02/24/[address] you li [...] Additional history exists Lipid Panel 06/02/2025 06/02/2024, 0409/2023, 09/19/2022, Additional history exists DTaP/Tdap/Td Vaccines (2 [...] without long-term current use of insulin (CMS/HCC) COMPREHENSIVE METABOLIC PANEL Routine 06/02/2024 8:31 AM [...] complication, without long-term current use of insulin ([facility]/HCC) Primary hypertension HIV 1/2 ANTIGEN/ANTIBODY, FOURTH GENERATION W/RFL Routine 07/30/2021 8:43 AM EDT from Last 3 Months or Most Recently Relevant to Health Maintenance Results * (ABNORMAL) CBC auto differential (06/02/2024 8:31 AM EST) Only the most recent of2 resultswithin the time period is included. White Blood Count 6.4 4.8 - 10.8 X10*3/uL [facility] Red Blood Count 5.40 4.60 - 5.80 X10*6/uL [facility] Hemoglobin 16.0 14.0 - 18.0 g/dl [facility] Hematocrit 45.5 42.0 - 52.0 % [facility] Mean Corpuscular Volume 84.3 80.0 - 98.0 fL [facility] Mean Corpuscular Hemoglobin 29.6 27.0 - 33.0 pg [facility] Mean Corpuscular HGB Conc 35.2 31.0 - 36.0 g/dl [facility] Red Cell Distribution Width 12.2 11.0 - 16.0 % [facility] Platelet Count 192 160 - 400 X10*3/uL [facility] Mean Platelet Volume 10.7 9.4 - 12.4 fL [facility] Neutrophils Percent Auto 67.3 45 - 73 % [facility] Imm Gran Pct Auto 0.5(H) 0.0 - 0.4 % [facility] Lymphocytes Percent Auto 22.7 20 - 40 % [facility] Monocytes Percent Auto 7.0 2 - 11 % [facility] Eosinophils Percent Auto 2.2 0 - 4 % [facility] Basophils Percent Auto 0.3 0 - 2 % [facility] NRBC Pct Auto 0.0 0.0 - 0.2 /100WBC [facility] Neutrophils Absolute Auto 4.3 2.0 - 8.3 x10*3/uL [facility] Imm Gran Abs Auto 0.03 0.00 - 0.03 X10*3/uL [facility] Lymphocytes Absolute Auto 1.5 1.2 - 4.9 X10*3/uL [facility] Monocytes Absolute Auto 0.5 0.1 - 1.2 X10*3/uL [facility] Eosinophils Absolute Auto 0.1 0.0 - 0.4 X10*3/uL [facility] Basophils Absolute Auto 0.0 0.0 - 0.2 X10*3/uL [facility] NRBC Abs Auto 0.000 0.0 - 0.012 X10*3/uL [facility] Blood Venous blood specimen / Unknown 06/02/2024 8:31 AM EST 06/02/2024 11:13 AM EST us Beau Juarez MD LAB BLOOD ORDERABL ES Final Result [facility] [address] [place] [phone] [phone] * (ABNORMAL) Hemoglobin A1c (06/02/2024 8:31 AM EST) Hemoglobin A1c 6.4(H) <6.0 % [facility] Comment:Hemoglobin A1C Refer ence Range Adults: 4.8 - 6.0 % Non diabetic: < 6.0 % Goal: < 7.0 %Additional Action Suggested: > 8.0 %Note: Hemoglobin A1c results are invalid for patients with abnormal amounts of HbF. Blood transfusions may impact the HbA1c concentration in the patient sample. Estimated Average Glucose 137 mg/dL [facility] Comment:eAG = Estimated ave rage glucose which is %A1C expressed asaverage glucose, using the formula of the E8Q-NytreiaFtzrrof Glucose study (ADAG), Diabetes Care, Vol.31,#8,Nov. 2007 Blood Venous blood specimen / Unknown 06/02/2024 8:31 AM EST 06/02/2024 11:13 AM EST us Beau Juarez MD LAB BLOOD ORDERABL ES Final Result [facility] [address] [place] [phone] * (ABNORMAL) Lipid Panel, Standard (06/02/2024 8:31 AM EST) Triglycerides 289(H) <150 mg/dL [facility] Comment:Desirable Triglyceri de: less than 150 mg/dLBorderline High Triglyceride 150-199 mg/dLHigh Triglyceride: 200-499 mg/dLVery High Triglyceride: greater than or equal to 5OO mg/dL Cholesterol 162 <200 mg/dL [facility] Comment:Desirable Cholestero l: less than 200 mg/dLBorderline High Cholesterol: 200-239 mg/dLHigh Cholesterol: greater than 239 mg/dL LDL Cholesterol Calculated 71 <100 mg/dL [facility] Comment:Desirable LDL: less than 100 mg/dLNear Optimal/Above Optimal LDL: 110- 129 mg/dLBorderline High LDL: 130-159 mg/dLHigh LDL: 160-189 mg/dLVery High LDL: greater than or equal to 190 mg/dL HDL Cholesterol 34(L) >40 mg/dL [facility] Comment:Desirable HDL: great er than 40 mg/dL Note: This HDL assay may give artificially low results in patients with liver disease. Blood Venous blood specimen / Unknown 06/02/2024 8:31 AM EST 06/02/2024 11:13 AM EST us Beau Juarez MD LAB BLOOD ORDERABL ES Final Result [facility] [address] [place] [phone] * (ABNORMAL) Comprehensive Metabolic Panel (06/02/2024 8:31 AM EST) Only the most recent of2 resultswithin the time period is included. Sodium 141 135 - 145 mmol/L [facility] Potassium 4.4 3.3 - 5.1 mmol/L [facility] Chloride 109(H) 96 - 108 mmol/L [facility] Carbon Dioxide 26 22 - 29 mmol/L [facility] Anion Gap 10(L) 12 - 20 [facility] Urea Nitrogen (BUN) 12 9 - 16 mg/dL [facility] Creatinine, Serum 0.87 0.5 - 1.4 mg/dL [facility] Estimated Glomerular Filt Rate >60 [facility] Comment:Chronic Kidney Disea se: Estimated GFR < 60 mL/min/1.03f9Mriygr Kidney Disease: Estimated GFR < 15 mL/min/1.73m2 Glucose 147(H) 60 - 115 mg/dL [facility] Calcium 9.2 8.4 - 10.2 mg/dL [facility] Bilirubin, Total 0.9 0.0 - 1.0 mg/dL [facility] Aspartate Amino Transferase 19 5 - 37 U/L [facility] Alanine Aminotransferase 32 0 - 40 U/L [facility] Total Protein 7.5 6.5 - 8.0 g/dL [facility] Albumin Level 4.6 3.5 - 5.0 g/dL [facility] Alkaline Phosphatase 61 39 - 117 U/L [facility] Blood Venous blood specimen / Unknown 06/02/2024 8:31 AM EST 06/02/2024 11:13 AM EST us Beau Juarez MD LAB BLOOD ORDERABL ES Final Result [facility] [address] [place] [phone] * XR Femur 2+ Views Right (05/11/2024 9:49 AM EST) Anatomical Region Laterality Modality Lower Extremities, Femur Right Radiogr aphic Imaging 05/11/2024 9:49 AM EST Narrative 05/11/2024 11:15 AM EST ? [facility] ?[address] ?[place] [address] ?XRay Report ? Signed ? Patient: Shilo Gregory ?MR# ?? : [id number] ? : 1970 ?Acct:[id number] ? Age/Sex: 53 / M ?ADM Date: 05/11/24 ? Loc: HO.ED ? Attending Dr: ? Ordering Physician: Generic ED Physician ?? Date of Service: 05/11/24 ?? Procedure(s): XR femur RT 2V ?? Accession Number(s): [id number] ? cc: Beau Leger MD; Generic ED [...] DD/ 0949 ? TD/TT: 05/11/24 1043 ? Car Wash Attendant Automatic: ? Procedure Note Donotuseinterpreter, Image - 05/11/2024 [place] [address] XRay Report Signed Patient: Shilo Gregory AMR# : [id number] : 1970Acct:[id number] Age/Sex: 53 / MADM Date: 05/11/24 Loc: HO.ED Attending Dr: Ordering Physician: Generic ED Physician Date of Service: 05/11/24 Procedure(s): XR femur RT 2V Accession Number(s): [id number] cc: Beau Leger MD; Generic ED Physician [...] 05/11/24 1113 DD/ 0949 TD/TT: 05/11/24 1043 Car Wash Attendant Automatic: [facility] External Provider IMG XR PROCEDURES Edited Result - Final * XR Pelvis 1-2 Views (05/11/2024 9:48 AM EST) Anatomical Region Laterality Modality Body, Pelvis Radiographic Shirley ging 05/11/2024 9:48 AM EST Narrative 05/11/2024 11:12 AM EST ? [facility] ?[address] ?[place], [place] [address] ?XRay Report ? Signed ? Patient: Dickson Cabrera,Shilo A ?MR# ?? : [id number] ? : 1970 ?Acct:[id number] ? Age/Sex: 53 / M ?ADM Date: 05/11/24 ? Loc: HO.ED ? Attending Dr: ? Ordering Physician: Generic ED Physician ?? Date of Service: 05/11/24 ?? Procedure(s): XR pelvis 1-2V ?? Accession Number(s): [id number] ? cc: Beau Leger MD; Generic ED [...] DD/ 0948 ? TD/TT: 05/11/24 1043 ? Car Wash Attendant Automatic: ? Procedure Note Donotuseinterpreter, Image - 05/11/[address] [address] XRay Report Signed Patient: Shilo Gregory AMR# : [id number] : 1970Acct:[id number] Age/Sex: 53 / MADM Date: 05/11/24 Loc: HO.ED Attending Dr: Ordering Physician: Generic ED Physician Date of Service: 05/11/24 Procedure(s): XR pelvis 1-2V Accession Number(s): [id number] cc: Beau Leger MD; Generic ED Physician [...] 05/11/24 1109 DD/ 0948 TD/TT: 05/11/24 1043 Car Wash Attendant Automatic: [facility] External Provider IMG XR PROCEDURES Edited Result - Final * XR HAND WRIST RT (05/11/2024 9:46 AM EST) Anatomical Region Laterality Modality Abdomen Radiographic Shirley ging 05/11/2024 9:46 AM EST Narrative 05/11/2024 11:07 AM EST ? [facility] ?[address] ?[place], [place] [address] ?XRay Report ? Signed ? Patient: Dickson Cabrera,Shilo A ?MR# ?? : [id number] ? : 1970 ?Acct:[id number] ? Age/Sex: 53 / M ?ADM Date: 05/11/24 ? Loc: HO.ED ? Attending Dr: ? Ordering Physician: Generic ED Physician ?? Date of Service: 05/11/24 ?? Procedure(s): XR hand wrist RT ?? Accession Number(s): [id number] ? cc: Beau Leger MD; Generic ED [...] DD/ 0946 ? TD/TT: 05/11/24 1043 ? Car Wash Attendant Automatic: ? Procedure Note [place], Image - 05/11/[address] [address] XRay Report Signed Patient: Shilo Gregory AMR# : [id number] : 1970Acct:[id number] Age/Sex: 53 / MADM Date: 05/11/24 Loc: HO.ED Attending Dr: Ordering Physician: Generic ED Physician Date of Service: 05/11/24 Procedure(s): XR hand wrist RT Accession Number(s): [id number] cc: Beau Leger MD; Generic ED Physician [...] 05/11/24 1104 DD/ 0946 TD/TT: 05/11/24 1043 Car Wash Attendant Automatic: [facility] External Provider IMG XR PROCEDURES Edited Result - Final * XR Shoulder 2+ Views Left (04/19/2024 9:22 PM EST) Anatomical Region Laterality Modality Upper Extremities, Shoulder Left Radi ographic Imaging 04/19/2024 9:22 PM EST Narrative 04/19/2024 9:24 PM EST ? [facility] ?[address] ?[place] [address] ?XRay Report ? Signed ? Patient: Dickson Cabrera,Shilo A ?MR# ?? : [id number] ? : 1970 ?Acct:[id number] ? Age/Sex: 53 / M ?ADM Date: 04/19/24 ? Loc: HO.ED ? Attending Dr: ? Ordering Physician: Kian Garcia ?? Date of Service: 04/19/24 ?? Procedure(s): XR shoulder LT min 2V ?? Accession Number(s): [id number] ? cc: Beau Leger MD; Kian Garcia [...] ? DD/ 21 ? TD/TT: 04/19/242121 ? Car Wash Attendant Automatic: ? Procedure Note Kennedy Calvo - 04/19/2024 [place] [address] XRay Report Signed Patient: Shilo Gregory AMR# : [id number] : 1970Acct:[id number] Age/Sex: 53 / MADM Date: 04/19/24 Loc: HO.ED Attending Dr: Ordering Physician: Kian Garcia Date of Service: 04/19/24 Procedure(s): XR shoulder LT min 2V Accession Number(s): [id number] cc: Beau Leger MD; Kian Garcia CLINICAL [...] in OV> 04/19/242122 DD/ 21 TD/TT: 04/19/242121 Car Wash Attendant Automatic: [facility] External Provider IMG XR PROCEDURES Final Result * High Sensitivity Troponin I (04/19/2024 9:12 PM EST) Pathologist [facility] TROPONIN I HIGH SENSITIVITY <2.7 <3.5 - 35.0 ng/L [facility] Comment:The [place] high sens itivity Troponin-I results should beused in conjunction with other diagnostic information suchas ECG, clinical observations and information, and patientsymptoms to aid in the diagnosis of AR. 04/19/2024 9:12 PM EST 04/19/2024 9:15 PM EST Generic External Data Provider LAB BLOOD ORDERAB LES Final Result [facility] [address] [place] [phone] * Prothrombin Time-INR (04/19/2024 9:12 PM EST) Prothrombin Time 11.1 10.9 - 12.4 SEC [facility] INTERNATIONAL NORM RATIO 1.0 0.9 - 1.1 [facility] Comment:INTERNATIONAL NORMAL IZED RATIO (INR) REFERENCE [...] ORDERAB LES Final Result Performing Organization Address City/[facility]/ZIP Co de Phone Number [facility] [address] [place] [phone] * Lipase (04/19/2024 9:12 PM EST) Pathologist [facility] Lipase 21 8 - 78 U/L [facility] 04/19/2024 9:12 PM EST 04/19/2024 9:15 PM EST Generic External Data Provider LAB BLOOD ORDERAB LES Final Result Performing Organization Address [facility] Co de Phone Number [facility] [address] [place] [phone] * HM Diabetes: Urine Protein Screening (03/11/2024 2:11 PM EST) Urine Result [facility] Historical Provider MD HEALTH MAINTENANCE Final Result * Hepatitis C Antibody with Reflex to HCV, RNA, Quantitative, Real-Time PCR (09/19/2022 8:09 AM EDT) Pathologist [facility] Hepatitis C Antibody NON-REACT YECENIA NON-REACT YECENIA [facility] [place] [facility] Index 0.08 <1.00 [facility] [place] Comment: HCV antibody was non-reactive. There is no laboratory evidence of HCV infection. In most cases, no further action is required. However, if recent HCV exposure is suspected, a test for HCV RNA (test code 33179) is suggested. For additional information please refer to http://education.FitBionic.Naartjie/faq/LOK44h4 (This link is being provided for informational/ educational purposes only.) Blood Venous blood specimen / Unknown 09/19/2022 8:09 AM EDT 09/19/2022 8:10 AM EDT Narrative [facility] - 09/19/2022 10:53 PM EDT FASTING:YES FASTING: YES Beau Juarez MD LAB BLOOD ORDERABL ES Final Result [facility] [address] [facility] [place] [address] [facility] [place] [address] [place] [address] * HIV 1/2 ANTIGEN/ANTIBODY,FOURTH GENERATION W/RFL (07/30/2021 8:43 AM EDT) [facility] HIV-1/2 ANTIGEN AND ANTIBODIES, 4TH GENERATION W/ REFLEX NON-REACT YECENIA NON-REACT YECENIA [facility] Comment: HIV-1 antigen and HIV-1/HIV-2 [...] ? For additional information please refer to http://education.FitBionic.Naartjie/faq/CMN626 (This link is being provided for informational/ educational purposes only.) ? The performance of this assay has not been clinically validated in patients less than 2 years old. ?? 07/30/2021 8:43 AM EDT Beau Juarez MD LAB BLOOD ORDERABL ES Final Result [facility] [address] from Last 3 Months or Most Recently Relevant to Health Maintenance Insurance [facility] Care Teams Knot Bumper Relationship Specialty Start Date End Date Beau Leger MD [address] [place] [phone] PCP - General Internal Medicine 05/16/20
== END 2024-06-23 08:27 | disposition home or self-care (01) ==
LOC: HO.HOSX 08:26
DX: M79.641 Pain in right hand (principal)
CPT/HCPCS: 73110

== ENCOUNTER 2024-06-23 11:53 | Outpatient (AMB) | payer OTHER, SELFPAY ==
[2024-06-23 12:52] VITALS: BMI 28.6
--- NOTE | 2024-06-23 12:52 | MHC.OFFVIS ---
Vital Signs 06/23/24 12:52 Height 5 ft 6 in Weight 177 lb BMI 28.6 Intake Visit Reasons: OV-Dist Scaphoid Fx & Ulnar Styl Avul. fx 05/11/24 Intake Note: Shilo is a 53 year old right hand dominant male who presents today for follow up, s/p Right distal scaphoid fx & Ulnar Styloid avulsion fx, DOI 05/11/24. He slipped and fell on ice which lead him injure his lower back and right wrist. At the last visit he was placed in a thumb spica cast. Cast removed in office and xrays updated. STates he has little numbness in his thumb. Allergies No Known Allergies Allergy (Verified 06/23/24 12:55) HPI HPI OV-Dist Scaphoid Fx & Ulnar Styl Avul. fx 05/11/24: Details: Shilo is a 53 year old right hand dominant male who presents today for follow up, s/p Right distal scaphoid fx & Ulnar Styloid avulsion fx, DOI 05/11/24. He slipped and fell on ice which lead him injure his lower back and right wrist. At the last visit he was placed in a thumb spica cast. Cast removed in office and xrays updated. STates he has little numbness in his thumb.g [facility] Medical History Right inguinal hernia Diabetes mellitus Asthma Surgical History History of right inguinal hernia repair History of knee surgery History of shoulder surgery Family History Father No problems noted. 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 Neuro: Normal sensation of the tips of all digits of the right hand at this time Vascular: Cap refill brisk Pain: Patient reports very minimal tenderness to palpation of the ulnar styloid of the right wrist Minimal Tenderness to palpation of the anatomical snuffbox and scaphoid tubercle of the right wrist No tenderness to palpation of the radial styloid, DRUJ, or elsewhere in the right hand or wrist ROM: Patient is able to make a closed fist and extend all digits of the right hand fully at this time Skin: No lacerations or abrasions. General: No ecchymosis, erythema, or evidence of infection. Psych: Appears grossly normal Affect normal Attitude cooperative Results Reviewed Results Reviewed: X-rays taken in the emergency department and independently reviewed by me demonstrate small avulsion fracture of the right ulnar styloid of unknown age. There is also evidence of a distal scaphoid fracture, appears to be old. No other acute bony abnormalities or fractures noted. Assessment & Plan Assessment & Plan (1) Fracture of right ulnar styloid: Code(s): S52.611A - Displaced fracture of right ulna styloid process, initial encounter for closed fracture Category: Medical (2) Nondisplaced fracture of right scaphoid bone: Code(s): S62.001A - Unspecified fracture of navicular [scaphoid] bone of right wrist, initial encounter for closed fracture Category: Medical Plan 1. Distal scaphoid fracture 2. Small ulnar styloid avulsion fracture, of unknown age Patient is educated about these injuries Patient is educated about the typical recovery course Case was discussed with Dr. Beltran, and a collaborative treatment was formed: At this time, patient was informed that it appears that his fractures are all chronic in nature, and that there is no acute fracture or bony abnormality noted Patient was provided with a Velcro wrist splint to wear with daytime activities Out of work until follow-up Patient will follow-up in 4 weeks with repeat x-rays for previously scheduled reassessment, sooner with any acute concerns Orders: Orders XR wrist RT w scaphoid 06/23/24 M79.641 - Pain in right hand Coding Level of Care Code Global (72603) Diagnoses Fracture of right ulnar styloid S52.611A Nondisplaced fracture of right scaphoid bone S62.001A
--- OUTSIDE RECORDS SUMMARY | 2024-06-23 14:20 | XMS_ITS | Clinical Summary ---
Author Organization 175 [facility] Address [address] [place] [address] Phone Care Team Providers Care Animal Care Assistant Name Role Phone Beau Leger Primary Care Provide r Social History Tobacco Use Types Packs/Day Years Used Date Smoking Tobacco: Never Assessed Sex and Gender Information Value Date Recorded Sex Assigned at Not on file Legal Sex Male 4:38 PM EDT Gender Identity Not on file Sexual Orientation Not on file Plan of Treatment Upcoming Encounters Date Type Department Care Team ([facility] Contact Info) Description 07/06/2024 3:00 PM EDT Consult Orthopedic Surgery - [place] [phone] [phone] Blaise Sidhu DPM [address] [address] Health Maintenance Due Date Last Done Comments [...] complete this topic Insurance PLAN Care Teams Animal Care Assistant Relationship Specialty Start Date End Date Beau Leger [address] [place] [address] PCP - General 02/02/24
== END 2024-06-23 13:21 | disposition home or self-care (01) ==
PROVIDERS: PCP Internal Medicine
DX: S52.611A Displaced fracture of right ulna styloid process, initial encounter for closed fracture (principal); S62.001A Unspecified fracture of navicular [scaphoid] bone of right wrist, initial encounter for closed fracture
CPT/HCPCS: 99213

== ENCOUNTER → 2024-06-23 12:24 | Outpatient (BNV) | payer OTHER, SELFPAY | PROVIDERS: Visit Provider Radiology Diagnostic Radiology | DX: M79.641 Pain in right hand (principal) | CPT/HCPCS: 73110 ==

== ENCOUNTER 2024-07-23 13:26 | Outpatient (REF) | payer OTHER, SELFPAY ==
--- NOTE | ~2024-07-23 | XR_ITS ---
EXAMINATION: XR WRIST NAVICULAR RIGHT HISTORY: M79.641 - Pain in right hand COMPARISON: Comparison is made with the prior examination dated 06/23/2024. FINDINGS: Four views of the right wrist including a scaphoid view are submitted. Osseous mineralization is normal. Again seen is a triangular osseous density between the scaphoid and capitate which may represent a fracture fragment. A tiny density adjacent to the ulnar styloid is again noted, likely representing an avulsion fracture fragment. The joint spaces are preserved. The soft tissues are unremarkable. XR/XR wrist RT w scaphoid IMPRESSION: Stable triangular density between the scaphoid and capitate which could represent a fracture fragment. Electronically signed by: Jaren Duran MD 07/26/2024 11:41 AM EDT
--- OUTSIDE RECORDS SUMMARY | 2024-07-23 15:57 | XMS_ITS | Clinical Summary ---
Author Organization [employer] Address 75 [facility] 7t [place] [address] Care Team Providers Care Argon Tester Name Role Phone Beau Leger MD Primary Care Prov ider Allergies No known active allergies Medications Lancets miscIndications:T ype 2 diabetes mellitus without complication, without long-term current use of insulin ([facility]) Use to test blood sugar 3 times daily 100 each 11 4 Active Alcohol Swabs 70 % padsIndications:T ype 2 diabetes mellitus without complication, without long-term current use of insulin ([facility]) Use to test blood sugar 3 times [...] 4 Active Blood Glucose Monitoring Suppl (FreeStyle [place] [address] Lite) w/Device kitIndications:Ty pe 2 diabetes mellitus without complication, without long-term current use of insulin ([facility]) TEST BLOOD SUGAR THREE TIMES DAILY 1 kit 4 Active Diclofenac Sodium (Voltaren) 1 % gel Apply 1 g topically 2 times daily. 300 g 1 4 Active FREESTYLE LITE test stripIndications: Type 2 diabetes mellitus without complication, without long-term current use of insulin ([facility]) Use to test blood sugar 3 times daily 100 each 11 4 07/23/19 25 Active Problems Problem Noted Date Diagnosed [...] Center 03/02/2024 8:45 AM Beau Juarez MD [facility] Patient also brought up left anterior thigh [...] low back pain 12/10/2017 Neck pain 12/10/2017 Immunizations Name Administration Dates Next Due Hep [...] is your housing situation today? I have finnsloan yin 02/24/[address] you [...] WRIST RT Routine 05/11/2024 9:46 AM EST HM DIABETES: URINE PROTEIN SCREENING Routine [...] CBC auto differential (06/02/2024 8:31 AM EST) White Blood Count 6.4 4.8 - 10.8 X10*3/uL [facility] Red Blood Count 5.40 4.60 - 5.80 X10*6/uL [facility] Hemoglobin 16.0 14.0 - 18.0 g/dl [facility] Hematocrit 45.5 42.0 - 52.0 % [facility] Mean Corpuscular Volume 84.3 80.0 - 98.0 fL [facility] Mean Corpuscular Hemoglobin 29.6 27.0 - 33.0 pg [facility] Mean Corpuscular HGB Conc 35.2 31.0 - 36.0 g/dl [facility] Red Cell Distribution Width 12.2 11.0 - 16.0 % [facility] Platelet Count 192 160 - 400 X10*3/uL [facility] Mean Platelet Volume 10.7 9.4 - 12.4 fL [facility] Neutrophils Percent Auto 67.3 45 - 73 % [facility] Imm Gran Pct Auto 0.5(H) 0.0 - 0.4 % [facility] Lymphocytes Percent Auto 22.7 20 - 40 % [facility] Monocytes Percent Auto 7.0 2 - 11 % [facility] Eosinophils Percent Auto 2.2 0 - 4 % [facility] Basophils Percent Auto 0.3 0 - 2 % [facility] NRBC Pct Auto 0.0 0.0 - 0.2 /100WBC [facility] Neutrophils Absolute Auto 4.3 2.0 - 8.3 x10*3/uL [facility] Imm Gran Abs Auto 0.03 0.00 - 0.03 X10*3/uL [facility] Lymphocytes Absolute Auto 1.5 1.2 - 4.9 X10*3/uL [facility] Monocytes Absolute Auto 0.5 0.1 - 1.2 X10*3/uL [facility] Eosinophils Absolute Auto 0.1 0.0 - 0.4 X10*3/uL [facility] Basophils Absolute Auto 0.0 0.0 - 0.2 X10*3/uL [facility] NRBC Abs Auto 0.000 0.0 - 0.012 X10*3/uL [facility] Blood Venous blood specimen / Unknown 06/02/2024 8:31 AM EST 06/02/2024 11:13 AM EST us Beau Juarez MD LAB BLOOD ORDERABL ES Final Result Performing Organization Address [facility] Co de Phone Number [facility] [address] [place] [phone] * (ABNORMAL) Hemoglobin A1c (06/02/2024 8:31 AM EST) Hemoglobin A1c 6.4(H) <6.0 % [facility] Comment:Hemoglobin A1C Refer ence Range Adults: 4.8 - 6.0 % Non diabetic: < 6.0 % Goal: < 7.0 %Additional Action Suggested: > 8.0 %Note: Hemoglobin A1c results are invalid for patients with abnormal amounts of HbF. Blood transfusions may impact the HbA1c concentration in the patient sample. Estimated Average Glucose 137 mg/dL [facility] Comment:eAG = Estimated ave rage glucose which is %A1C expressed asaverage glucose, using the formula of the A1L-FkobtcvWwcuvfc Glucose study (ADAG), Diabetes Care, Vol.31,#8,Nov. 2007 Blood Venous blood specimen / Unknown 06/02/2024 8:31 AM EST 06/02/2024 11:13 AM EST us Beau Juarez MD LAB BLOOD ORDERABL ES Final Result Performing Organization Address [facility] Co de Phone Number [facility] [address] [place] [phone] * (ABNORMAL) Lipid Panel, Standard (06/02/2024 8:31 AM EST) Triglycerides 289(H) <150 mg/dL [facility] Comment:Desirable Triglyceri de: less than 150 mg/dLBorderline High Triglyceride 150-199 mg/dLHigh Triglyceride: 200-499 mg/dLVery High Triglyceride: greater than or equal to 5OO mg/dL Cholesterol 162 <200 mg/dL [facility] Comment:Desirable Cholestero l: less than 200 mg/dLBorderline High Cholesterol: 200-239 mg/dLHigh Cholesterol: greater than 239 mg/dL LDL Cholesterol Calculated 71 <100 mg/dL [facility] Comment:Desirable LDL: less than 100 mg/dLNear Optimal/Above Optimal LDL: 110- 129 mg/dLBorderline High LDL: 130-159 mg/dLHigh LDL: 160-189 mg/dLVery High LDL: greater than or equal to 190 mg/dL HDL Cholesterol 34(L) >40 mg/dL [facility] Comment:Desirable HDL: great er than 40 mg/dL Note: This HDL assay may give artificially low results in patients with liver disease. Blood Venous blood specimen / Unknown 06/02/2024 8:31 AM EST 06/02/2024 11:13 AM EST us Beau Juarez MD LAB BLOOD ORDERABL ES Final Result [facility] [address] [place] [phone] * (ABNORMAL) Comprehensive Metabolic Panel (06/02/2024 8:31 AM EST) Sodium 141 135 - 145 mmol/L [facility] Potassium 4.4 3.3 - 5.1 mmol/L [facility] Chloride 109(H) 96 - 108 mmol/L [facility] Carbon Dioxide 26 22 - 29 mmol/L [facility] Anion Gap 10(L) 12 - 20 [facility] Urea Nitrogen (BUN) 12 9 - 16 mg/dL [facility] Creatinine, Serum 0.87 0.5 - 1.4 mg/dL [facility] Estimated Glomerular Filt Rate >60 [facility] Comment:Chronic Kidney Disea se: Estimated GFR < 60 mL/min/1.45s1Byertr Kidney Disease: Estimated GFR < 15 mL/min/1.73m2 Glucose 147(H) 60 - 115 mg/dL [facility] Calcium 9.2 8.4 - 10.2 mg/dL [facility] Bilirubin, Total 0.9 0.0 - 1.0 mg/dL [facility] Aspartate Amino Transferase 19 5 - 37 U/L [facility] Alanine Aminotransferase 32 0 - 40 U/L [facility] Total Protein 7.5 6.5 - 8.0 g/dL [facility] Albumin Level 4.6 3.5 - 5.0 g/dL [facility] Alkaline Phosphatase 61 39 - 117 U/L [facility] Blood Venous blood specimen / Unknown 06/02/2024 8:31 AM EST 06/02/2024 11:13 AM EST us Beau Juarez MD LAB BLOOD ORDERABL ES Final Result [facility] [address] [place] [phone] * XR Femur 2+ Views Right (05/11/2024 9:49 AM EST) Anatomical Region Laterality Modality Lower Extremities, Femur Right Radiogr aphic Imaging 05/11/2024 9:49 AM EST Narrative 05/11/2024 11:15 AM EST ? [facility] ?[address] [facility] ?[place] [address] ?XRay Report ? Signed ? Patient: Shilo Gregory ?MR# ?? : [id number] ? : 1970 ?Acct:[id number] ? Age/Sex: 53 / M ?ADM Date: 05/11/24 ? Loc: HO.ED ? Attending Dr: ? Ordering Physician: Generic ED Physician ?? Date of Service: 05/11/24 ?? Procedure(s): XR femur RT 2V ?? Accession Number(s): [id number] ? cc: Beau Leger MD; Generic ED [...] DD/ 0949 ? TD/TT: 05/11/24 1043 ? Supervisor Ore Dressing: ? Procedure Note Donyamilkater, Image - 05/11/2024 [place] [address] XRay Report Signed Patient: Shilo Gregory AMR# : [id number] : 1970Acct:[id number] Age/Sex: 53 / MADM Date: 05/11/24 Loc: HO.ED Attending Dr: Ordering Physician: Generic ED Physician Date of Service: 05/11/24 Procedure(s): XR femur RT 2V Accession Number(s): [id number] cc: Beau Leger MD; Generic ED Physician [...] 05/11/24 1113 DD/ 0949 TD/TT: 05/11/24 1043 Supervisor Ore Dressing: [facility] External Provider IMG XR PROCEDURES Edited Result - Final * XR Pelvis 1-2 Views (05/11/2024 9:48 AM EST) Anatomical Region Laterality Modality Body, Pelvis Radiographic Shirley ging 05/11/2024 9:48 AM EST Narrative 05/11/2024 11:12 AM EST ? [facility] ?[address] ?[place] [address] ?XRay Report ? Signed ? Patient: Shilo Gregory ?MR# ?? : [id number] ? : 1970 ?Acct:[id number] ? Age/Sex: 53 / M ?ADM Date: 05/11/24 ? Loc: HO.ED ? Attending Dr: ? Ordering Physician: Generic ED Physician ?? Date of Service: 05/11/24 ?? Procedure(s): XR pelvis 1-2V ?? Accession Number(s): [id number] ? cc: Beau Leger MD; Generic ED [...] signed by Tc Smallwood MD in OV> ?05/11/249 ? DD/ 0948 ? TD/TT: 05/11/24 1043 ? Supervisor Ore Dressing: ? Procedure Note Donyamilkater, Image - 05/11/2024 [place] [address] XRay Report Signed Patient: Shilo Gregory AMR# : [id number] : 1970Acct:[id number] Age/Sex: 53 / MADM Date: 05/11/24 Loc: HO.ED Attending Dr: Ordering Physician: Generic ED Physician Date of Service: 05/11/24 Procedure(s): XR pelvis 1-2V Accession Number(s): [id number] cc: Beau Leger MD; Generic ED Physician [...] 05/11/24 1109 DD/ 0948 TD/TT: 05/11/24 1043 Supervisor Ore Dressing: [facility] External Provider IMG XR PROCEDURES Edited Result - Final * XR HAND WRIST RT (05/11/2024 9:46 AM EST) Anatomical Region Laterality Modality Abdomen Radiographic Shirley ging 05/11/2024 9:46 AM EST Narrative 05/11/2024 11:07 AM EST ? [facility] ?[address] ?[place] [address] ?XRay Report ? Signed ? Patient: Shilo Gregory ?MR# ?? : [id number] ? : 1970 ?Acct:[id number] ? Age/Sex: 53 / M ?ADM Date: 05/11/24 ? Loc: HO.ED ? Attending Dr: ? Ordering Physician: Generic ED Physician ?? Date of Service: 05/11/24 ?? Procedure(s): XR hand wrist RT ?? Accession Number(s): [id number] ? cc: Beau Leger MD; Generic ED [...] DD/ 0946 ? TD/TT: 05/11/24 1043 ? Supervisor Ore Dressing: ? Procedure Note Donthaisinterpreter, Image - 05/11/[address] [address] XRay Report Signed Patient: Shiol Gregory AMR# : [id number] : 1970Acct:[id number] Age/Sex: 53 / MADM Date: 05/11/24 Loc: HO.ED Attending Dr: Ordering Physician: Generic ED Physician Date of Service: 05/11/24 Procedure(s): XR hand wrist RT Accession Number(s): [id number] cc: Beau Leger MD; Generic ED Physician [...] 05/11/24 1104 DD/ 0946 TD/TT: 05/11/24 1043 Supervisor Ore Dressing: [facility] External Provider IMG XR PROCEDURES Edited Result - Final * HM Diabetes: Urine Protein Screening (03/11/2024 2:11 PM EST) Urine Historical Provider HEALTH MAINTENANCE Final Result * Hepatitis C Antibody with Reflex to HCV, RNA, Quantitative, Real-Time PCR (09/19/2022 8:09 AM EDT) Hepatitis C Antibody NON-REACT YECENIA NON-REACT YECENIA [facility] Index 0.08 <1.00 import.io Comment: HCV antibody was non-reactive. There is no laboratory evidence of HCV infection. In most cases, no further action is required. However, if recent HCV exposure is suspected, a test for HCV RNA (test code 06730) is suggested. For additional information please refer to http://education.Regenesance/faq/GMN21t1 (This link is being provided for informational/ educational purposes only.) Blood Venous blood specimen / Unknown 09/19/2022 8:09 AM EDT 09/19/2022 8:10 AM EDT Narrative [facility] - 09/19/2022 10:53 PM EDT FASTING:YES FASTING: YES Result [facility] Beau Juarez MD LAB BLOOD ORDERABL ES Final Result [facility] [address], [place] [phone] [facility] [address] [place] [phone] * HIV 1/2 ANTIGEN/ANTIBODY,FOURTH GENERATION W/RFL (07/30/2021 8:43 AM EDT) HIV-1/2 ANTIGEN AND ANTIBODIES, 4TH GENERATION W/ REFLEX NON-REACT YECENIA NON-REACT YECENIA [facility] Comment: HIV-1 antigen and [...] ? For additional information please refer to http://education.Regenesance/faq/ABE461 (This link is being provided for informational/ educational purposes only.) ? The performance of this assay has not been clinically validated in patients less than 2 years old. ?? 07/30/2021 8:43 AM EDT Beau Juarez MD LAB BLOOD ORDERABL ES Final Result Performing Organization Address City/State/[facility] Co ri Phone Number [facility] from Last 3 Months or Most Recently Relevant to Health Maintenance Insurance [place] [address] [id number] [facility] Care Teams Argon Tester Relationship Specialty Start Date End Date Beau Leger MD [address] [place] [phone] PCP - General Internal Medicine 05/16/20
--- OUTSIDE RECORDS SUMMARY | 2024-07-23 15:57 | XMS_ITS | Encounter Summary ---
Author Organization [employer] Address [address] [facility] [facility] [address] 7[address] [place] [address] Care Team Providers Care Electronic Health Records Specialist Name Role Phone Beau Leger MD Primary Care Prov ider Reason for Visit * Reason Onset Date Comments Nurse Triage 07/16/2023 Encounter Details Date Type Department Care Team ([facility] st Contact Info) Description 07/16/2023 Telephone [facility]ICINE [address] [place] [phone] Beau Leger MD [address] [place] [phone] Nurse Triage Social History Tobacco Use Types [...] 07/16/2023 11:24 AM EDT Triage call with [facility] [place] [id number] , Mauro Pt reports low back pain. Pt has diagnosis of chronic low back pain. Pt walked in to [facility] today and was given apt for 200pm this afternoon. Pt is informed of this apt . Pt requests to have office apt due to pain increased. Pt is advised no apts available in office today. Pt is reminded of scheduled apt this afternoon at [facility] 200pm with provider. Pt reports , [...] documented as of this encounter Care Teams Electronic Health Records Specialist Relationship Specialty Start Date End Date Beau Leger MD [address] [place] [phone] PCP - General Internal Medicine 05/16/20 documented as of this encounter
--- OUTSIDE RECORDS SUMMARY | 2024-07-23 15:57 | XMS_ITS | Encounter Summary ---
Author Organization [employer] Address [address] [facility] 7t [place] [address] Care Team Providers Care Solar Project Coordination Specialist Name Role Phone Beau Leger MD Primary Care Prov ider Encounter Details Date Type Department Care Team (Late st Contact Info) Description 03/15/2024 Orders Only [facility] [address] [place], [place] [phone] ProviderRebeca MD Social History Tobacco Use Types [...] documented as of this encounter Care Teams Solar Project Coordination Specialist Relationship Specialty Start Date End Date Beau Leger MD [address] [place] [phone] PCP - General Internal Medicine 05/16/20 documented as of this encounter
--- OUTSIDE RECORDS SUMMARY | 2024-07-23 15:57 | XMS_ITS | Encounter Summary ---
Author Organization [employer] Address [address] [facility] 7t [place] [address] Care Team Providers Care Advertising Operations Manager Name Role Phone Beau Leger MD Primary Care Prov ider Encounter Details Date Type Department Care Team ([facility] st Contact Info) Description 01/17/2023 Abstract [facility] [address] [place], [place] [phone] Beau Leger MD [address] [place], [place] [phone] Social History Tobacco Use Types Packs/Day Years [...] documented as of this encounter Care Teams Advertising Operations Manager Relationship Specialty Start Date End Date Beau Leger MD [address] [place], [place] [phone] PCP - General Internal Medicine 05/16/20 documented as of this encounter
--- OUTSIDE RECORDS SUMMARY | 2024-07-23 15:57 | XMS_ITS | Encounter Summary ---
Author Organization [employer] Address [address] [facility] 7t [place] [address] Care Team Providers Care Immersion Metal Cleaner Name Role Phone Beau Leger MD Primary Care Prov ider Encounter Details Date Type Department Care Team (Late st Contact Info) Description 05/16/[address] [facility] [address] [place], [place] [phone] Beau Leger MD [address] [place], [place] [phone] Mild intermittent asthma without complication (Primary Dx) [...] Primary documented in this encounter Care Teams Immersion Metal Cleaner Relationship Specialty Start Date End Date Beau Leger MD [address] [place] [address] PCP - General Internal Medicine 05/16/20 documented as of this encounter
--- OUTSIDE RECORDS SUMMARY | 2024-07-23 15:57 | XMS_ITS | Encounter Summary ---
Author Organization [id number] Address [address] [facility] [address] 7t [place] [address] Care Team Providers Care Storage Consultant Name Role Phone Beau Leger MD Primary Care Prov ider Reason for Visit * Reason Comments Med Refill Encounter Details Date Type Department Care Team (Late st Contact Info) Description 07/31/2023 Refill [facility] [address] [place] [address] Sowmya Agosto MD [address] [place] [address] Social History Tobacco Use Types Packs/Day Years [...] documented as of this encounter Care Teams Storage Consultant Relationship Specialty Start Date End Date Beau Leger MD [address] [place] [address] PCP - General Internal Medicine 05/16/20 documented as of this encounter
--- OUTSIDE RECORDS SUMMARY | 2024-07-23 15:57 | XMS_ITS | Encounter Summary ---
Author Organization [employer] Address [address] [facility] 7t [place] [address] Care Team Providers Care Toddler Caregiver Name Role Phone Beau Leger MD Primary Care Prov ider Encounter Details Date Type Department Care Team (Late st Contact Info) Description 04/30/2022 Orders Only [facility] MEDICINE 230 [place] [address] Beau Leger MD [address] [place], [place] [phone] Tinea pedis of both feet (Primary Dx) [...] Primary documented in this encounter Care Teams Toddler Caregiver Relationship Specialty Start Date End Date Beau Leger MD [address] [place], [place] [phone] PCP - General Internal Medicine 05/16/20 documented as of this encounter
--- OUTSIDE RECORDS SUMMARY | 2024-07-23 15:57 | XMS_ITS | Encounter Summary ---
Author Organization [employer] Address 75 [facility] 7t [place] [address] Care Team Providers Care Rotary Envelope Machine Operator Name Role Phone Beau Leger MD Primary Care Prov ider Encounter Details Date Type Department Care Team ([facility] st Contact Info) Description 05/14/2022 Telephone [facility] CHC MED & PEDS [address] [place], [place] [phone] Beau Leger MD 505 [place], [place] [phone] Social History Tobacco Use Types Packs/Day Years [...] on filedocumented in this encounter Care Teams Rotary Envelope Machine Operator Relationship Specialty Start Date End Date Beau Leger MD 505 [place] [address] PCP - General Internal Medicine 05/16/20 documented as of this encounter
== END 2024-07-23 13:27 | disposition home or self-care (01) ==
LOC: HO.HOSX 13:26
DX: M79.641 Pain in right hand (principal); S52.611A Displaced fracture of right ulna styloid process, initial encounter for closed fracture; S62.001A Unspecified fracture of navicular [scaphoid] bone of right wrist, initial encounter for closed fracture
CPT/HCPCS: 73110; 99212

== ENCOUNTER 2024-07-23 13:26 | Outpatient (AMB) | payer OTHER, SELFPAY ==
--- NOTE | 2024-07-23 14:01 | MHC.OFFVIS ---
Intake Visit Reasons: OV-Dist Scaphoid Fx & Ulnar Styl Avul. fx 05/11/24 Intake Note: Shilo is a 53 year old right hand dominant male who presents today for a follow up visit for his distal scaphoid fracture and small ulnar styloid avulsion fracture of unknown age of right hand, DOI: 05/11/24. Patient reports he is having continued pain daily at the base of his right thumb. Denies numbness and tingling. Allergies No Known Allergies Allergy (Verified 07/23/24 14:04) HPI HPI OV-Dist Scaphoid Fx & Ulnar Styl Avul. fx 05/11/24: Details: Shilo is a 53 year old right hand dominant male who presents today for a follow up visit for his distal scaphoid fracture and small ulnar styloid avulsion fracture of unknown age of right hand, DOI: 05/11/24. Patient reports he is having continued pain daily at the base of his right thumb. Denies numbness and tingling. [facility] Medical History (Updated 07/23/24 @ 14:06 by FRANSISCA Pantoja) Fracture of right ulnar styloid Tenderness of anatomical snuffbox Nondisplaced fracture of right scaphoid bone Right inguinal hernia Diabetes mellitus Asthma Surgical History History of right inguinal hernia repair History of knee surgery History of shoulder surgery Family History Father No problems noted. 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 Neuro: Normal sensation of the tips of all digits of the right hand at this time Vascular: Cap refill brisk Pain: Patient reports no tenderness to palpation of the ulnar styloid of the right wrist Mild Tenderness to palpation of the anatomical snuffbox and scaphoid tubercle of the right wrist No tenderness to palpation of the radial styloid, DRUJ, or elsewhere in the right hand or wrist ROM: Patient is able to make a closed fist and extend all digits of the right hand fully at this time Skin: No lacerations or abrasions. General: No ecchymosis, erythema, or evidence of infection. Psych: Appears grossly normal Affect normal Attitude cooperative Results Reviewed Results Reviewed: X-rays taken in the emergency department and independently reviewed by me demonstrate small avulsion fracture of the right ulnar styloid of unknown age. There is also evidence of a distal scaphoid fracture, appears to be old. No other acute bony abnormalities or fractures noted. Assessment & Plan Assessment & Plan (1) Fracture of right ulnar styloid: Code(s): S52.611A - Displaced fracture of right ulna styloid process, initial encounter for closed fracture Category: Medical (2) Nondisplaced fracture of right scaphoid bone: Code(s): S62.001A - Unspecified fracture of navicular [scaphoid] bone of right wrist, initial encounter for closed fracture Category: Medical Plan 1. Distal scaphoid fracture 2. Small ulnar styloid avulsion fracture, of unknown age Patient is educated about these injuries Patient is educated about the typical recovery course Case was discussed with Dr. Beltran, and a collaborative treatment was formed: Due to the fact that the patient was still experiencing significant pain that appears to be worsening in the anatomical snuffbox, I feel it was appropriate for the patient to be seen by Dr. Beltran for further evaluation and discussion of further imaging or treatment options that might be indicated Out of work until follow-up Patient will follow-up in 1-[address] Beltran, sooner with any acute concerns Orders: Orders XR wrist RT w scaphoid Today M79.641 - Pain in right hand Coding Level of Care Code Global (44285) Diagnoses Fracture of right ulnar styloid S52.611A Nondisplaced fracture of right scaphoid bone S62.001A
== END 2024-07-23 14:40 | disposition home or self-care (01) ==
LOC: HO.HOS 13:27
DX: S52.611A Displaced fracture of right ulna styloid process, initial encounter for closed fracture (principal); S62.001A Unspecified fracture of navicular [scaphoid] bone of right wrist, initial encounter for closed fracture
CPT/HCPCS: 99213

== ENCOUNTER → 2024-07-23 14:22 | Outpatient (BNV) | payer OTHER, SELFPAY | PROVIDERS: Visit Provider Radiology Diagnostic Radiology | DX: M79.641 Pain in right hand (principal) | CPT/HCPCS: 73110 ==

== ENCOUNTER 2024-08-11 08:13 | Outpatient (REF) | payer OTHER, SELFPAY ==
--- NOTE | ~2024-08-11 | XR_ITS ---
EXAMINATION: XR WRIST, RIGHT CLINICAL INFORMATION: M25.531 - Pain in right wrist COMPARISON: July 23, 2024 TECHNIQUE: PA, lateral, and oblique views of the right wrist. Scaphoid projection. FINDINGS: Focal diagonally oriented deformity in the distal scaphoid. No acute cortical disruption. No gross malalignment between the carpal bones. Distal radius and ulna are intact. Focal 2 mm calcification soft tissues of the ulnar carpal joint. XR/XR wrist RT w scaphoid IMPRESSION: Stable morphology pattern of the scaphoid. No acute fracture. Electronically signed by: Stalin Haines MD 08/13/2024 07:20 AM EDT
--- OUTSIDE RECORDS SUMMARY | 2024-08-12 08:29 | XMS_ITS | Encounter Summary ---
Author Organization [employer] Address [address] [facility] 7t [place] [address] Care Team Providers Care Occupational Nurse Name Role Phone Beau Leger MD Primary Care Prov ider Encounter Details Date Type Department Care Team ([facility] Contact Info) Description 05/16/2022 Orders Only [facility] MEDICINE 230 [place] [address] Beau Leger MD [address] [place] [address] Mild intermittent asthma without complication (Primary Dx) [...] Description 08/12/2024 11:15 AM EDT Office Visit [facility] CHC MED & PEDS 505 [place] [address] Beau Leger MD [address] [place] [address] documented as of this encounter Visit Diagnoses Diagnosis Mild intermittent asthma without complication- Primary documented in this encounter Care Teams Occupational Nurse Relationship Specialty Start Date End Date Beau Leger MD [address] [place] [address] PCP - General Internal Medicine 05/16/20 documented as of this encounter
--- OUTSIDE RECORDS SUMMARY | 2024-08-12 08:29 | XMS_ITS | Clinical Summary ---
Author Organization [employer] Address [address] [facility] 7t [place] [address] Care Team Providers Care Forklift Wheel Loader Name Role Phone Beau Leger MD Primary Care Prov ider Allergies No known active allergies Medications Lancets miscIndications:T ype 2 diabetes mellitus without complication, without long-term current use of insulin (CMS/[facility]) Use to test blood sugar 3 times daily 100 each 11 4 Active Alcohol Swabs 70 % padsIndications:T ype 2 diabetes mellitus without complication, without long-term current use of insulin (CMS/[facility]) Use to test blood sugar [...] 4 Active Blood Glucose Monitoring Suppl (FreeStyle [place] Lite) w/Device kitIndications:Ty pe 2 diabetes mellitus without complication, without long-term current use of insulin (CMS/[facility]) TEST BLOOD SUGAR THREE TIMES DAILY 1 kit 4 Active Diclofenac Sodium (Voltaren) 1 % gel Apply 1 g topically 2 times daily. 300 g 1 4 Active FREESTYLE LITE test stripIndications: Type 2 diabetes mellitus without complication, without long-term current use of insulin ([facility]) Use to test blood sugar [...] Center 03/02/2024 8:45 AM Beau Juarez MD [facility] Patient also brought up left anterior thigh [...] Type Department Care Team Description 08/10/2024 Telephone [facility] MEDICINE [address] [place] [address] Beau Leger MD Nurse Triage [...] your housing situation today? I have finn iyn 02/24/[address] you li [...] Description 08/12/2024 11:15 AM EDT Office Visit [facility] MED & PEDS [address] [place] [address] Beau Leger MD [address] [place] [address] Health Maintenance Due Date Last Done Comments [...] Blood Count 6.4 4.8 - 10.8 X10*3/uL [facility] Red Blood Count 5.40 4.60 - 5.80 X10*6/uL [facility] Hemoglobin 16.0 14.0 - 18.0 g/dl [facility] Hematocrit 45.5 42.0 - 52.0 % [facility] Mean Corpuscular Volume 84.3 80.0 - 98.0 fL [facility] Mean Corpuscular Hemoglobin 29.6 27.0 - 33.0 pg [facility] Mean Corpuscular HGB Conc 35.2 31.0 - 36.0 g/dl [facility] Red Cell Distribution Width 12.2 11.0 - 16.0 % [facility] Platelet Count 192 160 - 400 X10*3/uL [facility] Mean Platelet Volume 10.7 9.4 - 12.4 fL [facility] Neutrophils Percent Auto 67.3 45 - 73 % [facility] Imm Gran Pct Auto 0.5(H) 0.0 - 0.4 % [facility] Lymphocytes Percent Auto 22.7 20 - 40 % [facility] Monocytes Percent Auto 7.0 2 - 11 % [facility] Eosinophils Percent Auto 2.2 0 - 4 % [facility] Basophils Percent Auto 0.3 0 - 2 % [facility] NRBC Pct Auto 0.0 0.0 - 0.2 /100WBC [facility] Neutrophils Absolute Auto 4.3 2.0 - 8.3 x10*3/uL [facility] Imm Gran Abs Auto 0.03 0.00 - 0.03 X10*3/uL [facility] Lymphocytes Absolute Auto 1.5 1.2 - 4.9 X10*3/uL [facility] Monocytes Absolute Auto 0.5 0.1 - 1.2 X10*3/uL [facility] Eosinophils Absolute Auto 0.1 0.0 - 0.4 X10*3/uL [facility] Basophils Absolute Auto 0.0 0.0 - 0.2 X10*3/uL [facility] NRBC Abs Auto 0.000 0.0 - 0.012 X10*3/uL [facility] Blood Venous blood specimen / Unknown 06/02/2024 8:31 AM EST 06/02/2024 11:13 AM EST Beau Juarez MD LAB BLOOD ORDERABL ES Final Result Performing Organization Address [facility] Co de Phone Number [facility] [address] [place] [phone] * (ABNORMAL) Hemoglobin A1c (06/02/2024 8:31 AM EST) Hemoglobin A1c 6.4(H) <6.0 % [facility] Comment:Hemoglobin A1C Refer ence Range Adults: 4.8 - 6.0 % Non diabetic: < 6.0 % Goal: < 7.0 %Additional Action Suggested: > 8.0 %Note: Hemoglobin A1c results are invalid for patients with abnormal amounts of HbF. Blood transfusions may impact the HbA1c concentration in the patient sample. Estimated Average Glucose 137 mg/dL [facility] Comment:eAG = Estimated ave rage glucose which is %A1C expressed asaverage glucose, using the formula of the Q9K-JylhzzrOrdqiqw Glucose study (ADAG), Diabetes Care, Vol.31,#8,Nov. 2007 Blood Venous blood specimen / Unknown 06/02/2024 8:31 AM EST 06/02/2024 11:13 AM EST Beau Juarez MD LAB BLOOD ORDERABL ES Final Result Performing Organization Address [facility]/ZIP Co de Phone Number [facility] [address] [place] [phone] * (ABNORMAL) Lipid Panel, Standard (06/02/2024 8:31 AM EST) Triglycerides 289(H) <150 mg/dL [facility] Comment:Desirable Triglyceri de: less than 150 mg/dLBorderline High Triglyceride 150-199 mg/dLHigh Triglyceride: 200-499 mg/dLVery High Triglyceride: greater than or equal to 5OO mg/dL Cholesterol 162 <200 mg/dL [facility] Comment:Desirable Cholestero l: less than 200 mg/dLBorderline High Cholesterol: 200-239 mg/dLHigh Cholesterol: greater than 239 mg/dL LDL Cholesterol Calculated 71 <100 mg/dL [facility] Comment:Desirable LDL: less than 100 mg/dLNear Optimal/Above Optimal LDL: 110- 129 mg/dLBorderline High LDL: 130-159 mg/dLHigh LDL: 160-189 mg/dLVery High LDL: greater than or equal to 190 mg/dL HDL Cholesterol 34(L) >40 mg/dL [facility] Comment:Desirable HDL: great er than 40 mg/dL Note: This HDL assay may give artificially low results in patients with liver disease. Blood Venous blood specimen / Unknown 06/02/2024 8:31 AM EST 06/02/2024 11:13 AM EST us Beau Juarez MD LAB BLOOD ORDERABL ES Final Result [facility] [address] [place] [phone] * (ABNORMAL) Comprehensive Metabolic Panel (06/02/2024 8:31 AM EST) Sodium 141 135 - 145 mmol/L [facility] Potassium 4.4 3.3 - 5.1 mmol/L [facility] Chloride 109(H) 96 - 108 mmol/L [facility] Carbon Dioxide 26 22 - 29 mmol/L [facility] Anion Gap 10(L) 12 - 20 [facility] Urea Nitrogen (BUN) 12 9 - 16 mg/dL [facility] Creatinine, Serum 0.87 0.5 - 1.4 mg/dL [facility] Estimated Glomerular Filt Rate >60 [facility] Comment:Chronic Kidney Disea se: Estimated GFR < 60 mL/min/[id number] Kidney Disease: Estimated GFR < 15 mL/min/1.73m2 Glucose 147(H) 60 - 115 mg/dL [facility] Calcium 9.2 8.4 - 10.2 mg/dL [facility] Bilirubin, Total 0.9 0.0 - 1.0 mg/dL [facility] Aspartate Amino Transferase 19 5 - 37 U/L [facility] Alanine Aminotransferase 32 0 - 40 U/L [facility] Total Protein 7.5 6.5 - 8.0 g/dL [facility] Albumin Level 4.6 3.5 - 5.0 g/dL [facility] Alkaline Phosphatase 61 39 - 117 U/L [facility] Blood Venous blood specimen / Unknown 06/02/2024 8:31 AM EST 06/02/2024 11:13 AM EST Beau Juarez MD LAB BLOOD ORDERABL ES Final Result [facility] [address] [place] [phone] * HM Diabetes: Urine Protein Screening (03/11/2024 2:11 PM EST) Urine Rebeca Moreno MD HEALTH MAINTENANCE Final Result * Hepatitis C Antibody with Reflex to HCV, RNA, Quantitative, Real-Time PCR (09/19/2022 8:09 AM EDT) Hepatitis C Antibody NON-REACT YECENIA NON-REACT YECENIA [facility] Index 0.08 <1.00 [facility] Comment: HCV antibody was non-reactive. There is no laboratory evidence of HCV infection. In most cases, no further action is required. However, if recent HCV exposure is suspected, a test for HCV RNA (test code 62175) is suggested. For additional information please refer to http://education.Spreadsave/faq/CDX08h0 (This link is being provided for informational/ educational purposes only.) Blood Venous blood specimen / Unknown 09/19/2022 8:09 AM EDT 09/19/2022 8:10 AM EDT Narrative [facility] - 09/19/2022 10:53 PM EDT FASTING:YES FASTING: YES Beau Juarez MD LAB BLOOD ORDERABL ES Final Result Performing Organization Address [facility]/ZIP Co de Phone Number [facility] [address] [place] [phone] [facility] [address] [place] [phone] * HIV 1/2 ANTIGEN/ANTIBODY,FOURTH GENERATION W/RFL (07/30/2021 8:43 AM EDT) [facility] HIV-1/2 ANTIGEN AND ANTIBODIES, 4TH GENERATION W/ REFLEX NON-REACT YECENIA NON-REACT YECENIA [facility] Comment: HIV-1 antigen and HIV-1/HIV-2 [...] ? For additional information please refer to http://education.Soft Machines.[employer]M Scientific/faq/RIX292 (This link is being provided for informational/ educational purposes only.) ? The performance of this assay has not been clinically validated in patients less than 2 years old. ?? 07/30/2021 8:43 AM EDT Beau Juarez MD LAB BLOOD ORDERABL ES Final Result [facility] [address] [place] [address], from Last 3 Months or Most Recently Relevant to Health Maintenance Insurance [facility] Care Teams Forklift Wheel Loader Relationship Specialty Start Date End Date Beau Leger MD [address] [place] [phone] PCP - General Internal Medicine 05/16/20
--- OUTSIDE RECORDS SUMMARY | 2024-08-12 08:29 | XMS_ITS | Encounter Summary ---
Author Organization [employer] Address [address] [facility] 7t [place] [address] Care Team Providers Care Slab Conditioner Supervisor Name Role Phone Beau Leger MD Primary Care Prov ider Reason for Visit * Reason Onset Date Comments Nurse Triage 07/16/2023 Encounter Details Date Type Department Care Team ([facility] st Contact Info) Description 07/16/2023 Telephone [facility] MEDICINE [address] [place] [address] Beau Leger MD [address] [place] [address] Nurse Triage Social History Tobacco Use Types [...] 07/16/2023 11:24 AM EDT Triage call with [employer] [place] [id number] , Mauro Pt reports low back pain. Pt has diagnosis of chronic low back pain. Pt walked in to [facility] today and was given apt for 200pm this afternoon. Pt is informed of this apt . Pt requests to have office apt due to pain increased. Pt is advised no apts available in office today. Pt is reminded of scheduled apt this afternoon at [facility] 200pm with provider. Pt reports , [...] Description 08/12/2024 11:15 AM EDT Office Visit [facility] CHC MED & PEDS [address] [facility] [place] [address] Beau Leger MD [address] [place] [address] documented as of this encounter Visit Diagnoses Not on filedocumented in this encounter Additional Health Concerns Assessment Noted Time PHQ-9 Depression Total Score: 0 12/26/19 23 2:13 PM EDT documented as of this encounter Care Teams Slab Conditioner Supervisor Relationship Specialty Start Date End Date Beau Leger MD [address] [place] [address] PCP - General Internal Medicine 05/16/20 documented as of this encounter
--- OUTSIDE RECORDS SUMMARY | 2024-08-12 08:29 | XMS_ITS | Encounter Summary ---
Author Organization [employer] Address [address] [facility] 7t [place] [address] Care Team Providers Care Refrigerating Technician Name Role Phone Beau Leger MD Primary Care Prov ider Encounter Details Date Type Department Care Team (Late st Contact Info) Description 03/15/2024 Orders Only [facility] [address] [place] [address] ProviderRebeca MD Social History Tobacco Use Types [...] Description 08/12/2024 11:15 AM EDT Office Visit [facility] CHC MED & PEDS [address] [place] [address] Beau Leger MD [address] [place] [address] documented as of this encounter Procedures Procedure [...] documented as of this encounter Care Teams Refrigerating Technician Relationship Specialty Start Date End Date Beau Leger MD [address] [place] [address] PCP - General Internal Medicine 05/16/20 documented as of this encounter
--- OUTSIDE RECORDS SUMMARY | 2024-08-12 08:29 | XMS_ITS | Encounter Summary ---
Author Organization [employer] Address [address] [facility] 7t [place] [address] Care Team Providers Care Telephone Recorder Name Role Phone Beau Leger MD Primary Care Prov ider Encounter Details Date Type Department Care Team ([facility] Contact Info) Description 04/30/2022 Orders Only [facility] MEDICINE [address] [place] [address] Beau Leger MD [address] [place], [place] [phone] Tinea pedis of both feet (Primary Dx) [...] Description 08/12/2024 11:15 AM EDT Office Visit [facility] CHC MED & PEDS [address] [place] [address] Beau Leger MD [address] [place] [address] documented as of this encounter Visit Diagnoses Diagnosis Tinea pedis of both feet- Primary documented in this encounter Care Teams Telephone Recorder Relationship Specialty Start Date End Date Beau Leger MD [address] [place] [address] PCP - General Internal Medicine 05/16/20 documented as of this encounter
--- OUTSIDE RECORDS SUMMARY | 2024-08-12 08:29 | XMS_ITS | Encounter Summary ---
Author Organization [employer] Address 75 [facility] 7t [place] [address] Care Team Providers Care Composition Mixer Name Role Phone Beau Leger MD Primary Care Prov ider Reason for Visit * Reason Onset Date Comments Nurse Triage 08/10/2024 Encounter Details Date Type Department Care Team ([facility] st Contact Info) Description 08/10/2024 Telephone [facility] MEDICINE [address] [place], [place] [phone] Beau Leger MD [address] [place] [address] Nurse Triage Social History Tobacco Use Types [...] or new concerns. given appt with PCP oJya mcdaniel at 11:15 for exam. pt understands [...] Trouble walking The caller accepted this outcome. [phone] documented in this encounter Plan of Treatment Upcoming Encounters Date Type Department Care Team (Late st Contact Info) Description 08/12/2024 11:15 AM EDT Office Visit [facility] MED & PEDS [address] [place] [address] eBau Leger MD [address] [place] [address] documented as of this encounter Visit Diagnoses Not on filedocumented in this encounter Additional Health Concerns Assessment Noted Time PHQ-9 Depression Total Score: 0 12/26/19 23 2:13 PM EDT documented as of this encounter Care Teams Composition Mixer Relationship Specialty Start Date End Date Beau Leger MD [address] [place] [address] PCP - General Internal Medicine 05/16/20 documented as of this encounter
--- OUTSIDE RECORDS SUMMARY | 2024-08-12 08:29 | XMS_ITS | Encounter Summary ---
Author Organization [employer] Address 75 [facility] [address] [place] [address] Care Team Providers Care Hotel Services Sales Representative Name Role Phone Beau Leger MD Primary Care Prov ider Encounter Details Date Type Department Care Team (Late st Contact Info) Description 01/17/2023 [facility] Information Management [address] [place] [address] Beau Leger MD [address] [place], [place] [phone] Social History Tobacco Use Types Packs/Day Years [...] Description 08/12/2024 11:15 AM EDT Office Visit [facility] CHC MED & PEDS 505 [place], [place] [phone] Beau Leger MD [address] [place], [place] [phone] documented as of this encounter Visit Diagnoses Not on filedocumented in this encounter Additional Health Concerns Assessment Noted Time PHQ-9 Depression Total Score: 0 12/26/19 23 2:13 PM EDT documented as of this encounter Care Teams Hotel Services Sales Representative Relationship Specialty Start Date End Date Beau Leger MD [address] [place] [phone] PCP - General Internal Medicine 05/16/20 documented as of this encounter
--- OUTSIDE RECORDS SUMMARY | 2024-08-12 08:29 | XMS_ITS | Encounter Summary ---
Author Organization [employer] Address [address] [facility] [address] [place] [address] Care Team Providers Care It Compliance Analyst Name Role Phone Beau Leger MD Primary Care Prov ider Encounter Details Date Type Department Care Team (Late Contact Info) Description 05/14/2022 Telephone [facility] MED & PEDS [address] [place] [address] Beau Leger MD [address] [place] [address] Social History Tobacco Use Types Packs/Day Years [...] 11:15 AM EDT Office Visit [facility] MED & PEDS [address] [place] [address] Beau Leger MD 505 [place] [address] documented as of this encounter Visit Diagnoses Not on filedocumented in this encounter Care Teams It Compliance Analyst Relationship Specialty Start Date End Date Beau Leger MD 505 [place] [address] PCP - General Internal Medicine 05/16/20 documented as of this encounter
--- OUTSIDE RECORDS SUMMARY | 2024-08-12 08:29 | XMS_ITS | Encounter Summary ---
Author Organization [employer] Address [address] [facility] [address] 7[address] [place] [address] Care Team Providers Care Credit Control Assistant Name Role Phone Beau Leger MD Primary Care Prov ider Reason for Visit * Reason Comments Med Refill Encounter Details Date Type Department Care Team (Late st Contact Info) Description 07/31/2023 Refill [facility] [address] [place] [address] Sowmya Agosto MD [address] [place] [address] Social History Tobacco Use Types Packs/Day Years [...] Description 08/12/2024 11:15 AM EDT Office Visit [facility] MED & PEDS 505 [place] [address] Beau Leger MD [address] [place] [address] documented as of this encounter Visit Diagnoses Not on filedocumented in this encounter Additional Health Concerns Assessment Noted Time PHQ-9 Depression Total Score: 0 12/26/19 23 2:13 PM EDT documented as of this encounter Care Teams Credit Control Assistant Relationship Specialty Start Date End Date Beau Leger MD [address] [place] [address] PCP - General Internal Medicine 05/16/20 documented as of this encounter
== END 2024-08-11 08:14 | disposition home or self-care (01) ==
LOC: HO.HOSX 08:13
PROVIDERS: Visit Provider Orthopaedic Surgery
DX: S62.001D Unspecified fracture of navicular [scaphoid] bone of right wrist, subsequent encounter for fracture with routine healing (principal); S52.611D Displaced fracture of right ulna styloid process, subsequent encounter for closed fracture with routine healing
CPT/HCPCS: 29075; 73110; 99212

== ENCOUNTER 2024-08-11 10:40 | Outpatient (AMB) | payer OTHER, SELFPAY ==
[2024-08-11 11:14] VITALS: BMI 28.6
--- NOTE | 2024-08-11 11:14 | A.OFFVIS_ITS ---
Vital Signs 08/11/24 11:14 Height 5 ft 6 in Weight 177 lb BMI 28.6 Intake Visit Reasons: OV-Dist Scaphoid Fx & Ulnar Styl Avul. fx 05/11/24 Intake Note: Shilo is a 53 year old right hand dominant male who presents today for a follow up visit for his distal scaphoid fracture and small ulnar styloid avulsion fracture of unknown age of right hand, DOI: 05/11/24. States he is wearing his brace during the day with activities and work. States he feels tightness on his wrist when working on his ROM. Allergies No Known Allergies Allergy (Verified 08/11/24 11:23) HPI HPI OV-Dist Scaphoid Fx & Ulnar Styl Avul. fx 05/11/24: Details: Shilo is a 53 year old right hand dominant man who presents for a right scaphoid & ulnar styloid fractures, S/P fall, DOI: 05/11/24. This has been managed conservatively with REA Brown. The patient states that his thumb and wrist were not painful until his work related injury in April. He complains of pain in his wrist, worse with heavy lifting activities. He wears his velcro wrist splint with daily activities & at work. He has been working on gentle ROM exercises. 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 [facility] Medical History (Updated 07/23/24 @ 14:06 by FRANSISCA Pantoja) Fracture of right ulnar styloid Tenderness of anatomical snuffbox Nondisplaced fracture of right scaphoid bone Right inguinal hernia Diabetes mellitus Asthma Surgical History History of right inguinal hernia repair History of knee surgery History of shoulder surgery Family History Father No problems noted. 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 Review of Systems Const All systems reviewed & are unremarkable except as noted in HPI and below Physical Exam Vital Signs: BMI result Body Mass Index 28.6 Const General: cooperative, healthy appearing and no acute distress Orientation/consciousness: patient oriented x3 HEENT Head: Yes normocephalic and Yes atraumatic Eyes EOM: EOMs intact bilaterally Resp Effort & Inspection: normal respiratory effort and able to speak in complete sentences Cardio Jugular venous distension: no JVD Skin General skin exam: turgor normal Rashes: no rashes Neuro General: patient oriented x3 Extrem Other: Evaluation of Right Upper Extremity: The patient is alert, oriented, and in no acute distress Neuro: Median, Ulnar, Radial nerves motor and sensory intact and sensation is normal to the tips of all digits Vascular: Cap refill brisk ROM: He can make a fist and extend all his digits Skin: No lacerations or abrasions. General: No Ecchymosis. No Erythema or evidence of infection. Most tender over the snuffbox and the dorsal 2nd CMC and trapezoid non over the scaphoid tubercle No tenderness over the ulnar styloid No tenderness over the distal radius or DRUJ DRUJ stable on exam Radiographs: 3 views of the right wrist + a scaphoid view were taken and viewed by me today in clinic. On the scaphoid view and one PA view, there is a very distal non- displaced scaphoid fracture that has not yet healed. There s also a small ulnar styloid avulsion fracture with satisfactory fracture alignment. Psych Appearance: grossly normal Affect: normal affect Attitude: cooperative Assessment & Plan Assessment & Plan (1) Nondisplaced fracture of right scaphoid bone: Code(s): S62.001A - Unspecified fracture of navicular [scaphoid] bone of right wrist, initial encounter for closed fracture Category: Medical (2) Fracture of right ulnar styloid: Code(s): S52.611A - Displaced fracture of right ulna styloid process, initial encounter for closed fracture Category: Medical Plan Assessment & Plan: 1. Right distal scaphoid fracture, with evidence of delayed healing S/P fall, DOI: 05/11/24 Very distal, seen on scaphoid view managed in a cast x 1 month then a velcro wrist splint. I educated him about this condition He still has pain in the area of the not yet healed distal scaphoid fracture. 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 He was given a note for work to return on light duty on 08/11/24, with a 2lb weight limit with his RUE for the next 4 weeks. He will follow up in 4 weeks, with X-rays, 3V R wrist + scaphoid, OOP 2. Right ulnar styloid fracture S/P fall, DOI: 05/11/24 Healed on radiographs Scribed for Nasreen Beltran MD by Christian Velázquez, medical physiologist, on 08/11/24 at 11:25 AM, EST. Orders: Orders XR wrist RT w scaphoid Today M25.531 - Pain in right wrist Coding Level of Care Code Global (07099) Diagnoses Nondisplaced fracture of right scaphoid bone S62.001A Fracture of right ulnar styloid S52.611A
--- OUTSIDE RECORDS SUMMARY | 2024-08-11 12:40 | XMS_ITS | Encounter Summary ---
Author Organization [employer] Address [address] [facility] 7t [place] [address] Care Team Providers Care Trailer Technician Name Role Phone Beau Leger MD Primary Care Prov ider Encounter Details Date Type Department Care Team (Late st Contact Info) Description 03/15/2024 Orders Only [facility] [address] [place] [address] ProviderRebeca MD Social History Tobacco Use Types [...] as of this encounter Plan of Treatment Upcoming Encounters Date Type Department Care Team (Late st Contact Info) Description 08/12/2024 11:15 AM EDT Office Visit [facility] CHC MED & PEDS 505 [place] [address] Beau Leger MD 505 [place] [address] documented as of this encounter Procedures Procedure [...] documented as of this encounter Care Teams Trailer Technician Relationship Specialty Start Date End Date Beau Leger MD 505 [place] [address] PCP - General Internal Medicine 05/16/20 documented as of this encounter
--- OUTSIDE RECORDS SUMMARY | 2024-08-11 12:40 | XMS_ITS | Clinical Summary ---
Author Organization [employer] Address [address] [facility] 7t [place] [address] Care Team Providers Care Sql Database Administrator Name Role Phone Beau Leger MD Primary Care Prov ider Allergies No known active allergies Medications Lancets miscIndications:T ype 2 diabetes mellitus without complication, without long-term current use of insulin (CMS/[facility]) Use to test blood sugar 3 times daily 100 each 11 4 Active Alcohol Swabs 70 % padsIndications:T ype 2 diabetes mellitus without complication, without long-term current use of insulin (CMS/[facility]) Use to test blood sugar 3 times [...] 4 Active Blood Glucose Monitoring Suppl (FreeStyle Morris Lite) w/Device kitIndications:Ty pe 2 diabetes mellitus without complication, without long-term current use of insulin (CMS/[facility]) TEST BLOOD SUGAR THREE TIMES DAILY 1 kit 4 Active Diclofenac Sodium (Voltaren) 1 % gel Apply 1 g topically 2 times daily. 300 g 1 4 Active FREESTYLE LITE test stripIndications: Type 2 diabetes mellitus without complication, without long-term current use of insulin ([facility]) Use to test blood sugar 3 times [...] AM Beau Juarez MD [facility] Patient also brought up left anterior [...] Encounters Date Type Department Care Team Description 08/10/2024 Telephone [facility] MEDICINE [address] [place] [address] Beau Leger MD Nurse Triage from Last 3 Months Immunizations Name Administration [...] 01/28/2024 3:08 PM EDT Plan of Treatment Upcoming Encounters Date Type Department Care Team (Late st Contact Info) Description 08/12/2024 11:15 AM EDT Office Visit [facility] MED & PEDS [address] [place] [address] Beau Leger MD [address] [place] [phone] Health Maintenance Due Date Last Done Comments [...] without long-term current use of insulin (CMS/HCC) HM DIABETES: URINE PROTEIN SCREENING Routine 03/11/2024 [...] Blood Count 6.4 4.8 - 10.8 X10*3/uL [facility] Red Blood Count 5.40 4.60 - 5.80 X10*6/uL [facility] Hemoglobin 16.0 14.0 - 18.0 g/dl [facility] Hematocrit 45.5 42.0 - 52.0 % [facility] Mean Corpuscular Volume 84.3 80.0 - 98.0 fL [facility] Mean Corpuscular Hemoglobin 29.6 27.0 - 33.0 pg [facility] Mean Corpuscular HGB Conc 35.2 31.0 - 36.0 g/dl [facility] Red Cell Distribution Width 12.2 11.0 - 16.0 % [facility] Platelet Count 192 160 - 400 X10*3/uL [facility] Mean Platelet Volume 10.7 9.4 - 12.4 fL [facility] Neutrophils Percent Auto 67.3 45 - 73 % [facility] Imm Gran Pct Auto 0.5(H) 0.0 - 0.4 % [facility] Lymphocytes Percent Auto 22.7 20 - 40 % [facility] Monocytes Percent Auto 7.0 2 - 11 % [facility] Eosinophils Percent Auto 2.2 0 - 4 % [facility] Basophils Percent Auto 0.3 0 - 2 % [facility] NRBC Pct Auto 0.0 0.0 - 0.2 /100WBC [facility] Neutrophils Absolute Auto 4.3 2.0 - 8.3 x10*3/uL [facility] Imm Gran Abs Auto 0.03 0.00 - 0.03 X10*3/uL [facility] Lymphocytes Absolute Auto 1.5 1.2 - 4.9 X10*3/uL [facility] Monocytes Absolute Auto 0.5 0.1 - 1.2 X10*3/uL [facility] Eosinophils Absolute Auto 0.1 0.0 - 0.4 X10*3/uL [facility] Basophils Absolute Auto 0.0 0.0 - 0.2 X10*3/uL [facility] NRBC Abs Auto 0.000 0.0 - 0.012 X10*3/uL [facility] Blood Venous blood specimen / Unknown 06/02/2024 8:31 AM EST 06/02/2024 11:13 AM EST Beau Juarez MD LAB BLOOD ORDERABL ES Final Result Performing Organization Address [facility] Co de Phone Number [facility] [address] [place] [phone] * (ABNORMAL) Hemoglobin A1c (06/02/2024 8:31 AM EST) Hemoglobin A1c 6.4(H) <6.0 % [facility] Comment:Hemoglobin A1C Refer ence Range Adults: 4.8 - 6.0 % Non diabetic: < 6.0 % Goal: < 7.0 %Additional Action Suggested: > 8.0 %Note: Hemoglobin A1c results are invalid for patients with abnormal amounts of HbF. Blood transfusions may impact the HbA1c concentration in the patient sample. Estimated Average Glucose 137 mg/dL [facility] Comment:eAG = Estimated ave rage glucose which is %A1C expressed asaverage glucose, using the formula of the Z7G-BfaxeaoQarrjir Glucose study (ADAG), Diabetes Care, Vol.31,#8,Nov. 2007 Blood Venous blood specimen / Unknown 06/02/2024 8:31 AM EST 06/02/2024 11:13 AM EST Beau Juarez MD LAB BLOOD ORDERABL ES Final Result Performing Organization Address [facility]/ZIP Co de Phone Number [facility] [address] [place] [phone] * (ABNORMAL) Lipid Panel, Standard (06/02/2024 8:31 AM EST) Triglycerides 289(H) <150 mg/dL [facility] Comment:Desirable Triglyceri de: less than 150 mg/dLBorderline High Triglyceride 150-199 mg/dLHigh Triglyceride: 200-499 mg/dLVery High Triglyceride: greater than or equal to 5OO mg/dL Cholesterol 162 <200 mg/dL [facility] Comment:Desirable Cholestero l: less than 200 mg/dLBorderline High Cholesterol: 200-239 mg/dLHigh Cholesterol: greater than 239 mg/dL LDL Cholesterol Calculated 71 <100 mg/dL [facility] Comment:Desirable LDL: less than 100 mg/dLNear Optimal/Above Optimal LDL: 110- 129 mg/dLBorderline High LDL: 130-159 mg/dLHigh LDL: 160-189 mg/dLVery High LDL: greater than or equal to 190 mg/dL HDL Cholesterol 34(L) >40 mg/dL [facility] Comment:Desirable HDL: great er than 40 mg/dL Note: This HDL assay may give artificially low results in patients with liver disease. Blood Venous blood specimen / Unknown 06/02/2024 8:31 AM EST 06/02/2024 11:13 AM EST us Beau Juarez MD LAB BLOOD ORDERABL ES Final Result [facility] [address] [place] [phone] * (ABNORMAL) Comprehensive Metabolic Panel (06/02/2024 8:31 AM EST) Sodium 141 135 - 145 mmol/L [facility] Potassium 4.4 3.3 - 5.1 mmol/L [facility] Chloride 109(H) 96 - 108 mmol/L [facility] Carbon Dioxide 26 22 - 29 mmol/L [facility] Anion Gap 10(L) 12 - 20 [facility] Urea Nitrogen (BUN) 12 9 - 16 mg/dL [facility] Creatinine, Serum 0.87 0.5 - 1.4 mg/dL [facility] Estimated Glomerular Filt Rate >60 [facility] Comment:Chronic Kidney Disea se: Estimated GFR < 60 mL/min/1.40h4Riufnf Kidney Disease: Estimated GFR < 15 mL/min/1.73m2 Glucose 147(H) 60 - 115 mg/dL [facility] Calcium 9.2 8.4 - 10.2 mg/dL [facility] Bilirubin, Total 0.9 0.0 - 1.0 mg/dL [facility] Aspartate Amino Transferase 19 5 - 37 U/L [facility] Alanine Aminotransferase 32 0 - 40 U/L [facility] Total Protein 7.5 6.5 - 8.0 g/dL [facility] Albumin Level 4.6 3.5 - 5.0 g/dL [facility] Alkaline Phosphatase 61 39 - 117 U/L [facility] Blood Venous blood specimen / Unknown 06/02/2024 8:31 AM EST 06/02/2024 11:13 AM EST Beau Juarez MD LAB BLOOD ORDERABL ES Final Result [facility] [address] [place] [phone] * HM Diabetes: Urine Protein Screening (03/11/2024 2:11 PM EST) Urine Rebeca Moreno MD HEALTH MAINTENANCE Final Result * Hepatitis C Antibody with Reflex to HCV, RNA, Quantitative, Real-Time PCR (09/19/2022 8:09 AM EDT) Hepatitis C Antibody NON-REACT YECENIA NON-REACT YECENIA [employer] [place] [facility] Index 0.08 <1.00 [facility] Comment: HCV antibody was non-reactive. There is no laboratory evidence of HCV infection. In most cases, no further action is required. However, if recent HCV exposure is suspected, a test for HCV RNA (test code 01523) is suggested. For additional information please refer to http://education.V[employer]ch/faq/LCH89a8 (This link is being provided for informational/ educational purposes only.) Blood Venous blood specimen / Unknown 09/19/2022 8:09 AM EDT 09/19/2022 8:10 AM EDT Narrative [facility] - 09/19/2022 10:53 PM EDT FASTING:YES FASTING: YES Beau Juarez MD LAB BLOOD ORDERABL ES Final Result Performing Organization Address [facility]/ZIP Co de Phone Number [facility] [address], [place] [phone] [facility] [address] [place] [phone] * HIV 1/2 ANTIGEN/ANTIBODY,FOURTH GENERATION W/RFL (07/30/2021 8:43 AM EDT) [facility] HIV-1/2 ANTIGEN AND ANTIBODIES, 4TH GENERATION W/ REFLEX NON-REACT YECENIA NON-REACT YECENIA [facility] Comment: HIV-1 antigen and HIV-1/HIV-2 [...] ? For additional information please refer to http://education.Wallerius.[employer]/faq/QGR804 (This link is being provided for informational/ educational purposes only.) ? The performance of this assay has not been clinically validated in patients less than 2 years old. ?? 07/30/2021 8:43 AM EDT Beau Juarez MD LAB BLOOD ORDERABL ES Final Result [facility] [address] [place] [address], from Last 3 Months or Most Recently Relevant to Health Maintenance Insurance [facility] Care Teams Sql Database Administrator Relationship Specialty Start Date End Date Beau Leger MD [address] [place] [phone] PCP - General Internal Medicine 05/16/20
--- OUTSIDE RECORDS SUMMARY | 2024-08-11 12:40 | XMS_ITS | Encounter Summary ---
Author Organization [employer] Address [address] [facility] [address] 7t [place] [address] Care Team Providers Care Central Office Trouble Shooter Name Role Phone Beau Leger MD Primary Care Prov ider Reason for Visit * Reason Comments Med Refill Encounter Details Date Type Department Care Team (Late st Contact Info) Description 07/31/2023 Refill [facility] [address] [place] [address] Sowmya Agosto MD [address] [place] [address] Social History Tobacco Use Types Packs/Day Years [...] Description 08/12/2024 11:15 AM EDT Office Visit [facility] CHC MED & PEDS [address] [place] [address] Beau Leger MD [address] [place] [address] documented as of this encounter Visit Diagnoses Not on filedocumented in this encounter Additional Health Concerns Assessment Noted Time PHQ-9 Depression Total Score: 0 12/26/19 23 2:13 PM EDT documented as of this encounter Care Teams Central Office Trouble Shooter Relationship Specialty Start Date End Date Beau Leger MD [address] [place] [address] PCP - General Internal Medicine 05/16/20 documented as of this encounter
--- OUTSIDE RECORDS SUMMARY | 2024-08-11 12:40 | XMS_ITS | Encounter Summary ---
Author Organization [employer] Address 75 [facility] 7t [place] [address] Care Team Providers Care Athletic Equipment Custodian Name Role Phone Beau Leger MD Primary Care Prov ider Encounter Details Date Type Department Care Team ([facility] Contact Info) Description 05/16/2022 Orders Only [facility] MEDICINE [address] [place] [address] Beau Leger MD [address] [place] [address] Mild intermittent asthma without complication (Primary Dx) [...] Encounters Date Type Department Care Team (Late Contact Info) Description 08/12/2024 11:15 AM EDT Office Visit [facility] CHC MED & PEDS [address] [place] [address] Beau Leger MD [address] [place] [address] documented as of this encounter Visit Diagnoses Diagnosis Mild intermittent asthma without complication- Primary documented in this encounter Care Teams Athletic Equipment Custodian Relationship Specialty Start Date End Date Beau Leger MD [address] [place] [address] PCP - General Internal Medicine 05/16/20 documented as of this encounter
--- OUTSIDE RECORDS SUMMARY | 2024-08-11 12:40 | XMS_ITS | Encounter Summary ---
Author Organization [email or web address] Address 75 [facility] [address] [place] [address] Care Team Providers Care Freight Car Inspector Name Role Phone Beau Leger MD Primary Care Prov ider Encounter Details Date Type Department Care Team (Late st Contact Info) Description 01/17/2023 [facility] Health Information Management [address] [place] [address] Beau Leger MD [address] [place], [place] [phone] Social History Tobacco Use Types Packs/Day Years [...] Description 08/12/2024 11:15 AM EDT Office Visit [facility] CHC MED & PEDS [address] [place], [place] [phone] Beau Leger MD [address] [place], [place] [phone] documented as of this encounter Visit Diagnoses Not on filedocumented in this encounter Additional Health Concerns Assessment Noted Time PHQ-9 Depression Total Score: 0 12/26/19 23 2:13 PM EDT documented as of this encounter Care Teams Freight Car Inspector Relationship Specialty Start Date End Date Beau Leger MD [address] [place] [phone] PCP - General Internal Medicine 05/16/20 documented as of this encounter
--- OUTSIDE RECORDS SUMMARY | 2024-08-11 12:40 | XMS_ITS | Encounter Summary ---
Author Organization [employer] Address [address] [facility] 7t [place] [address] Care Team Providers Care Packing And Shipping Clerk Name Role Phone Beau Leger MD Primary Care Prov ider Encounter Details Date Type Department Care Team ([facility] Contact Info) Description 04/30/2022 Orders Only [facility] MEDICINE [address] [place] [address] Beau Leger MD [address] [place], [place] [phone] Tinea pedis of both feet (Primary Dx) [...] Description 08/12/2024 11:15 AM EDT Office Visit [facility] CHC MED & PEDS 505 [place] [address] Beau Leger MD [address] [place] [address] documented as of this encounter Visit Diagnoses Diagnosis Tinea pedis of both feet- Primary documented in this encounter Care Teams Packing And Shipping Clerk Relationship Specialty Start Date End Date Beau Leger MD [address] [place] [address] PCP - General Internal Medicine 05/16/20 documented as of this encounter
--- OUTSIDE RECORDS SUMMARY | 2024-08-11 12:40 | XMS_ITS | Encounter Summary ---
Author Organization [employer] Address [address] [facility] 7t [place] [address] Care Team Providers Care Brass Cleaner Name Role Phone Beau Leger MD Primary Care Prov ider Reason for Visit * Reason Onset Date Comments Nurse Triage 08/10/2024 Encounter Details Date Type Department Care Team ([facility] st Contact Info) Description 08/10/2024 Telephone [facility] MEDICINE [address] [place], [place] [phone] eBau Leger MD 505 [place] [address] Nurse Triage Social History Tobacco Use Types [...] encounter Miscellaneous Notes * Telephone Encounter - Gosia Segura RN - 08/10/2024 10:16 AM EDT called pt to triage, spoke to pt. pt states 3 days duration of right knee pain. pt states has had trouble with this knee in the past and had surgery a long time ago. pt denies known recent injury, significant swelling, redness, or inability to stand or walk. advised home care: rest, elevate, ice, heat, OTC pain reliever as needed, and call back if worsening or new concerns. given appt with PCP Joya mcdaniel at 11:15 for exam. pt understands and agrees with plan. insurance verified. Protocol Used: Knee Pain (Adult) Protocol-Based Disposition: See in Office or Video Visit within 3 Days Video visit offer not recorded Positive Triage Questions: * Moderate pain (e.g., symptoms interfere with work or school, limping) and present > 3 days * Patient wants to be seen * All higher-acuity triage questions were negative Care Advice Discussed: * Reassurance and Education - Knee Pain * Pain Medicines * Pain Medicines - Extra Notes and Warnings * Using Heat for Pain * Reasons To Call Back - You become worse * Telephone Encounter - Raven Chávez - 08/10/2024 8:48 AM EDT Symptom: Knee Pain - Not From Injury Outcome: Schedule an urgent appointment (within 1 hour) or talk to a nurse or provider soon Reason: Trouble walking The caller accepted this outcome. [phone] documented in this encounter Plan of Treatment Upcoming Encounters Date Type Department Care Team (Late st Contact Info) Description 08/12/2024 11:15 AM EDT Office Visit [facility] MED & PEDS [address] [place] [address] Beau Leger MD [address] [place] [address] documented as of this encounter Visit Diagnoses Not on filedocumented in this encounter Additional Health Concerns Assessment Noted Time PHQ-9 Depression Total Score: 0 12/26/19 23 2:13 PM EDT documented as of this encounter Care Teams Brass Cleaner Relationship Specialty Start Date End Date Beau Leger MD [address] [place] [address] PCP - General Internal Medicine 05/16/20 documented as of this encounter
--- OUTSIDE RECORDS SUMMARY | 2024-08-11 12:40 | XMS_ITS | Encounter Summary ---
Author Organization [employer] Address [address] [facility] 7[address] [place] [address] Care Team Providers Care Deli Department Manager Name Role Phone Beau Leger MD Primary Care Prov ider Encounter Details Date Type Department Care Team (Late Contact Info) Description 05/14/2022 Telephone [facility] MED & PEDS [address] [place] [address] Beau Leger MD [address] [place] [address] Social History Tobacco Use Types Packs/Day Years [...] Description 08/12/2024 11:15 AM EDT Office Visit [facility] CHC MED & PEDS 505 [place] [address] Beau Leger MD [address] [place] [address] documented as of this encounter Visit Diagnoses Not on filedocumented in this encounter Care Teams Deli Department Manager Relationship Specialty Start Date End Date Beau Leger MD [address] [place] [address] PCP - General Internal Medicine 05/16/20 documented as of this encounter
--- OUTSIDE RECORDS SUMMARY | 2024-08-11 12:40 | XMS_ITS | Encounter Summary ---
Author Organization [employer] Address [address] [facility] 7t [place] [address] Care Team Providers Care Stock Unloader Name Role Phone Beau Leger MD Primary Care Prov ider Reason for Visit * Reason Onset Date Comments Nurse Triage 07/16/2023 Encounter Details Date Type Department Care Team ([facility] st Contact Info) Description 07/16/2023 Telephone [facility] MEDICINE [address] [place] [address] Beau Leger MD [address] [place] [address] Nurse Triage Social History Tobacco Use Types [...] 07/16/2023 11:24 AM EDT Triage call with [employer] [place] [id number] , Mauro Pt reports low back pain. [...] reminded of scheduled apt this afternoon at [facility] 200pm with provider. Pt reports , thank [...] Description 08/12/2024 11:15 AM EDT Office Visit [facility] CHC MED & PEDS [address] [facility] [place] [address] Beau Leger MD 505 [place] [address] documented as of this encounter Visit Diagnoses Not on filedocumented in this encounter Additional Health Concerns Assessment Noted Time PHQ-9 Depression Total Score: 0 12/26/19 23 2:13 PM EDT documented as of this encounter Care Teams Stock Unloader Relationship Specialty Start Date End Date Beau Leger MD 505 [place] [address] PCP - General Internal Medicine 05/16/20 documented as of this encounter
== END 2024-08-11 11:55 | disposition home or self-care (01) ==
LOC: HO.HOS 10:41
PROVIDERS: Visit Provider Orthopaedic Surgery
DX: S62.001A Unspecified fracture of navicular [scaphoid] bone of right wrist, initial encounter for closed fracture (principal); S52.611A Displaced fracture of right ulna styloid process, initial encounter for closed fracture
CPT/HCPCS: 29075; 99213

== ENCOUNTER → 2024-08-11 10:42 | Outpatient (BNV) | payer OTHER, SELFPAY | PROVIDERS: Visit Provider Radiology Diagnostic Radiology | DX: M25.531 Pain in right wrist (principal) | CPT/HCPCS: 73110 ==

== ENCOUNTER 2024-08-12 11:16 | Outpatient (REF) | payer OTHER, SELFPAY ==
--- NOTE | ~2024-08-12 | XR_ITS ---
EXAMINATION: XR KNEE, RIGHT CLINICAL INFORMATION: knee pain COMPARISON: September 11, 2011 is no available on PACS. TECHNIQUE: Three views of the right knee. FINDINGS: Joint space narrowing involving mostly the medial compartment. Mild sclerosis of the articular surface of the tibial plateau. Small exostosis in the patella at the quadriceps tendon and patellar tendon insertion. No suprapatellar bursa joint effusion. No lytic or blastic lesions. XR/XR knee RT 3V IMPRESSION: Mild medial compartment osteoarthrosis. Enthesopathy, quadriceps tendon and patellar tendon. Electronically signed by: Stalin Haines MD 08/13/2024 07:22 AM EDT
--- OUTSIDE RECORDS SUMMARY | 2024-08-12 13:28 | XMS_ITS | Encounter Summary ---
Author Organization [employer] Address [address] [facility] [address] [place] [address] Care Team Providers Care Bake Room Worker Name Role Phone Beau Leger MD Primary Care Prov ider Encounter Details Date Type Department Care Team ([facility] Contact Info) Description 05/14/2022 Telephone [facility] MED & PEDS [address] [place] [address] Beau Leger MD [address] [place] [address] Social History Tobacco Use Types Packs/Day Years [...] Department Care Team (Late Contact Info) Description 08/26/2024 8:45 AM EDT Telemedicine [facility] MED & PEDS [address] [place] [address] Beau Leger MD [address] [place] [address] documented as of this encounter Visit Diagnoses Not on filedocumented in this encounter Care Teams Bake Room Worker Relationship Specialty Start Date End Date Beau Leger MD [address] [place] [address] PCP - General Internal Medicine 05/16/20 documented as of this encounter
--- OUTSIDE RECORDS SUMMARY | 2024-08-12 13:28 | XMS_ITS | Encounter Summary ---
Author Organization [employer] Address [address] [facility] 7t [place] [address] Care Team Providers Care Business Consultant Name Role Phone Beau Leger MD Primary Care Prov ider Encounter Details Date Type Department Care Team ([facility] Contact Info) Description 04/30/2022 Orders Only [facility] MEDICINE [address] [place] [address] Beau Leger MD [address] [place], [place] [phone] Tinea pedis of both feet (Primary Dx) [...] Info) Description 08/26/2024 8:45 AM EDT Telemedicine [facility] CHC MED & PEDS 505 [place], [place] [phone] Beau Leger MD [address] [place], [place] [phone] documented as of this encounter Visit Diagnoses Diagnosis Tinea pedis of both feet- Primary documented in this encounter Care Teams Business Consultant Relationship Specialty Start Date End Date Beau Leger MD [address] [place] [address] PCP - General Internal Medicine 05/16/20 documented as of this encounter
--- OUTSIDE RECORDS SUMMARY | 2024-08-12 13:28 | XMS_ITS | Encounter Summary ---
Author Organization [employer] Address [address] [facility] 7t [place] [address] Care Team Providers Care Storeroom Keeper Name Role Phone Beau Leger MD Primary Care Prov ider Encounter Details Date Type Department Care Team ([facility] Contact Info) Description 05/16/2022 Orders Only [facility] MEDICINE [address] [place] [address] Beau Leger MD [address] [place] [address] Mild intermittent asthma without complication (Primary Dx) [...] Info) Description 08/26/2024 8:45 AM EDT Telemedicine [facility] CHC MED & PEDS 505 [place] [address] Beau Leger MD [address] [place] [address] documented as of this encounter Visit Diagnoses Diagnosis Mild intermittent asthma without complication- Primary documented in this encounter Care Teams Storeroom Keeper Relationship Specialty Start Date End Date Beau Leger MD [address] [place] [address] PCP - General Internal Medicine 05/16/20 documented as of this encounter
--- OUTSIDE RECORDS SUMMARY | 2024-08-12 13:28 | XMS_ITS | Encounter Summary ---
Author Organization [employer] Address [address] [facility] [address] [place] [address] Care Team Providers Care Aircraft Launch And Recovery Technician Name Role Phone Beau Leger MD Primary Care Prov ider Reason for Visit * Reason Comments Med Refill Encounter Details Date Type Department Care Team (Late st Contact Info) Description 07/31/2023 Refill [facility] [address] [place] [address] Sowmya Agosto MD [address] [place] [address] Social History Tobacco Use Types Packs/Day Years [...] Care Team (Late st Contact Info) Description 08/26/2024 8:45 AM EDT Telemedicine [facility] MED & PEDS 505 [place] [address] Beau Leger MD 505 [place] [address] documented as of this encounter Visit Diagnoses Not on filedocumented in this encounter Additional Health Concerns Assessment Noted Time PHQ-9 Depression Total Score: 0 12/26/19 23 2:13 PM EDT documented as of this encounter Care Teams Aircraft Launch And Recovery Technician Relationship Specialty Start Date End Date Beau Leger MD 505 [place] [address] PCP - General Internal Medicine 05/16/20 documented as of this encounter
--- OUTSIDE RECORDS SUMMARY | 2024-08-12 13:28 | XMS_ITS | Encounter Summary ---
Author Organization [employer] Address [address] [facility] 7t [place] [address] Care Team Providers Care Animal Care Specialist Name Role Phone Beau Leger MD Primary Care Prov ider Reason for Visit * Reason Onset Date Comments Nurse Triage 07/16/2023 Encounter Details Date Type Department Care Team ([facility] st Contact Info) Description 07/16/2023 Telephone [facility] MEDICINE 230 [place] [address] Beau Leger MD [address] [place] [address] Nurse Triage Social History Tobacco Use Types [...] 07/16/2023 11:24 AM EDT Triage call with [employer] [place] [id number] , Mauro Pt reports low back pain. Pt has diagnosis of chronic low back pain. Pt walked in to [facility] today and was given apt for 200pm this afternoon. Pt is informed of this apt . Pt requests to have office apt due to pain increased. Pt is advised no apts available in office today. Pt is reminded of scheduled apt this afternoon at [facility] 200pm with provider. Pt reports , thank [...] Info) Description 08/26/2024 8:45 AM EDT Telemedicine [facility] CHC MED & PEDS [address] [place] [address] Beau Leger MD 505 [place] [address] documented as of this encounter Visit Diagnoses Not on filedocumented in this encounter Additional Health Concerns Assessment Noted Time PHQ-9 Depression Total Score: 0 12/26/19 23 2:13 PM EDT documented as of this encounter Care Teams Animal Care Specialist Relationship Specialty Start Date End Date Beau Leger MD [address] [place] [address] PCP - General Internal Medicine 05/16/20 documented as of this encounter
--- OUTSIDE RECORDS SUMMARY | 2024-08-12 13:28 | XMS_ITS | Encounter Summary ---
Author Organization [employer] Address [address] [facility] 7t [place] [address] Care Team Providers Care Historical Archeologist Name Role Phone Beau Leger MD Primary Care Prov ider Reason for Visit * Reason Onset Date Comments Nurse Triage 08/10/2024 Encounter Details Date Type Department Care Team ([facility] st Contact Info) Description 08/10/2024 Telephone [facility] MEDICINE 230 [place], [place] [phone] Beau Leger MD 505 [place] [address] Nurse Triage Social History Tobacco Use Types [...] Trouble walking The caller accepted this outcome. [phone] documented in this encounter Plan of Treatment Upcoming Encounters Date Type Department Care Team ([facility] st Contact Info) Description 08/26/2024 8:45 AM EDT Telemedicine [facility] MED & PEDS 505 [place] [address] Beau Leger MD 505 [place] [address] documented as of this encounter Visit Diagnoses Not on filedocumented in this encounter Additional Health Concerns Assessment Noted Time PHQ-9 Depression Total Score: 0 12/26/19 23 2:13 PM EDT documented as of this encounter Care Teams Historical Archeologist Relationship Specialty Start Date End Date Beau Leger MD 505 [place] [address] PCP - General Internal Medicine 05/16/20 documented as of this encounter
--- OUTSIDE RECORDS SUMMARY | 2024-08-12 13:28 | XMS_ITS | Clinical Summary ---
Author Organization [employer] Address [address] [facility] 7t [place] [address] Care Team Providers Care Broadcast Engineer Name Role Phone Beau Leger MD Primary Care Prov ider Allergies No known active allergies Medications Lancets miscIndications :Type 2 diabetes mellitus without complication, without long-term current use of insulin ([facility]) Use to test blood sugar 3 times daily 100 each 11 07/23/19 24 Active Alcohol Swabs 70 % padsIndications :Type 2 diabetes mellitus without complication, without long-term current use of insulin ([facility]) Use to test blood sugar 3 times daily 100 each 11 07/23/19 24 Active albuterol (Ventolin HFA) 108 (90 Base) MCG/ACT inhalerIndicati ons:Mild intermittent asthma without complication INHALE 2 PUFFS EVERY 6 HOURS IF NEEDED FOR WHEEZING. 18 g 3 01/29/20 24 Active lisinopril 5 MG tabletIndicatio ns:Blood pressure elevated without history of HTN TAKE 1 TABLET BY MOUTH EVERY DAY IN THE MORNING 90 tablet 1 01/29/20 24 Active metFORMIN (Glucophage) 1000 MG tablet Take 1 tablet (1,000 mg) by mouth with breakfast and with evening meal. TAKE 1 TABLET BY MOUTH WITH BREAKFAST AND EVENING MEALS 180 tablet 3 03/10/20 24 025 Active Blood Glucose Monitoring Suppl (FreeStyle [place] Lite) w/Device kitIndications: Type 2 diabetes mellitus without complication, without long-term current use of insulin ([facility]) TEST BLOOD SUGAR THREE TIMES DAILY 1 kit 04/08/20 24 Active predniSONE (Deltasone) 20 MG tabletIndicatio ns:Acute pain of right knee Take 2 tablets (40 mg) by mouth Once per day for 5 days. 10 tablet 08/13/19 25 025 Active traMADol (Ultram) 50 MG tabletIndicatio ns:Acute pain of right knee Take 1 tablet (50 mg) by mouth every 6 (six) hours if needed for severe pain for up to 3 days. 12 tablet 08/13/19 25 025 Active Diclofenac Sodium (Voltaren) 1 % gelIndications: Acute pain of right knee Apply 1 g topically 2 times daily. 300 g 1 08/13/19 25 Active naproxen (Naprosyn) 500 MG tabletIndicatio ns:Acute pain of right knee Take 1 tablet (500 mg) by mouth 2 times daily. 60 tablet 08/13/19 25 025 Active FREESTYLE LITE test stripIndication s:Type 2 diabetes mellitus without complication, without long-term current use of insulin ([facility]) Use to test blood sugar 3 times daily 100 each 11 07/23/19 24 025 diclofenac (Cataflam) 50 MG tablet Take 1 tablet (50 mg) by mouth 3 times daily. 90 tablet 04/08/20 24 025 Discontinued Diclofenac Sodium (Voltaren) 1 % gel Apply 1 g topically 2 times daily. 300 g 1 04/08/20 24 025 Discontinued(Re order (will not trigger notification to Pharmacy)) Active Problems Problem Noted Date Diagnosed Date [...] Center 03/02/2024 8:45 AM Beau Juarez MD [facility] Patient also brought up left anterior [...] Encounters Date Type Department Care Team Description 08/12/2024 11:15 AM EDT Office Visit [facility] MED & PEDS [address] [place] [address] Beau Leger MD Acute pain of right knee (Primary Dx) 08/12/2024 Travel 08/10/2024 Telephone [facility] MEDICINE 230 [place] [address] Beau Leger MD Nurse Triage [...] Sign Reading Time Taken Comments Blood Pressure 118/84 08/12/2024 10:39 AM EDT Pulse 84 08/12/2024 10:39 AM EDT Temperature 36.7 ??C (98.1 ??F) 08/12/2024 10:39 AM E DT Respiratory Rate 20 08/12/2024 10:39 AM EDT Oxygen Saturation 98% 08/12/2024 10:39 AM EDT Inhaled Oxygen Concentration - - Weight 81.8 kg (180 lb 6.4 oz) 08/12/2024 10:39 AM EDT Height 173 cm (5' 8.11 ) 08/12/2024 10:39 AM EDT Body Mass Index 27.34 08/12/2024 10:39 AM EDT Plan of Treatment Upcoming Encounters Date Type Department Care Team (Late st Contact Info) Description 08/26/2024 8:45 AM EDT Telemedicine [facility] CHC MED & PEDS [address] [place] [address] Beau Leger MD 505 [place] [address] Health Maintenance Due Date Last Done Comments [...] complication, without long-term current use of insulin ([facility]) COMPREHENSIVE METABOLIC PANEL Routine 06/02/2024 8:31 AM [...] Blood Count 6.4 4.8 - 10.8 X10*3/uL [facility] Red Blood Count 5.40 4.60 - 5.80 X10*6/uL [facility] Hemoglobin 16.0 14.0 - 18.0 g/dl [facility] Hematocrit 45.5 42.0 - 52.0 % [facility] Mean Corpuscular Volume 84.3 80.0 - 98.0 fL [facility] Mean Corpuscular Hemoglobin 29.6 27.0 - 33.0 pg [facility] Mean Corpuscular HGB Conc 35.2 31.0 - 36.0 g/dl [facility] Red Cell Distribution Width 12.2 11.0 - 16.0 % [facility] Platelet Count 192 160 - 400 X10*3/uL [facility] Mean Platelet Volume 10.7 9.4 - 12.4 fL [facility] Neutrophils Percent Auto 67.3 45 - 73 % [facility] Imm Gran Pct Auto 0.5(H) 0.0 - 0.4 % [facility] Lymphocytes Percent Auto 22.7 20 - 40 % [facility] Monocytes Percent Auto 7.0 2 - 11 % [facility] Eosinophils Percent Auto 2.2 0 - 4 % [facility] Basophils Percent Auto 0.3 0 - 2 % [facility] NRBC Pct Auto 0.0 0.0 - 0.2 /100WBC [facility] Neutrophils Absolute Auto 4.3 2.0 - 8.3 x10*3/uL [facility] Imm Gran Abs Auto 0.03 0.00 - 0.03 X10*3/uL [facility] Lymphocytes Absolute Auto 1.5 1.2 - 4.9 X10*3/uL [facility] Monocytes Absolute Auto 0.5 0.1 - 1.2 X10*3/uL [facility] Eosinophils Absolute Auto 0.1 0.0 - 0.4 X10*3/uL [facility] Basophils Absolute Auto 0.0 0.0 - 0.2 X10*3/uL [facility] NRBC Abs Auto 0.000 0.0 - 0.012 X10*3/uL [facility] Blood Venous blood specimen / Unknown 06/02/2024 8:31 AM EST 06/02/2024 11:13 AM EST us Beau Juarez MD LAB BLOOD ORDERABL ES Final Result [facility] [address] [place], [place] [phone] * (ABNORMAL) Hemoglobin A1c (06/02/2024 8:31 AM EST) Hemoglobin A1c 6.4(H) <6.0 % [facility] Comment:Hemoglobin A1C Refer ence Range Adults: 4.8 - 6.0 % Non diabetic: < 6.0 % Goal: < 7.0 %Additional Action Suggested: > 8.0 %Note: Hemoglobin A1c results are invalid for patients with abnormal amounts of HbF. Blood transfusions may impact the HbA1c concentration in the patient sample. Estimated Average Glucose 137 mg/dL [facility] Comment:eAG = Estimated ave rage glucose which is %A1C expressed asaverage glucose, using the formula of the [id number] Glucose study (ADAG), Diabetes Care, Vol.31,#8,2007 Blood Venous blood specimen / Unknown 06/02/2024 8:31 AM EST 06/02/2024 11:13 AM EST us Beau Juarez MD LAB BLOOD ORDERABL ES Final Result [facility] [address] [place] [address] [phone] * (ABNORMAL) Lipid Panel, Standard (06/02/2024 8:31 AM EST) Triglycerides 289(H) <150 mg/dL [facility] Comment:Desirable Triglyceri de: less than 150 mg/dLBorderline High Triglyceride 150-199 mg/dLHigh Triglyceride: 200-499 mg/dLVery High Triglyceride: greater than or equal to 5OO mg/dL Cholesterol 162 <200 mg/dL [facility] Comment:Desirable Cholestero l: less than 200 mg/dLBorderline High Cholesterol: 200-239 mg/dLHigh Cholesterol: greater than 239 mg/dL LDL Cholesterol Calculated 71 <100 mg/dL [facility] Comment:Desirable LDL: less than 100 mg/dLNear Optimal/Above Optimal LDL: 110- 129 mg/dLBorderline High LDL: 130-159 mg/dLHigh LDL: 160-189 mg/dLVery High LDL: greater than or equal to 190 mg/dL HDL Cholesterol 34(L) >40 mg/dL [facility] Comment:Desirable HDL: great er than 40 mg/dL Note: This HDL assay may give artificially low results in patients with liver disease. Blood Venous blood specimen / Unknown 06/02/2024 8:31 AM EST 06/02/2024 11:13 AM EST us Beau Juarez MD LAB BLOOD ORDERABL ES Final Result Performing Organization Address City/[facility]/ZIP Co de Phone Number [facility] [address] [place] [address] [phone] * (ABNORMAL) Comprehensive Metabolic Panel (06/02/2024 8:31 AM EST) Sodium 141 135 - 145 mmol/L [facility] Potassium 4.4 3.3 - 5.1 mmol/L [facility] Chloride 109(H) 96 - 108 mmol/L [facility] Carbon Dioxide 26 22 - 29 mmol/L [facility] Anion Gap 10(L) 12 - 20 [facility] Urea Nitrogen (BUN) 12 9 - 16 mg/dL [facility] Creatinine, Serum 0.87 0.5 - 1.4 mg/dL [facility] Estimated Glomerular Filt Rate >60 [facility] Comment:Chronic Kidney Disea se: Estimated GFR < 60 mL/min/[id number] Kidney Disease: Estimated GFR < 15 mL/min/1.73m2 Glucose 147(H) 60 - 115 mg/dL [facility] Calcium 9.2 8.4 - 10.2 mg/dL [facility] Bilirubin, Total 0.9 0.0 - 1.0 mg/dL [facility] Aspartate Amino Transferase 19 5 - 37 U/L [facility] Alanine Aminotransferase 32 0 - 40 U/L [facility] Total Protein 7.5 6.5 - 8.0 g/dL [facility] Albumin Level 4.6 3.5 - 5.0 g/dL [facility] Alkaline Phosphatase 61 39 - 117 U/L [facility] Blood Venous blood specimen / Unknown 06/02/2024 8:31 AM EST 06/02/2024 11:13 AM EST Beau Juarez MD LAB BLOOD ORDERABL ES Final Result [facility] [address] [place] [address] [phone] * HM Diabetes: Urine Protein Screening (03/11/2024 2:11 PM EST) Urine Rebeca Provider HEALTH MAINTENANCE Final Result * Hepatitis C Antibody with Reflex to HCV, RNA, Quantitative, Real-Time PCR (09/19/2022 8:09 AM EDT) Hepatitis C Antibody NON-REACT YECENIA NON-REACT YECENIA [facility] [place] [employer] Index 0.08 <1.00 unrival Comment: HCV antibody was non-reactive. There is no laboratory evidence of HCV infection. In most cases, no further action is required. However, if recent HCV exposure is suspected, a test for HCV RNA (test code 72334) is suggested. For additional information please refer to http://education.[employer]/faq/FVV58i7 (This link is being provided for informational/ educational purposes only.) Blood Venous blood specimen / Unknown 09/19/2022 8:09 AM EDT 09/19/2022 8:10 AM EDT Narrative [facility] - 09/19/2022 10:53 PM EDT FASTING:YES FASTING: YES Beau Juarez MD LAB BLOOD ORDERABL ES Final Result [facility] [address], [place] [address] [facility] [place] [facility] [address] [place] [address] * HIV 1/2 ANTIGEN/ANTIBODY,FOURTH GENERATION W/RFL (07/30/2021 [...] ? For additional information please refer to http://education.[employer]/faq/ECE365 (This link is being provided for informational/ educational purposes only.) ? The performance of this assay has not been clinically validated in patients less than 2 years old. ?? 07/30/2021 8:43 AM EDT Beau Juarez MD LAB BLOOD ORDERABL ES Final Result Performing Organization Address City/State/[facility] Co pr Phone Number [facility] [address] from Last 3 Months or Most Recently Relevant to Health Maintenance Insurance [facility] Care Teams Broadcast Engineer Relationship Specialty Start Date End Date Beau Leger MD [address] [place] [id number] PCP - General Internal Medicine 05/16/20
--- OUTSIDE RECORDS SUMMARY | 2024-08-12 13:28 | XMS_ITS | Encounter Summary ---
Author Organization [employer] Address [address] [facility] [address] [place] [address] Care Team Providers Care Pure Culture Operator Name Role Phone Beau Leger MD Primary Care Prov ider Encounter Details Date Type Department Care Team (Late st Contact Info) Description 01/17/2023 [facility] Health Information Management [address] [place] [address] Beau Leger MD [address] [place], [place] [phone] Social History Tobacco Use Types Packs/Day Years [...] Info) Description 08/26/2024 8:45 AM EDT Telemedicine [facility] CH[facility] MED & PEDS [address] [place], [place] [phone] Beau Leger MD [address] [place], [place] [phone] documented as of this encounter Visit Diagnoses Not on filedocumented in this encounter Additional Health Concerns Assessment Noted Time PHQ-9 Depression Total Score: 0 12/26/19 23 2:13 PM EDT documented as of this encounter Care Teams Pure Culture Operator Relationship Specialty Start Date End Date Beau Leger MD [address] [place] [id number] PCP - General Internal Medicine 05/16/20 documented as of this encounter
--- OUTSIDE RECORDS SUMMARY | 2024-08-12 13:28 | XMS_ITS | Encounter Summary ---
Author Organization [employer] Address [address] [facility] [address] 7[address] [place] [address] Care Team Providers Care Resource Specialist Teacher Name Role Phone Beau Leger MD Primary Care Prov ider Encounter Details Date Type Department Care Team (Latest Contact Info) Description 08/12/2024 Travel Social History Tobacco Use Types Packs/Day Years [...] Info) Description 08/26/2024 8:45 AM EDT Telemedicine [facility] MED & PEDS [address] [place] [address] Beau Leger MD [address] [place] [address] documented as of this encounter Visit Diagnoses Not on filedocumented in this encounter Additional Health Concerns Assessment Noted Time PHQ-9 Depression Total Score: 0 12/26/19 23 2:13 PM EDT documented as of this encounter Care Teams Resource Specialist Teacher Relationship Specialty Start Date End Date Beau Leger MD [address] [place] [address] PCP - General Internal Medicine 05/16/20 documented as of this encounter
--- OUTSIDE RECORDS SUMMARY | 2024-08-12 13:28 | XMS_ITS | Encounter Summary ---
Author Organization [employer] Address [address] [facility] [facility] [address] [place] [address] Care Team Providers Care Copy Reader Name Role Phone Beau Leger MD Primary Care Prov ider Encounter Details Date Type Department Care Team ([facility] st Contact Info) Description 08/12/2024 11:15 AM EDT Office Visit [facility] CHC MED & PEDS [address] [place], [place] [phone] Beau Leger MD [address] [place] [address] Acute pain of right knee (Primary Dx) Social History Tobacco Use Types [...] AM EDT documented as of this encounter Last Filed Vital Signs Vital Sign Reading [...] Mass Index 27.34 08/12/2024 10:39 AM EDT documented in this encounter Progress Notes * Beau Juarez MD - 08/12/2024 11:15 AM EDT Subjective Patient ID: Shilo Rees is a 53 y.o. male who presents for No chief complaint on file.. Knee Pain The pain is present in the right knee. Pertinent negatives include no inability to bear weight, loss of motion, loss of sensation, muscle weakness, numbness or tingling. Review of Systems Neurological: Negative for tingling and numbness. Objective Physical Exam Constitutional: Appearance: Normal appearance. Cardiovascular: Rate and Rhythm: Normal rate. Heart sounds: No murmur heard. Pulmonary: Effort: Pulmonary effort is normal. No respiratory distress. Breath sounds: No stridor. No wheezing or rhonchi. Musculoskeletal: General: Tenderness present. No swelling, deformity or signs of injury. Right lower leg: No edema. Left lower leg: No edema. Neurological: General: No focal deficit present. Mental Status: He is alert and oriented to person, place, and time. Psychiatric: Mood and Affect: Mood normal. Behavior: Behavior normal. Assessment/Plan Problem List Items Addressed This Visit None Visit Diagnoses Acute pain of right knee - Primary No recent trauma, will provide tramdol for pain >6/10, prednisone for 5 days, will place xray order, if not improving in 2 weeks will consider ortho evaluation Relevant Medications predniSONE (Deltasone) 20 MG tablet traMADol (Ultram) 50 MG tablet Diclofenac Sodium (Voltaren) 1 % gel naproxen (Naprosyn) 500 MG tablet Other Relevant Orders XR Knee 3 Views Right documented in this encounter Plan of Treatment Upcoming Encounters Date Type Department Care Team (Late st Contact Info) Description 08/26/2024 8:45 AM EDT Telemedicine [facility] MED & PEDS [address] [place] [address] Beau Leger MD [address] [place] [address] Scheduled Orders Name Type Priority Associated Diagnoses Orde r Schedule XR Knee 3 Views Right Imaging Routine Acute pain of right knee Expected: 08/12/2024, Expires: 08/12/2025 documented as of this encounter Visit Diagnoses Diagnosis Acute pain of right knee- Primary documented in this encounter Additional Health Concerns Assessment Noted Time PHQ-9 Depression Total Score: 0 12/26/19 23 2:13 PM EDT documented as of this encounter Care Teams Copy Reader Relationship Specialty Start Date End Date Beau Leger MD [address] [place] [address] PCP - General Internal Medicine 05/16/20 documented as of this encounter
--- OUTSIDE RECORDS SUMMARY | 2024-08-12 13:28 | XMS_ITS | Encounter Summary ---
Author Organization [employer] Address [address] [facility] 7t [place] [address] Care Team Providers Care Crime Scene Examiner Name Role Phone Beau Leger MD Primary Care Prov ider Encounter Details Date Type Department Care Team (Late st Contact Info) Description 03/15/2024 Orders Only [facility] [address] [place] [address] ProviderRebeca MD Social History Tobacco Use Types [...] Info) Description 08/26/2024 8:45 AM EDT Telemedicine [facility] CHC MED & PEDS [address] [place] [address] Beau Leger MD [address] [place] [address] documented as of this encounter Procedures Procedure [...] documented as of this encounter Care Teams Crime Scene Examiner Relationship Specialty Start Date End Date Beau Leger MD [address] [place] [address] PCP - General Internal Medicine 05/16/20 documented as of this encounter
== END 2024-08-12 11:17 | disposition home or self-care (01) ==
LOC: HO.XRAY 11:16
PROVIDERS: PCP Internal Medicine; Visit Provider Internal Medicine
DX: M25.561 Pain in right knee (principal)
CPT/HCPCS: 73562

== ENCOUNTER → 2024-08-12 11:19 | Outpatient (BNV) | payer OTHER, SELFPAY | PROVIDERS: PCP Internal Medicine; Visit Provider Radiology Diagnostic Radiology | DX: M17.11 Unilateral primary osteoarthritis, right knee (principal) | CPT/HCPCS: 73562 ==

== ENCOUNTER 2024-08-19 12:50 | Outpatient (AMB) | payer OTHER, SELFPAY ==
--- NOTE | 2024-08-19 13:01 | A.OFFVIS_ITS ---
Intake Visit Reasons: OV-Dist Scaphoid Fx & Ulnar Styl Avul. fx 05/11/24 Intake Note: Shilo is a 53 year old right hand dominant male who presents today for a follow up visit for his distal scaphoid fracture and small ulnar styloid avulsion fracture of unknown age of right hand, DOI: 05/11/24. States he's cast was rubbing on his thumb and he had to cut it back. Allergies No Known Allergies Allergy (Verified 08/19/24 13:12) HPI HPI OV-Dist Scaphoid Fx & Ulnar Styl Avul. fx 05/11/24: Details: Patient presents to the office today for a cast change of the right hand. He was recently seen on 08/11/[address] Beltran who placed him into a short-arm thumb spica cast to be worn for the next 4 weeks. He called our office this morning stating that he was having rubbing on the IP digit of the thumb causing irritation and pain. [facility] Medical History (Updated 07/23/24 @ 14:06 by FRANSISCA Pantoja) Fracture of right ulnar styloid Tenderness of anatomical snuffbox Nondisplaced fracture of right scaphoid bone Right inguinal hernia Diabetes mellitus Asthma Surgical History History of right inguinal hernia repair History of knee surgery History of shoulder surgery Family History Father No problems noted. 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 He does complain of pain at the IP joint of the thumb. Office Procedures Casting/Splints 45789-Zwvg/Wrist Cast Application Procedure code (CPT) selection complete Assessment & Plan Assessment & Plan (1) Nondisplaced fracture of right scaphoid bone: Code(s): S62.001A - Unspecified fracture of navicular [scaphoid] bone of right wrist, initial encounter for closed fracture Category: Medical (2) Tenderness of anatomical snuffbox: Code(s): M79.643 - Pain in unspecified hand Category: Medical (3) Fracture of right ulnar styloid: Code(s): S52.611A - Displaced fracture of right ulna styloid process, initial encounter for closed fracture Category: Medical Plan Patient presents to the office today for a cast change of the right hand. He wa s recently seen on 08/11/[address] Beltran who placed him into a short-arm thumb spica cast to be worn for the next 4 weeks. He called our office this morning stating that he was having rubbing on the IP digit of the thumb causing irritation and pain. On the office today, the patient was placed back into a short thumb spica cast. Patient was educated on cast maintenance and instructed to keep the cast clean, dry, and intact. However, should the cast become wet, dirty, damaged, or there are any concerns please call the office immediately for a cast change. He will follow-up at his normally scheduled follow-up appointment, sooner if needed. Coding Level of Care Code Est Pt Level 3 (43775) Diagnoses Nondisplaced fracture of right scaphoid bone S62.001A Tenderness of anatomical snuffbox M79.643 Fracture of right ulnar styloid S52.611A CPT Codes Casting - CPT: 09173-Tpmj/Wrist Cast Application ([id number])
== END 2024-08-19 13:34 | disposition home or self-care (01) ==
LOC: HO.HOS 12:50
PROVIDERS: PCP Internal Medicine; Visit Provider Physician Assistant
DX: S62.001A Unspecified fracture of navicular [scaphoid] bone of right wrist, initial encounter for closed fracture (principal); S52.611A Displaced fracture of right ulna styloid process, initial encounter for closed fracture
CPT/HCPCS: 29085; 99213

== ENCOUNTER → 2024-08-19 12:50 | Outpatient (BNVA) | payer OTHER, SELFPAY | PROVIDERS: PCP Internal Medicine; Visit Provider Physician Assistant | DX: S62.001D Unspecified fracture of navicular [scaphoid] bone of right wrist, subsequent encounter for fracture with routine healing (principal); S52.611D Displaced fracture of right ulna styloid process, subsequent encounter for closed fracture with routine healing; M79.643 Pain in unspecified hand | CPT/HCPCS: 29085; 99212 ==

== ENCOUNTER 2024-08-31 08:39 | Outpatient (AMB) | payer OTHER, SELFPAY ==
[2024-08-31 08:51] VITALS: BMI 28.6
--- NOTE | 2024-08-31 08:51 | A.OFFVIS_ITS ---
Vital Signs 08/31/24 08:51 Height 5 ft 6 in Weight 177 lb BMI 28.6 Intake Visit Reasons: OV-Dist Scaphoid Fx & Ulnar Styl Avul. fx 05/11/24 Intake Note: Shilo is a 53 year old right hand dominant male who presents today for a follow up visit for his distal scaphoid fracture and small ulnar styloid avulsion fracture of unknown age of right hand, DOI: 05/11/24 cast change. State a little water went into his cast. Allergies No Known Allergies Allergy (Verified 08/31/24 08:54) HPI HPI OV-Dist Scaphoid Fx & Ulnar Styl Avul. fx 05/11/24: Details: Shilo is a 53 year old right hand dominant man who presents for a cast change of his right scaphoid & ulnar styloid fractures, S/P fall, DOI: 05/11/24. He was last seen for a cast change by REA Ortiz on 08/19/24. He says he put his hand underwater without thinking this morning. He still complains of pain in his wrist, worse with heavy lifting activities. He has been working on gentle ROM exercises. He is supposed to be lifting nothing heavier than a cell phone. 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 [facility] Medical History (Updated 07/23/24 @ 14:06 by FRANSISCA Pantoja) Fracture of right ulnar styloid Tenderness of anatomical snuffbox Nondisplaced fracture of right scaphoid bone Right inguinal hernia Diabetes mellitus Asthma Surgical History History of right inguinal hernia repair History of knee surgery History of shoulder surgery Family History Father No problems noted. 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 Review of Systems Const All systems reviewed & are unremarkable except as noted in HPI and below Physical Exam Vital Signs: BMI result Body Mass Index 28.6 Const General: no acute distress and alert Orientation/consciousness: patient oriented x3 Neuro General: patient oriented x3 Extrem Other: Evaluation of Right Upper Extremity: The patient is alert, oriented, and in no acute distress Neuro: Median, Ulnar, Radial nerves motor and sensory intact and sensation is normal to the tips of all digits Vascular: Cap refill brisk ROM: He can make a fist and extend all his digits He still has some tenderness over the snuffbox Tender over the scaphoid tubercle No tenderness over the ulnar styloid No tenderness over the distal radius or DRUJ DRUJ stable on exam Radiographs: 3 views of the right wrist + a scaphoid view from 08/11/24 were reviewed by me today in clinic. On the scaphoid view and one PA view, there is a very distal non-displaced scaphoid fracture that has not yet healed. There s also a small ulnar styloid avulsion fracture with satisfactory fracture alignment. Psych Appearance: grossly normal Affect: normal affect Attitude: cooperative Assessment & Plan Assessment & Plan (1) Nondisplaced fracture of right scaphoid bone: Code(s): S62.001A - Unspecified fracture of navicular [scaphoid] bone of right wrist, initial encounter for closed fracture Category: Medical (2) Fracture of right ulnar styloid: Code(s): S52.611A - Displaced fracture of right ulna styloid process, initial encounter for closed fracture Category: Medical Plan Assessment & Plan: 1. Right distal scaphoid fracture, with evidence of delayed healing S/P fall, DOI: 05/11/24 Very distal, seen on scaphoid view Managed in a cast x 1 month then a velcro wrist splint. 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 He was returned to work on light duty, effective 08/11/24, with a 2lb weight limit with his RUE for the next 4 weeks. He will follow up in 3 weeks with X-rays, 3V R wrist + scaphoid, OOP. Consider CT vs MRI at his next appointment if he still has pain. MRI may be more helpful in identifying where his pain is coming from. 2. Right ulnar styloid fracture S/P fall, DOI: 05/11/24 Healed on radiographs Scribed for Nasreen Beltran MD by Christian Velázquez, medical front desk specialist, on 08/31/24 at 9:15 AM, EST. Coding Level of Care Code Est Pt Level 3 (83951) Diagnoses Nondisplaced fracture of right scaphoid bone S62.001A Fracture of right ulnar styloid S52.611A
== END 2024-08-31 09:45 | disposition home or self-care (01) ==
LOC: HO.HOS 08:40
PROVIDERS: PCP Internal Medicine; Visit Provider Orthopaedic Surgery
DX: S62.001A Unspecified fracture of navicular [scaphoid] bone of right wrist, initial encounter for closed fracture (principal); S52.611A Displaced fracture of right ulna styloid process, initial encounter for closed fracture
CPT/HCPCS: 99213

== ENCOUNTER → 2024-08-31 08:39 | Outpatient (BNVA) | payer OTHER, SELFPAY | PROVIDERS: PCP Internal Medicine; Visit Provider Orthopaedic Surgery | DX: S62.001D Unspecified fracture of navicular [scaphoid] bone of right wrist, subsequent encounter for fracture with routine healing (principal); S52.611D Displaced fracture of right ulna styloid process, subsequent encounter for closed fracture with routine healing | CPT/HCPCS: 99212 ==

== ENCOUNTER 2024-09-21 08:59 | Outpatient (REF) | payer OTHER, SELFPAY ==
--- NOTE | ~2024-09-21 | XR_ITS ---
EXAMINATION: XR WRIST NAVICULAR RIGHT HISTORY: M25.531 - Pain in right wrist COMPARISON: Comparison is made with the prior examination dated 08/11/2024. FINDINGS: Four views of the right wrist including a scaphoid view are submitted. Osseous mineralization is normal. Again seen is a triangular osseous density adjacent to the distal scaphoid which could represent a fracture fragment. A tiny density adjacent to the ulnar styloid is also unchanged. The joint spaces are preserved. The soft tissues are unremarkable. XR/XR wrist RT w scaphoid IMPRESSION: Stable triangular density adjacent to the distal scaphoid which could represent a fracture fragment. Electronically signed by: Jaren Duran MD 09/21/2024 10:06 AM EDT
--- OUTSIDE RECORDS SUMMARY | 2024-09-22 09:24 | XMS_ITS | Encounter Summary ---
Author Organization [employer] Address [address] [place] [address] Care Team Providers Care Hotel Baggage Handler Name Role Phone Beau Leger MD Primary Care Prov ider Reason for Visit * Reason Comments Med Refill Encounter Details Date Type Department Care Team ([facility] st Contact Info) Description 07/31/2023 Refill [facility] [address] [place] [address] Sowmya Agosto MD [address] [place] [address] Social History Tobacco Use Types Packs/Day Years [...] as of this encounter Care Teams Hotel Baggage Handler Relationship Specialty Start Date End Date Beau Leger MD [address] [place] [id number] PCP - General Internal Medicine 05/16/20 documented as of this encounter
== END 2024-09-21 09:00 | disposition home or self-care (01) ==
LOC: HO.HOSX 08:59
PROVIDERS: Visit Provider Orthopaedic Surgery
DX: M25.531 Pain in right wrist (principal); S62.001A Unspecified fracture of navicular [scaphoid] bone of right wrist, initial encounter for closed fracture; S52.611A Displaced fracture of right ulna styloid process, initial encounter for closed fracture
CPT/HCPCS: 73110; 99212

== ENCOUNTER 2024-09-21 09:00 | Outpatient (AMB) | payer OTHER, SELFPAY ==
[2024-09-21 10:03] VITALS: BMI 28.6
--- NOTE | 2024-09-21 10:03 | MHC.OFFVIS ---
Vital Signs 09/21/24 10:03 Height 5 ft 6 in Weight 177 lb BMI 28.6 Intake Visit Reasons: OV-Dist Scaphoid Fx & Ulnar Styl Avul. fx 05/11/24 Intake Note: Shilo is a 53 year old right hand dominant male who presents today for a follow up visit for his distal scaphoid fracture and small ulnar styloid avulsion fracture of unknown age of right hand, DOI: 05/11/24. At his last visit patient was placed in a thumb spica cast. Cast removed today and xrays updated in office. States he is having pain on his thumb and around his CMC joint. Allergies No Known Allergies Allergy (Verified 08/31/24 08:54) HPI HPI OV-Dist Scaphoid Fx & Ulnar Styl Avul. fx 05/11/24: Details: Shilo is a 53 year old right hand dominant man who presents for follow up of his right scaphoid & ulnar styloid fractures, S/P fall, DOI: 05/11/24. He was treated in a cast for 1 month and then splinted. He was then placed back in a cast because of persistent pain. He complains of pain primarily in his thumb, around the CMC joint. He has been working on gentle ROM exercises. 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 [facility] Medical History (Updated 07/23/24 @ 14:06 by FRANSISCA Pantoja) Fracture of right ulnar styloid Tenderness of anatomical snuffbox Nondisplaced fracture of right scaphoid bone Right inguinal hernia Diabetes mellitus Asthma Surgical History History of right inguinal hernia repair History of knee surgery History of shoulder surgery Family History Father No problems noted. 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 Physical Exam Vital Signs: BMI result Body Mass Index 28.6 Const General: no acute distress and alert Orientation/consciousness: patient oriented x3 Neuro General: patient oriented x3 Extrem Other: Evaluation of Right Upper Extremity: The patient is alert, oriented, and in no acute distress Neuro: Median, Ulnar, Radial nerves motor and sensory intact Vascular: Cap refill brisk ROM: He can make a fist and extend all his digits He demonstrated wrist pain with ROM, but this may be secondary to being in a cast Tender over the basal joint Tender over the 1st dorsal compartment Tender overt the distal aspect of the distal radius He still has tenderness over the snuffbox Tender over the scaphoid tubercle Pain over the carpal tunnel when he makes a tight fist, but no numbness. No other pain in the wrist when he makes a fist. No tenderness over the ulnar styloid No tenderness over the distal ulna or DRUJ DRUJ stable on exam Radiographs: 3 views of the right wrist + a scaphoid view from 08/11/24 were reviewed by me today in clinic. On the scaphoid view and one PA view, there is a very distal non-displaced scaphoid fracture with some evidence of bony healing. There s also a small ulnar styloid avulsion fracture with satisfactory fracture alignment. Psych Appearance: grossly normal Affect: normal affect Attitude: cooperative Assessment & Plan Assessment & Plan (1) Nondisplaced fracture of right scaphoid bone: Code(s): S62.001A - Unspecified fracture of navicular [scaphoid] bone of right wrist, initial encounter for closed fracture Category: Medical (2) Fracture of right ulnar styloid: Code(s): S52.611A - Displaced fracture of right ulna styloid process, initial encounter for closed fracture Category: Medical Plan Assessment & Plan: 1. Right distal scaphoid fracture S/P fall, DOI: 05/11/24 Very distal, seen on scaphoid view Managed in a cast x 1 month then a velcro wrist splint. Subsequently recasted because of pain. I educated him about this condition I placed him in a Velcro wrist splint to wear with daytime activities. He may remove it during the day to work on wrist and hand range of motion exercises. He continues to work in maintenance. He notes that he has been working all along, and had to work to pay his bills. He will continue on light duty, with a 2lb weight limit with his RUE for the next 4 weeks. I ordered an MRI to assess his right wrist to evaluate his wrist pain. He will follow up when completed for review with a 30 minute appointment 2. Right ulnar styloid fracture S/P fall, DOI: 05/11/24 Healed on radiographs, nontender Scribed for Nasreen Beltran MD by Christian Velázquez, medical office administrator, on 09/21/24 at 10:15 AM, EST. Orders: Orders MR wrist RT wo con Today M25.531 - Pain in right wrist XR wrist RT w scaphoid Today M25.531 - Pain in right wrist Coding Level of Care Code Est Pt Level 4 (81509) Diagnoses Nondisplaced fracture of right scaphoid bone S62.001A Fracture of right ulnar styloid S52.611A
== END 2024-09-21 10:33 | disposition home or self-care (01) ==
LOC: HO.HOS 09:00
PROVIDERS: PCP Internal Medicine; Visit Provider Orthopaedic Surgery
DX: S62.001A Unspecified fracture of navicular [scaphoid] bone of right wrist, initial encounter for closed fracture (principal); S52.611A Displaced fracture of right ulna styloid process, initial encounter for closed fracture
CPT/HCPCS: 99214

== ENCOUNTER → 2024-09-21 09:04 | Outpatient (BNV) | payer OTHER, SELFPAY | PROVIDERS: Visit Provider Radiology Diagnostic Radiology | DX: M25.531 Pain in right wrist (principal) | CPT/HCPCS: 73110 ==

== ENCOUNTER → 2024-10-10 07:06 | Outpatient (BNV) | payer OTHER, SELFPAY | PROVIDERS: Visit Provider Radiology Diagnostic Radiology | DX: M25.531 Pain in right wrist (principal) | CPT/HCPCS: 73221 ==

== ENCOUNTER 2024-10-10 07:12 | Outpatient (REF) | payer OTHER, SELFPAY ==
--- NOTE | ~2024-10-10 | MR_ITS ---
CLINICAL HISTORY: M25.531 - Pain in right wrist --- Additional Notes or Special Instructions: Patient with scaphoid tubercle fracture date of injury 05 11 2024. Patient MR right wrist without gadolinium Comparison: 09/21/2024 radiograph Findings: No acute fracture. Mild dorsal translation of the ulna relative to the distal radius at level of the distal radioulnar joint may be positional or due to subluxation. Correlate clinically. 3 mm well corticated fracture fragment adjacent to the dorsal aspect of the distal ulnar corner of the scaphoid with pseudarthrosis (mild edematous osseous changes are seen on both sides of the pseudarthrosis). Small proximal carpal, as well as 1st and 5th carpometacarpal joint effusions. Partial-thickness tears of the dorsal radioulnar ligament as well as the proximal foveal attachment of the TFC. Mild extensor carpi ulnaris tenosynovitis just distal to the ulnar groove. No evidence of ECU subluxation. Rest of the extensor as well as flexor tendons are unremarkable. Guyon's canal and carpal tunnel are unremarkable. Grade 1 sprain/mild synovitis, at/in the vicinity of the dorsal extrinsic carpal ligaments. Scapholunate and lunotriquetral ligaments are intact. IMPRESSION: 3 mm well corticated chronic fracture fragment adjacent to the dorsal aspect of the distal ulnar corner of the scaphoid with pseudarthrosis (mild edematous osseous changes are seen on both sides of the pseudarthrosis), due to fracture nonunion. Partial-thickness tears of the dorsal radioulnar ligament as well as the proximal foveal attachment of the TFC. Mild extensor carpi ulnaris tenosynovitis just distal to the ulnar groove. Mild dorsal translation of the ulna relative to the distal radius at level of the distal radioulnar joint may be positional or due to subluxation. Correlate clinically. Grade 1 sprain/mild synovitis, at/in the vicinity of the dorsal extrinsic carpal ligaments. This document has been electronically signed by: Stacey Koenig MD on 10/11/2024 13:48:40
--- OUTSIDE RECORDS SUMMARY | 2024-10-10 07:15 | XMS_ITS | Encounter Summary ---
Author Organization [employer] Address [address] [facility] [address] [place] [address] Care Team Providers Care Graduate Intern Name Role Phone Beau Leger MD Primary Care Prov ider Reason for Visit * Reason Comments Med Refill Encounter Details Date Type Department Care Team ([facility] st Contact Info) Description 07/31/2023 Refill [facility] [address] [place] [address] Sowmya Agosto MD [address] [place] [address] Social History Tobacco Use Types Packs/Day Years [...] documented as of this encounter Care Teams Graduate Intern Relationship Specialty Start Date End Date Beau Leger MD [address] [place] [id number] PCP - General Internal Medicine 05/16/20 documented as of this encounter
== END 2024-10-10 07:13 | disposition home or self-care (01) ==
LOC: HO.MRI 07:12
PROVIDERS: Visit Provider Orthopaedic Surgery
DX: M25.531 Pain in right wrist (principal)
CPT/HCPCS: 73221

== ENCOUNTER 2024-10-29 07:02 | Outpatient (REF) | payer OTHER, SELFPAY ==
--- NOTE | ~2024-10-29 | XR_ITS ---
EXAMINATION: XR KNEES ANTEROPOSTERIOR STANDING BILATERAL HISTORY: M25.569 - Pain in unspecified knee COMPARISON: Correlation is made with plain films of the right knee dated 08/12/2024. FINDINGS: Standing AP views of both knees are submitted. The joint spaces are maintained. No fracture is seen on the single AP views. Evaluation is otherwise limited. XR/XR knee standing BI IMPRESSION: No abnormality is seen on standing AP views of both knees. Electronically signed by: Jaren Duran MD 10/29/2024 02:50 PM EDT
== END 2024-10-29 07:03 | disposition home or self-care (01) ==
LOC: HO.HOSX 07:02
PROVIDERS: Visit Provider Physician Assistant
DX: M17.11 Unilateral primary osteoarthritis, right knee (principal)
CPT/HCPCS: 73565; 99212

== ENCOUNTER 2024-10-29 14:24 | Outpatient (AMB) | payer OTHER, SELFPAY ==
--- OUTSIDE RECORDS SUMMARY | 2024-10-29 14:27 | XMS_ITS | Encounter Summary ---
Author Organization [employer] Address [address] [place] [address] Care Team Providers Care Bolt Man Name Role Phone Beau Leger MD Primary Care Prov ider Reason for Visit * Reason Comments Med Refill Encounter Details Date Type Department Care Team ([facility] st Contact Info) Description 07/31/2023 Refill [facility] [address] [place] [address] Sowmya Agosto MD [address] [place] [address] Social History Tobacco Use Types Packs/Day Years [...] documented as of this encounter Care Teams Bolt Man Relationship Specialty Start Date End Date Beau Leger MD [address] [place] [id number] PCP - General Internal Medicine 05/16/20 documented as of this encounter
[2024-10-29 14:31] VITALS: BMI 28.6
--- NOTE | 2024-10-29 14:31 | A.OFFVIS_ITS ---
Vital Signs 10/29/24 14:31 Height 5 ft 6 in Weight 177 lb BMI 28.6 Intake Visit Reasons: New Prob - right knee OA Intake Note: Shilo is a 53 year old male who presents today for a evaluation of his right knee OA. Patient reports that he was referred by his PCP. Patient reports ongoing pain for about 2 years. He mentions that his pain is on the patella. His pain is worse when he is walking, bending, and going up and down the stairs. Patient finds it helpful when he is resting, taking Tylenol/ibuprofen/Motrin, and icing/elevating. He states that he does not like physical therapy, and does not want a injection. IMPRESSION: Mild medial compartment osteoarthrosis. Enthesopathy, quadriceps tendon and patellar tendon. Environmental Attorney Required: No Allergies No Known Allergies Allergy (Verified 10/29/24 14:36) HPI HPI New Prob - right knee OA: Details: Mr. Dickson Rees this is a 53-year-old male who presents to the office today for evaluation of right knee pain. 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 He reports that the pain has been present for the past 2 years or so. It has been gradually getting worse over time. His right knee occasionally will give out on him. He reports that the pain is mainly located on the anterior aspect of the knee over the patella. He has tried ibuprofen with mild relief. He is not looking for any cortisone injection while in the office today. [facility] Medical History (Updated 10/29/24 @ 14:48 by Diana Zuleta PA-C) Fracture of right ulnar styloid Tenderness of anatomical snuffbox Nondisplaced fracture of right scaphoid bone Right inguinal hernia Diabetes mellitus Asthma Surgical History History of right inguinal hernia repair History of knee surgery History of shoulder surgery Family History Father No problems noted. 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 Full flexion and extension. There is significant crepitus with range of motion. Slight tenderness to palpation medial joint line. Retropatellar tenderness. Pain with patellar grind. NVI. Assessment & Plan Assessment & Plan (1) Patellofemoral arthritis of right knee: Code(s): M17.11 - Unilateral primary osteoarthritis, right knee Category: Medical Plan Mr. Dickson Rees this is a 53-year-old male who presents to the office today for evaluation of right knee pain. 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 He reports that the pain has been present for the past 2 years or so. It has been gradually getting worse over time. His right knee occasionally will give out on him. He reports that the pain is mainly located on the anterior aspect of the knee over the patella. He has tried ibuprofen with mild relief. He is not looking for any cortisone injection while in the office today. While the office today, we discussed the role of conservative treatment including but not limited to knee bracing, physical therapy, cortisone injection, gel injection, nerve ablation and surgical intervention. The patient at this time is not interested in any invasive procedures including cortisone or gel injection. I offered the patient a Genumed knee brace in which the patient is amenable to try. I also discussed the role of physical therapy however the patient has declined at this time stating that he is attended physical therapy in the past and it has made his pain worse. Unclear if he attended physical therapy for this body part or for a secondary one. Lastly, I did send a prescription for Celebrex 200 mg to be taken p.o. b.i.d. for 30 days. He is currently taking ibuprofen which only helped some. He will discontinue taking the ibuprofen and transition to Celebrex. He will follow up PRN, sooner if needed. X-rays of the bilateral knees which were obtained while in the office today and were reviewed by me, Diana Zuleta PA-C, revealed mild medial compartment osteoarthritis as well as patellofemoral arthritis. Orders: Orders XR knee standing BI Today M25.569 - Pain in unspecified knee Medications: New celecoxib (Celebrex) 200 mg PO BID 60 caps 0RF 30 days Coding Level of Care Code New Pt Level 4 (70828) Diagnoses Patellofemoral arthritis of right knee M17.11
== END 2024-10-29 15:19 | disposition home or self-care (01) ==
LOC: HO.HOS 14:24
PROVIDERS: PCP Internal Medicine; Visit Provider Physician Assistant
DX: M17.11 Unilateral primary osteoarthritis, right knee (principal)
CPT/HCPCS: 99214

== ENCOUNTER → 2024-10-29 14:26 | Outpatient (BNV) | payer OTHER, SELFPAY | PROVIDERS: Visit Provider Radiology Diagnostic Radiology | DX: M25.561 Pain in right knee (principal); M25.562 Pain in left knee | CPT/HCPCS: 73565 ==

== ENCOUNTER 2024-11-02 15:12 | Outpatient (AMB) | payer OTHER, SELFPAY ==
[2024-11-02 15:45] VITALS: BMI 28.6
--- NOTE | 2024-11-02 15:45 | MHC.OFFVIS ---
Vital Signs 11/02/24 15:45 Height 5 ft 6 in Weight 177 lb BMI 28.6 Intake Visit Reasons: OV-Dist Scaphoid Fx & Ulnar Styl Avul. fx 05/11/24 Intake Note: Shilo is a 53 year old right hand dominant male who presents today for a follow up visit for his distal scaphoid fracture and small ulnar styloid avulsion fracture of unknown age of right hand, DOI: 05/11/24. At his last visit he was given a velcro brace and a MRI was ordered to assess his right wrist to evaluate his wrist pain. He is here for his MRI results. Allergies No Known Allergies Allergy (Verified 11/02/24 15:51) HPI HPI OV-Dist Scaphoid Fx & Ulnar Styl Avul. fx 05/11/24: Details: Shilo is a 53 year old right hand dominant Belgian speaking man who presents for follow up of his right scaphoid & ulnar styloid fractures, S/P fall, DOI: 05/11/24. He was treated in a cast for 1 month and then splinted. The ulna went on to heal well. He was then placed back in a cast because of persistent pain which was thought to be related to the small fragment at the distal scaphoid.. He is here for an MRI review He complains of pain primarily in his thumb, around the CMC joint. 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 He has been working on gentle ROM exercises. 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 He denies smoking or vaping. [facility] Medical History (Updated 11/02/24 @ 16:57 by Christian Velázquez) Fracture of right ulnar styloid Tenderness of anatomical snuffbox Nondisplaced fracture of right scaphoid bone Right inguinal hernia Diabetes mellitus Asthma Surgical History History of right inguinal hernia repair History of knee surgery History of shoulder surgery Family History Father No problems noted. 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 Patient localizes most pain over volar base of basal joint, just distal & radial to scaphoid tubercle, patient rates this at 3/10 Neg CMC grind No tenderness to the dorsal thumb No symptoms of pain in ulnar or dorsal aspects of his wrist No tenderness over the 1st dorsal compartment Negative Hiren test on the right FCR tendon NTTP No pain with resistance at the FCR tendon No tenderness over the ulnar styloid No tenderness over the distal ulna or DRUJ DRUJ stable on exam Right wrist MRI: Findings: No acute fracture. Mild dorsal translation of the ulna relative to the distal radius at level of the distal radioulnar joint may be positional or due to subluxation. Correlate clinically. 3 mm well corticated fracture fragment adjacent to the dorsal aspect of the distal ulnar corner of the scaphoid with pseudarthrosis (mild edematous osseous changes are seen on both sides of the pseudarthrosis). Small proximal carpal, as well as 1st and 5th carpometacarpal joint effusions. Partial-thickness tears of the dorsal radioulnar ligament as well as the proximal foveal attachment of the TFC. Mild extensor carpi ulnaris tenosynovitis just distal to the ulnar groove. No evidence of ECU subluxation. Rest of the extensor as well as flexor tendons are unremarkable. Guyon's canal and carpal tunnel are unremarkable. Grade 1 sprain/mild synovitis, at/in the vicinity of the dorsal extrinsic carpal ligaments. Scapholunate and lunotriquetral ligaments are intact. IMPRESSION: 3 mm well corticated chronic fracture fragment adjacent to the dorsal aspect of the distal ulnar corner of the scaphoid with pseudarthrosis (mild edematous osseous changes are seen on both sides of the pseudarthrosis), due to fracture nonunion. Partial-thickness tears of the dorsal radioulnar ligament as well as the proximal foveal attachment of the TFC. Mild extensor carpi ulnaris tenosynovitis just distal to the ulnar groove. Mild dorsal translation of the ulna relative to the distal radius at level of the distal radioulnar joint may be positional or due to subluxation. Correlate clinically. Grade 1 sprain/mild synovitis, at/in the vicinity of the dorsal extrinsic carpal ligaments. This document has been electronically signed by: Stacey Koenig MD on 10/11/2024 Dr. Beltran addendum to the MRI information above: Please note that this patient has no ulnar-sided wrist pain, and no pain or tenderness in the dorsal aspect of the wrist. He is not tender over the dorsal aspect of the STT joint or the snuffbox. Essentially I think that this 3 mm corticated fragment is not symptomatic, and I believe his distal ulna fracture went on to heal well with no ulnar-sided pathology. I reviewed this MRI with the patient and discussed at length. Importantly, I do not see anything that needs operative attention. Most of his discomfort appeared to be, at this visit, the volar aspect of the basal joint. Radiographs: 3 views of the right wrist + a scaphoid view from 09/21/24 were reviewed by me today in clinic. On the scaphoid view and one PA view, there is a very distal non-displaced scaphoid fracture with some evidence of bony healing. There s also a small ulnar styloid avulsion fracture with satisfactory fracture alignment. Psych Appearance: grossly normal Affect: normal affect Attitude: cooperative Assessment & Plan Assessment & Plan (1) Right wrist pain: Code(s): M25.531 - Pain in right wrist Category: Medical (2) Pain of right thumb: Code(s): M79.644 - Pain in right finger(s) Category: Medical Plan Assessment & Plan: 1. Right distal scaphoid fracture S/P fall, DOI: 05/11/24 Healed, not symptomatic ~3mm well corticated chronic fragment, not causing any symptoms 2. Pain in volar radial aspect of wrist, today appears to actually be at the volar radial basal joint Nothing on MRI today is represented by this area of pain intermittent with certain activities This is his chief complaint today I educated him about this condition & reviewed his MRI with him The MRI did not show anything that needs treatment at this time, operative or otherwise. 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 He notes that he has been working all along, and had to work to pay his bills. I do not think he is going to cause any harm in continuing to work, he should however limit or avoid any activities which cause him pain. If his symptoms persist or worsen, he can follow up to discuss a possible basal joint injection 3. Right ulnar styloid fracture S/P fall, DOI: 05/11/24 Healed on radiographs, nontender Please note that greater than 60 minutes was spent with this patient going over the history, evaluating the patient and radiographs, formulating possible treatment options, discussing them with the patient, and documenting the visit. Scribed for Nasreen Beltran MD by Christian Velázquez, medical staff specialist, on 11/02/24 at 4:10 PM, EST. Coding Level of Care Code Est Pt Level 5 (62409) Diagnoses Right wrist pain M25.531 Pain of right thumb M79.644
--- OUTSIDE RECORDS SUMMARY | 2024-11-02 16:23 | XMS_ITS | Encounter Summary ---
Author Organization [employer] Address [address] [place] [address] Care Team Providers Care Assembly Member Name Role Phone Beau Leger MD Primary Care Prov ider Reason for Visit * Reason Comments Med Refill Encounter Details Date Type Department Care Team ([facility] st Contact Info) Description 07/31/2023 Refill [facility] [address] [place] [address] Sowmya Agosto MD [address] [place] [address] Social History Tobacco Use Types Packs/Day Years [...] documented as of this encounter Care Teams Assembly Member Relationship Specialty Start Date End Date Beau Leger MD [address] [place] [id number] PCP - General Internal Medicine 05/16/20 documented as of this encounter
== END 2024-11-02 16:53 | disposition home or self-care (01) ==
PROVIDERS: Visit Provider Orthopaedic Surgery
DX: M25.531 Pain in right wrist (principal); M79.644 Pain in right finger(s)
CPT/HCPCS: 99215

== ENCOUNTER → 2024-11-02 15:12 | Outpatient (BNVA) | payer OTHER, SELFPAY | PROVIDERS: Visit Provider Orthopaedic Surgery | DX: M25.531 Pain in right wrist (principal); M79.644 Pain in right finger(s) | CPT/HCPCS: 99212 ==